=== PATIENT | male | born 1950 | race Caucasian/White ===

== ENCOUNTER 2016-12-12 10:04 | Day surgery (SDC) | payer OTHER ==
[2016-12-10 15:13] VITALS: BMI 34.7
--- NOTE | 2016-12-12 15:14 | OP ---
Operative Note - Note: Operative Date: 12/12/16 Pre-Operative Diagnosis: cephalic migration of stent Operation: r ureteroscopy and stent removal left and due to periureteral swelling placed another new l jj stent insertion and l retrograde Post-Operative Diagnosis: Same as Pre-op Surgeon: Hussein Garcia Anesthesia: General Specimens Removed: jj stent Estimated Blood Loss (mls): 0 Drains & Tubes with Location: jj stent 24 cm l ureteral Operative Report Dictated: Yes
[2016-12-12] MEDS ORDERED: HYDROmorphone HCL CARPU-JECT 2 MG/1 ML DISP.SYRIN IM ONE (15:26)
--- NOTE | 2016-12-12 15:32 | PN ---
Progress Note (short form) - Note Progress Note: stable post op had cephalic migration of stent vss afebrile abdomen soft nt pt may be d/c when alert continue antibiotics and pain management pt to f/u in office on thursday at 3 pm
[2016-12-12] MEDS ORDERED: MIDAZOLAM HCL 2 MG/2 ML SINGLE DOSE VIAL ONE ×2 (16:45→17:19)
[2016-12-12] MEDS ORDERED: GENTAMICIN SO4 80 MG/2 ML VIAL ONE (17:02)
[2016-12-12] MEDS ORDERED: GENTAMICIN SO4 80 MG/2 ML VIAL IVPB ONE (17:03)
[2016-12-12] MEDS ORDERED: ceFAZolin SODIUM 1 GM VIAL IVPB ONE (17:06)
--- NOTE | 2016-12-12 17:31 | HP ---
DATE OF ADMISSION: DICTATION DATE: 12/12/2016 HISTORY OF PRESENT ILLNESS: Patient is a 66-year-old male with a history of benign prostatic hypertrophy, urinary retention and bilateral hydroureteronephrosis. Patient has bilateral Double J stents placed in October 27, 2016, was diagnosed with neurogenic bladder and is now on permanent Griffith drainage. He has got history of high blood pressure, diabetes, hyperlipidemia, and coronary artery disease. He has undergone a right BKA, right inguinal hernia repair, and cholecystectomy. He underwent cystoscopy and stent removal in the office. The left stent was removed without difficulty. The right one had cephalically migrated to the lower ureter. Ultrasound revealed a right hydronephrosis with the stent in the lower portion of the lower third of the ureter. The patient's BUN and creatinine are 15 over 1.04. PHYSICAL EXAMINATION: Presently his abdomen is soft. There is some right CVA tenderness. Genitalia are atraumatic. His prostate is 2+ and firm. Phallus is circumcised, meatus is adequate. He is status post a right BKA. There is no clubbing or edema in the left lower extremity. IMPRESSION: Migrated right ureteral stent. PLAN: Cystourethroscopy, right retrograde pyelogram, right ureteroscopic retrieval of stent, and possible insertion of a 2nd stent for 48 hours to prevent ureteral edema. Heide [id number]
[2016-12-12] MEDS ORDERED: PROMETHAZINE HCL 25 MG/1 ML VIAL IVPUSH PRN (17:55)
[2016-12-12] MEDS ORDERED: ONDANSETRON 4 MG/2 ML VIAL IVPUSH PRN (17:55)
[2016-12-12] MEDS ORDERED: oxyCODONE HCL 5 MG TABLET PO PRN (17:55)
[2016-12-12] MEDS ORDERED: PATIENT'S OWN MEDICATION (NON-FORMULARY) (Ferrous Sulfate [Ferrous Sulfate] 325 MG) PO SCH (22:00)
[2016-12-12] MEDS ORDERED: INSULIN DETEMIR 100 UNITS/ML MDV SQ SCH (22:00)
[2016-12-12] MEDS ORDERED: PATIENT'S OWN MEDICATION (NON-FORMULARY) (Insulin Nph Hum/Reg Insulin Hm [Humulin 70-30 Vi SQ SCH (22:00)
[2016-12-12] MEDS ORDERED: PATIENT'S OWN MEDICATION (NON-FORMULARY) (Insulin Glargine,Hum.Rec.Anlog 70 UNITS) SQ SCH (22:00)
[2016-12-12] MEDS ORDERED: MELATONIN 50 MG PO SCH (22:00)
[2016-12-12] MEDS: FERROUS SO4 325 MG TABLET (FP) PO SCH (22:31)
[2016-12-12] MEDS: METOPROLOL SUCCINATE 25 MG TAB.SR.24H (FP) PO SCH (22:31)
[2016-12-13 06:50] VITALS: BP 130/76; PULSE 88; TEMP 97.5
[2016-12-13] MEDS ORDERED: INSULIN (NOVOLOG MIX 70/30) 100 UNITS/ML MDV SQ SCH (07:00)
[2016-12-13] MEDS ORDERED: sitaGLIPtin PHOSPHATE 100 MG TABLET (FP) PO SCH (07:00)
[2016-12-13] MEDS ORDERED: glipiZIDE 5 MG TABLET (FP) PO SCH (07:00)
[2016-12-13] MEDS: METOPROLOL SUCCINATE 25 MG TAB.SR.24H (FP) PO SCH (09:07)
[2016-12-13] MEDS: FERROUS SO4 325 MG TABLET (FP) PO SCH (09:07)
[2016-12-13] MEDS ORDERED: FERROUS SO4 325 MG TABLET (FP) PO SCH (10:00)
[2016-12-13] MEDS ORDERED: LEVOFLOXACIN 500 MG TABLET (FP) PO SCH (10:00)
[2016-12-13] MEDS ORDERED: TAMSULOSIN HCL 0.4 MG CAP.ER.24H (FP) PO SCH (10:00)
[2016-12-13] MEDS ORDERED: FENOFIBRIC ACID 135 MG CAP PO SCH (10:00)
[2016-12-13] MEDS ORDERED: EZETIMIBE 10 MG TABLET (FP) PO SCH (10:00)
[2016-12-13] MEDS ORDERED: LISINOPRIL 20 MG TABLET (FP) PO SCH (10:00)
[2016-12-13] MEDS ORDERED: PATIENT'S OWN MEDICATION (NON-FORMULARY) (Fenofibrate [Lofibra] 160 MG) PO SCH (10:00)
[2016-12-13] MEDS ORDERED: PATIENT'S OWN MEDICATION (NON-FORMULARY) (Linagliptin [Tradjenta] 5 MG) PO SCH (10:00)
[2016-12-13] MEDS ORDERED: ASPIRIN COATED 81 MG TABLET.EC PO SCH (10:00)
[2016-12-13] MEDS ORDERED: amLODIPine BESYLATE 10 MG TABLET (FP) PO SCH (10:00)
== END 2016-12-13 09:45 | disposition home or self-care (01) ==
LOC: JASUSAT 10:04 → JASU-SURG 10:04 → J5S 19:31 → JASUSAT 12-13 09:45
PROVIDERS: ATTEND Urology
PROC: 0TP98DZ Removal of Intraluminal Device from Ureter, Via Natural or Artificial Opening Endoscopic (ICD-10-PCS; principal; 2016-12-12 12:00)
PROC: BT1FZZZ Fluoroscopy of Left Kidney, Ureter and Bladder (ICD-10-PCS; 2016-12-12 12:00)
DX: T83.89XA Other specified complication of genitourinary prosthetic devices, implants and grafts, initial encounter (principal); N36.8 Other specified disorders of urethra
CPT/HCPCS: 76000-TC; 94010; 94760

== ENCOUNTER 2017-01-20 11:38 | Inpatient (IN) | payer OTHER ==
[2017-01-20] MEDS ORDERED: SODIUM CHLORIDE 1,000 ML IV STA ×2 (12:11→18:21)
[2017-01-20 13:33] LABS: URINE APPEARANCE SLCLOUDY; URINE BILIRUBIN NEGATIVE (NEGATIVE); URINE COLOR YELLOW; URINE GLUCOSE (UA) 1+ (NEGATIVE); URINE KETONE NEGATIVE (NEGATIVE); URINE NITRITE NEGATIVE (NEGATIVE); URINE UROBILINOGEN NEGATIVE E.U./dl (0.2-1.0)
[2017-01-20 13:50] LABS: URINE BLOOD 3+ (NEGATIVE); URINE LEUK ESTERASE 2+ (NEGATIVE); URINE PROTEIN 3+ (NEGATIVE)
[2017-01-20 13:51] LABS: URINE MUCUS RARE; URINE RBC 436 /hpf (0-3); URINE WBC 163 /hpf (3-5)
[2017-01-20 14:03] LABS: BASOPHIL 0.2 % (0-2.0); MCH 28.4 pg (25.7-33.7); MEAN CELL VOLUME 83.6 fl (80-96); MEAN PLT VOLUME 7.8 fl (7.5-11.1); NEUTROPHILS 76.8 % (42.8-82.8); PLATELET COUNT 206 K/MM3 (134-434); RDW 15.8 % (11.9-15.9); WHITE BLOOD COUNT 7.3 K/mm3 (4.0-10.0)
--- NOTE | 2017-01-20 14:12 | PDOC ---
History of Present Illness - General Stated Complaint: Catheter Problem Time Seen by Provider: 01/20/17 11:50 History Source: Patient Exam Limitations: No Limitations - History of Present Illness Travel History: No Initial Comments: 01/20/17 14:08 66-year-old male presents to the ED for replacement of his Stoll catheter tube. Patient states has a Stoll catheter in secondary to urinary retention and enlarged prostate but yesterday had somewhat sugar. Pressure with minimal drainage into the Stoll catheter bag that he took it upon himself to pull the catheter out without deflating the balloon completely and now is only dribbling into the diaper. It is followed by Dr. Hussein Garcia who sees him for the above and has done stents 2 along with a suprapubic tube that patient states fell out. Patient currently has no discomfort at the urethral opening and suprapubic area. Timing/Duration: reports: resolved prior to arrival Quality: reports: mild, fullness Abdominal Pain Onset Location: reports: suprapubic Pain Radiation: reports: no radiation Aggravating Factors: improves with: None Alleviating Factors: improves with: None Past History - Travel Traveled outside of the country in the last 30 days: No Close contact w/someone who was outside of country & ill: No - Past Medical History Allergies/Adverse Reactions: Allergies Allergy/AdvReac Type Severity Reaction Status Date / Time No Known Drug Allergies Allergy Verified 01/20/17 12:17 Home Medications: Ambulatory Orders Lisinopril [Prinivil] 40 mg PO DAILY 04/09/15 Aspirin [Ecotrin] 81 mg PO DAILY 05/11/15 Insulin Glargine,Hum.rec.anlog [Lantus Solostar PEN -] 70 units SQ DAILY Insulin NPH Hum/Reg Insulin Hm [Humulin 70-30 Vial] 15 unit SQ BID 07/22/16 Amlodipine Besylate 10 mg PO DAILY 12/10/16 Ezetimibe [Zetia] 10 mg PO DAILY 12/10/16 Fenofibrate [Lofibra] 160 mg PO DAILY 12/10/16 Glipizide [Glucotrol] 5 mg PO DAILY 12/10/16 Linagliptin [Tradjenta] 5 mg PO DAILY 12/10/16 Tamsulosin HCl 0.8 mg PO DAILY 12/10/16 Metoprolol Tartrate [Lopressor -] 25 mg PO BID 01/20/17 Anemia: No Asthma: No Cancer: No Cardiac Disorders: No CVA: No COPD: No CHF: No Dementia: No Diabetes: Yes GI Disorders: Yes (INCONTINENCE, ENLARGED PROSTATE? INDWELLING CATHETER) Disorders: No HTN: Yes Hypercholesterolemia: Yes Liver Disease: No Seizures: No Thyroid Disease: No Other medical history: indwelling stoll cath for chronic urinary retention - Surgical History Abdominal Surgery: Yes (HERNIA) Appendectomy: No Cardiac Surgery: No Cholecystectomy: Yes Lung Surgery: No Neurologic Surgery: No Orthopedic Surgery: No - Psycho/Social/Smoking Cessation Hx Suicidal Ideation: No Smoking History: Current every day smoker Have you smoked in the past 12 months: No Number of Cigarettes Smoked Daily: 20 Cigars Per Day: 0 Information on smoking cessation initiated: No 'Breaking Loose' booklet given: 10/10/16 Hx Alcohol Use: No Drug/Substance Use Hx: No Substance Use Type: None Hx Substance Use Treatment: No Patient Lives Alone: Yes Lives with/in: lives alone Review of Systems - Review of Systems Able to Perform ROS?: Yes Constitutional: No: Symptoms Reported HEENTM: No: Symptoms Reported Respiratory: No: Symptoms reported Cardiac (ROS): No: Symptoms Reported ABD/GI: Yes: Abdominal cramping : Yes: Other Musculoskeletal: No: Symptoms Reported Integumentary: No: Symptoms Reported Neurological: No: Symptoms reported Endocrine: No: Symptoms Reported Hematologic/Lymphatic: No: Symptoms Reported *Physical Exam - Vital Signs Last Vital Signs Temp Pulse Resp BP Pulse Ox 99.4 F 114 H 18 124/70 94 L 01/20/17 11:45 01/20/17 11:45 01/20/17 11:45 01/20/17 11:45 01/20/17 11:45 - Physical Exam General Appearance: Yes: Nourished, Appropriately Dressed. No: Apparent Distress HEENT: positive: EOMI, KAYE. negative: Pale Conjunctivae Neck: positive: Supple Respiratory/Chest: positive: Lungs Clear, Normal Breath Sounds. negative: Respiratory Distress, Accessory Muscle Use Cardiovascular: positive: Regular Rhythm, Tachycardia. negative: Murmur Gastrointestinal/Abdominal: positive: Soft. negative: Tenderness Male Genitalia: positive: normal genitalia (noted urethral opening with healed erosion likelt due to nonsecured stoll catheter) Extremity: positive: Normal Capillary Refill. negative: Pedal Edema Integumentary: positive: Normal Color, Warm, Moist Neurologic: positive: Motor Strength 5/5 Heart Score/ECG Review - ECG Impressions Tachycardia: Sinus (rate 114. First-degree AV block.) ED Treatment Course - LABORATORY CBC & Chemistry Diagram: 01/20/17 13:30 01/20/17 13:30 - ADDITIONAL ORDERS Additional order review: Laboratory Results 01/20/17 13:10 Urine Color Yellow Urine Appearance Slcloudy Urine pH 7.0 Urine Protein 3+ H Urine Glucose (UA) 1+ H Urine Ketones Negative Urine Blood 3+ H Urine Nitrite Negative Urine Bilirubin Negative Urine Urobilinogen Negative Ur Leukocyte Esterase 2+ H Urine RBC 436 Urine WBC 163 Urine Mucus Rare - RADIOLOGY Radiology Studies Ordered: Category Date Time Status CHEST X-RAY PORTABLE* [RAD] Stat Radiology 01/20/17 12:11 Completed - Medications Given in the ED: ED Medications Discontinued Medications Generic Name Dose Route Start Last Admin Trade Name Freq PRN Reason Stop Dose Admin Sodium Chloride 1,000 mls @ 1,000 mls/hr 01/20/17 12:11 01/20/17 14:05 Normal Saline - IV 01/20/17 13:10 1,000 mls/hr ASDIR STA Administration Medical Decision Making - Medical Decision Making 01/20/17 14:19 Patient here with request to replace Stoll catheter tube since he had pulled that out yesterday after feeling suprapubic pressure with minimal urine output. Patient is followed by Dr. Hussein Garcia who did not contacted decided come to the ER here. Patient denies bleeding at the urethral opening, suprapubic pressure presently and is making urine into his diaper but minimally. Patient on exam had no suprapubic tenderness, signs of urethral trauma, but was found to be tachycardic and states he felt chills 2 days ago. Patient ordered for septic workup. Stoll catheter #20 replaced with noted chary urine without sedimentation. 01/20/17 16:49 Laboratory Tests 01/20/17 01/20/17 01/20/17 13:10 13:30 13:30 WBC 7.3 D Hgb 12.0 D Hct 35.3 L D Plt Count 206 D Neutrophils % 76.8 Monocytes % 14.6 H INR 1.18 H PTT (Actin FS) 33.7 VBG pH POC VBG pCO2 POC VBG pO2 Mixed VBG HCO3 Sodium Potassium Chloride Carbon Dioxide Anion Gap BUN Creatinine Creat Clearance w eGFR Random Glucose Lactic Acid AST ALT Alkaline Phosphatase Creatine Kinase Creatine Kinase Index Troponin I Urine Protein 3+ H Urine Glucose (UA) 1+ H Urine Ketones Negative Urine Blood 3+ H Urine Urobilinogen Negative Ur Leukocyte Esterase 2+ H Urine RBC 436 Urine WBC 163 01/20/17 01/20/17 01/20/17 13:30 13:30 15:03 WBC Hgb Hct Plt Count Neutrophils % Monocytes % INR PTT (Actin FS) VBG pH 7.38 POC VBG pCO2 41.1 POC VBG pO2 59.1 H D Mixed VBG HCO3 23.9 Sodium 138 Potassium 3.7 Chloride 101 Carbon Dioxide 23 Anion Gap 14 BUN 24 H D Creatinine 1.4 H D Creat Clearance w eGFR 50.40 Random Glucose 225 H D Lactic Acid 0.949 AST 27 D ALT 25 D Alkaline Phosphatase 61 Creatine Kinase 389 H D Creatine Kinase Index 0.3 Troponin I 0.06 H D Urine Protein Urine Glucose (UA) Urine Ketones Urine Blood Urine Urobilinogen Ur Leukocyte Esterase Urine RBC Urine WBC Patient draining clear chary colored urine in the bag. Case discussed the patient's PCP Dr. Garcia and states if second troponin and EKG are negative patient may follow-up in the office tomorrow at 12 noon. 01/20/17 18:23 Patient's heart rate slightly elevated at 112 a monitor. Patient will be asked if he took his Lopressor along with given a fluid bolus. 01/20/17 18:41 Patient was reattempted and was noted to have a 102.0 fever. Patient based on exam and urinary complaints including urinalysis patient will be given Levaquin IV since patient has no previous Microsensitivity on file. Kenisha placed again to Dr. Garcia. cardiac profile pending *DC/Admit/Observation/Transfer Diagnosis at time of Disposition: Sepsis secondary to UTI Sepsis Qualifiers: Sepsis type: sepsis due to unspecified organism Qualified Code(s): A41.9 - Sepsis, unspecified organism - Discharge Dispostion Admit: Yes
[2017-01-20 14:27] LABS: INR 1.18 (0.82-1.09)
[2017-01-20 14:29] LABS: ACTIVATED PTT 33.7 SECONDS (26.9-34.4); ALBUMIN 3.4 g/dl (3.4-5.0); BILIRUBIN,TOTAL 0.9 mg/dL (0.2-1.0); CALCIUM 8.6 mg/dL (8.5-10.1); COCKROFT - GAULT 91.69; CREATININE 1.4 mg/dL (0.7-1.3)
[2017-01-20 14:32] LABS: TOT PROT 6.9 g/dl (6.4-8.2); TROPONIN I 0.06 ng/ml (0.00-0.05)
[2017-01-20 15:13] LABS: VENOUS BLOOD GAS HCO3 23.9 meq/L (19-25); VENOUS PH 7.38 (7.32-7.42)
--- NOTE | 2017-01-20 17:03 | EKG ---
Test Reason : Blood Pressure : / mmHG Vent. Rate : 114 BPM Atrial Rate : 114 BPM P-R Int : 000 ms QRS Dur : 090 ms QT Int : 332 ms P-R-T Axes : 055 028 060 degrees QTc Int : 457 ms SINUS TACHYCARDIA WITH 1ST DEGREE A-V BLOCK WITH PREMATURE SUPRAVENTRICULAR COMPLEXES NONSPECIFIC T WAVE ABNORMALITY ABNORMAL ECG WHEN COMPARED WITH ECG OF 15-AUG-2016 09:01, PREMATURE SUPRAVENTRICULAR COMPLEXES ARE NOW PRESENT VENT. RATE HAS INCREASED Confirmed by KATE SALGADO MD ([id number]) on 01/20/2017 5:03:06 PM Referred By: Confirmed By:KATE SALGADO MD
[2017-01-20 18:21] LABS: TROPONIN I 0.04 ng/ml (0.00-0.05)
[2017-01-20] MEDS ORDERED: ACETAMINOPHEN 500 MG TABLET (FP) PO ONE (18:24)
[2017-01-20] MEDS ORDERED: ACETAMINOPHEN 325 MG TABLET (FP) ONE (18:25)
[2017-01-20] MEDS ORDERED: LEVOFLOXACIN 500 MG IVPB 100 ML IVPB ONE (19:34)
[2017-01-20] MEDS ORDERED: ACETAMINOPHEN 325 MG TABLET (FP) PO PRN (21:06)
[2017-01-20] MEDS: SODIUM CHLORIDE 1,000 ML IV SCH (21:12)
[2017-01-20] MEDS: METOPROLOL TARTRATE 25 MG TABLET (FP) PO SCH (22:19)
[2017-01-20] MEDS ORDERED: METOPROLOL TARTRATE 25 MG TABLET (FP) ONE (22:31)
[2017-01-21] MEDS: INSULIN (NOVOLOG MIX 70/30) 100 UNITS/ML MDV SQ SCH (06:20)
[2017-01-21] MEDS ORDERED: glyBURIDE 5 MG TABLET (UD) PO SCH (07:00)
[2017-01-21 07:15] LABS: BASOPHIL 0.3 % (0-2.0); EOSINOPHIL 0.3 % (0-4.5); MCH 28.2 pg (25.7-33.7); MCHC 33.9 g/dl (32.0-35.9); MEAN CELL VOLUME 83.2 fl (80-96); MEAN PLT VOLUME 7.7 fl (7.5-11.1); NEUTROPHILS 68.7 % (42.8-82.8); PLATELET COUNT 172 K/MM3 (134-434); RDW 15.6 % (11.9-15.9); WHITE BLOOD COUNT 5.7 K/mm3 (4.0-10.0)
[2017-01-21 07:42] LABS: ALBUMIN 3.1 g/dl (3.4-5.0); ANION GAP 11 (8-16); CALCIUM 8.2 mg/dL (8.5-10.1); CO2 23 mmol/L (21-32); GLUCOSE,RANDOM 183 mg/dL (74-106)
[2017-01-21 07:46] LABS: ALK PHOS 54 U/L (45-117); BILIRUBIN,TOTAL 0.5 mg/dL (0.2-1.0); COCKROFT - GAULT 128.36; SGOT/AST 27 U/L (15-37); SGPT/ALT 23 U/L (12-78); TOT PROT 6.4 g/dl (6.4-8.2)
[2017-01-21] MEDS ORDERED: POTASSIUM CHLORIDE TABS 20 MEQ TABLET.ER (FP) PO ONE (08:14)
--- NOTE | 2017-01-21 11:48 | EKG ---
Test Reason : Blood Pressure : / mmHG Vent. Rate : 120 BPM Atrial Rate : 120 BPM P-R Int : 196 ms QRS Dur : 096 ms QT Int : 352 ms P-R-T Axes : 003 036 021 degrees QTc Int : 497 ms SINUS TACHYCARDIA WITH PREMATURE ATRIAL COMPLEXES OTHERWISE NORMAL ECG WHEN COMPARED WITH ECG OF 20-JAN-2017 13:32, OR INTERVAL HAS INCREASED Confirmed by VINCENZO COLINDRES MD ([id number]) on 01/21/2017 11:48:39 AM Referred By: Confirmed By:VINCENZO COLINDRES MD
[2017-01-21] MEDS: METOPROLOL TARTRATE 25 MG TABLET (FP) PO SCH ×2 (13:13→21:52)
[2017-01-21] MEDS: ASPIRIN COATED 81 MG TABLET.EC PO SCH (13:13)
[2017-01-21] MEDS: TAMSULOSIN HCL 0.4 MG CAP.ER.24H (FP) PO SCH (13:13)
[2017-01-21] MEDS: LISINOPRIL 10 MG TABLET (FP) PO SCH (13:14)
[2017-01-21] MEDS: amLODIPine BESYLATE 10 MG TABLET (FP) PO SCH (13:14)
[2017-01-21 16:23] VITALS: BMI 33.5
[2017-01-21] MEDS ORDERED: PT OWN MED DRAWER 7, Y5N ONE (17:50)
[2017-01-21] MEDS: SODIUM CHLORIDE 1,000 ML IV SCH ×2 (18:01→21:49)
[2017-01-21] MEDS: glyBURIDE 5 MG TABLET (UD) PO SCH (18:02)
--- NOTE | 2017-01-21 20:32 | CONS ---
DATE OF CONSULTATION: DATE OF DICTATION: 01/21/2017 HISTORY OF PRESENT ILLNESS: The patient is a 66-year-old male admitted via the emergency room where the gross hematuria and urinary retention. Patient has had a Griffith catheter in place after undergoing a cystoscopy and ureteroscopy with stent placement last week. Patient pulled Griffith catheter out intentionally due to bladder spasm. The balloon was still inflated and the reason for the gross hematuria is secondary to traumatic urethral trauma. The patient has a long history of recurrent urinary tract infections, several episodes of sepsis, also had a severe balanitis. Has undergone a circumcision. Patient has chronic kidney disease, COPD, type 2 diabetes, neurogenic bladder, peripheral artery disease, and BPH. He denies any allergies. He is on multiple medications including Norvasc, Diabeta, Ecotrin, Tylenol, insulin, Prinivil, Lopressor, and Flomax. Also takes Glucotrol, , and Tradjenta. In the emergency room, the patient had the Griffith catheter in place without any difficulty. The urine appears to be clear. His abdomen is soft. Testes are normal. No hernias or hydroceles were elicited. His prostate is 3+, smooth, benign, and nontender. Extremities reveal bilateral BKA. IMPRESSION: At present, patient is status post renal pelvic procedure, most likely laser lithotripsy. He does have a ureteral stent in place, intentional removal of an inflated Griffith catheter, and recurrent retention. Will recommend continuing the Griffith catheter, elevation of scrotum. Will also recommend a renal and pelvic ultrasound. Will follow with you. Heide [id number]
[2017-01-22] MEDS ORDERED: PT OWN MED DRAWER 7, Y5N ONE ×7 (05:08→18:24)
[2017-01-22] MEDS: glyBURIDE 5 MG TABLET (UD) PO SCH ×2 (06:42→18:08)
[2017-01-22 08:47] LABS: MCH 27.9 pg (25.7-33.7); MCHC 33.6 g/dl (32.0-35.9); MEAN CELL VOLUME 83.1 fl (80-96); MEAN PLT VOLUME 8.4 fl (7.5-11.1); PLATELET COUNT 194 K/MM3 (134-434); RDW 15.4 % (11.9-15.9); WHITE BLOOD COUNT 4.9 K/mm3 (4.0-10.0)
[2017-01-22 09:05] LABS: CALCIUM 8.3 mg/dL (8.5-10.1); COCKROFT - GAULT 160.45; CREATININE 0.8 mg/dL (0.7-1.3)
[2017-01-22] MEDS: ASPIRIN COATED 81 MG TABLET.EC PO SCH (10:25)
[2017-01-22] MEDS: TAMSULOSIN HCL 0.4 MG CAP.ER.24H (FP) PO SCH (10:25)
[2017-01-22] MEDS: METOPROLOL TARTRATE 25 MG TABLET (FP) PO SCH ×2 (10:25→21:37)
[2017-01-22] MEDS: amLODIPine BESYLATE 10 MG TABLET (FP) PO SCH (10:25)
[2017-01-22] MEDS: LISINOPRIL 10 MG TABLET (FP) PO SCH (10:26)
--- NOTE | 2017-01-22 10:33 | HP ---
Admitting History and Physical - Admission Chief Complaint: now c/o diarrea 3 days. pulled stoll out. states did not funtion despite drinking h2o. no other complaints History of Present Illness: pt needs perm suprapubic cath for neurogenic bladder refractory to all meds ? dm related History Source: Patient Limitations to Obtaining History: No Limitations (lt foot wd care in past) - Past Medical History Pulmonary: Yes: COPD Gastrointestinal: Yes: Other (fatty liver) Renal/: Yes: Neurogenic Bladder, Other (balinitis hydro neurogenic bladder) Infectious Disease: Yes: Other (balinitis) Musculoskeletal: Yes: Other (rt bka lt food wd healed) Endocrine: Yes: Diabetes Mellitus - Past Surgical History Past Surgical History: Yes: Amputation - Smoking History Smoking history: Current every day smoker Have you smoked in the past 12 months: Yes Aproximately how many cigarettes per day: 20 - Alcohol/Substance Use Hx Alcohol Use: No History of Substance Use: reports: None - Social History Usual Living Arrangement: Yes: Other (home atteding services) ADL: Independent History of Recent Travel: No Home Medications - Allergies Allergies/Adverse Reactions: Allergies Allergy/AdvReac Type Severity Reaction Status Date / Time No Known Drug Allergies Allergy Verified 01/20/17 12:17 - Home Medications Home Medications: Ambulatory Orders Lisinopril [Prinivil] 40 mg PO DAILY 04/09/15 Aspirin [Ecotrin] 81 mg PO DAILY 05/11/15 Insulin Glargine,Hum.rec.anlog [Lantus Solostar PEN -] 70 units SQ DAILY Insulin NPH Hum/Reg Insulin Hm [Humulin 70-30 Vial] 15 unit SQ BID 07/22/16 Amlodipine Besylate 10 mg PO DAILY 12/10/16 Ezetimibe [Zetia] 10 mg PO DAILY 12/10/16 Fenofibrate [Lofibra] 160 mg PO DAILY 12/10/16 Glipizide [Glucotrol] 5 mg PO DAILY 12/10/16 Linagliptin [Tradjenta] 5 mg PO DAILY 12/10/16 Tamsulosin HCl 0.8 mg PO DAILY 12/10/16 Metoprolol Tartrate [Lopressor -] 25 mg PO BID 01/20/17 Family Disease History - Family Disease History Family History: Unremarkable Review of Systems - Review of Systems Constitutional: reports: Other (diarrea 3 days) Eyes: reports: No Symptoms HENT: reports: No Symptoms Neck: reports: No Symptoms Cardiovascular: reports: No Symptoms Respiratory: reports: No Symptoms Gastrointestinal: reports: Diarrhea Genitourinary: reports: Other (leg bag intact) Musculoskeletal: reports: No Symptoms Integumentary: reports: No Symptoms Neurological: reports: No Symptoms Endocrine: reports: No Symptoms Hematology/Lymphatic: reports: No Symptoms Psychiatric: reports: No Symptoms Physical Examination Vital Signs: Vital Signs Temperature 99.4 F 01/22/17 06:00 Pulse Rate 80 01/22/17 06:00 Respiratory Rate 20 01/22/17 06:00 Blood Pressure 146/70 01/22/17 06:00 O2 Sat by Pulse Oximetry (%) 97 01/21/17 21:00 Constitutional: Yes: Well Nourished Eyes: Yes: WNL HENT: Yes: WNL Neck: Yes: WNL Cardiovascular: Yes: WNL Respiratory: Yes: WNL Gastrointestinal: Yes: WNL ...Rectal Exam: Yes: Deferred Renal/: Yes: Other (leg bag itact) Breast(s): Yes: WNL Musculoskeletal: Yes: WNL Extremities: Yes: WNL Integumentary: Yes: WNL Neurological: Yes: WNL ...Motor Strength: WNL Psychiatric: Yes: WNL Labs: CBC, BMP 01/22/17 06:30 01/22/17 06:30 Problem List - Problems (1) Acute diarrhea Code(s): R19.7 - DIARRHEA, UNSPECIFIED Assessment/Plan w/u stool gu for permenent suprapubic cath /flagl iv cont tx as is jamal iv
--- NOTE | 2017-01-22 11:00 | PN ---
Progress Note (short form) - Note Progress Note: ID Admitted with diarrhea urinary retension fever chills after pulling out his chronic stoll. Extensive urologic history with stents and recent antibiotics Microbiology 08/15/16 22:00 Urine - Urine Stoll Urine Culture - Final NO GROWTH OBTAINED 08/14/16 21:07 Blood - Peripheral Venous Blood Culture - Final NO GROWTH AFTER 5 DAYS INCUBATION 08/14/16 21:07 Blood - Peripheral Venous Blood Culture - Final NO GROWTH AFTER 5 DAYS INCUBATION 01/20/17 13:20 Blood - Peripheral Venous Blood Culture - Preliminary NO GROWTH OBTAINED AFTER 24 HOURS, INCUBATION TO CONTINUE FOR 4 DAYS. 01/20/17 12:11 Blood - Peripheral Venous Blood Culture - Preliminary NO GROWTH OBTAINED AFTER 24 HOURS, INCUBATION TO CONTINUE FOR 4 DAYS. Selected Entries 01/22/17 06:00 Temperature 99.4 F Pulse Rate 80 Respiratory 20 Rate Blood Pressure 146/70 Laboratory Tests 01/20/17 01/22/17 01/22/17 13:10 06:30 06:30 WBC 4.9 Hgb 10.9 L Hct 32.5 L Plt Count 194 BUN 10 D Creatinine 0.8 Ur Leukocyte Esterase 2+ H Urine RBC 436 Urine WBC 163 Assessment Fever secondary to UIT Morganella Diarrhea since prior to admission ? C diff related Urinary retension Plan Ceftazidime 1 gr q 8h Metronidazole orally C diff toxin Tito CAMPOS Problem List - Problems (1) Sepsis secondary to UTI Code(s): A41.9 - SEPSIS, UNSPECIFIED ORGANISM N39.0 - URINARY TRACT INFECTION, SITE NOT SPECIFIED (2) Diarrhea Code(s): R19.7 - DIARRHEA, UNSPECIFIED
[2017-01-22] MEDS: INSULIN (NOVOLOG MIX 70/30) 100 UNITS/ML MDV SQ SCH ×2 (11:56→18:07)
[2017-01-22] MEDS ORDERED: POTASSIUM CHLORIDE TABS 20 MEQ TABLET.ER (FP) PO ONE (12:30)
[2017-01-22] MEDS: metroNIDAZOLE 250 MG TABLET PO SCH ×2 (13:07→21:37)
[2017-01-22] MEDS: CEFTAZIDIME PENTAHYDRATE 1 GM in DEXTROSE 5%-WATER - 50 ML IVPB SCH ×2 (14:03→18:08)
[2017-01-22] MEDS: SODIUM CHLORIDE 1,000 ML IV SCH ×2 (14:04→21:37)
--- NOTE | 2017-01-22 14:41 | CONS ---
DATE OF CONSULTATION: DATE OF DICTATION: 01/22/2017 HISTORY OF PRESENT ILLNESS: This is a 66-year-old diabetic male with peripheral vascular disease admitted to replace a chronic Griffith catheter for urinary retention that he apparently pulled out. He has an enlarged prostate and has a chronic Griffith catheter with a history of extensive urological procedures in the past, including placement of ureteral stents. After the catheter was removed, he noted some hematuria. He also was experiencing fevers with chills and his temperature was noted to be 102 when he arrived. He also admits to diarrhea and notes that he has had a prior suprapubic catheter in the past as well as history of antibiotic treatments, including recently. A prior urine culture in the computer had Morganella. Currently, he is afebrile. Blood cultures have been obtained and these are no growth. A urine culture currently has Morganella. PAST MEDICAL HISTORY: Includes hypertension, diabetes mellitus, neurogenic bladder with chronic indwelling Griffith, hyperlipidemia, placement of ureteral stents, hernia surgery, cholecystectomy. MEDICATIONS: Lisinopril, aspirin, insulin, amlodipine, Zetia, fenofibrate, Glucotrol, Tradjenta, tamsulosin, metoprolol. ALLERGIES: None known. SOCIAL HISTORY: A heavy smoker for many years. Formerly drank heavily but now only on occasion. No history of substance abuse, recent travel. He lives with 2 other roommates. FAMILY HISTORY: Reviewed and noncontributory. REVIEW OF SYSTEMS:Respiratory: No cough, shortness of breath, hemoptysis. Cardiac: No chest pain, palpitation, syncope. Gastrointestinal: Positive diarrhea, nonbloody, noted prior to admission with frequent diarrheal episodes since admission. Genitourinary: Indwelling Griffith catheter placed upon admission. PHYSICAL EXAMINATION:General: He was an alert male in no acute distress. Vital Signs: The temperature was 99.4, pulse 80, blood pressure 146/70. Neck: Supple. No adenopathy. Lungs: Clear to percussion and auscultation. Heart: S1, S2. Regular rhythm without audible murmur. Abdomen: Soft, nontender, without hepatosplenomegaly. Extremities: Reveal an amputation of the right lower extremity with a prosthesis. LABORATORY DATA: White count 4.9, hemoglobin 10.9, platelets of 194. BUN of 10, creatinine 0.8. Urinalysis: 2+ leukocyte esterase, 430 red cells, 160 white cells. Urine culture as previously noted. Renal ultrasound dated January 21 shows normal kidneys and urinary bladder with no hydronephrosis. ASSESSMENT: A 66-year-old diabetic male with history of leg prosthesis and neurogenic bladder, chronic Griffith catheter recently pulled out presents with fever and diarrhea with background history of urological procedures in the past and perhaps recent courses of antibiotics from Urology. He will be treated for the UTI with ceftazidime 1 g IV every 8 hours. Reviewing his chart, I see that he is not currently on any antibiotic. Will add metronidazole empirically for possible C. difficile infection and obtain a stool for Clostridium difficile toxin. The case was discussed at length with Donell Garcia. GRETCHEN IGLESIAS M.D. BLANCHE/[id number]
[2017-01-22 15:25] LABS: PLATELET ESTIMATE ADEQUATE (NORMAL)
[2017-01-23] MEDS: CEFTAZIDIME PENTAHYDRATE 1 GM in DEXTROSE 5%-WATER - 50 ML IVPB SCH ×2 (01:21→09:54)
[2017-01-23] MEDS: SODIUM CHLORIDE 1,000 ML IV SCH ×3 (05:00→22:18)
[2017-01-23] MEDS: metroNIDAZOLE 250 MG TABLET PO SCH ×2 (05:51→13:33)
[2017-01-23] MEDS: glyBURIDE 5 MG TABLET (UD) PO SCH ×2 (06:08→16:46)
[2017-01-23] MEDS: INSULIN (NOVOLOG MIX 70/30) 100 UNITS/ML MDV SQ SCH ×2 (07:05→16:50)
[2017-01-23 07:39] LABS: BASOPHIL 0.6 % (0-2.0); EOSINOPHIL 2.9 % (0-4.5); MCH 28.3 pg (25.7-33.7); MCHC 34.3 g/dl (32.0-35.9); MEAN CELL VOLUME 82.4 fl (80-96); MEAN PLT VOLUME 7.9 fl (7.5-11.1); NEUTROPHILS 54.6 % (42.8-82.8); PLATELET COUNT 205 K/MM3 (134-434); WHITE BLOOD COUNT 5.4 K/mm3 (4.0-10.0)
[2017-01-23 08:01] LABS: CALCIUM 8.2 mg/dL (8.5-10.1)
[2017-01-23 08:03] LABS: COCKROFT - GAULT 183.38; CREATININE 0.7 mg/dL (0.7-1.3)
[2017-01-23] MEDS: TAMSULOSIN HCL 0.4 MG CAP.ER.24H (FP) PO SCH (08:38)
[2017-01-23] MEDS ORDERED: PT OWN MED DRAWER 7, Y5N ONE ×3 (09:51→17:23)
[2017-01-23] MEDS: amLODIPine BESYLATE 10 MG TABLET (FP) PO SCH (09:53)
[2017-01-23] MEDS: METOPROLOL TARTRATE 25 MG TABLET (FP) PO SCH ×2 (09:53→21:25)
[2017-01-23] MEDS: LISINOPRIL 10 MG TABLET (FP) PO SCH (09:53)
[2017-01-23] MEDS: ASPIRIN COATED 81 MG TABLET.EC PO SCH (09:53)
[2017-01-23] MEDS ORDERED: POTASSIUM CHLORIDE TABS 20 MEQ TABLET.ER (FP) PO ONE (11:15)
--- NOTE | 2017-01-23 14:41 | PN ---
Progress Note (short form) - Note Progress Note: no diarrhea no fever Vital Signs Period Temp Pulse Resp BP Sys/Yanez Pulse Ox Last 24 Hr 97.9 F-99 F 70-87 16-22 112-154/63-84 97 cor-rrr lungs clear abd soft,nt +stoll ext no edema CBC, BMP 01/23/17 06:30 01/23/17 06:30 cdiff negative Microbiology 01/20/17 13:20 Blood - Peripheral Venous Blood Culture - Preliminary NO GROWTH OBTAINED AFTER 72 HOURS, INCUBATION TO CONTINUE FOR 2 DAYS. 01/20/17 12:11 Blood - Peripheral Venous Blood Culture - Preliminary NO GROWTH OBTAINED AFTER 72 HOURS, INCUBATION TO CONTINUE FOR 2 DAYS. 01/20/17 13:10 Urine - Urine - Catheterized Urine Culture - Final Morganella Morganii 01/22/17 11:30 Stool Clostridium difficile Antigen (SHABANA) - Final 01/22/17 11:30 Stool Clostridium difficile Toxin Assay - Final Current Medications Acetaminophen (Tylenol -) 650 mg PO Q4H PRN PRN Reason: FEVER OR PAIN Amlodipine Besylate (Norvasc -) 10 mg PO DAILY [facility] Last Admin: 01/23/17 09:53 Dose: 10 mg Aspirin (Ecotrin -) 81 mg PO DAILY [facility] Last Admin: 01/23/17 09:53 Dose: 81 mg Glyburide (Diabeta -) 5 mg PO BID@0700,1630 [facility] Last Admin: 01/23/17 06:08 Dose: 5 mg Ceftazidime 1 gm/ Dextrose 50 mls @ 100 mls/hr IVPB Q8H-IV [facility] PRN Reason: Protocol Last Admin: 01/23/17 09:54 Dose: 100 mls/hr Sodium Chloride (Normal Saline -) 1,000 mls @ 50 mls/hr IV ASDIR [facility] Last Admin: 01/23/17 13:15 Dose: 50 mls/hr Insulin Aspart (Novolog Mix 70/30 Vial) 15 units SQ BIDAC [facility] Stop: 01/25/17 16:31 Last Admin: 01/23/17 07:05 Dose: 15 units Lisinopril (Prinivil) 10 mg PO DAILY [facility] Last Admin: 01/23/17 09:53 Dose: 10 mg Metoprolol Tartrate (Lopressor -) 25 mg PO BID [facility] Last Admin: 01/23/17 09:53 Dose: 25 mg Metronidazole (Flagyl -) 500 mg PO TID [facility] Last Admin: 01/23/17 13:33 Dose: 500 mg Tamsulosin HCl (Flomax -) 0.8 mg PO DAILY@0830 [facility] Last Admin: 01/23/17 08:38 Dose: 0.8 mg a/p morganella uti sensitiv to levaquin, can switch to po levaquin cdiff negative will d/c flagyl start probiotic f/u per urology please call back if needed
--- NOTE | 2017-01-23 16:10 | PN ---
Progress Note, Physician History of Present Illness: pt no diarrea vss lower iv 50 cc hr po levaqiun p/t eval gave kcl chk labs in am - Current Medication List Current Medications: Active Medications Acetaminophen (Tylenol -) 650 mg PO Q4H PRN PRN Reason: FEVER OR PAIN Amlodipine Besylate (Norvasc -) 10 mg PO DAILY [facility] Last Admin: 01/23/17 09:53 Dose: 10 mg Aspirin (Ecotrin -) 81 mg PO DAILY [facility] Last Admin: 01/23/17 09:53 Dose: 81 mg Glyburide (Diabeta -) 5 mg PO BID@0700,1630 [facility] Last Admin: 01/23/17 06:08 Dose: 5 mg Ceftazidime 1 gm/ Dextrose 50 mls @ 100 mls/hr IVPB Q8H-IV MATTHEW PRN Reason: Protocol Last Admin: 01/23/17 09:54 Dose: 100 mls/hr Sodium Chloride (Normal Saline -) 1,000 mls @ 50 mls/hr IV ASDIR [facility] Last Admin: 01/23/17 13:15 Dose: 50 mls/hr Insulin Aspart (Novolog Mix 70/30 Vial) 15 units SQ BIDAC [facility] Stop: 01/25/17 16:31 Last Admin: 01/23/17 07:05 Dose: 15 units Lactobacillus Acidophilus (Bacid -) 1 tab PO BID [facility] Lisinopril (Prinivil) 10 mg PO DAILY [facility] Last Admin: 01/23/17 09:53 Dose: 10 mg Metoprolol Tartrate (Lopressor -) 25 mg PO BID [facility] Last Admin: 01/23/17 09:53 Dose: 25 mg Tamsulosin HCl (Flomax -) 0.8 mg PO DAILY@0830 [facility] Last Admin: 01/23/17 08:38 Dose: 0.8 mg - Objective Vital Signs: Vital Signs Temperature 98.6 F 01/23/17 14:19 Pulse Rate 70 01/23/17 14:19 Respiratory Rate 16 01/23/17 14:19 Blood Pressure 112/84 01/23/17 14:19 O2 Sat by Pulse Oximetry (%) 97 01/22/17 21:00 Labs: CBC, BMP 01/23/17 06:30 01/23/17 06:30 INR, PTT INR 1.18 (0.82-1.09) H 01/20/17 13:30 Problem List - Problems (1) Acute diarrhea Code(s): R19.7 - DIARRHEA, UNSPECIFIED
[2017-01-23] MEDS ORDERED: INSULIN (NOVOLOG MIX 70/30) 100 UNITS/ML MDV SQ ONE (16:53)
[2017-01-23] MEDS: LACTOBACILLUS ACIDOPHILUS 1 EACH TAB (FP) PO SCH (21:25)
[2017-01-24] MEDS: glyBURIDE 5 MG TABLET (UD) PO SCH (06:45)
[2017-01-24] MEDS: INSULIN (NOVOLOG MIX 70/30) 100 UNITS/ML MDV SQ SCH ×2 (06:46→10:14)
[2017-01-24] MEDS ORDERED: LEVOFLOXACIN 750 MG TABLET PO SCH (10:00)
[2017-01-24] MEDS: METOPROLOL TARTRATE 25 MG TABLET (FP) PO SCH (10:13)
[2017-01-24] MEDS: LISINOPRIL 10 MG TABLET (FP) PO SCH (10:13)
[2017-01-24] MEDS: ASPIRIN COATED 81 MG TABLET.EC PO SCH (10:13)
[2017-01-24] MEDS: TAMSULOSIN HCL 0.4 MG CAP.ER.24H (FP) PO SCH (10:13)
[2017-01-24] MEDS: LACTOBACILLUS ACIDOPHILUS 1 EACH TAB (FP) PO SCH (10:13)
[2017-01-24] MEDS: amLODIPine BESYLATE 10 MG TABLET (FP) PO SCH (10:13)
--- NOTE | 2017-01-24 11:11 | PN ---
Progress Note, Physician - Current Medication List Current Medications: Active Medications Acetaminophen (Tylenol -) 650 mg PO Q4H PRN PRN Reason: FEVER OR PAIN Amlodipine Besylate (Norvasc -) 10 mg PO DAILY [facility] Last Admin: 01/24/17 10:13 Dose: 10 mg Aspirin (Ecotrin -) 81 mg PO DAILY [facility] Last Admin: 01/24/17 10:13 Dose: 81 mg Glyburide (Diabeta -) 5 mg PO BID@0700,1630 [facility] Last Admin: 01/24/17 06:45 Dose: 5 mg Insulin Aspart ([facility] 70/30 [facility] Stop: 01/25/17 16:31 Last Admin: 01/24/17 10:14 Dose: Not Given Lactobacillus Acidophilus (Bacid -) 1 tab PO BID [facility] Last Admin: 01/24/17 10:13 Dose: 1 tab Levofloxacin (Levaquin) 500 mg PO DAILY [facility] Stop: 01/26/17 10:01 Lisinopril (Prinivil) 10 mg PO DAILY [facility] Last Admin: 01/24/17 10:13 Dose: 10 mg Metoprolol Tartrate (Lopressor -) 25 mg PO BID [facility] Last Admin: 01/24/17 10:13 Dose: 25 mg Tamsulosin HCl (Flomax -) 0.8 mg PO DAILY@0830 [facility] Last Admin: 01/24/17 10:13 Dose: 0.8 mg - Objective Vital Signs: Vital Signs Temperature 98.9 F 01/24/17 06:00 Pulse Rate 69 01/24/17 06:00 Respiratory Rate 20 01/24/17 06:00 Blood Pressure 137/78 01/24/17 06:00 O2 Sat by Pulse Oximetry (%) 97 01/23/17 21:00 Labs: CBC, BMP 01/23/17 06:30 01/23/17 06:30 INR, PTT INR 1.18 (0.82-1.09) H 01/20/17 13:30 Problem List - Problems (1) Acute diarrhea Code(s): R19.7 - DIARRHEA, UNSPECIFIED Assessment/Plan pt no complaints vss basic pnd d/c home regardless levaqiunpo x 4 days more out pt appt tueday 300 pm in my office cont all meds as is at home
[2017-01-24 11:37] VITALS: BP 150/78; PULSE 73; TEMP 98.2
[2017-01-24 11:38] LABS: CALCIUM 8.8 mg/dL (8.5-10.1); COCKROFT - GAULT 142.63; CREATININE 0.9 mg/dL (0.7-1.3)
== END 2017-01-24 14:52 | disposition home or self-care (01) | DRG 872 ==
LOC: JER 11:38 → JERBED 18:57 → J8W 01-21 15:37
PROVIDERS: ADMIT Family Medicine; ATTEND Family Medicine
DX: A41.9 Sepsis, unspecified organism (principal); N39.0 Urinary tract infection, site not specified; R19.7 Diarrhea, unspecified; F17.210 Nicotine dependence, cigarettes, uncomplicated; I10 Essential (primary) hypertension; E11.9 Type 2 diabetes mellitus without complications; E78.5 Hyperlipidemia, unspecified; R33.9 Retention of urine, unspecified; R31.0 Gross hematuria
CPT/HCPCS: 36415; 71010-TC; 76775-TC; 76856-TC; 80048; 80053; 81003; 81015; 82550; 82553; 82803; 83036; 83605; 84484; 85025; 85610; 85730; 86850; 86900; 86901; 87040; 87086; 87186; 87324; 87449; 93005; 93010; 99285-25

== ENCOUNTER 2017-04-17 09:41 | Day surgery (SDC) | payer OTHER ==
[2017-04-15 14:56] VITALS: BMI 35.5
[2017-04-17] MEDS ORDERED: ASPIRIN COATED 81 MG TABLET.EC PO SCH (10:00)
[2017-04-17] MEDS ORDERED: EZETIMIBE 10 MG TABLET (FP) PO SCH (10:00)
[2017-04-17] MEDS ORDERED: glipiZIDE 5 MG TABLET (FP) PO SCH (10:00)
[2017-04-17] MEDS ORDERED: TAMSULOSIN HCL 0.4 MG CAP.ER.24H (FP) PO SCH (10:00)
[2017-04-17] MEDS ORDERED: PATIENT'S OWN MEDICATION (NON-FORMULARY) (Insulin Glargine,Hum.Rec.Anlog 70 UNITS) SQ SCH (10:00)
[2017-04-17] MEDS ORDERED: amLODIPine BESYLATE 10 MG TABLET (FP) PO SCH (10:00)
[2017-04-17] MEDS ORDERED: METOPROLOL TARTRATE 25 MG TABLET (FP) PO SCH (10:00)
[2017-04-17] MEDS ORDERED: PATIENT'S OWN MEDICATION (NON-FORMULARY) (Apremilast [Otezla] 30 MG) PO SCH (10:00)
[2017-04-17] MEDS ORDERED: LISINOPRIL 10 MG TABLET (FP) PO SCH (10:00)
[2017-04-17] MEDS ORDERED: ACETAMINOPHEN 325 MG TABLET (FP) PO PRN ×2 (10:42→16:05)
[2017-04-17] MEDS ORDERED: oxyCODONE HCL 5 MG TABLET PO PRN (10:42)
[2017-04-17] MEDS ORDERED: FENOFIBRIC ACID 135 MG CAP PO SCH (11:00)
--- NOTE | 2017-04-17 11:48 | OP ---
Operative Note - Note: Operative Date: 04/17/17 Pre-Operative Diagnosis: urininary retention Operation: suprapubic tube insertion, cystotomy Implants: spt Post-Operative Diagnosis: Same as Pre-op Surgeon: Hussein Garcia Anesthesia: General Drains & Tubes with Location: spt Operative Report Dictated: Yes
[2017-04-17] MEDS ORDERED: CEPHALEXIN MONOHYDRATE 500 MG CAPSULE (UD) PO SCH (12:00)
[2017-04-17] MEDS ORDERED: PROPOFOL 20 ML ONE (15:18)
[2017-04-17] MEDS ORDERED: MIDAZOLAM HCL 2 MG/2 ML SINGLE DOSE VIAL ONE (15:19)
[2017-04-17] MEDS ORDERED: ceFAZolin SODIUM 1 GM VIAL ONE (15:35)
[2017-04-17] MEDS ORDERED: ceFAZolin SODIUM 1 GM VIAL IVPB ONE (15:38)
[2017-04-17] MEDS ORDERED: KETOROLAC TROMETHAMINE 30 MG/1 ML VIAL ONE (15:45)
[2017-04-17] MEDS ORDERED: PROMETHAZINE HCL 25 MG/1 ML VIAL IVPUSH PRN (16:05)
[2017-04-17] MEDS ORDERED: LACTATED RINGERS SOLUTION 1,000 ML IV SCH (16:15)
[2017-04-17 17:19] VITALS: TEMP 99.1
[2017-04-17 17:32] VITALS: BP 140/80; PULSE 80
[2017-04-18] MEDS ORDERED: sitaGLIPtin PHOSPHATE 25 MG TABLET (FP) PO SCH (07:00)
[2017-04-18] MEDS ORDERED: INSULIN (NOVOLOG MIX 70/30) 100 UNITS/ML MDV SQ SCH (07:00)
--- NOTE | 2017-04-18 08:59 | HP ---
DATE OF ADMISSION: HISTORY: Patient is a 67-year-old male with a history of neurogenic bladder and recurrent bouts of urinary retention. The patient also has a history of a right kidney stone. He is status post a right laser lithotripsy with insertion of a JJ stent March 20. Griffith catheter was removed, and the patient went into overflow incontinence. He has undergone a cholecystectomy, right inguinal hernia repair, and a right [id number] amputation. MEDICATIONS: He is on metoprolol, Glipizide, aspirin, lisinopril, a statin, Norvasc, and insulin. PHYSICAL EXAMINATION: GENERAL: Reveals a well-developed gentleman in no apparent distress. CHEST: Clear. ABDOMEN: Soft. GENITOURINARY: Atraumatic. A Griffith catheter is present. It is patent. The urine is clear. Patient's prostate is 2+, smooth, nontender. Phallus is circumcised. A postvoid residual revealed 546 mL of urine. Patient's BUN 15, creatinine 1.04. IMPRESSION: At present, a 67-year-old male with neurogenic bladder and recurrent retention. PLAN: We will schedule for suprapubic cystotomy. This was explained in detail to the patient. Heide [id number]
--- NOTE | 2017-04-18 09:04 | OP ---
DATE OF OPERATION: 04/17/2017 PREOPERATIVE DIAGNOSIS: Flaccid neurogenic bladder, recurrent retention. OPERATIVE PROCEDURE: Suprapubic cystotomy. ANESTHESIA: General. DESCRIPTION OF PROCEDURE: Under above stated anesthesia, the patient was prepped in the supine position. A Griffith catheter has been in place. The bladder was filled with 300 mL of normal saline and clamped. A 3-cm suprapubic vertical incision was made. This was carried down through skin and subcutaneous using a Rosita clamp. Blunt dissection was performed, and the dome of the bladder was isolated. The peritoneal reflection was swept cephalically with a wet sponge stick. Allis clamps were used to grasp the dome of the bladder and bring this out into the wound. A stab was made into the dome of the bladder. The urine and fluid in the bladder was suctioned out. No lesions or calculi were seen in the bladder. An 18-Occitan 10-mL Griffith was placed in the dome of the bladder. The bladder was closed with 2 layers of 2-0 and 3-0 Vicryl suture ligatures. The suprapubic Griffith was brought out through the center of the wound. The wound was closed with 2-0 Vicryl suture ligatures. The skin was closed with rona. The urethral Griffith was removed. The suprapubic Griffith was attached to a leg bag. The patient tolerated the procedure well. He returned to the recovery room in good condition. Heide [id number]
== END 2017-04-17 17:25 | disposition home or self-care (01) ==
LOC: JASU-SURG 09:41
PROVIDERS: ATTEND Urology
PROC: 0T9C00Z Drainage of Bladder Neck with Drainage Device, Open Approach (ICD-10-PCS; principal; 2017-04-17 11:30)
DX: N31.2 Flaccid neuropathic bladder, not elsewhere classified (principal); R33.9 Retention of urine, unspecified
CPT/HCPCS: 94760

== ENCOUNTER 2017-04-30 11:31 | Inpatient (IN) | payer OTHER ==
--- NOTE | 2017-04-30 11:47 | PDOC ---
History of Present Illness - General Chief Complaint: Diarrhea Stated Complaint: Vomiting/Diarrhea Time Seen by Provider: 04/30/17 11:44 History Source: Patient Exam Limitations: No Limitations Past History - Past Medical History Allergies/Adverse Reactions: Allergies Allergy/AdvReac Type Severity Reaction Status Date / Time No Known Drug Allergies Allergy Verified 04/30/17 11:36 Home Medications: Ambulatory Orders Lisinopril [Prinivil] 40 mg PO DAILY 04/09/15 Aspirin [Ecotrin] 81 mg PO DAILY 05/11/15 Insulin Glargine,Hum.rec.anlog [Lantus Solostar PEN -] 70 units SQ DAILY Insulin NPH Hum/Reg Insulin Hm [Humulin 70-30 Vial] 15 unit SQ BID 07/22/16 Amlodipine Besylate 10 mg PO DAILY 12/10/16 Ezetimibe [Zetia] 10 mg PO DAILY 12/10/16 Fenofibrate [Lofibra] 160 mg PO DAILY 12/10/16 Glipizide [Glucotrol] 5 mg PO DAILY 12/10/16 Linagliptin [Tradjenta] 5 mg PO DAILY 12/10/16 Tamsulosin HCl 0.8 mg PO DAILY 12/10/16 Metoprolol Tartrate [Lopressor -] 25 mg PO BID 01/20/17 Apremilast [Otezla] 30 mg PO BID 04/15/17 Anemia: No Asthma: No Cancer: No Cardiac Disorders: No CVA: No COPD: No CHF: No Dementia: No Diabetes: Yes GI Disorders: Yes (incontinence) Disorders: Yes HTN: Yes Hypercholesterolemia: Yes Liver Disease: No Seizures: No Thyroid Disease: No - Surgical History Abdominal Surgery: Yes (hernia surgery) Appendectomy: No Cardiac Surgery: No Cholecystectomy: Yes Lung Surgery: No Neurologic Surgery: No Orthopedic Surgery: Yes (Right BKA) - Psycho/Social/Smoking Cessation Hx Anxiety: No Suicidal Ideation: No Smoking History: Current every day smoker Have you smoked in the past 12 months: Yes Number of Cigarettes Smoked Daily: 20 Cigars Per Day: 0 Information on smoking cessation initiated: No 'Breaking Loose' booklet given: 03/20/17 Hx Alcohol Use: No Drug/Substance Use Hx: No Substance Use Type: None Hx Substance Use Treatment: No *Physical Exam - Vital Signs Last Vital Signs Temp Pulse Resp BP Pulse Ox 98 F 89 18 93/53 98 04/30/17 11:34 04/30/17 11:34 04/30/17 11:34 04/30/17 11:34 04/30/17 11:34 Medical Decision Making - Medical Decision Making 04/30/17 11:46 A portion of this note was documented by scribe services under my direction. I have reviewed the details of the note, within reason, and agree with the documentation with the following case summary and management plan written by me. Nursing documentation reviewed and incorporated into medical decision making
--- NOTE | 2017-04-30 12:01 | PDOC ---
Attending Attestation - Resident Resident Name: RuckerEdwardo - ED Attending Attestation I have performed the following: I have examined & evaluated the patient, The case was reviewed & discussed with the resident, I agree w/resident's findings & plan, Exceptions are as noted - HPI HPI: 04/30/17 11:59 This is a 67 yo M presenting to the ER with a complaint of diarrhea and weakness Diarrhea has been present for the past 2 weeks no recent travel, no ill contacts, no raw meat/undercooked food, No fever Pt felt very weak today and came in to the ER Pt noted to be hypotensive Afebrile 04/30/17 14:19 - Physicial Exam PE: 04/30/17 14:20 RRR CTA (limited examination) Abd non tender to palpation Suprapubic cathether in place, surrounding erythema - Medical Decision Making 04/30/17 13:02 ED sepsis order set IV hydration Laboratory Tests 01/23/17 01/24/17 04/30/17 06:30 11:00 12:05 WBC 5.4 30.3 H* D Hgb 10.6 L 11.8 D Hct 30.8 L 35.9 D Plt Count 205 526 H D Sodium 141 Potassium 3.6 Chloride 108 H Carbon Dioxide 27 Anion Gap 6 L BUN 11 Creatinine 0.9 D Creatine Kinase Troponin I 04/30/17 12:05 WBC Hgb Hct Plt Count Sodium 135 L Potassium 2.8 L* D Chloride 102 Carbon Dioxide 23 Anion Gap BUN 51 H D Creatinine 3.9 H D Creatine Kinase 27 L Troponin I < 0.02 D Pt labs demonstrate leukocytosis, renal insufficiency, dehydration, hypokalemia Will start empiric abx Will replete electrolytes C diff ordered Treat UTI broad spectrum abx 05/02/17 20:14 Discharge Disposition - Diagnosis Hypokalemia due to loss of potassium, Viral gastroenteritis, Dehydration - Discharge Dispostion Condition at time of disposition: Fair Last Admission D/C Date: 01/24/17 Admit: Yes - Referrals - Patient Instructions - Post Discharge Activity Heart Score/ECG Review #1 ECG reviewed & interpreted by me at: 12:00 04/30/17 12:00 Twelve-lead EKG was performed and reviewed by me. There is normal sinus rhythm with a normal rate of 89 bpm. The axis is normal. The intervals are abnormal - pr:260ms, QRS:110ms, QTc: 450ms. There are no ST elevations or depressions. T wave flattening v4-v6
[2017-04-30 12:12] LABS: MCHC 32.7 g/dl (32.0-35.9); MEAN CELL VOLUME 82.4 fl (80-96); MEAN PLT VOLUME 7.6 fl (7.5-11.1); PLATELET COUNT 526 K/MM3 (134-434); RDW 15.4 % (11.9-15.9)
[2017-04-30 12:15] LABS: WHITE BLOOD COUNT 30.3 K/mm3 (4.0-10.0)
[2017-04-30 12:41] LABS: ALBUMIN 2.3 g/dl (3.4-5.0); ANION GAP 10 (8-16); BILIRUBIN,TOTAL 0.3 mg/dL (0.2-1.0); CALCIUM 7.8 mg/dL (8.5-10.1); CO2 23 mmol/L (21-32); CREATININE 3.9 mg/dL (0.7-1.3); GLUCOSE,RANDOM 206 mg/dL (74-106); SGOT/AST 8 U/L (15-37); SGPT/ALT 13 U/L (12-78); TOT PROT 5.7 g/dl (6.4-8.2)
[2017-04-30 12:43] LABS: ALK PHOS 74 U/L (45-117); CPK 27 IU/L (39-308); TROPONIN I < 0.02 ng/ml (0.00-0.05)
[2017-04-30 12:46] LABS: PLATELET ESTIMATE INCREASED (NORMAL)
[2017-04-30 12:47] LABS: TOTAL CELLS COUNTED 100
[2017-04-30 12:49] LABS: URINE APPEARANCE TURBID; URINE BILIRUBIN NEGATIVE (NEGATIVE); URINE BLOOD 3+ (NEGATIVE); URINE COLOR YELLOW; URINE GLUCOSE (UA) NEGATIVE (NEGATIVE); URINE KETONE NEGATIVE (NEGATIVE); URINE LEUK ESTERASE 2+ (NEGATIVE); URINE NITRITE NEGATIVE (NEGATIVE); URINE PROTEIN 2+ (NEGATIVE); URINE UROBILINOGEN NEGATIVE mg/dL (0.2-1.0)
[2017-04-30 12:55] LABS: INR 1.28 (0.82-1.09); PROTHROMBIN TIME (PATIENT) 14.2 SEC (9.98-11.88); URINE BACTERIA MODERATE /hpf (NONE SEEN); URINE MUCUS RARE; URINE RBC 884 /hpf (0-3); URINE WBC 1993 /hpf (3-5); YEAST MODERATE
[2017-04-30 12:58] LABS: ACTIVATED PTT 26.6 SECONDS (26.9-34.4)
[2017-04-30] MEDS ORDERED: VANCOMYCIN 1,500 MG in DEXTROSE 5%-WATER - 250 ML IVPB ONE (13:09)
[2017-04-30] MEDS ORDERED: MEROPENEM 1 GM in DEXTROSE 5%-WATER - 100 ML IVPB ONE (13:11)
[2017-04-30] MEDS ORDERED: POTASSIUM CHLORIDE ORAL LIQUID 20 MEQ/15 ML PO ONE (13:12)
[2017-04-30] MEDS ORDERED: POTASSIUM CHLORIDE ORAL LIQUID 20 MEQ/15 ML ONE (13:19)
[2017-04-30 13:22] LABS: VENOUS PH 7.35 (7.32-7.42)
[2017-04-30 13:23] LABS: VENOUS BLOOD GAS HCO3 18.3 meq/L (19-25)
[2017-04-30] MEDS ORDERED: VANCOMYCIN 1,500 MG in DEXTROSE 5%-WATER - 500 ML IVPB ONE (13:26)
--- NOTE | 2017-04-30 13:48 | PDOC ---
History of Present Illness - General Chief Complaint: Diarrhea Stated Complaint: Vomiting/Diarrhea Time Seen by Provider: 04/30/17 11:44 Past History - Past Medical History Allergies/Adverse Reactions: Allergies Allergy/AdvReac Type Severity Reaction Status Date / Time No Known Drug Allergies Allergy Verified 04/30/17 11:36 Home Medications: Ambulatory Orders Lisinopril [Prinivil] 40 mg PO DAILY 04/09/15 Aspirin [Ecotrin] 81 mg PO DAILY 05/11/15 Insulin Glargine,Hum.rec.anlog [Lantus Solostar PEN -] 70 units SQ DAILY Insulin NPH Hum/Reg Insulin Hm [Humulin 70-30 Vial] 15 unit SQ BID 07/22/16 Amlodipine Besylate 10 mg PO DAILY 12/10/16 Ezetimibe [Zetia] 10 mg PO DAILY 12/10/16 Fenofibrate [Lofibra] 160 mg PO DAILY 12/10/16 Glipizide [Glucotrol] 5 mg PO DAILY 12/10/16 Linagliptin [Tradjenta] 5 mg PO DAILY 12/10/16 Tamsulosin HCl 0.8 mg PO DAILY 12/10/16 Metoprolol Tartrate [Lopressor -] 25 mg PO BID 01/20/17 Apremilast [Otezla] 30 mg PO BID 04/15/17 Anemia: No Asthma: No Cancer: No Cardiac Disorders: No CVA: No COPD: No CHF: No Dementia: No Diabetes: Yes GI Disorders: Yes (incontinence) Disorders: Yes HTN: Yes Hypercholesterolemia: Yes Liver Disease: No Seizures: No Thyroid Disease: No - Surgical History Abdominal Surgery: Yes (hernia surgery) Appendectomy: No Cardiac Surgery: No Cholecystectomy: Yes Lung Surgery: No Neurologic Surgery: No Orthopedic Surgery: Yes (Right BKA) - Psycho/Social/Smoking Cessation Hx Anxiety: No Suicidal Ideation: No Smoking History: Current every day smoker Have you smoked in the past 12 months: Yes Number of Cigarettes Smoked Daily: 20 Cigars Per Day: 0 Information on smoking cessation initiated: No 'Breaking Loose' booklet given: 03/20/17 Hx Alcohol Use: No Drug/Substance Use Hx: No Substance Use Type: None Hx Substance Use Treatment: No *Physical Exam - Vital Signs Last Vital Signs Temp Pulse Resp BP Pulse Ox 99.2 F 85 20 84/51 95 04/30/17 11:35 04/30/17 12:30 04/30/17 12:30 04/30/17 12:30 04/30/17 12:30 ED Treatment Course - LABORATORY CBC & Chemistry Diagram: 04/30/17 12:05 04/30/17 12:05 - ADDITIONAL ORDERS Additional order review: Laboratory Results 04/30/17 04/30/17 04/30/17 12:05 12:05 12:05 INR PTT (Actin FS) VBG pH POC VBG pCO2 POC VBG pO2 Mixed VBG HCO3 Sodium 135 L Potassium 2.8 L* D Chloride 102 Carbon Dioxide 23 Anion Gap 10 BUN 51 H D Creatinine 3.9 H D Creat Clearance w eGFR 15.41 POC Glucometer Random Glucose 206 H D Lactic Acid 1.0 Calcium 7.8 L Total Bilirubin 0.3 D AST 8 L D ALT 13 D Alkaline Phosphatase 74 D Creatine Kinase 27 L Troponin I < 0.02 D Total Protein 5.7 L Albumin 2.3 L D Urine Color Urine Appearance Urine pH Urine Protein Urine Glucose (UA) Urine Ketones Urine Blood Urine Nitrite Urine Bilirubin Urine Urobilinogen Ur Leukocyte Esterase Urine RBC Urine WBC Ur Epithelial Cells Urine Bacteria Urine Mucus Urine Yeast Blood Type O POSITIVE Antibody Screen Negative 04/30/17 04/30/17 04/30/17 12:05 12:05 11:55 INR 1.28 H PTT (Actin FS) 26.6 L VBG pH POC VBG pCO2 POC VBG pO2 Mixed VBG HCO3 Sodium Potassium Chloride Carbon Dioxide Anion Gap BUN Creatinine Creat Clearance w eGFR POC Glucometer 134.37294 Random Glucose Lactic Acid Calcium Total Bilirubin AST ALT Alkaline Phosphatase Creatine Kinase Troponin I Total Protein Albumin Urine Color Yellow Urine Appearance Turbid Urine pH 6.0 Urine Protein 2+ H Urine Glucose (UA) Negative Urine Ketones Negative Urine Blood 3+ H Urine Nitrite Negative Urine Bilirubin Negative Urine Urobilinogen Negative Ur Leukocyte Esterase 2+ H Urine RBC 884 Urine WBC 1993 Ur Epithelial Cells Rare Urine Bacteria Moderate Urine Mucus Rare Urine Yeast Moderate Blood Type Antibody Screen 04/30/17 11:53 INR PTT (Actin FS) VBG pH 7.35 POC VBG pCO2 34.1 L POC VBG pO2 45.2 D Mixed VBG HCO3 18.3 L Sodium Potassium Chloride Carbon Dioxide Anion Gap BUN Creatinine Creat Clearance w eGFR POC Glucometer Random Glucose Lactic Acid Calcium Total Bilirubin AST ALT Alkaline Phosphatase Creatine Kinase Troponin I Total Protein Albumin Urine Color Urine Appearance Urine pH Urine Protein Urine Glucose (UA) Urine Ketones Urine Blood Urine Nitrite Urine Bilirubin Urine Urobilinogen Ur Leukocyte Esterase Urine RBC Urine WBC Ur Epithelial Cells Urine Bacteria Urine Mucus Urine Yeast Blood Type Antibody Screen 04/30/17 04/30/17 12:05 11:55 RBC 4.36 MCV 82.4 MCHC 32.7 RDW 15.4 MPV 7.6 Neutrophils % Y Lymphocytes % Y POC Glucometer [id number] - Medications Given in the ED: ED Medications Discontinued Medications Generic Name Dose Route Start Last Admin Trade Name Freq PRN Reason Stop Dose Admin Potassium Chloride 40 meq 04/30/17 13:12 04/30/17 13:16 Potassium Chloride Oral Liquid PO 04/30/17 13:13 40 meq ONCE ONE Administration *DC/Admit/Observation/Transfer Diagnosis at time of Disposition: Hypokalemia due to loss of potassium, Viral gastroenteritis, Dehydration
[2017-04-30] MEDS ORDERED: SODIUM CHLORIDE 1,000 ML IV STA (16:09)
--- NOTE | 2017-04-30 16:17 | EKG ---
Test Reason : Blood Pressure : / mmHG Vent. Rate : 089 BPM Atrial Rate : 089 BPM P-R Int : 260 ms QRS Dur : 110 ms QT Int : 370 ms P-R-T Axes : 064 025 211 degrees QTc Int : 450 ms SINUS RHYTHM WITH 1ST DEGREE A-V BLOCK WITH PREMATURE ATRIAL COMPLEXES CANNOT RULE OUT ANTERIOR INFARCT , AGE UNDETERMINED ABNORMAL ECG WHEN COMPARED WITH ECG OF 20-JAN-2017 17:43, [place] INTERVAL HAS INCREASED MINIMAL CRITERIA FOR ANTERIOR INFARCT ARE NOW PRESENT NONSPECIFIC T WAVE ABNORMALITY, WORSE IN LATERAL LEADS Confirmed by GALDINO LOVETT MD ([id number]) on 04/30/2017 4:16:56 PM Referred By: Confirmed By:GALDINO LOVETT MD
[2017-04-30 17:00] VITALS: BMI 32.0
--- NOTE | 2017-04-30 17:09 | CONSULT ---
Consult Consult Specialty:: infectious diseases Reason for Consultation:: uti,sepsis,dirrhoea,hypotension,leukocytosis - History of Present Illness Chief Complaint: weakness dirrhoea History of Present Illness: 67 yo M admitted with a complaint of diarrhea and weakness Diarrhea has been present for the past 2 weeks no recent travel, no ill contacts, no raw meat/undercooked food, patients history is that he has been having spurious type of diarrhea he mentions that some days he has gone about 16 times and this has been going on for last 2 weeks.He had vomiting once last week patient also mentions that he is having black color stools and that has also being going for 2 weeks he feels very weak when patient came to the hospital he was very weak and found to be hypotensive and was given 2 litres of fluid currently the patient is awake and alert on his work up patient is hypokalemic and also with very high wbc and also with foul smelling urine and urine shows leukoesterase - History Source History Provided By: Patient Limitations to Obtaining History: No Limitations - Past Medical History Pulmonary: Yes: COPD Gastrointestinal: Yes: Other (fatty liver) Renal/: Yes: Neurogenic Bladder, Other (balinitis hydro neurogenic bladder) Infectious Disease: Yes: Other (balinitis) Musculoskeletal: Yes: Other (rt bka lt food wd healed) Endocrine: Yes: Diabetes Mellitus - Past Surgical History Past Surgical History: Yes: Amputation - Alcohol/Substance Use Hx Alcohol Use: No History of Substance Use: reports: None - Smoking History Smoking history: Current every day smoker Have you smoked in the past 12 months: Yes Aproximately how many cigarettes per day: 15 - Social History ADL: Independent History of Recent Travel: No Home Medications - Allergies Allergies/Adverse Reactions: Allergies Allergy/AdvReac Type Severity Reaction Status Date / Time No Known Drug Allergies Allergy Verified 04/30/17 11:36 - Home Medications Home Medications: Ambulatory Orders Lisinopril [Prinivil] 40 mg PO DAILY 04/09/15 Aspirin [Ecotrin] 81 mg PO DAILY 05/11/15 Insulin Glargine,Hum.rec.anlog [Lantus Solostar PEN -] 70 units SQ DAILY Insulin NPH Hum/Reg Insulin Hm [Humulin 70-30 Vial] 15 unit SQ BID 07/22/16 Amlodipine Besylate 10 mg PO DAILY 12/10/16 Ezetimibe [Zetia] 10 mg PO DAILY 12/10/16 Fenofibrate [Lofibra] 160 mg PO DAILY 12/10/16 Glipizide [Glucotrol] 5 mg PO DAILY 12/10/16 Linagliptin [Tradjenta] 5 mg PO DAILY 12/10/16 Tamsulosin HCl 0.8 mg PO DAILY 12/10/16 Metoprolol Tartrate [Lopressor -] 25 mg PO BID 01/20/17 Apremilast [Otezla] 30 mg PO BID 04/15/17 Review of Systems - Review of Systems Constitutional: reports: Loss of Appetite, Weakness Eyes: reports: No Symptoms HENT: reports: No Symptoms Neck: reports: No Symptoms Cardiovascular: reports: No Symptoms Respiratory: reports: No Symptoms Gastrointestinal: reports: Bloating, Diarrhea, Vomiting, Other Genitourinary: reports: No Symptoms Musculoskeletal: reports: No Symptoms Integumentary: reports: No Symptoms Neurological: reports: No Symptoms Endocrine: reports: No Symptoms Hematology/Lymphatic: reports: No Symptoms Psychiatric: reports: No Symptoms Physical Exam Vital Signs: Vital Signs Temperature 97.8 F 04/30/17 16:52 Pulse Rate 82 04/30/17 16:52 Respiratory Rate 18 04/30/17 16:52 Blood Pressure 106/50 04/30/17 16:52 O2 Sat by Pulse Oximetry (%) 98 04/30/17 16:45 Constitutional: Yes: Well Nourished, No Distress, Calm Eyes: Yes: Conjunctiva Clear HENT: Yes: Atraumatic, Normocephalic Neck: Yes: Supple, Trachea Midline Cardiovascular: Yes: Regular Rate and Rhythm Respiratory: Yes: Regular, CTA Bilaterally Gastrointestinal: Yes: Distention, Hypoactive Bowel Sounds, Tenderness (rt lower quadrant) Musculoskeletal: Yes: Other Extremities: Yes: Other (amputation of the rt ext) Neurological: Yes: Alert, Oriented Psychiatric: Yes: Alert, Oriented Imaging - Results Chest X-ray: Report Reviewed, Image Reviewed Assessment/Plan patient after evaluation could be having couple of thing one he might be having slow gi bleed the cause i dont know yet also there is strong possibility of uti uti gi bleed dirrhoea sepsis plan will to do imaging studies of the abdomen will start on abx for uti hydration close watch on bp rest as per the icu team cc time 45 min
[2017-04-30 17:10] LABS: MCH 27.8 pg (25.7-33.7); MCHC 33.8 g/dl (32.0-35.9); MEAN CELL VOLUME 82.3 fl (80-96); MEAN PLT VOLUME 7.9 fl (7.5-11.1); PLATELET COUNT 493 K/MM3 (134-434); RDW 15.1 % (11.9-15.9); WHITE BLOOD COUNT 26.4 K/mm3 (4.0-10.0)
[2017-04-30] MEDS ORDERED: CEFTRIAXONE 1 GM in DEXTROSE 5%-WATER - 50 ML IVPB SCH (17:15)
[2017-04-30] MEDS ORDERED: POTASSIUM CHLORIDE 10 MEQ in SODIUM CHLORIDE 1,000 ML IVPB SCH (17:15)
[2017-04-30] MEDS ORDERED: SODIUM CHLORIDE 1,000 ML IV SCH ×2 (17:15→19:00)
[2017-04-30 17:27] LABS: ANION GAP 12 (8-16); CALCIUM 7.4 mg/dL (8.5-10.1); CO2 20 mmol/L (21-32); CREATININE 3.3 mg/dL (0.7-1.3); GLUCOSE,RANDOM 156 mg/dL (74-106); MAGNESIUM 1.7 mg/dL (1.8-2.4); PHOSPHOROUS 4.7 mg/dL (2.5-4.9)
--- NOTE | 2017-04-30 17:35 | CONSULT ---
Consult Consult Specialty:: ICU Reason for Consultation:: Sepsis, Chronic Diarrhea - History of Present Illness Chief Complaint: Diarrhea x2 weeks History of Present Illness: 67 year old male with a past medical history of hypertension, s/p renal stents 2 weeks ago w/ suprapubic stoll insertion presented to the ED complaining of 2 weeks of non-bloody diarrhea and subjective fevers. Patient states that the diarrhea started almost immediately after the surgery and has been consistent. He states that he has had multiple loose bowel movements a day that are dark brown in color and mixed with mucus. Reports mild, diffuse abdominal pain. Reports fevers of 100-100.5 at home that began right after surgery but improved a few days afterwards. Denies any specific inciting event. Denies chest pain, shortness of breath, nausea, vomiting. - History Source History Provided By: Patient Limitations to Obtaining History: No Limitations - Past Medical History Cardio/Vascular: Yes: HTN Gastrointestinal: Yes: Other (fatty liver) Renal/: Yes: Neurogenic Bladder, Other (balinitis hydro neurogenic bladder) Infectious Disease: Yes: Other (balinitis) Musculoskeletal: Yes: Other (rt bka lt food wd healed) Endocrine: Yes: Diabetes Mellitus - Past Surgical History Past Surgical History: Yes: Amputation - Alcohol/Substance Use Hx Alcohol Use: No History of Substance Use: reports: None - Smoking History Smoking history: Current every day smoker Have you smoked in the past 12 months: Yes Aproximately how many cigarettes per day: 15 - Social History ADL: Independent History of Recent Travel: No Home Medications - Allergies Allergies/Adverse Reactions: Allergies Allergy/AdvReac Type Severity Reaction Status Date / Time No Known Drug Allergies Allergy Verified 04/30/17 11:36 - Home Medications Home Medications: Ambulatory Orders Lisinopril [Prinivil] 40 mg PO DAILY 04/09/15 Aspirin [Ecotrin] 81 mg PO DAILY 05/11/15 Insulin Glargine,Hum.rec.anlog [Lantus Solostar PEN -] 70 units SQ DAILY Insulin NPH Hum/Reg Insulin Hm [Humulin 70-30 Vial] 15 unit SQ BID 07/22/16 Amlodipine Besylate 10 mg PO DAILY 12/10/16 Ezetimibe [Zetia] 10 mg PO DAILY 12/10/16 Fenofibrate [Lofibra] 160 mg PO DAILY 12/10/16 Glipizide [Glucotrol] 5 mg PO DAILY 12/10/16 Linagliptin [Tradjenta] 5 mg PO DAILY 12/10/16 Tamsulosin HCl 0.8 mg PO DAILY 12/10/16 Metoprolol Tartrate [Lopressor -] 25 mg PO BID 01/20/17 Apremilast [Otezla] 30 mg PO BID 04/15/17 Review of Systems - Review of Systems Constitutional: reports: Fever, Lethargy, Weakness Eyes: reports: No Symptoms HENT: reports: No Symptoms Neck: reports: No Symptoms Cardiovascular: reports: No Symptoms. denies: Chest Pain, Edema, Shortness of Breath Respiratory: reports: No Symptoms. denies: Cough, Hemoptysis, SOB, Wheezing Gastrointestinal: reports: Abdominal Pain (mild diffuse abdominal pain), Bloating, Diarrhea Genitourinary: reports: Other (S/p renal stents, suprapubic catheter in place) Breasts: reports: No Symptoms Reported Musculoskeletal: reports: Other (R leg amputation) Integumentary: reports: Pallor Neurological: reports: No Symptoms Endocrine: reports: No Symptoms Hematology/Lymphatic: reports: No Symptoms Psychiatric: reports: No Symptoms Pain Intensity: 3 Physical Exam Vital Signs: Vital Signs Temperature 97.8 F 04/30/17 16:52 Pulse Rate 82 04/30/17 16:52 Respiratory Rate 18 04/30/17 16:52 Blood Pressure 106/50 04/30/17 16:52 O2 Sat by Pulse Oximetry (%) 98 04/30/17 16:45 Constitutional: Yes: No Distress, Calm, Obese, Pallor Eyes: Yes: WNL, Conjunctiva Clear, EOM Intact HENT: Yes: WNL, Atraumatic, Normocephalic Neck: Yes: WNL, Supple, Trachea Midline Cardiovascular: Yes: WNL, Regular Rate and Rhythm. No: Bruit, Murmur, Rub Respiratory: Yes: WNL, Regular, CTA Bilaterally. No: Rhonchi, SOB, Stridor, Tachypnea, Wheezes Gastrointestinal: Yes: Abdomen, Obese, Distention, Hypoactive Bowel Sounds, Tenderness (mildly diffuse tenderness) ...Rectal Exam: Yes: Guaiac Negative Renal/: Yes: Stoll Present (suprapubic tenderness) Musculoskeletal: Yes: Other (R leg amputation) Extremities: Yes: Amputation Edema: No Peripheral Pulses WNL: Yes Integumentary: Yes: WNL Neurological: Yes: WNL, Alert, Oriented ...Motor Strength: WNL Psychiatric: Yes: WNL Labs: CBC, BMP 04/30/17 16:15 Imaging - Results Chest X-ray: Report Reviewed, Image Reviewed X-ray: Pending Ultrasound: Pending EKG: Image Reviewed Problem List - Problems (1) Hypokalemia due to loss of potassium Code(s): E87.6 - HYPOKALEMIA (2) Infectious diarrhea Code(s): A09 - INFECTIOUS GASTROENTERITIS AND COLITIS, UNSPECIFIED (3) Diabetes 1.5, managed as type 2 Code(s): E13.9 - OTHER SPECIFIED DIABETES MELLITUS WITHOUT COMPLICATIONS (4) Sepsis secondary to UTI Code(s): A41.9 - SEPSIS, UNSPECIFIED ORGANISM N39.0 - URINARY TRACT INFECTION, SITE NOT SPECIFIED (5) Urinary (tract) obstruction Code(s): N13.9 - OBSTRUCTIVE AND REFLUX UROPATHY, UNSPECIFIED Assessment/Plan 67 year old male with past medical history of htn, DM, BILL, R leg amputation, s/ p renal stents + suprapubic catheter being monitored in the ICU for chronic diarrhea likely 2/2 cdiff and sepsis likely 2/2 UTI Neuro: no acute issues noted Cardiovascular: patient has a hx of htn, currently hypotensive at 96/54 likely due to chronic diarrhea, not tachycardic -give IV fluids (NS @ 175cc/hr) -CXR ordered -hold BP meds -monitor BP Pulmonary: no acute issues noted -pt has O2 sat of 94% Gastrointestinal: chronic diarrhea likely 2/2 C. difficile infection that arose after his renal stenting procedure 2 weeks ago -start oral vancomycin -start flagyl IV -US abdomen -KUB -stool ova and parasites -c. diff toxin ordered -unlikely chronic mesenteric ischemia w/ lactic acid normal -GI following -ID following Genitourinary: suprapubic stoll in place draining cloudy urine with sediment likely 2/2 UTI and likely source of sepsis -continue above antibiotics -monitor urine output -adjust IV fluids as necessary FEN: patient is hypokalemic at 3.0, patient is hypomagnesemic (1.7) -NS @ 175cc/hr -replete potassium with 2x 20mEq oral KCl -replete magnesium with 2g mag -keep NPO overnight Proph: -DVT prophylaxis with heparin subq BID 5000U Dispo: -continue to monitor in the ICU
[2017-04-30] MEDS ORDERED: MAGNESIUM SULF 50% (8.12 MEQ/2 ML-1 GM VIAL) IVPB ONE (17:42)
[2017-04-30] MEDS ORDERED: PIPERACILLIN/TAZOB 3.375 GM 50 ML IVPB SCH (18:00)
--- NOTE | 2017-04-30 18:44 | CON.GI ---
Consult Consult Specialty:: GI Referred by:: Dr Donell Garcia - History of Present Illness History of Present Illness: 67 y/o M was doing well untile 2 weeks ago when he developed persistent, progressive, non bloody diarrhea, 10-16 times aday associated with nausea, vomiting and diffuse abdominal pain. This started afetr undergoing procedure where in he received antibiotic post procedure. He has no travel history. On admissio he had a WBC of 30,000. - Past Medical History Pulmonary: Yes: COPD Gastrointestinal: Yes: Other (fatty liver) Renal/: Yes: Neurogenic Bladder, Other (balinitis hydro neurogenic bladder) Infectious Disease: Yes: Other (balinitis) Musculoskeletal: Yes: Other (rt bka lt food wd healed) Endocrine: Yes: Diabetes Mellitus - Past Surgical History Past Surgical History: Yes: Amputation - Alcohol/Substance Use Hx Alcohol Use: No History of Substance Use: reports: None - Smoking History Smoking history: Current every day smoker Have you smoked in the past 12 months: Yes Aproximately how many cigarettes per day: 15 - Social History ADL: Independent History of Recent Travel: No Home Medications - Allergies Allergies/Adverse Reactions: Allergies Allergy/AdvReac Type Severity Reaction Status Date / Time No Known Drug Allergies Allergy Verified 04/30/17 11:36 - Home Medications Home Medications: Ambulatory Orders Lisinopril [Prinivil] 40 mg PO DAILY 04/09/15 Aspirin [Ecotrin] 81 mg PO DAILY 05/11/15 Insulin Glargine,Hum.rec.anlog [Lantus Solostar PEN -] 70 units SQ DAILY Insulin NPH Hum/Reg Insulin Hm [Humulin 70-30 Vial] 15 unit SQ BID 07/22/16 Amlodipine Besylate 10 mg PO DAILY 12/10/16 Ezetimibe [Zetia] 10 mg PO DAILY 12/10/16 Fenofibrate [Lofibra] 160 mg PO DAILY 12/10/16 Glipizide [Glucotrol] 5 mg PO DAILY 12/10/16 Linagliptin [Tradjenta] 5 mg PO DAILY 12/10/16 Tamsulosin HCl 0.8 mg PO DAILY 12/10/16 Metoprolol Tartrate [Lopressor -] 25 mg PO BID 01/20/17 Apremilast [Otezla] 30 mg PO BID 04/15/17 Family Disease History - Family Disease History Family History: Denies Family Disease History: CA: Grandparent, Father, Mother, Brother, Sister, Son, Daughter Review of Systems - Review of Systems Constitutional: denies: Fever Eyes: denies: Blind Spots HENT: denies: Difficult Swallowing Neck: denies: Decreased ROM Cardiovascular: denies: Chest Pain Respiratory: denies: Cough Gastrointestinal: reports: Abdominal Pain, Diarrhea, Nausea, Vomiting. denies: Constipation Physical Exam-GI Vital Signs: Vital Signs Temperature 97.8 F 04/30/17 16:52 Pulse Rate 94 H 04/30/17 17:26 Respiratory Rate 18 04/30/17 17:26 Blood Pressure 127/62 04/30/17 17:26 O2 Sat by Pulse Oximetry (%) 98 04/30/17 16:45 Constitutional: Yes: Obese Eyes: Yes: Conjunctiva Clear HENT: Yes: Atraumatic Neck: Yes: Supple, Tenderness Respiratory: Yes: CTA Bilaterally ...Palpate: Yes: Soft. No: Firm/Rigid, Guarding, Hepatomegaly, Mass, Pulsatile Mass, Splenomegaly, Tenderness Labs: CBC, BMP 04/30/17 16:15 04/30/17 16:15 INR, PTT INR 1.28 (0.82-1.09) H 04/30/17 12:05 Hepatic Panel Total Bilirubin 0.3 mg/dL (0.2-1.0) D 04/30/17 12:05 AST 8 U/L (15-37) L D 04/30/17 12:05 ALT 13 U/L (12-78) D 04/30/17 12:05 Alkaline Phosphatase 74 U/L (45-117) D 04/30/17 12:05 Albumin 2.3 g/dl (3.4-5.0) L D 04/30/17 12:05 Assessment/Plan Infectious diarrhea most likely C. diff, decrease in hemoglocin most likely secondary to IV hydration, doubt gi bleeding R> discontinue Zosyn because of severe infection will need IV Flagyl and Vancomycin po discussed with Dr Donell Gracia Acute Renal Failure R> continue IV hydration
[2017-04-30] MEDS: METRONIDAZOLE 500 MG PREMIXED 100 ML IVPB SCH (19:20)
[2017-04-30] MEDS ORDERED: POTASSIUM CHLORIDE TABS 20 MEQ TABLET.ER (FP) PO ONE (20:20)
[2017-04-30] MEDS: CHLORHEXIDINE GLUCONATE 4% CLEANSER FOR DECOLONIZATION TP SCH (21:32)
[2017-04-30] MEDS: METOPROLOL TARTRATE 25 MG TABLET (FP) PO SCH (21:32)
[2017-04-30] MEDS: MUPIROCIN 2% TOPICAL OINTMENT FOR DECOLONIZATION NS SCH (21:32)
[2017-04-30] MEDS: HEPARIN NA (PORCINE) 5,000 UNITS/ML 1ML VIAL SQ SCH (21:32)
--- NOTE | 2017-04-30 22:54 | CONSULT ---
Consult Consult Specialty:: Pulm/CCM Reason for Consultation:: Sepsis 2/2 UTI, Colitis - History of Present Illness Chief Complaint: Hypotension, fever and suprapubic pain History of Present Illness: 67yom with PMHx of DMII, COPD, neurogenic bladder, urinary tract obstruction(BPH , balinitis) s/p recent suprapubic cath placement who presents with c/o diarrhea(10-16x/d), weakness and fever for ~2 weeks, initially also with N/V. In ED T98F, SBP 80's-90's, HR 96,temp 37.6with labs notable for WBC 30.3 wth 3% bands BUN/Creat 49/3.3, lact 1.0. Suprpubic site erythematus and macerated with purulent malodorous drainage urine with large amt sediment with Urine [id number] 3 + leuk est. Suprabupic cath was changed. 2L fluid given with SBP to 100's. He was started on zosyn for UTI, flagyl IV and vanco po for c/f C-diff. He was transferred to ICU for management. In ICU VSS HR 90's, SBP 110's. A+O x3. Continued to have loose yellowish secretions. Contiued antibiotics and IVF. - History Source History Provided By: Patient, Medical Record - Past Medical History Cardio/Vascular: Yes: HTN Pulmonary: Yes: COPD Gastrointestinal: Yes: Other (fatty liver) Renal/: Yes: Neurogenic Bladder, Other (balinitis hydro neurogenic bladder) Infectious Disease: Yes: Other (balinitis) Musculoskeletal: Yes: Other (rt bka lt food wd healed) Endocrine: Yes: Diabetes Mellitus - Past Surgical History Past Surgical History: Yes: Amputation - Alcohol/Substance Use Hx Alcohol Use: No History of Substance Use: reports: None - Smoking History Smoking history: Current every day smoker Have you smoked in the past 12 months: Yes Aproximately how many cigarettes per day: 15 - Social History ADL: Independent History of Recent Travel: No Home Medications - Allergies Allergies/Adverse Reactions: Allergies Allergy/AdvReac Type Severity Reaction Status Date / Time No Known Drug Allergies Allergy Verified 04/30/17 11:36 - Home Medications Home Medications: Ambulatory Orders Lisinopril [Prinivil] 40 mg PO DAILY 04/09/15 Aspirin [Ecotrin] 81 mg PO DAILY 05/11/15 Insulin Glargine,Hum.rec.anlog [Lantus Solostar PEN -] 70 units SQ DAILY Insulin NPH Hum/Reg Insulin Hm [Humulin 70-30 Vial] 15 unit SQ BID 07/22/16 Amlodipine Besylate 10 mg PO DAILY 12/10/16 Ezetimibe [Zetia] 10 mg PO DAILY 12/10/16 Fenofibrate [Lofibra] 160 mg PO DAILY 12/10/16 Glipizide [Glucotrol] 5 mg PO DAILY 12/10/16 Linagliptin [Tradjenta] 5 mg PO DAILY 12/10/16 Tamsulosin HCl 0.8 mg PO DAILY 12/10/16 Metoprolol Tartrate [Lopressor -] 25 mg PO BID 01/20/17 Apremilast [Otezla] 30 mg PO BID 04/15/17 Family Disease History - Family Disease History Family History: Unremarkable Family Disease History: CA: Grandparent, Father, Mother, Brother, Sister, Son, Daughter Review of Systems - Review of Systems Constitutional: reports: Chills, Fever, Weakness Eyes: reports: No Symptoms HENT: reports: No Symptoms Neck: reports: No Symptoms Cardiovascular: reports: No Symptoms Respiratory: reports: No Symptoms Gastrointestinal: reports: Bloating, Diarrhea, Nausea, Vomiting Genitourinary: reports: Other (Suprapubic pain and irritation) Neurological: reports: No Symptoms Endocrine: reports: Increased Thirst Hematology/Lymphatic: reports: No Symptoms Psychiatric: reports: No Symptoms Physical Exam Vital Signs: Vital Signs Temperature 97.8 F 04/30/17 16:52 Pulse Rate 82 04/30/17 19:00 Respiratory Rate 18 04/30/17 20:06 Blood Pressure 111/77 04/30/17 19:00 O2 Sat by Pulse Oximetry (%) 98 04/30/17 20:06 Constitutional: Yes: Obese HENT: Yes: Atraumatic, Normocephalic Neck: Yes: WNL Cardiovascular: Yes: Regular Rate and Rhythm, Tachycardia Respiratory: Yes: Regular, CTA Bilaterally Gastrointestinal: Yes: Soft, Abdomen, Obese (non-tender) ...Rectal Exam: Yes: Deferred Renal/: Yes: Other (suprapubic site reddened and irritated) Extremities: Yes: Amputation (Rt BKA) Edema: Yes (LLE) Edema: LLE: 1+ Peripheral Pulses WNL: Yes Neurological: Yes: Alert, Oriented ...Motor Strength: WNL, LLE Psychiatric: Yes: Alert, Oriented Labs: CBC, BMP 04/30/17 16:15 04/30/17 16:15 CBC,CMP WBC 26.4 K/mm3 (4.0-10.0) H 04/30/17 16:15 RBC 3.87 M/mm3 (4.00-5.60) L 04/30/17 16:15 Hgb 10.8 GM/dL (11.7-16.9) L 04/30/17 16:15 Hct 31.9 % (35.4-49) L 04/30/17 16:15 MCV 82.3 fl (80-96) 04/30/17 16:15 MCH 27.8 pg (25.7-33.7) 04/30/17 16:15 MCHC 33.8 g/dl (32.0-35.9) 04/30/17 16:15 RDW 15.1 % (11.9-15.9) 04/30/17 16:15 Plt Count 493 K/MM3 (134-434) H 04/30/17 16:15 MPV 7.9 fl (7.5-11.1) 04/30/17 16:15 Total Counted 100 04/30/17 12:05 Neutrophils % Y 04/30/17 16:15 Neutrophils % (Manual) 78 % (42.8-82.8) 04/30/17 12:05 Band Neuts % (Manual) 3 % (0-10) 04/30/17 12:05 Lymphocytes % Y 04/30/17 16:15 Lymphocytes % (Manual) 7 % (8-40) L 04/30/17 12:05 Monocytes % (Manual) 12 % (3.8-10.2) H 04/30/17 12:05 Platelet Estimate Increased (NORMAL) 04/30/17 12:05 Platelet Comment No clumping noted 04/30/17 12:05 Sodium 137 mmol/L (136-145) 04/30/17 16:15 Potassium 3.0 mmol/L (3.5-5.1) L 04/30/17 16:15 Chloride 105 mmol/L (98-107) 04/30/17 16:15 Carbon Dioxide 20 mmol/L (21-32) L 04/30/17 16:15 Anion Gap 12 (8-16) 04/30/17 16:15 BUN 49 mg/dL (7-18) H 04/30/17 16:15 Creatinine 3.3 mg/dL (0.7-1.3) H 04/30/17 16:15 Creat Clearance w eGFR 15.41 (>60) 04/30/17 12:05 POC Glucometer 134.07856 UNITS (()) 04/30/17 11:55 Random Glucose 156 mg/dL (74-106) H D 04/30/17 16:15 Lactic Acid 1.0 mmol/L (0.4-2.0) 04/30/17 12:05 Calcium 7.4 mg/dL (8.5-10.1) L 04/30/17 16:15 Phosphorus 4.7 mg/dL (2.5-4.9) 04/30/17 16:15 Magnesium 1.7 mg/dL (1.8-2.4) L 04/30/17 16:15 Total Bilirubin 0.3 mg/dL (0.2-1.0) D 04/30/17 12:05 AST 8 U/L (15-37) L D 04/30/17 12:05 ALT 13 U/L (12-78) D 04/30/17 12:05 Alkaline Phosphatase 74 U/L (45-117) D 04/30/17 12:05 Creatine Kinase 27 IU/L (39-308) L 04/30/17 12:05 Troponin I < 0.02 ng/ml (0.00-0.05) D 04/30/17 12:05 Total Protein 5.7 g/dl (6.4-8.2) L 04/30/17 12:05 Albumin 2.3 g/dl (3.4-5.0) L D 04/30/17 12:05 Lipase 66 U/L (73-393) L 04/30/17 16:15 Current Medications Generic Name Dose Route Start Last Admin Trade Name Freq PRN Reason Stop Dose Admin Amlodipine Besylate 10 mg 05/01/17 10:00 Norvasc - PO DAILY MATTHEW Aspirin 81 mg 08/25/17 10:00 Ecotrin - PO DAILY [facility] Chlorhexidine Gluconate 1 applic 04/30/17 22:00 04/30/17 21:32 Hibiclens For Decolonization - TP 1 applic HS MATTHEW Administration Fenofibric Acid 135 mg 05/01/17 10:00 Trilipix - PO DAILY AMTTHEW Glipizide 5 mg 05/01/17 07:00 Glucotrol - PO DAILY@0700 [facility] Heparin Sodium (Porcine) 5,000 unit 04/30/17 22:00 04/30/17 21:32 Heparin - SQ 5,000 unit BID MATTHEW Administration Metronidazole 100 mls @ 100 mls/hr 04/30/17 18:00 04/30/17 19:20 Flagyl 500mg Premixed Ivpb - IVPB 100 mls/hr Q8H-IV MATTHEW Administration Sodium Chloride 1,000 mls @ 175 mls/hr 04/30/17 19:00 04/30/17 20:00 Normal Saline - IV 05/03/17 00:43 175 mls/hr ASDIR [facility] Administration Lisinopril 40 mg 05/01/17 10:00 Prinivil PO DAILY [facility] Metoprolol Tartrate 25 mg 04/30/17 22:00 04/30/17 21:32 Lopressor - PO 25 mg BID MATTHEW Administration Mupirocin 1 applic 04/30/17 22:00 04/30/17 21:32 Bactroban Ointment (For Decolonization) - NS 05/05/17 21:59 1 applic BID MATTHEW Administration Tamsulosin HCl 0.4 mg 05/01/17 08:30 Flomax - PO DAILY@0830 [facility] Vancomycin HCl 250 mg 05/01/17 00:00 04/30/17 23:21 Vancomycin Oral Solution PO 250 mg Q6HPO MATTHEW Administration Intake & Output 04/27/17 04/28/17 04/29/17 04/30/17 23:59 23:59 23:59 23:59 Intake Total 2100 Output Total 400 Balance 1700 Weight 125.758 kg Problem List - Problems (1) Dehydration Code(s): E86.0 - DEHYDRATION (2) Hypokalemia due to loss of potassium Code(s): E87.6 - HYPOKALEMIA (3) Infectious diarrhea Code(s): A09 - INFECTIOUS GASTROENTERITIS AND COLITIS, UNSPECIFIED (4) Acute diarrhea Code(s): R19.7 - DIARRHEA, UNSPECIFIED (5) Balanitis Code(s): N48.1 - BALANITIS (6) CKD (chronic kidney disease) Code(s): N18.9 - CHRONIC KIDNEY DISEASE, UNSPECIFIED (7) UTI (urinary tract infection) Code(s): N39.0 - URINARY TRACT INFECTION, SITE NOT SPECIFIED Assessment/Plan 67yom with PMHx of DMII, COPD, neurogenic bladder, urinary tract obstruction( balinitis) s/p recent suprapubic cath placement who presents with c/o diarrhea( 10-16x/d), weakness and fever for ~2 weeks. Admitted to ICU with sepsis in setting of possible C-diff colitis, UTI, suprapubic site infection. Plan: CV/GI: Hypotension 2/2 m/l sepsis +/- volume depletion -Fluid bolus for MAP>60 -trend lactate -Hold antiHTN meds -f/u ferrara culture -ID consult -Continue Zosyn, flagyl and vanco po -Tailor to cxl results -NPO for now -Isolation precautions until stool cxl results Renal: Acute on chronic RF -Monitor UOP and BMP -Suprapubic site care-bacitracin oint -LR IVF -Replete electrolytes Proph Heparin SQ
[2017-04-30] MEDS: VANCOMYCIN 250 MG/5 ML ORAL SOLUTION PO SCH (23:21)
[2017-05-01] MEDS ORDERED: VANCOMYCIN 250 MG/5 ML ORAL SOLUTION PO SCH
[2017-05-01 00:10] LABS: CALCIUM 7.5 mg/dL (8.5-10.1); CO2 18 mmol/L (21-32); CREATININE 2.6 mg/dL (0.7-1.3); GLUCOSE,RANDOM 103 mg/dL (74-106)
[2017-05-01 00:54] LABS: ANION GAP 16 (8-16)
[2017-05-01] MEDS: METRONIDAZOLE 500 MG PREMIXED 100 ML IVPB SCH ×3 (01:52→17:07)
[2017-05-01] MEDS: KCL 10 MEQ IVPB 100 ML IVPB SCH ×5 (02:50→10:15)
[2017-05-01 06:14] LABS: BASOPHIL 0.1 % (0-2.0); EOSINOPHIL 0.8 % (0-4.5); MCH 27.6 pg (25.7-33.7); MCHC 33.7 g/dl (32.0-35.9); MEAN PLT VOLUME 8.1 fl (7.5-11.1); NEUTROPHILS 84.7 % (42.8-82.8); PLATELET COUNT 481 K/MM3 (134-434); RDW 15.3 % (11.9-15.9); WHITE BLOOD COUNT 21.2 K/mm3 (4.0-10.0)
[2017-05-01] MEDS ORDERED: PT OWN MED DRAWER 7, Y5N ONE ×3 (06:46→15:58)
[2017-05-01 06:49] LABS: ALBUMIN 1.9 g/dl (3.4-5.0); ANION GAP 10 (8-16); CALCIUM 7.5 mg/dL (8.5-10.1); CO2 20 mmol/L (21-32); CREATININE 2.1 mg/dL (0.7-1.3); GLUCOSE,RANDOM 107 mg/dL (74-106); PHOSPHOROUS 4.1 mg/dL (2.5-4.9); SGOT/AST 10 U/L (15-37); SGPT/ALT 12 U/L (12-78)
[2017-05-01] MEDS: VANCOMYCIN 250 MG/5 ML ORAL SOLUTION PO SCH ×3 (06:49→17:09)
[2017-05-01 06:50] LABS: ALK PHOS 62 U/L (45-117); BILIRUBIN,TOTAL 0.3 mg/dL (0.2-1.0); TOT PROT 4.8 g/dl (6.4-8.2)
--- NOTE | 2017-05-01 09:03 | HP ---
Admitting History and Physical - Admission Chief Complaint: diarrea 1 wk never picked up flagyl when he came to History of Present Illness: h/o diarrea in past viral History Source: Patient Limitations to Obtaining History: No Limitations - Past Medical History Cardiovascular: Yes: HTN Pulmonary: Yes: COPD Gastrointestinal: Yes: Other (fatty liver) Renal/: Yes: Neurogenic Bladder, Other (balinitis hydro neurogenic bladder) Infectious Disease: Yes: Other (balinitis) Musculoskeletal: Yes: Other (rt bka lt food wd healed) Endocrine: Yes: Diabetes Mellitus - Past Surgical History Past Surgical History: Yes: Amputation - Smoking History Smoking history: Current every day smoker Have you smoked in the past 12 months: Yes Aproximately how many cigarettes per day: 15 - Alcohol/Substance Use Hx Alcohol Use: No History of Substance Use: reports: None - Social History Usual Living Arrangement: Yes: Other (friend) ADL: Independent History of Recent Travel: No Home Medications - Allergies Allergies/Adverse Reactions: Allergies Allergy/AdvReac Type Severity Reaction Status Date / Time No Known Drug Allergies Allergy Verified 04/30/17 11:36 - Home Medications Home Medications: Ambulatory Orders Lisinopril [Prinivil] 40 mg PO DAILY 04/09/15 Aspirin [Ecotrin] 81 mg PO DAILY 05/11/15 Insulin Glargine,Hum.rec.anlog [Lantus Solostar PEN -] 70 units SQ DAILY Insulin NPH Hum/Reg Insulin Hm [Humulin 70-30 Vial] 15 unit SQ BID 07/22/16 Amlodipine Besylate 10 mg PO DAILY 12/10/16 Ezetimibe [Zetia] 10 mg PO DAILY 12/10/16 Fenofibrate [Lofibra] 160 mg PO DAILY 12/10/16 Glipizide [Glucotrol] 5 mg PO DAILY 12/10/16 Linagliptin [Tradjenta] 5 mg PO DAILY 12/10/16 Tamsulosin HCl 0.8 mg PO DAILY 12/10/16 Metoprolol Tartrate [Lopressor -] 25 mg PO BID 01/20/17 Apremilast [Otezla] 30 mg PO BID 04/15/17 Family Disease History - Family Disease History Family History: Unremarkable Family Disease History: CA: Grandparent, Father, Mother, Brother, Sister, Son, Daughter Physical Examination Vital Signs: Vital Signs Temperature 98.2 F 05/01/17 08:00 Pulse Rate 88 05/01/17 08:00 Respiratory Rate 20 05/01/17 08:00 Blood Pressure 102/57 05/01/17 08:00 O2 Sat by Pulse Oximetry (%) 98 04/30/17 20:06 Labs: CBC, BMP 05/01/17 05:20 05/01/17 05:20 Assessment/Plan cont atx as is watch sugars replace k pubic tube hygeine
[2017-05-01] MEDS: amLODIPine BESYLATE 10 MG TABLET (FP) PO SCH (09:23)
[2017-05-01] MEDS: TAMSULOSIN HCL 0.4 MG CAP.ER.24H (FP) PO SCH (09:23)
[2017-05-01] MEDS: LISINOPRIL 20 MG TABLET (FP) PO SCH (09:24)
[2017-05-01] MEDS: METOPROLOL TARTRATE 25 MG TABLET (FP) PO SCH ×2 (09:24→21:14)
[2017-05-01] MEDS: glipiZIDE 5 MG TABLET (FP) PO SCH (09:24)
[2017-05-01] MEDS: FENOFIBRIC ACID 135 MG CAP PO SCH (09:24)
[2017-05-01] MEDS: HEPARIN NA (PORCINE) 5,000 UNITS/ML 1ML VIAL SQ SCH (09:25)
[2017-05-01] MEDS: MUPIROCIN 2% TOPICAL OINTMENT FOR DECOLONIZATION NS SCH ×2 (09:55→21:13)
[2017-05-01] MEDS ORDERED: ASPIRIN 81 MG CHEWABLE TABLETS PO SCH (10:00)
[2017-05-01] MEDS ORDERED: ASPIRIN COATED 81 MG TABLET.EC PO SCH (10:00)
[2017-05-01] MEDS ORDERED: ALTEPLASE 50 MG VIAL IVPB ONE (11:30)
[2017-05-01] MEDS: BACITRACIN/POLYMYXIN B SULFATE 15 GM TUBE TP SCH ×2 (11:37→21:14)
--- NOTE | 2017-05-01 11:41 | PDOC ---
tPA Exclusion Checklist 0-3hr - Time Elapsed Date last known well: 05/01/17 Time last known well: 10:00 Elaspsed time: Day(s) and 1 Hour(s) and 41 Minutes - Thrombolytic Therapy Candidate Is the patient eligible for Thrombolytic Therapy?: Yes - Exclusion Criteria 0-3hr SBP greater than 185 or DBP greater than 110mmHg despite tx: No Recent IC/spinal surgery,head trauma or stroke w/in last 3mo: No Hx of previous IC hemorrhage, IC neoplasm, AVM or aneurysm: No Active internal bleeding: No Blding diathesis(low plt ct, inc PTT,INR>1.7 or use of NOAC): No Symptoms suggest subarachnoid hemorrhage: No CT demonstrates multilobar infarct(>1/3 cerebral hemiphere): No Arterial puncture at noncompressible site in previous 7 days: No Blood glucose concentration less than 50mg/dL (2.7mmol/L): No - Relative Exclusion Criteria 0-3h Life expectancy <1yr/severe co-morbid illness/NEUROSURGICAL PHYSICIAN ASSISTANT on admit: No : No Patient/family refused: No Rapid improvement: No Stroke severity too mild: No Recent acute TX (w/in previous 3 months): No Seizure at onset with postictal residual neuro impairments: No Major surgery or serious trauma w/in previous 14 days: No Recent GI or hemorrhage (w/in previous 21 days): No
--- NOTE | 2017-05-01 11:55 | PN ---
Teaching Attending Note Name of Resident: Sandro Salas ATTENDING PHYSICIAN STATEMENT I saw and evaluated the patient. I reviewed the resident's note and discussed the case with the resident. I agree with the resident's findings and plan as documented. SUBJECTIVE: Pt seen and examined in the ICU. Examined during rounds this AM, pt noted to be altered with right facial droop and flaccid right arm and leg. NIHSS 16 but pt unable to participate in full exam. Stat CT head without acute findings, discussed with neurologist, started on tPA. OBJECTIVE: Last Vital Signs Temp Pulse Resp BP Pulse Ox 98.0 F 90 22 100/61 96 05/01/17 10:00 05/01/17 10:27 05/01/17 10:00 05/01/17 10:00 05/01/17 10:27 Intake & Output 04/28/17 04/29/17 04/30/17 05/01/17 23:59 23:59 23:59 23:59 Intake Total 2100 2350 Output Total 400 1700 Balance 1700 650 Weight 277 lb 4 oz Gen: lethargic, altered Heart: RRR Lung: decreased breath sounds at the bases Abd: soft, nontender Ext: R BKA CBC, BMP 05/01/17 05:20 05/01/17 05:20 Active Medications Amlodipine Besylate (Norvasc -) 10 mg PO DAILY [facility] Last Admin: 05/01/17 09:23 Dose: 10 mg Bacitracin/Polymyxin B Sulfate (Polysporin Ointment -) 1 applic TP BID [facility] Last Admin: 05/01/17 11:37 Dose: 1 applic Chlorhexidine Gluconate (Hibiclens For Decolonization -) 1 applic TP HS [facility] Last Admin: 04/30/17 21:32 Dose: 1 applic Fenofibric Acid (Trilipix -) 135 mg PO DAILY [facility] Last Admin: 05/01/17 09:24 Dose: 135 mg Glipizide (Glucotrol -) 5 mg PO DAILY@0700 [facility] Last Admin: 05/01/17 09:24 Dose: 5 mg Metronidazole (Flagyl 500mg Premixed Ivpb -) 100 mls @ 100 mls/hr IVPB Q8H-IV [facility] Last Admin: 05/01/17 09:23 Dose: 100 mls/hr Sodium Chloride (Normal Saline -) 1,000 mls @ 175 mls/hr IV ASDIR [facility] Stop: 05/03/17 00:43 Last Admin: 04/30/17 20:00 Dose: 175 mls/hr Lisinopril (Prinivil) 40 mg PO DAILY [facility] Last Admin: 05/01/17 09:24 Dose: 40 mg Metoprolol Tartrate (Lopressor -) 25 mg PO BID [facility] Last Admin: 05/01/17 09:24 Dose: 25 mg Mupirocin (Bactroban Ointment (For Decolonization) -) 1 applic NS BID [facility] Stop: 05/05/17 21:59 Last Admin: 05/01/17 09:55 Dose: 1 applic Tamsulosin HCl (Flomax -) 0.4 mg PO DAILY@0830 [facility] Last Admin: 05/01/17 09:23 Dose: 0.4 mg Vancomycin HCl (Vancomycin Oral Solution) 250 mg PO Q6HPO [facility] Last Admin: 05/01/17 06:49 Dose: 250 mg ASSESSMENT AND PLAN: Acute CVA r/o C Diff Colitis UTI Sepsis Suprapubic Catheter COPD DM - tPA being given - neuro checks - neuro evaluation - echocardiogram - carotid dopplers - telemetry monitoring - continue antibiotics - f/u cultures - aspiration precautions - IVF - ICU monitoring critical care time spent in reviewing chart, evaluating patient and formulating plan 45 min
--- NOTE | 2017-05-01 12:29 | EKG ---
Test Reason : Blood Pressure : / mmHG Vent. Rate : 082 BPM Atrial Rate : 082 BPM P-R Int : 262 ms QRS Dur : 112 ms QT Int : 400 ms P-R-T Axes : 078 021 014 degrees QTc Int : 467 ms SINUS RHYTHM WITH 1ST DEGREE A-V BLOCK INCOMPLETE LEFT BUNDLE BRANCH BLOCK POOR R WAVE PROGRESSION NONSPECIFIC T WAVE ABNORMALITY PROLONGED QT ABNORMAL ECG Confirmed by MD DELMY, MACK ([id number]) on 05/01/2017 12:29:14 PM Referred By: Confirmed By:MACK BROCK MD
--- NOTE | 2017-05-01 12:42 | PN ---
Physical Exam: SUBJECTIVE: Patient seen and examined Pt seen and examined in the ICU. During pre round around 9:00am farideh was alert and moving his limbs than around 10:45 am during morning rounds pt noted to be altered with right facial droop and flaccid right arm and leg.. Stat CT head without acute findings, discussed with neurologist, Krzysztof informed and agreed for tpa. Patient started on tpa. OBJECTIVE: Vital Signs Period Temp Pulse Resp BP Sys/Yanez Pulse Ox Last 24 Hr 97.8 F-98.7 F 82-97 14-22 98-129/49-77 96-98 GENERAL: altered sensorium., not answering, HEAD: Normal with no signs of trauma. EYES: pupils equal reacting, deviated towards left. LUNGS: Breath sounds equal, clear to auscultation bilaterally, no wheezes, no crackles, no accessory muscle use. HEART: s1s2 regular ABDOMEN: Soft, nontender, nondistended, normoactive bowel sounds, no guarding, no rebound, suprapubic cath in situ, mild erythema around it. EXTREMITIES: right lower limb amputation. unable to move right upper limb and not moving right lower amputated stump, flaccid NEUROLOGICAL: right facial droop. Laboratory Results - last 24 hr 04/30/17 04/30/17 04/30/17 16:15 16:15 18:00 WBC 26.4 H RBC 3.87 L Hgb 10.8 L Hct 31.9 L MCV 82.3 MCH 27.8 MCHC 33.8 RDW 15.1 Plt Count 493 H MPV 7.9 Neutrophils % Y Lymphocytes % Y Monocytes % Eosinophils % Basophils % Sodium 137 Potassium 3.0 L Chloride 105 Carbon Dioxide 20 L Anion Gap 12 BUN 49 H Creatinine 3.3 H Creat Clearance w eGFR POC Glucometer Random Glucose 156 H D Calcium 7.4 L Phosphorus 4.7 Magnesium 1.7 L Total Bilirubin AST ALT Alkaline Phosphatase Total Protein Albumin Lipase 66 L Stool Occult Blood Negative 04/30/17 04/30/17 05/01/17 21:39 23:25 05:20 WBC 21.2 H RBC 3.99 L Hgb 11.0 L Hct 32.7 L MCV 82.0 MCH 27.6 MCHC 33.7 RDW 15.3 Plt Count 481 H MPV 8.1 Neutrophils % 84.7 H D Lymphocytes % 6.0 L D Monocytes % 8.4 Eosinophils % 0.8 Basophils % 0.1 Sodium 140 Potassium 2.8 L* Chloride 106 Carbon Dioxide 18 L Anion Gap 16 BUN 45 H Creatinine 2.6 H D Creat Clearance w eGFR POC Glucometer 125.90165 Random Glucose 103 D Calcium 7.5 L Phosphorus Magnesium Total Bilirubin AST ALT Alkaline Phosphatase Total Protein Albumin Lipase Stool Occult Blood 05/01/17 05/01/17 05/01/17 05:20 06:18 09:23 WBC RBC Hgb Hct MCV MCH MCHC RDW Plt Count MPV Neutrophils % Lymphocytes % Monocytes % Eosinophils % Basophils % Sodium 141 Potassium 3.3 L Chloride 111 H Carbon Dioxide 20 L Anion Gap 10 BUN 40 H Creatinine 2.1 H Creat Clearance w eGFR 31.47 POC Glucometer 143.46604 169.60341 Random Glucose 107 H Calcium 7.5 L Phosphorus 4.1 Magnesium 2.0 Total Bilirubin 0.3 AST 10 L D ALT 12 Alkaline Phosphatase 62 Total Protein 4.8 L Albumin 1.9 L Lipase Stool Occult Blood Active Medications Generic Name Dose Route Start Last Admin Trade Name Freq PRN Reason Stop Dose Admin Amlodipine Besylate 10 mg 05/01/17 10:00 05/01/17 09:23 Norvasc - PO 10 mg DAILY [facility] Administration Bacitracin/Polymyxin B Sulfate 1 applic 05/01/17 10:00 05/01/17 11:37 Polysporin Ointment - TP 1 applic BID [facility] Administration Chlorhexidine Gluconate 1 applic 04/30/17 22:00 04/30/17 21:32 Hibiclens For Decolonization - TP 1 applic HS [facility] Administration Fenofibric Acid 135 mg 05/01/17 10:00 05/01/17 09:24 Trilipix - PO 135 mg DAILY [facility] Administration Glipizide 5 mg 05/01/17 07:00 05/01/17 09:24 Glucotrol - PO 5 mg DAILY@0700 [facility] Administration Metronidazole 100 mls @ 100 mls/hr 04/30/17 18:00 05/01/17 09:23 Flagyl 500mg Premixed Ivpb - IVPB 100 mls/hr Q8H-IV [facility] Administration Sodium Chloride 1,000 mls @ 175 mls/hr 04/30/17 19:00 04/30/17 20:00 Normal Saline - IV 05/03/17 00:43 175 mls/hr ASDIR [facility] Administration Lisinopril 40 mg 05/01/17 10:00 05/01/17 09:24 Prinivil PO 40 mg DAILY [facility] Administration Metoprolol Tartrate 25 mg 04/30/17 22:00 05/01/17 09:24 Lopressor - PO 25 mg BID [facility] Administration Mupirocin 1 applic 04/30/17 22:00 05/01/17 09:55 Bactroban Ointment (For Decolonization) - NS 05/05/17 21:59 1 applic BID [facility] Administration Tamsulosin HCl 0.4 mg 05/01/17 08:30 05/01/17 09:23 Flomax - PO 0.4 mg DAILY@0830 [facility] Administration Vancomycin HCl 250 mg 05/01/17 00:00 05/01/17 12:24 Vancomycin Oral Solution PO Not Given Q6HPO [facility] ASSESSMENT/PLAN: Acute CVA Neurology on case right side hemiplegia started on tpa avoid Iv draw for 24 hour s/c heparin and aspirin stopped. r/o C Diff Colitis BL goal [address] in 6 hours around 6:00pm speech and swallow evaluation. Will start him on agranox tomorrow morning monitor for bleed. aspiration precaution and fall risk precautions get echo, carotid doppler, lipid profile, HbA1c HTN keep BP below 140 UTI follow urine culture. Antibiotics according to ID Suprapubicat was inserted 2 week ago. Diarrhoea C diff antigen positive. patient on IV flagyl and vanco NPO due to stroke. Follow stool culture, wbc, ova and parasite Continue IV fluid. Sepsis could be due to UTI and c diff infection. Continue IV fluid. Monitor vitals Monitor intake and output. wbc decreased from 30 to 21 Follow cultures. Hypokalemia Got kotassium repeat labs tomorrow. DM Monitor blood sugar monitoring Fluid : IV fluid NS Electrolyte: hypokalemia. Nutrition: NPO for now, speech and swallow evaluation. DVT pro: got tpa GI pro: protonix Dispo: in icu Visit type - Emergency Visit Emergency Visit: Yes ED Registration Date: 04/30/17 Care time: The patient presented to the Emergency Department on the above date and was hospitalized for further evaluation of their emergent condition. - New Patient This patient is new to me today: Yes Date on this admission: 05/01/17 - Critical Care Critical Care patient: Yes Total Critical Care Time (in minutes): 60 Critical Care Statement: The care of this patient involved high complexity decision making to prevent further life threatening deterioration of the patient 's condition and/or to evaluate & treat vital organ system(s) failure or risk of failure.
[2017-05-01 12:59] LABS: CHOLESTEROL 96 mg/dL (50-200)
[2017-05-01] MEDS: SODIUM CHLORIDE 1,000 ML IV SCH (13:15)
--- NOTE | 2017-05-01 13:22 | PN ---
Progress Note, Physician - Current Medication List Current Medications: Active Medications Amlodipine Besylate (Norvasc -) 10 mg PO DAILY [facility] Last Admin: 05/01/17 09:23 Dose: 10 mg Bacitracin/Polymyxin B Sulfate (Polysporin Ointment -) 1 applic TP BID [facility] Last Admin: 05/01/17 11:37 Dose: 1 applic Chlorhexidine Gluconate (Hibiclens For Decolonization -) 1 applic TP HS [facility] Last Admin: 04/30/17 21:32 Dose: 1 applic Fenofibric Acid (Trilipix -) 135 mg PO DAILY [facility] Last Admin: 05/01/17 09:24 Dose: 135 mg Glipizide (Glucotrol -) 5 mg PO DAILY@0700 [facility] Last Admin: 05/01/17 09:24 Dose: 5 mg Metronidazole (Flagyl 500mg Premixed Ivpb -) 100 mls @ 100 mls/hr IVPB Q8H-IV [facility] Last Admin: 05/01/17 09:23 Dose: 100 mls/hr Sodium Chloride (Normal Saline -) 1,000 mls @ 100 mls/hr IV ASDIR [facility] Stop: 05/03/17 04:59 Lisinopril (Prinivil) 40 mg PO DAILY [facility] Last Admin: 05/01/17 09:24 Dose: 40 mg Metoprolol Tartrate (Lopressor -) 25 mg PO BID [facility] Last Admin: 05/01/17 09:24 Dose: 25 mg Mupirocin (Bactroban Ointment (For Decolonization) -) 1 applic NS BID [facility] Stop: 05/05/17 21:59 Last Admin: 05/01/17 09:55 Dose: 1 applic Tamsulosin HCl (Flomax -) 0.4 mg PO DAILY@0830 [facility] Last Admin: 05/01/17 09:23 Dose: 0.4 mg Vancomycin HCl (Vancomycin Oral Solution) 250 mg PO Q6HPO [facility] Last Admin: 05/01/17 12:24 Dose: Not Given - Objective Vital Signs: Vital Signs Temperature 98.7 F 05/01/17 11:45 Pulse Rate 95 H 05/01/17 13:00 Respiratory Rate 22 05/01/17 13:00 Blood Pressure 120/68 05/01/17 13:00 O2 Sat by Pulse Oximetry (%) 96 05/01/17 10:27 Labs: CBC, BMP 05/01/17 05:20 05/01/17 05:20 INR, PTT INR 1.28 (0.82-1.09) H 04/30/17 12:05
--- NOTE | 2017-05-01 13:30 | PN ---
Progress Note, Physician Chief Complaint: called pt had cva? embolic ct neg neuro seen pt hay ateplase startedsasp pt becoming combative during echo - Current Medication List Current Medications: Active Medications Amlodipine Besylate (Norvasc -) 10 mg PO DAILY [facility] Last Admin: 05/01/17 09:23 Dose: 10 mg Bacitracin/Polymyxin B Sulfate (Polysporin Ointment -) 1 applic TP BID [facility] Last Admin: 05/01/17 11:37 Dose: 1 applic Chlorhexidine Gluconate (Hibiclens For Decolonization -) 1 applic TP HS [facility] Last Admin: 04/30/17 21:32 Dose: 1 applic Fenofibric Acid (Trilipix -) 135 mg PO DAILY [facility] Last Admin: 05/01/17 09:24 Dose: 135 mg Glipizide (Glucotrol -) 5 mg PO DAILY@0700 [facility] Last Admin: 05/01/17 09:24 Dose: 5 mg Metronidazole (Flagyl 500mg Premixed Ivpb -) 100 mls @ 100 mls/hr IVPB Q8H-IV [facility] Last Admin: 05/01/17 09:23 Dose: 100 mls/hr Sodium Chloride (Normal Saline -) 1,000 mls @ 100 mls/hr IV ASDIR [facility] Stop: 05/03/17 04:59 Lisinopril (Prinivil) 40 mg PO DAILY [facility] Last Admin: 05/01/17 09:24 Dose: 40 mg Metoprolol Tartrate (Lopressor -) 25 mg PO BID [facility] Last Admin: 05/01/17 09:24 Dose: 25 mg Mupirocin (Bactroban Ointment (For Decolonization) -) 1 applic NS BID [facility] Stop: 05/05/17 21:59 Last Admin: 05/01/17 09:55 Dose: 1 applic Tamsulosin HCl (Flomax -) 0.4 mg PO DAILY@0830 [facility] Last Admin: 05/01/17 09:23 Dose: 0.4 mg Vancomycin HCl (Vancomycin Oral Solution) 250 mg PO Q6HPO [facility] Last Admin: 05/01/17 12:24 Dose: Not Given - Objective Vital Signs: Vital Signs Temperature 98.7 F 05/01/17 11:45 Pulse Rate 95 H 05/01/17 13:00 Respiratory Rate 22 05/01/17 13:00 Blood Pressure 120/68 08/25/17 13:00 O2 Sat by Pulse Oximetry (%) 96 05/01/17 10:27 Constitutional: Yes: Calm, Other (exspressive aphasia?) Eyes: Yes: Other (contrlateral gaze) HENT: Yes: WNL Neck: Yes: WNL Cardiovascular: Yes: WNL Respiratory: Yes: WNL, Other (watch for loretta stoking) Gastrointestinal: Yes: Soft ...Rectal Exam: Yes: Deferred Genitourinary: Yes: Other (suprapubic tube intact) Breast(s): Yes: WNL Musculoskeletal: Yes: WNL, Other (unable to move rue) Extremities: Yes: Amputation Edema: No Peripheral Pulses WNL: Yes Integumentary: Yes: Erythema (gluteal area) Neurological: Yes: Aphasia, Other (lt babiski) Labs: CBC, BMP 05/01/17 05:20 05/01/17 05:20 INR, PTT INR 1.28 (0.82-1.09) H 04/30/17 12:05 Assessment/Plan echo compleating caratd sono ? mra angio to find clott if large vess dz may need transfer cont tx as is
--- NOTE | 2017-05-01 13:43 | CONSULT ---
Consult - text type - Consultation Consultation Note: Neurology History of Present Illness 67 yo M presented to the ER with a complaint of diarrhea and weakness for the past 2 weeks. Was found to be positive for C Diff and admitted. Was in ICU and this AM rudolph rayo called and I went to ICU. Initially, patient believed to be under care of another neurologist and ICU team plan was to contact them. Thereafter, when I was in the office, I was contacted for consultation for acute R sided weakness, aphasia, and confusion. Patient last known well this morning at 9:20 as witnessed by nurse. Unclear when symptoms exactly presented but patient underwent CT and did not have acute blood. ICU staff re-evaluated patient and exam had not changed. I spoke with ICU attending and decision to give TPA was agreed upon approximately at 11:20 AM as patient was in TPA window. We discussed contraindications which were none. I saw patient at bedside after TPA administered and patient with improving RLE strength, now 5-/ 5. Patient also moving RUE but not following commands fully yet. Considered further endovascular management but patient with clinical improvement and decision made for patient to remain in ICU and continued close monitoring. Past History - Past Medical History Allergies/Adverse Reactions: Allergies Allergy/AdvReac Type Severity Reaction Status Date / Time No Known Drug Allergies Allergy Verified 04/30/17 11:36 Current Medications Amlodipine Besylate (Norvasc -) 10 mg PO DAILY [facility] Last Admin: 05/01/17 09:23 Dose: 10 mg Bacitracin/Polymyxin B Sulfate (Polysporin Ointment -) 1 applic TP BID [facility] Last Admin: 05/01/17 11:37 Dose: 1 applic Chlorhexidine Gluconate (Hibiclens For Decolonization -) 1 applic TP HS [facility] Last Admin: 04/30/17 21:32 Dose: 1 applic Fenofibric Acid (Trilipix -) 135 mg PO DAILY [facility] Last Admin: 05/01/17 09:24 Dose: 135 mg Glipizide (Glucotrol -) 5 mg PO DAILY@0700 [facility] Last Admin: 05/01/17 09:24 Dose: 5 mg Metronidazole (Flagyl 500mg Premixed Ivpb -) 100 mls @ 100 mls/hr IVPB Q8H-IV [facility] Last Admin: 05/01/17 09:23 Dose: 100 mls/hr Sodium Chloride (Normal Saline -) 1,000 mls @ 100 mls/hr IV ASDIR [facility] Stop: 05/03/17 04:59 Last Admin: 05/01/17 13:15 Dose: 100 mls/hr Lisinopril (Prinivil) 40 mg PO DAILY [facility] Last Admin: 05/01/17 09:24 Dose: 40 mg Metoprolol Tartrate (Lopressor -) 25 mg PO BID [facility] Last Admin: 05/01/17 09:24 Dose: 25 mg Mupirocin (Bactroban Ointment (For Decolonization) -) 1 applic NS BID [facility] Stop: 05/05/17 21:59 Last Admin: 05/01/17 09:55 Dose: 1 applic Tamsulosin HCl (Flomax -) 0.4 mg PO DAILY@0830 [facility] Last Admin: 05/01/17 09:23 Dose: 0.4 mg Vancomycin HCl (Vancomycin Oral Solution) 250 mg PO Q6HPO [facility] Last Admin: 05/01/17 12:24 Dose: Not Given Anemia: No Asthma: No Cancer: No Cardiac Disorders: No CVA: No COPD: No CHF: No Dementia: No Diabetes: Yes GI Disorders: Yes (incontinence) Disorders: Yes HTN: Yes Hypercholesterolemia: Yes Liver Disease: No Seizures: No Thyroid Disease: No - Surgical History Abdominal Surgery: Yes (hernia surgery) Appendectomy: No Cardiac Surgery: No Cholecystectomy: Yes Lung Surgery: No Neurologic Surgery: No Orthopedic Surgery: Yes (Right BKA) - Psycho/Social/Smoking Cessation Hx Anxiety: No Suicidal Ideation: No Smoking History: Current every day smoker Have you smoked in the past 12 months: Yes Number of Cigarettes Smoked Daily: 20 Cigars Per Day: 0 Information on smoking cessation initiated: No 'Breaking Loose' booklet given: 03/20/17 Hx Alcohol Use: No Drug/Substance Use Hx: No Substance Use Type: None Hx Substance Use Treatment: No *Physical Exam - Vital Signs Last Vital Signs Temp Pulse Resp BP Pulse Ox 99.2 F 85 20 84/51 95 04/30/17 11:35 04/30/17 12:30 04/30/17 12:30 04/30/17 12:30 04/30/17 12:30 Awake, alert, not following commands fully RRR, no murmur Lungs clear Abdomen soft, NT R facial droop noted Moving RUE and LUE grossly, not participating in confrontation testing LLE and RLE equal, approximately 5-/5 Sensory intact to pain R BKA noted Gait deferred CBCD WBC 21.2 K/mm3 (4.0-10.0) H 05/01/17 05:20 RBC 3.99 M/mm3 (4.00-5.60) L 05/01/17 05:20 Hgb 11.0 GM/dL (11.7-16.9) L 05/01/17 05:20 Hct 32.7 % (35.4-49) L 05/01/17 05:20 MCV 82.0 fl (80-96) 05/01/17 05:20 MCHC 33.7 g/dl (32.0-35.9) 05/01/17 05:20 RDW 15.3 % (11.9-15.9) 05/01/17 05:20 Plt Count 481 K/MM3 (134-434) H 05/01/17 05:20 MPV 8.1 fl (7.5-11.1) 05/01/17 05:20 CMP Sodium 141 mmol/L (136-145) 05/01/17 05:20 Potassium 3.3 mmol/L (3.5-5.1) L 05/01/17 05:20 Chloride 111 mmol/L (98-107) H 05/01/17 05:20 Carbon Dioxide 20 mmol/L (21-32) L 05/01/17 05:20 Anion Gap 10 (8-16) 05/01/17 05:20 BUN 40 mg/dL (7-18) H 05/01/17 05:20 Creatinine 2.1 mg/dL (0.7-1.3) H 05/01/17 05:20 Creat Clearance w eGFR 31.47 (>60) 05/01/17 05:20 Calcium 7.5 mg/dL (8.5-10.1) L 05/01/17 05:20 Total Bilirubin 0.3 mg/dL (0.2-1.0) 05/01/17 05:20 AST 10 U/L (15-37) L D 05/01/17 05:20 ALT 12 U/L (12-78) 05/01/17 05:20 Alkaline Phosphatase 62 U/L (45-117) 05/01/17 05:20 Total Protein 4.8 g/dl (6.4-8.2) L 05/01/17 05:20 Albumin 1.9 g/dl (3.4-5.0) L 05/01/17 05:20 Ct head reviewed Plan: 67 yo M presented to the ER with a complaint of diarrhea and weakness for the past 2 weeks. Was found to be positive for C Diff and admitted. Was in ICU and this AM rudolph rayo called and I went to ICU. Initially, patient believed to be under care of another neurologist and ICU team plan was to contact them. Thereafter, when I was in the office, I was contacted for consultation for acute R sided weakness, aphasia, and confusion. Patient last known well this morning at 9:20 as witnessed by nurse. Unclear when symptoms exactly presented but patient underwent CT and did not have acute blood. ICU staff re-evaluated patient and exam had not changed. I spoke with ICU attending and decision to give TPA was agreed upon approximately at 11:20 AM as patient was in TPA window. We discussed contraindications which were none. I saw patient at bedside after TPA administered and patient with improving RLE strength, now 5-/ 5. Patient also moving RUE but not following commands fully yet. Considered further endovascular management but patient with clinical improvement and decision made for patient to remain in ICU and continued close monitoring. MRI brain, will check MRA as well CD Echo On ASA, hold for 24hrs s/p TPA Check CT head in 6 hrs Lipid check HgA1C Speech/Swallow Eval PT when able, hold for 24 hrs BP goal 120-140 systolic for now tight glycemic control, continue Continue ICU care, neuro checks Q1hr Critical care time 80 mins total.
--- NOTE | 2017-05-01 14:03 | PDOC ---
NIH Stroke Scale - Last Known Well Date/Time & Onset Date Last Known Well: 05/01/17 Time Last Known Well: 09:20 - Initial Evaluation Level of consciousness: Alert Ask patient the month and their age: Answers one correctly Ask patient to open & close eyes; make fist and let go: Obeys both correctly Best gaze (horizontal eye movement): Partial gaze palsy Visual field testing: No visual field loss Facial paresis (Show teeth/raise eyebrows/close eyes tight): Partial paralysis ( total or near paralysis of lower face) Motor Function: Left Arm: Normal Motor Function: Right Arm: Some effort against gravity Motor Function: Left Leg: Some effort against gravity Motor Function: Right Leg: Untestable )Joint fused orlimb amputated), explain: Limb Ataxia: Untestable (Joint fused or limb amputated), explain: Sensory(Use pinprick test arms,legs,trunk,face/side to side): Mild to moderate decrease in sensation Best language (Describe picture, name items, read sentences): Mild to moderate aphasia Dysarthria (read several words): Mild to moderate slurring of words Extinction and Inattention: No abnormality - Total Score NIH Stroke Scale Score: 11
--- NOTE | 2017-05-01 14:30 | CONSULT ---
Admitting History and Physical - Primary Care Physician PCP: Donell Garcia - Admission History of Present Illness: 67yom with PMHx of DMII, COPD, neurogenic bladder, urinary tract obstruction(BPH , balinitis) s/p recent suprapubic cath placement who presents with c/o diarrhea(10-16x/d), weakness and fever for ~2 weeks. This morning with sudden onset acute R sided weakness, aphasia, and confusion. TPA given. History Source: Medical Record Limitations to Obtaining History: Clinical Condition - Past Medical History Cardiovascular: Yes: HTN Pulmonary: Yes: COPD Gastrointestinal: Yes: Other (fatty liver) Renal/: Yes: Neurogenic Bladder, Other (balinitis hydro neurogenic bladder) Infectious Disease: Yes: Other (balinitis) Musculoskeletal: Yes: Other (rt bka lt food wd healed) Endocrine: Yes: Diabetes Mellitus - Past Surgical History Past Surgical History: Yes: Amputation - Smoking History Smoking history: Current every day smoker Have you smoked in the past 12 months: Yes Aproximately how many cigarettes per day: 15 - Alcohol/Substance Use Hx Alcohol Use: No History of Substance Use: reports: None - Social History ADL: Independent History of Recent Travel: No History - Admission Reason For Visit: SEPSIS - Diagnostics CT Scan: Report Reviewed - General Mental Status: Confused, Flat Affect Attention: Distractible, Moderate Impairment Ability to Follow Directions: Poor Head/Neck Control: Needs Assist - Hearing Hearing: Normal Speech Evaluation - Communication Primary Language: JAPANESE Communication: Yes: Dysarthria, Aphasia (Global Aphasia) Oral Expression Ability: Yes: Moderate Impairment - Speech Production Apraxia: Yes Able to Make Needs Known: Yes: Severely Impaired Intelligibility: Yes: Severely Impaired - Speech Characteristics Voice Loudness: Mildly Soft/Quiet Voice Pitch: Yes: Normal Voice Phonatory-based Quality: Yes: Vocal Wetness Speech Pattern: Impaired Speech Clarity: < 25% Nasal Resonance: Hypernasal Articulation: Yes: Imprecise - Language/Auditory Comprehension Observation: Able to respond to yes/no queries: No, Comprehends Conversational Speech: No - Language/Verbal Expression Able to Respond to Simple Queries: Yes: Severely Impaired Able to Communicate Wants and Needs: Yes: Severely Impaired Functional Communication Status: Yes: Severely Impaired - Swallow Evaluation/Bedside Assessment Current Nutritional Intake: NPO Facial Symmetry at Rest: Facial Droop Right Recommendations - Speech Evaluation, Impression/Plan Impression: Global Aphasia with R UE flaccid. Pt not following any commands or responding with yes/no headshake. Unintelligible, perseverative speech output. Poor functional communication. Moderate Dysarthria. Apraxia. Not sufficiently stable for PO trial. - Dysphagia Impressions/Plan Swallowing Skills: Impaired Dysphagia Impressions: Severe Impairment, Risk of Aspiration, Ongoing Evaluation *Silent aspiration: cannot be R/O at bedside Dysphagia Treatment Plan: Other (Maintain HOB elevated, suction PRN, Mouth care. ) Recommendations: Modified Barium Swallow (Once medically stable- 05/04?) - Recommendations Diet Consistency: NPO Liquids: NPO
--- NOTE | 2017-05-01 16:10 | PN ---
GI Progress Note Subjective: Patient with CVA this am. Currently having echo done Diarrhea decreased - Objective Vital Signs: Vital Signs Temperature 98.0 F 05/01/17 14:15 Pulse Rate 92 H 05/01/17 15:45 Respiratory Rate 22 05/01/17 15:45 Blood Pressure 118/73 05/01/17 15:45 O2 Sat by Pulse Oximetry (%) 96 05/01/17 10:27 Constitutional: Obese HENT: Yes: Normocephalic Neck: Yes: Supple Cardiovascular: Yes: Regular Rate and Rhythm Respiratory: Yes: CTA Bilaterally Gastrointestinal Inspection: Yes: WNL ...Auscultate: Yes: Normoactive Bowel Sounds ...Palpate: Yes: Soft, Tenderness (general mild, diffuse) Labs: CBC, BMP 05/01/17 05:20 05/01/17 05:20 INR, PTT INR 1.28 (0.82-1.09) H 04/30/17 12:05 Assessment/Plan S/P CVA W/U in progress Diarrhea resolving WBC down C diff Ag (+) Continue amara and gamaliel
--- NOTE | 2017-05-01 16:10 | PN ---
Progress Note, Physician History of Present Illness: events from overnight noted patient suffered a stroke currently patient has all stroke symptoms maintaining vital all cx reports noted patient got tpa - Current Medication List Current Medications: Active Medications Amlodipine Besylate (Norvasc -) 10 mg PO DAILY [facility] Last Admin: 05/01/17 09:23 Dose: 10 mg Bacitracin/Polymyxin B Sulfate (Polysporin Ointment -) 1 applic TP BID [facility] Last Admin: 05/01/17 11:37 Dose: 1 applic Chlorhexidine Gluconate (Hibiclens For Decolonization -) 1 applic TP HS [facility] Last Admin: 04/30/17 21:32 Dose: 1 applic Fenofibric Acid (Trilipix -) 135 mg PO DAILY [facility] Last Admin: 05/01/17 09:24 Dose: 135 mg Glipizide (Glucotrol -) 5 mg PO DAILY@0700 [facility] Last Admin: 05/01/17 09:24 Dose: 5 mg Metronidazole (Flagyl 500mg Premixed Ivpb -) 100 mls @ 100 mls/hr IVPB Q8H-IV [facility] Last Admin: 05/01/17 09:23 Dose: 100 mls/hr Sodium Chloride (Normal Saline -) 1,000 mls @ 100 mls/hr IV ASDIR [facility] Stop: 05/03/17 04:59 Last Admin: 05/01/17 13:15 Dose: 100 mls/hr Lisinopril (Prinivil) 40 mg PO DAILY [facility] Last Admin: 05/01/17 09:24 Dose: 40 mg Metoprolol Tartrate (Lopressor -) 25 mg PO BID [facility] Last Admin: 05/01/17 09:24 Dose: 25 mg Mupirocin (Bactroban Ointment (For Decolonization) -) 1 applic NS BID [facility] Stop: 05/05/17 21:59 Last Admin: 05/01/17 09:55 Dose: 1 applic Tamsulosin HCl (Flomax -) 0.4 mg PO DAILY@0830 [facility] Last Admin: 05/01/17 09:23 Dose: 0.4 mg Vancomycin HCl (Vancomycin Oral Solution) 250 mg PO Q6HPO [facility] Last Admin: 05/01/17 12:24 Dose: Not Given - Objective Vital Signs: Vital Signs Temperature 98.0 F 05/01/17 14:15 Pulse Rate 92 H 05/01/17 15:45 Respiratory Rate 22 05/01/17 15:45 Blood Pressure 118/73 05/01/17 15:45 O2 Sat by Pulse Oximetry (%) 96 05/01/17 10:27 Constitutional: Yes: Other Cardiovascular: Yes: Regular Rate and Rhythm Respiratory: Yes: Regular Gastrointestinal: Yes: Normal Bowel Sounds, Soft Musculoskeletal: Yes: Other Extremities: Yes: Other Neurological: Yes: Confusion, Other (c) Psychiatric: Yes: Other Labs: CBC, BMP 05/01/17 05:20 05/01/17 05:20 INR, PTT INR 1.28 (0.82-1.09) H 04/30/17 12:05 Assessment/Plan uti gi bleed dirrhoea sepsis wound infection plan cx report noted started patient on abx neurology on case close monitoring await for identification of all bacteria cc time 40 min
--- NOTE | 2017-05-01 16:37 | CONS ---
DATE OF CONSULTATION: DATE OF DICTATION: 05/01/2017 REQUESTING PHYSICIAN: Donell Garcia M.D. CARDIOLOGY CONSULTATION LOCATION: CCU. Patient is noncommunicative due to an acute cerebrovascular accident. History was obtained from his nephew and from the resident. He is a 67-year-old gentleman with history of hypertension, diabetes mellitus, chronic obstructive pulmonary disease, status post right , was admitted with history of recurring bloody diarrhea which occurred after he had been given some preoperative antibiotics for a urological procedure. On admission, he was found to be hypotensive, and was admitted to the CCU for observation, and placed on isolation to exclude the possibility of C. difficile. This morning patient suddenly became unresponsive and was noted to have a right hemiplegia and was treated with TPA. There is no known history of coronary artery disease, angina pectoris, previous TIA or CVA. There is history of dyslipidemia. No known history of palpitations or arrhythmias. History of psoriasis. PAST HISTORY: As mentioned in the history of present illness. SURGICAL HISTORY: Status post right below-knee amputation. No other surgical history is available. SOCIAL HISTORY: According to his nephew, he lives alone. History of smoking approximately 15 cigarettes per day as noted in the chart. No history of excessive alcohol use. No known drug use. FAMILY HISTORY: Not available. ALLERGIES: None documented. CURRENT MEDICATIONS: 1. Flagyl 500 mg IV q.8 h. 2. Vancomycin 250 mg p.o. q.6 h. 3. Flomax 0.4 mg p.o. daily. 4. Lisinopril 40 mg p.o. daily. 5. Metoprolol tartrate 25 mg p.o. b.i.d. 6. Amlodipine 10 mg p.o. daily. 7. Fenofibric acid 135 mg p.o. daily. Reviewing the records, back to December 10, 2016, he had been also on: 1. Tradjenta 5 mg p.o. daily. 2. 30 mg p.o. b.i.d. dated April 15, 2017. 3. Zetia 10 mg p.o. daily. REVIEW OF SYSTEMS: Constitutional: No history of chills, fever, or night sweats documented. No history of unintentional weight loss reported. HEENT: Not available. Cardiovascular: No history of chest pain or discomfort reported. Respiratory: No known history of cough, expectoration or hemoptysis. Gastrointestinal: See history of present illness. Central Nervous System: Acute mental status alteration and right hemiplegia. Genitourinary: See history of present illness and recent urological procedure. Musculoskeletal: No history of myalgias or arthralgias have been noted. Hematological: History of anemia, ecchymosis. History of bloody diarrhea. PHYSICAL EXAMINATION: General: A 67-year-old obese male, poorly responsive. No pallor, cyanosis, clubbing, or jaundice noted. Vital signs: Weight is not available. Blood pressure 116/55 mmHg, pulse 92 beats per minute and regular, afebrile at 98.0 degrees Fahrenheit, respirations 20 per minute. Neck: Supple. No jugulovenous distention. Carotids equal and upstrokes were normal, no bruits were heard, and no thyromegaly was appreciated. Heart: PMI was not localized. No heaves or thrills. Heart sounds were distant. No murmurs or gallops were appreciated. Lungs: Decreased breath sounds at both bases. But clear. Abdomen: Obese, nontender, no hepatosplenomegaly or palpable masses were felt. Bowel sounds were distant, no bruits were appreciated. Extremities: Right below-knee amputation. Left, no edema or calf tenderness. Dorsalis pedis pulses were 2+. Posterior tibial pulses were 1+. LABORATORY DATA: On May 01, 2017, WBC 21,000 on admission, WBC count was 30,300. Hemoglobin on May 01, 2017, 11.0 g/dL. Platelet count on admission was 526,000 and currently 481,000. Patient has left shift on differential. Chemistry: On April 30, 2017, sodium 140, potassium 2.8, chloride 106, CO2 of 18 mmol/L, BUN 45, creatinine 2.6 mg/dL. Random glucose was 103 and 107, respectively. Calcium was 7.5. Troponins were not done. Total cholesterol was 96, triglyceride 174, LDL cholesterol 59, HDL cholesterol 13. ECG dated April 30, 2017, sinus rhythm with 1st-degree AV block, and occasional supraventricular premature beats. Poor R wave progression V1 to V3, nonspecific ST and T wave abnormalities. X-ray chest April 30, 2017, impression: Limited examination, as described above. No acute lung diseases present. Renal ultrasound, impression: Right kidney larger than left without evidence of hydronephrosis or stone bilaterally. Small amount of free fluid ascites in the right and to lesser extent left upper abdomen. Also mentioned in the report was fatty infiltration versus hepatocellular disease. IMPRESSION: 1. Acute cerebrovascular accident with right hemiplegia and altered mental status. 2. Status post tissue plasminogen activator. 3. History of bloody diarrhea, possibly related to Clostridium difficile. 4. Probable sepsis. 5. History of non-insulin dependent diabetes mellitus. 6. History of dyslipidemia. 7. Hypokalemia. 8. Hypertension, hypertensive cardiovascular disease. 9. Supraventricular beats. 10. Status post right below-knee amputation. 11. History of fatty liver disease. 12. Tobacco abuse. RECOMMENDATION: 1. Echocardiogram report is pending. 2. Serum magnesium level. 3. Correction of serum potassium. 4. Carotid ultrasound is pending. 5. Free T4, TSH. Prognosis critical. Thank you for your referral. PARKER LIMON M.D. [id number]
[2017-05-01] MEDS: PIPERACILLIN/TAZOB 2.25 GM 50 ML IVPB SCH (17:09)
[2017-05-01 18:15] LABS: URINE APPEARANCE CLOUDY; URINE BILIRUBIN NEGATIVE (NEGATIVE); URINE BLOOD 3+ (NEGATIVE); URINE COLOR YELLOW; URINE GLUCOSE (UA) NEGATIVE (NEGATIVE); URINE KETONE NEGATIVE (NEGATIVE); URINE LEUK ESTERASE 3+ (NEGATIVE); URINE NITRITE NEGATIVE (NEGATIVE); URINE PROTEIN 1+ (NEGATIVE); URINE UROBILINOGEN NEGATIVE mg/dL (0.2-1.0)
[2017-05-01 18:32] LABS: URINE RBC 704 /hpf (0-3); URINE WBC 223 /hpf (3-5)
[2017-05-01] MEDS: CHLORHEXIDINE GLUCONATE 4% CLEANSER FOR DECOLONIZATION TP SCH (21:14)
[2017-05-02] MEDS: METRONIDAZOLE 500 MG PREMIXED 100 ML IVPB SCH ×3 (02:00→17:02)
[2017-05-02] MEDS: PIPERACILLIN/TAZOB 2.25 GM 50 ML IVPB SCH ×3 (03:00→17:02)
[2017-05-02] MEDS: VANCOMYCIN 250 MG/5 ML ORAL SOLUTION PO SCH (06:22)
[2017-05-02] MEDS: glipiZIDE 5 MG TABLET (FP) PO SCH (06:23)
--- NOTE | 2017-05-02 07:52 | PN ---
Progress Note (short form) - Note Progress Note: SUBJECTIVE: Pt seen and examined in the ICU. 24hr: -acute L MCA CVA on CT and MRI -received tPA, minimal improvement in neuro exam -VSS, no evidence of bleeding - OBJECTIVE: Vital Signs Temp 98.5 F 05/02/17 04:00 Pulse 88 05/02/17 06:00 Resp 22 05/02/17 06:00 BP 126/68 05/02/17 06:00 Pulse Ox 98 05/01/17 20:36 Intake & Output 05/01/17 05/01/17 05/02/17 11:59 23:59 11:59 Intake Total 2350 1900 1450 Output Total 1700 1350 800 Balance 650 550 650 Weight 126.2 kg Intake: IV 2100 1650 1250 Normal Saline - 1,000 ml 2100 1050 @ 175 mls/hr IV ASDIR [facility] Rx#:[id number] Normal Saline - 1,000 ml 600 1250 @ 100 mls/hr IV ASDIR [facility] Rx#:[id number] IVPB 250 250 200 Oral 0 Output: Urine 1700 1350 800 Supra Pubic Tube 1700 1350 800 Other: Voiding Method Indwelling Catheter Indwelling Catheter Bowel Movement Yes: yellow jelly like consistency Yes: loose # Bowel Movements 1 Weight Measurement Method Built in [facility] Gen: lethargic, altered, dysarthric, intermittently following commands HEENT: PERRL, EOMI Heart: RRR Lung: decreased breath sounds at the bases bilaterally Abd: soft, nontender Ext: R BKA Neuro: +facial droop, 1/5 RUE, 4/5LUE, CBC, BMP 05/01/17 05:20 05/01/17 05:20 -repeat labs this afternoon, no needle sticks for 24hr after tPA Active Medications Amlodipine Besylate (Norvasc -) 10 mg PO DAILY [facility] Last Admin: 05/01/17 09:23 Dose: 10 mg Bacitracin/Polymyxin B Sulfate (Polysporin Ointment -) 1 applic TP BID [facility] Last Admin: 05/01/17 21:14 Dose: 1 applic Chlorhexidine Gluconate (Hibiclens For Decolonization -) 1 applic TP HS [facility] Last Admin: 05/01/17 21:14 Dose: 1 applic Fenofibric Acid (Trilipix -) 135 mg PO DAILY [facility] Last Admin: 05/01/17 09:24 Dose: 135 mg Glipizide (Glucotrol -) 5 mg PO DAILY@0700 [facility] Last Admin: 05/02/17 06:23 Dose: Not Given Metronidazole (Flagyl 500mg Premixed Ivpb -) 100 mls @ 100 mls/hr IVPB Q8H-IV [facility] Last Admin: 05/02/17 02:00 Dose: 100 mls/hr Sodium Chloride (Normal Saline -) 1,000 mls @ 100 mls/hr IV ASDIR [facility] Stop: 05/03/17 04:59 Last Admin: 05/01/17 13:15 Dose: 100 mls/hr Piperacillin Sod/Tazobactam Sod (Zosyn 2.25gm Ivpb (Pre-Docked)) 50 mls @ 100 mls/hr IVPB Q8H-IV [facility] PRN Reason: Protocol Last Admin: 05/02/17 03:00 Dose: 100 mls/hr Lisinopril (Prinivil) 40 mg PO DAILY [facility] Last Admin: 05/01/17 09:24 Dose: 40 mg Metoprolol Tartrate (Lopressor -) 25 mg PO BID [facility] Last Admin: 05/01/17 21:14 Dose: Not Given Mupirocin (Bactroban Ointment (For Decolonization) -) 1 applic NS BID [facility] Stop: 05/05/17 21:59 Last Admin: 05/01/17 21:13 Dose: 1 applic Tamsulosin HCl (Flomax -) 0.4 mg PO DAILY@0830 [facility] Last Admin: 05/01/17 09:23 Dose: 0.4 mg Vancomycin HCl (Vancomycin Oral Solution) 250 mg PO Q6HPO [facility] Last Admin: 05/02/17 06:22 Dose: Not Given ASSESSMENT AND PLAN: Acute L MCA CVA r/o C Diff Colitis UTI Sepsis Suprapubic Catheter COPD DM - S/p tPA, repeat labs at 1pm this afternoon - neuro following, appreciate recs - echocardiogram to R/o R> L Shunt - carotid dopplers done with minimal plaque - restart asa 24hr post, ? full ac with hep gtt - statin - telemetry monitoring - continue antibiotics as per ID - f/u cultures - aspiration precautions, speech and swallow eval, npo for now - IVF - ICU monitoring Albert Whitney ACNP [id number] 35min CCT
[2017-05-02] MEDS: TAMSULOSIN HCL 0.4 MG CAP.ER.24H (FP) PO SCH (08:35)
[2017-05-02] MEDS: SODIUM CHLORIDE 1,000 ML IV SCH ×2 (09:00→13:12)
[2017-05-02] MEDS: MUPIROCIN 2% TOPICAL OINTMENT FOR DECOLONIZATION NS SCH ×2 (09:03→21:41)
--- NOTE | 2017-05-02 09:03 | CONSULT ---
Consult - text type - Consultation Consultation Note: CC neurogenic bladder s/p suprapubic tube with uti s/p possible CVA hpi: Patient is s/p a suprapubic tube placement 3 weeks ago. SPT is functioning well. Patient is on zosyn for a uti and is on flagyl for C Difficile. Patient is comfortable. No discomfort related to the SPT. Patient with renal insufficiency. Renal sonogram shows no evidence of hydronephrosis or obstructive uropathy. PE afeb no CVAT bilaterally no palpable bladder SPT draining well without hematuria; mild erythema at wound site labs reviewed U/S (renal) reviewed imp uti neurogenic bladder s/p SPT possible CVA plan continue antibiotics for uti no evidence of infection at SPT site discussed x 15 minutes
[2017-05-02] MEDS: METOPROLOL TARTRATE 25 MG TABLET (FP) PO SCH ×2 (09:04→21:42)
[2017-05-02] MEDS: amLODIPine BESYLATE 10 MG TABLET (FP) PO SCH (09:04)
[2017-05-02] MEDS: LISINOPRIL 20 MG TABLET (FP) PO SCH (09:05)
[2017-05-02] MEDS: FENOFIBRIC ACID 135 MG CAP PO SCH (09:05)
[2017-05-02] MEDS: BACITRACIN/POLYMYXIN B SULFATE 15 GM TUBE TP SCH ×2 (09:06→21:43)
--- NOTE | 2017-05-02 12:52 | PN ---
Progress Note, Physician History of Present Illness: pt less droop respone better to verbal rt upper ext n/o rll better movment not verbal yet? - Current Medication List Current Medications: Active Medications Amlodipine Besylate (Norvasc -) 10 mg PO DAILY [facility] Last Admin: 05/02/17 09:04 Dose: Not Given Bacitracin/Polymyxin B Sulfate (Polysporin Ointment -) 1 applic TP BID [facility] Last Admin: 05/02/17 09:06 Dose: 1 applic Chlorhexidine Gluconate (Hibiclens For Decolonization -) 1 applic TP HS [facility] Last Admin: 05/01/17 21:14 Dose: 1 applic Fenofibric Acid (Trilipix -) 135 mg PO DAILY [facility] Last Admin: 05/02/17 09:05 Dose: Not Given Glipizide (Glucotrol -) 5 mg PO DAILY@0700 [facility] Last Admin: 05/02/17 06:23 Dose: Not Given Metronidazole (Flagyl 500mg Premixed Ivpb -) 100 mls @ 100 mls/hr IVPB Q8H-IV [facility] Last Admin: 05/02/17 09:04 Dose: 100 mls/hr Sodium Chloride (Normal Saline -) 1,000 mls @ 100 mls/hr IV ASDIR [facility] Stop: 05/03/17 04:59 Last Admin: 05/02/17 09:00 Dose: 100 mls/hr Piperacillin Sod/Tazobactam Sod (Zosyn 2.25gm Ivpb (Pre-Docked)) 50 mls @ 100 mls/hr IVPB Q8H-IV [facility] PRN Reason: Protocol Last Admin: 05/02/17 10:53 Dose: 100 mls/hr Lisinopril (Prinivil) 40 mg PO DAILY [facility] Last Admin: 05/02/17 09:05 Dose: Not Given Metoprolol Tartrate (Lopressor -) 25 mg PO BID [facility] Last Admin: 05/02/17 09:04 Dose: Not Given Mupirocin (Bactroban Ointment (For Decolonization) -) 1 applic NS BID [facility] Stop: 05/05/17 21:59 Last Admin: 05/02/17 09:03 Dose: 1 applic Tamsulosin HCl (Flomax -) 0.4 mg PO DAILY@0830 [facility] Last Admin: 05/02/17 08:35 Dose: Not Given - Objective Vital Signs: Vital Signs Temperature 97.7 F 05/02/17 12:00 Pulse Rate 97 H 05/02/17 12:00 Respiratory Rate 17 05/02/17 12:00 Blood Pressure 137/69 05/02/17 12:00 O2 Sat by Pulse Oximetry (%) 97 05/02/17 10:25 Constitutional: Yes: Calm Eyes: Yes: Other (contrlateral dev better) HENT: Yes: WNL Neck: Yes: WNL Cardiovascular: Yes: WNL Respiratory: Yes: WNL Gastrointestinal: Yes: WNL ...Rectal Exam: Yes: Deferred Genitourinary: Yes: Other (pubic tube intact) Breast(s): Yes: WNL Musculoskeletal: Yes: WNL Extremities: Yes: Amputation Edema: No Peripheral Pulses WNL: Yes Integumentary: Yes: WNL Wound/Incision: Yes: Unapproximated Neurological: Yes: Aphasia, Other (rue no movments) ...Motor Strength: RUE Psychiatric: Yes: WNL Labs: CBC, BMP 05/01/17 05:20 05/01/17 05:20 INR, PTT INR 1.28 (0.82-1.09) H 04/30/17 12:05 Assessment/Plan pt may need antithrombin or anti factor 10 meds or coumadin neuro f/chk labs today
[2017-05-02 13:01] LABS: BASOPHIL 0.2 % (0-2.0); EOSINOPHIL 0.1 % (0-4.5); MCH 26.9 pg (25.7-33.7); MCHC 32.6 g/dl (32.0-35.9); MEAN CELL VOLUME 82.7 fl (80-96); MEAN PLT VOLUME 7.3 fl (7.5-11.1); NEUTROPHILS 84.4 % (42.8-82.8); PLATELET COUNT 494 K/MM3 (134-434); RDW 15.3 % (11.9-15.9); WHITE BLOOD COUNT 15.3 K/mm3 (4.0-10.0)
--- NOTE | 2017-05-02 13:03 | PN ---
Progress Note (short form) - Note Progress Note: Neurology History of Present Illness 67 yo M presented to the ER with a complaint of diarrhea and weakness for the past 2 weeks. Was found to be positive for C Diff and admitted. Was in ICU and Thursday AM rudolph rayo called and I went to ICU. Initially, patient believed to be under care of another neurologist and ICU team plan was to contact them. Thereafter, when I was in the office, I was contacted for consultation for acute R sided weakness, aphasia, and confusion. Patient was given TPA, remains in ICU and continued close monitoring. This AM continued improvement, mental status is now much more awake, alert, and responsive to enviornment. He is following some commands but was demonstrating right sided neglect. Is moving RLE more so now and nurse visualized increase use of R shoulder, not moving R arm or hand much. MRI brain reviewed and showed L MCA infarct. 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 CT head compelted and did not show blood s/p TPA. CD reviewed and did not show HD significant stenosis. On Holter monitoring for arrythmia. Active Medications Amlodipine Besylate (Norvasc -) 10 mg PO DAILY [facility] Last Admin: 05/02/17 09:04 Dose: Not Given Bacitracin/Polymyxin B Sulfate (Polysporin Ointment -) 1 applic TP BID [facility] Last Admin: 05/02/17 09:06 Dose: 1 applic Chlorhexidine Gluconate (Hibiclens For Decolonization -) 1 applic TP HS [facility] Last Admin: 05/01/17 21:14 Dose: 1 applic Fenofibric Acid (Trilipix -) 135 mg PO DAILY [facility] Last Admin: 05/02/17 09:05 Dose: Not Given Glipizide (Glucotrol -) 5 mg PO DAILY@0700 [facility] Last Admin: 05/02/17 06:23 Dose: Not Given Metronidazole (Flagyl 500mg Premixed Ivpb -) 100 mls @ 100 mls/hr IVPB Q8H-IV [facility] Last Admin: 05/02/17 09:04 Dose: 100 mls/hr Sodium Chloride (Normal Saline -) 1,000 mls @ 100 mls/hr IV ASDIR [facility] Stop: 05/03/17 04:59 Last Admin: 05/02/17 09:00 Dose: 100 mls/hr Piperacillin Sod/Tazobactam Sod (Zosyn 2.25gm Ivpb (Pre-Docked)) 50 mls @ 100 mls/hr IVPB Q8H-IV [facility] PRN Reason: Protocol Last Admin: 05/02/17 10:53 Dose: 100 mls/hr Lisinopril (Prinivil) 40 mg PO DAILY [facility] Last Admin: 05/02/17 09:05 Dose: Not Given Metoprolol Tartrate (Lopressor -) 25 mg PO BID [facility] Last Admin: 05/02/17 09:04 Dose: Not Given Mupirocin (Bactroban Ointment (For Decolonization) -) 1 applic NS BID [facility] Stop: 05/05/17 21:59 Last Admin: 05/02/17 09:03 Dose: 1 applic Tamsulosin HCl (Flomax -) 0.4 mg PO DAILY@0830 [facility] Last Admin: 05/02/17 08:35 Dose: Not Given *Physical Exam Last Vital Signs Temp Pulse Resp BP Pulse Ox 97.7 F 95 H 19 127/71 97 05/02/17 13:00 05/02/17 13:00 05/02/17 13:00 05/02/17 13:00 05/02/17 10:25 Awake, alert, responsive to examiner, R hemineglect noted RRR, no murmur Lungs clear Abdomen soft, NT R facial droop improving Moving RUE and LUE grossly, not participating in confrontation testing Is moving R leg stump LLE and RLE equal, approximately 5-/5 Sensory intact to pain Gait deferred CBCD WBC 21.2 K/mm3 (4.0-10.0) H 05/01/17 05:20 RBC 3.99 M/mm3 (4.00-5.60) L 05/01/17 05:20 Hgb 11.0 GM/dL (11.7-16.9) L 05/01/17 05:20 Hct 32.7 % (35.4-49) L 05/01/17 05:20 MCV 82.0 fl (80-96) 05/01/17 05:20 MCHC 33.7 g/dl (32.0-35.9) 05/01/17 05:20 RDW 15.3 % (11.9-15.9) 05/01/17 05:20 Plt Count 481 K/MM3 (134-434) H 05/01/17 05:20 MPV 8.1 fl (7.5-11.1) 05/01/17 05:20 CMP Sodium 141 mmol/L (136-145) 05/01/17 05:20 Potassium 3.3 mmol/L (3.5-5.1) L 05/01/17 05:20 Chloride 111 mmol/L (98-107) H 05/01/17 05:20 Carbon Dioxide 20 mmol/L (21-32) L 05/01/17 05:20 Anion Gap 10 (8-16) 05/01/17 05:20 BUN 40 mg/dL (7-18) H 05/01/17 05:20 Creatinine 2.1 mg/dL (0.7-1.3) H 05/01/17 05:20 Creat Clearance w eGFR 31.47 (>60) 05/01/17 05:20 Calcium 7.5 mg/dL (8.5-10.1) L 05/01/17 05:20 Total Bilirubin 0.3 mg/dL (0.2-1.0) 05/01/17 05:20 AST 10 U/L (15-37) L D 05/01/17 05:20 ALT 12 U/L (12-78) 05/01/17 05:20 Alkaline Phosphatase 62 U/L (45-117) 05/01/17 05:20 Total Protein 4.8 g/dl (6.4-8.2) L 05/01/17 05:20 Albumin 1.9 g/dl (3.4-5.0) L 05/01/17 05:20 Ct head reviewed CD reviewed MRI brain reviewed MRA brain reviewed Plan: 67 yo M presented to the ER with a complaint of diarrhea and weakness for the past 2 weeks. Was found to be positive for C Diff and admitted. Was in ICU and this AM code perri called and I went to ICU. Initially, patient believed to be under care of another neurologist and ICU team plan was to contact them. Thereafter, when I was in the office, I was contacted for consultation for acute R sided weakness, aphasia, and confusion. Patient last known well this morning at 9:20 as witnessed by nurse. Unclear when symptoms exactly presented but patient underwent CT and did not have acute blood. ICU staff re-evaluated patient and exam had not changed. I spoke with ICU attending and decision to give TPA was agreed upon approximately at 11:20 AM as patient was in TPA window. We discussed contraindications which were none. I saw patient at bedside after TPA administered and patient with improving RLE strength, now 5-/ 5. Patient also moving RUE but not following commands fully yet. Considered further endovascular management but patient with clinical improvement and decision made for patient to remain in ICU and continued close monitoring. Reviewed imaging studies in detail On ASA, hold for 24hrs s/p TPA, can restart today Start Statin (on FenoFibric acid) Speech/Swallow monitoring, seen by Christine Alfredo, may only be able to tolerate Puree /honey thick when improved Physical therapy can be started BP range 140-160 systolic tight glycemic control, continue Glipizide Continue ICU care, neuro checks Q3hr Critical care time 80 mins total.
--- NOTE | 2017-05-02 13:21 | PN ---
Progress Note (short form) - Note Progress Note: 67 year old male admitted with bloody diarrhea,H/O DM,Hypertenion,dyslipidemia , suffered an acute CVA with right hemiplegia,aphasia and workup disclosed acute right middle cerebral artery occlusion. Patient is awake but remains aphasic and unable to move the right upper extremity.In sinus rhythm with first degree AV block and rare APCs. Active Medications Amlodipine Besylate (Norvasc -) 10 mg PO DAILY [facility] Last Admin: 05/02/17 09:04 Dose: Not Given Atorvastatin Calcium (Lipitor -) 40 mg PO [facility] Bacitracin/Polymyxin B Sulfate (Polysporin Ointment -) 1 applic TP BID [facility] Last Admin: 05/02/17 09:06 Dose: 1 applic Chlorhexidine Gluconate (Hibiclens For Decolonization -) 1 applic TP [facility] Last Admin: 05/01/17 21:14 Dose: 1 applic Dipyridamole/Aspirin (Aggrenox -) 1 combo PO BID [facility] Fenofibric Acid (Trilipix -) 135 mg PO DAILY [facility] Last Admin: 05/02/17 09:05 Dose: Not Given Glipizide (Glucotrol -) 5 mg PO DAILY@0700 [facility] Last Admin: 05/02/17 06:23 Dose: Not Given Metronidazole (Flagyl 500mg Premixed Ivpb -) 100 mls @ 100 mls/hr IVPB Q8H-IV [facility] Last Admin: 05/02/17 09:04 Dose: 100 mls/hr Sodium Chloride (Normal Saline -) 1,000 mls @ 100 mls/hr IV ASDIR [facility] Stop: 05/03/17 04:59 Last Admin: 05/02/17 13:12 Dose: Not Given Piperacillin Sod/Tazobactam Sod (Zosyn 2.25gm Ivpb (Pre-Docked)) 50 mls @ 100 mls/hr IVPB Q8H-IV [facility] PRN Reason: Protocol Last Admin: 05/02/17 10:53 Dose: 100 mls/hr Lisinopril (Prinivil) 40 mg PO DAILY [facility] Last Admin: 05/02/17 09:05 Dose: Not Given Metoprolol Tartrate (Lopressor -) 25 mg PO BID [facility] Last Admin: 05/02/17 09:04 Dose: Not Given Mupirocin (Bactroban Ointment (For Decolonization) -) 1 applic NS BID [facility] Stop: 05/05/17 21:59 Last Admin: 05/02/17 09:03 Dose: 1 applic Tamsulosin HCl (Flomax -) 0.4 mg PO DAILY@0830 [facility] Last Admin: 05/02/17 08:35 Dose: Not Given O: 67 year pld obese male appears in no acute distress. Vital Signs - 8 hr 05/02/17 05/02/17 05/02/17 06:00 07:00 08:00 Temperature 97.9 F Pulse Rate 88 91 H 91 H Respiratory 22 22 17 Rate Blood Pressure 126/68 128/68 145/71 O2 Sat by Pulse 94 L Oximetry (%) 05/02/17 05/02/17 05/02/17 09:00 10:00 10:25 Temperature 97.6 F Pulse Rate 89 89 84 Respiratory 17 19 Rate Blood Pressure 134/63 131/65 O2 Sat by Pulse 97 Oximetry (%) 05/02/17 05/02/17 05/02/17 11:00 12:00 13:00 Temperature 97.7 F 97.7 F Pulse Rate 97 H 97 H 95 H Respiratory 20 17 19 Rate Blood Pressure 139/69 137/69 127/71 O2 Sat by Pulse Oximetry (%) NECK: Supple,no JVD,carotids are equal, no bruits appreciated. HEART: Distant heart sounds, no murmur or gallops heard. LUNGS: Clear on auscultation. Abdomen: Soft, nontender,no organomegaly. Extremities: Right BKA,NO LLE edema. CBC, BMP 05/02/17 12:55 05/02/17 12:55 A: 1. Acute CVA with Rt.hemiplegia and aphasia. 2. NIDDM. 3. H/O hypertension. 4. H/O of recent bloody diarrhea. 5. Rare atrial premature beats. P: 1. Close F/u of K+ levels. 2. Neurological input regarding level of BP and if necessary dose of antihypertensive therapy could be lowered. 3. Bedside PT when neurologically stable. 4. Holter monitor to exclude artial fib. 5. Dyslipidemia.
[2017-05-02 13:26] LABS: ALK PHOS 62 U/L (45-117); ANION GAP 8 (8-16); BILIRUBIN,TOTAL 0.2 mg/dL (0.2-1.0); CALCIUM 8.1 mg/dL (8.5-10.1); CO2 22 mmol/L (21-32); CREATININE 1.1 mg/dL (0.7-1.3); GLUCOSE,RANDOM 182 mg/dL (74-106); SGOT/AST 6 U/L (15-37); SGPT/ALT 12 U/L (12-78); TOT PROT 5.2 g/dl (6.4-8.2)
[2017-05-02] MEDS: ASPIRIN/DIPYRIDAMOLE 25 MG/200 MG CAPSULE (FP) PO SCH ×2 (14:00→21:41)
--- NOTE | 2017-05-02 14:05 | PN ---
Progress Note, Physician History of Present Illness: events noted patient slightly better - Current Medication List Current Medications: Active Medications Amlodipine Besylate (Norvasc -) 10 mg PO DAILY [facility] Last Admin: 05/02/17 09:04 Dose: Not Given Atorvastatin Calcium (Lipitor -) 40 mg PO [facility] Bacitracin/Polymyxin B Sulfate (Polysporin Ointment -) 1 applic TP BID [facility] Last Admin: 05/02/17 09:06 Dose: 1 applic Chlorhexidine Gluconate (Hibiclens For Decolonization -) 1 applic TP HS [facility] Last Admin: 05/01/17 21:14 Dose: 1 applic Dipyridamole/Aspirin (Aggrenox -) 1 combo PO BID [facility] Fenofibric Acid (Trilipix -) 135 mg PO DAILY [facility] Last Admin: 05/02/17 09:05 Dose: Not Given Glipizide (Glucotrol -) 5 mg PO DAILY@0700 [facility] Last Admin: 05/02/17 06:23 Dose: Not Given Metronidazole (Flagyl 500mg Premixed Ivpb -) 100 mls @ 100 mls/hr IVPB Q8H-IV [facility] Last Admin: 05/02/17 09:04 Dose: 100 mls/hr Sodium Chloride (Normal Saline -) 1,000 mls @ 100 mls/hr IV ASDIR [facility] Stop: 05/03/17 04:59 Last Admin: 05/02/17 13:12 Dose: Not Given Piperacillin Sod/Tazobactam Sod (Zosyn 2.25gm Ivpb (Pre-Docked)) 50 mls @ 100 mls/hr IVPB Q8H-IV [facility] PRN Reason: Protocol Last Admin: 05/02/17 10:53 Dose: 100 mls/hr Lisinopril (Prinivil) 40 mg PO DAILY [facility] Last Admin: 05/02/17 09:05 Dose: Not Given Metoprolol Tartrate (Lopressor -) 25 mg PO BID [facility] Last Admin: 05/02/17 09:04 Dose: Not Given Mupirocin (Bactroban Ointment (For Decolonization) -) 1 applic NS BID [facility] Stop: 05/05/17 21:59 Last Admin: 05/02/17 09:03 Dose: 1 applic Tamsulosin HCl (Flomax -) 0.4 mg PO DAILY@0830 [facility] Last Admin: 05/02/17 08:35 Dose: Not Given - Objective Vital Signs: Vital Signs Temperature 97.7 F 05/02/17 13:00 Pulse Rate 95 H 05/02/17 13:00 Respiratory Rate 19 05/02/17 13:00 Blood Pressure 127/71 05/02/17 13:00 O2 Sat by Pulse Oximetry (%) 97 05/02/17 10:25 Constitutional: Yes: No Distress, Calm Cardiovascular: Yes: Regular Rate and Rhythm Respiratory: Yes: Regular, CTA Bilaterally Gastrointestinal: Yes: Normal Bowel Sounds, Soft Genitourinary: Yes: Griffith Present (suprapubic present) Musculoskeletal: Yes: WNL Extremities: Yes: Other (patient has amputation) Neurological: Yes: Facial Droop (getting better), Other Labs: CBC, BMP 05/02/17 12:55 05/02/17 12:55 INR, PTT INR 1.28 (0.82-1.09) H 04/30/17 12:05 - ....Imaging Cat Scan: Report Reviewed, Image Reviewed Assessment/Plan uti gi bleed dirrhoea sepsis wound infection repeat urine showing leukoesterase will send urine cx and sensitivity plan cx report noted started patient on abx neurology on case close monitoring bacteria noted sensitivity noted cc time 40 min
[2017-05-02] MEDS: CHLORHEXIDINE GLUCONATE 4% CLEANSER FOR DECOLONIZATION TP SCH (21:42)
[2017-05-02] MEDS: ATORVASTATIN CA 40 MG TABLET (FP) PO SCH (21:42)
[2017-05-02] MEDS: METOPROLOL TARTRATE 5 MG/5 ML VIAL IVPUSH PRN (23:10)
[2017-05-03] MEDS: METRONIDAZOLE 500 MG PREMIXED 100 ML IVPB SCH ×3 (01:20→17:05)
[2017-05-03] MEDS: PIPERACILLIN/TAZOB 2.25 GM 50 ML IVPB SCH ×3 (01:21→17:05)
[2017-05-03 06:06] LABS: BASOPHIL 0.4 % (0-2.0); MCH 27.8 pg (25.7-33.7); MCHC 33.9 g/dl (32.0-35.9); MEAN PLT VOLUME 7.6 fl (7.5-11.1); NEUTROPHILS 83.6 % (42.8-82.8); PLATELET COUNT 536 K/MM3 (134-434); RDW 15.4 % (11.9-15.9); WHITE BLOOD COUNT 17.6 K/mm3 (4.0-10.0)
[2017-05-03] MEDS: glipiZIDE 5 MG TABLET (FP) PO SCH (06:28)
[2017-05-03 06:29] LABS: ANION GAP 10 (8-16); CALCIUM 8.4 mg/dL (8.5-10.1); CO2 21 mmol/L (21-32); GLUCOSE,RANDOM 192 mg/dL (74-106)
--- NOTE | 2017-05-03 09:21 | PN ---
Progress Note (short form) - Note Progress Note: Seen and examined in ICU Patient remains altered, non verbal following some commands w/ left side cont to have right hemiplegia and aphasia started on ABX for wound infection Current Medications Amlodipine Besylate (Norvasc -) 10 mg PO DAILY [facility] Last Admin: 05/02/17 09:04 Dose: Not Given Atorvastatin Calcium (Lipitor -) 40 mg PO [facility] Last Admin: 05/02/17 21:42 Dose: Not Given Bacitracin/Polymyxin B Sulfate (Polysporin Ointment -) 1 applic TP BID [facility] Last Admin: 05/02/17 21:43 Dose: 1 applic Chlorhexidine Gluconate (Hibiclens For Decolonization -) 1 applic TP HS [facility] Last Admin: 05/02/17 21:42 Dose: 1 applic Dipyridamole/Aspirin (Aggrenox -) 1 combo PO BID [facility] Last Admin: 05/02/17 21:41 Dose: Not Given Fenofibric Acid (Trilipix -) 135 mg PO DAILY [facility] Last Admin: 05/02/17 09:05 Dose: Not Given Glipizide (Glucotrol -) 5 mg PO DAILY@0700 [facility] Last Admin: 05/03/17 06:28 Dose: Not Given Metronidazole (Flagyl 500mg Premixed Ivpb -) 100 mls @ 100 mls/hr IVPB Q8H-IV [facility] Last Admin: 05/03/17 01:20 Dose: 100 mls/hr Piperacillin Sod/Tazobactam Sod (Zosyn 2.25gm Ivpb (Pre-Docked)) 50 mls @ 100 mls/hr IVPB Q8H-IV [facility] PRN Reason: Protocol Last Admin: 05/03/17 01:21 Dose: 100 mls/hr Lisinopril (Prinivil) 40 mg PO DAILY [facility] Last Admin: 05/02/17 09:05 Dose: Not Given Metoprolol Tartrate (Lopressor -) 25 mg PO BID [facility] Last Admin: 05/02/17 21:42 Dose: Not Given Metoprolol Tartrate (Lopressor Injection -) 5 mg IVPUSH Q4H PRN PRN Reason: HR >100 Last Admin: 05/02/17 23:10 Dose: 5 mg Mupirocin (Bactroban Ointment (For Decolonization) -) 1 applic NS BID [facility] Stop: 05/05/17 21:59 Last Admin: 05/02/17 21:41 Dose: 1 applic Tamsulosin HCl (Flomax -) 0.4 mg PO DAILY@0830 [facility] Last Admin: 05/02/17 08:35 Dose: Not Given Vital Signs Period Temp Pulse Resp BP Sys/Yanez Pulse Ox Last 24 Hr 97.5 F-99.6 F 84-120 12-23 127-161/56-84 97-98 Intake & Output 04/30/17 05/01/17 05/02/17 05/03/17 23:59 23:59 23:59 23:59 Intake Total 2100 4250 2950 1400 Output Total 400 3050 1900 1200 Balance 1700 1200 1050 200 Weight 125.758 kg 126.2 kg 122.606 kg exam: Neuro: awake in bed, right sided neglect, not moving right side to noxious stimulation, able to follow some commands w/ left, aphasic HEENT: right facial droop Pulm: CTA Abd: SNTND Ext: warm, wound wrapped CBCD WBC 17.6 K/mm3 (4.0-10.0) H 05/03/17 05:15 RBC 4.52 M/mm3 (4.00-5.60) 05/03/17 05:15 Hgb 12.5 GM/dL (11.7-16.9) 05/03/17 05:15 Hct 37.0 % (35.4-49) 05/03/17 05:15 MCV 82.0 fl (80-96) 05/03/17 05:15 MCHC 33.9 g/dl (32.0-35.9) 05/03/17 05:15 RDW 15.4 % (11.9-15.9) 05/03/17 05:15 Plt Count 536 K/MM3 (134-434) H 05/03/17 05:15 MPV 7.6 fl (7.5-11.1) 05/03/17 05:15 CMP Sodium 150 mmol/L (136-145) H 05/03/17 05:15 Potassium 3.9 mmol/L (3.5-5.1) 05/03/17 05:15 Chloride 119 mmol/L (98-107) H 05/03/17 05:15 Carbon Dioxide 21 mmol/L (21-32) 05/03/17 05:15 Anion Gap 10 (8-16) 05/03/17 05:15 BUN 27 mg/dL (7-18) H 05/03/17 05:15 Creatinine 1.0 mg/dL (0.7-1.3) 05/03/17 05:15 Creat Clearance w eGFR > 60 (>60) 05/02/17 12:55 Random Glucose 192 mg/dL (74-106) H 05/03/17 05:15 Calcium 8.4 mg/dL (8.5-10.1) L 05/03/17 05:15 Total Bilirubin 0.2 mg/dL (0.2-1.0) D 05/02/17 12:55 AST 6 U/L (15-37) L D 05/02/17 12:55 ALT 12 U/L (12-78) 05/02/17 12:55 Alkaline Phosphatase 62 U/L (45-117) 05/02/17 12:55 Total Protein 5.2 g/dl (6.4-8.2) L 05/02/17 12:55 Albumin 2.0 g/dl (3.4-5.0) L 05/02/17 12:55 CARDIAC ENZYMES Creatine Kinase 27 IU/L (39-308) L 04/30/17 12:05 Troponin I < 0.02 ng/ml (0.00-0.05) D 04/30/17 12:05 Microbiology 04/30/17 13:50 Catheter Site Gram Stain - Final 04/30/17 13:50 Catheter Site Wound Culture - Preliminary Pseudomonas Aeruginosa Morganella Morganii Escherichia Coli Strep Agalactiae Group B Enterococcus Faecalis Diphtheroid/Corynebacterium 04/30/17 18:00 Stool Gram Stain - Final 04/30/17 12:05 Blood - Peripheral Venous Blood Culture - Preliminary NO GROWTH OBTAINED AFTER 48 HOURS, INCUBATION TO CONTINUE FOR 3 DAYS. 04/30/17 12:05 Blood - Peripheral Venous Blood Culture - Preliminary NO GROWTH OBTAINED AFTER 48 HOURS, INCUBATION TO CONTINUE FOR 3 DAYS. 04/30/17 13:52 Urine - Urine Suprapubic Urine Culture - Final Contaminated: Please Repeat 04/30/17 16:31 Stool Clostridium difficile Antigen (SHABANA) - Final 04/30/17 16:31 Stool Clostridium difficile Toxin Assay - Final ASSESSMENT AND PLAN: Acute L MCA CVA r/o C Diff Colitis UTI Sepsis Suprapubic Catheter COPD DM - S/p tPA, repeat labs at 1pm this afternoon - neuro following, appreciate recs - echocardiogram to R/o R> L Shunt - carotid dopplers done with minimal plaque - restart asa 24hr post, ? full ac with hep gtt - statin - telemetry monitoring - continue antibiotics as per ID - f/u cultures - aspiration precautions, speech and swallow eval, npo for now - IVF w/ /2 NS given hyperNa - ICU monitoring Boerem ACNP Pulm/CCM CCT: 35m
[2017-05-03] MEDS: ASPIRIN/DIPYRIDAMOLE 25 MG/200 MG CAPSULE (FP) PO SCH ×2 (09:38→22:40)
[2017-05-03] MEDS: TAMSULOSIN HCL 0.4 MG CAP.ER.24H (FP) PO SCH (09:38)
[2017-05-03] MEDS: amLODIPine BESYLATE 10 MG TABLET (FP) PO SCH (09:39)
[2017-05-03] MEDS: FENOFIBRIC ACID 135 MG CAP PO SCH (09:39)
[2017-05-03] MEDS: LISINOPRIL 20 MG TABLET (FP) PO SCH (09:39)
[2017-05-03] MEDS: METOPROLOL TARTRATE 25 MG TABLET (FP) PO SCH ×2 (09:39→22:41)
[2017-05-03] MEDS: DEXTROSE 5%-0.45% SALINE 1,000 ML IV SCH (09:48)
[2017-05-03] MEDS: MUPIROCIN 2% TOPICAL OINTMENT FOR DECOLONIZATION NS SCH ×2 (09:49→22:41)
[2017-05-03] MEDS: BACITRACIN/POLYMYXIN B SULFATE 15 GM TUBE TP SCH ×2 (09:53→22:42)
--- NOTE | 2017-05-03 11:13 | PN ---
Progress Note, Physician Chief Complaint: statis vss statis shannan neuro as is unable to verbalize - Current Medication List Current Medications: Active Medications Amlodipine Besylate (Norvasc -) 10 mg PO DAILY [facility] Last Admin: 05/03/17 09:39 Dose: Not Given Atorvastatin Calcium (Lipitor -) 40 mg PO HS [facility] Last Admin: 05/02/17 21:42 Dose: Not Given Bacitracin/Polymyxin B Sulfate (Polysporin Ointment -) 1 applic TP BID [facility] Last Admin: 05/03/17 09:53 Dose: 1 applic Chlorhexidine Gluconate (Hibiclens For Decolonization -) 1 applic TP HS [facility] Last Admin: 05/02/17 21:42 Dose: 1 applic Dipyridamole/Aspirin (Aggrenox -) 1 combo PO BID [facility] Last Admin: 05/03/17 09:38 Dose: Not Given Fenofibric Acid (Trilipix -) 135 mg PO DAILY [facility] Last Admin: 05/03/17 09:39 Dose: Not Given Glipizide (Glucotrol -) 5 mg PO DAILY@0700 [facility] Last Admin: 05/03/17 06:28 Dose: Not Given Metronidazole (Flagyl 500mg Premixed Ivpb -) 100 mls @ 100 mls/hr IVPB Q8H-IV [facility] Last Admin: 05/03/17 09:53 Dose: 100 mls/hr Piperacillin Sod/Tazobactam Sod (Zosyn 2.25gm Ivpb (Pre-Docked)) 50 mls @ 100 mls/hr IVPB Q8H-IV [facility] PRN Reason: Protocol Last Admin: 05/03/17 09:49 Dose: 100 mls/hr Dextrose/Sodium Chloride (D5-1/2ns -) 1,000 mls @ 75 mls/hr IV ASDIR [facility] Last Admin: 05/03/17 09:48 Dose: 75 mls/hr Lisinopril (Prinivil) 40 mg PO DAILY [facility] Last Admin: 05/03/17 09:39 Dose: Not Given Metoprolol Tartrate (Lopressor -) 25 mg PO BID [facility] Last Admin: 05/03/17 09:39 Dose: Not Given Metoprolol Tartrate (Lopressor Injection -) 5 mg IVPUSH Q4H PRN PRN Reason: HR >100 Last Admin: 05/02/17 23:10 Dose: 5 mg Mupirocin (Bactroban Ointment (For Decolonization) -) 1 applic NS BID [facility] Stop: 05/05/17 21:59 Last Admin: 05/03/17 09:49 Dose: 1 applic Tamsulosin HCl (Flomax -) 0.4 mg PO DAILY@0830 [facility] Last Admin: 05/03/17 09:38 Dose: Not Given - Objective Vital Signs: Vital Signs Temperature 100 F H 05/03/17 09:59 Pulse Rate 136 H 05/03/17 10:59 Respiratory Rate 20 05/03/17 09:59 Blood Pressure 172/76 05/03/17 09:59 O2 Sat by Pulse Oximetry (%) 96 05/03/17 10:59 Constitutional: Yes: No Distress Eyes: Yes: WNL HENT: Yes: WNL Neck: Yes: WNL Cardiovascular: Yes: Pulse Irregular Respiratory: Yes: WNL Gastrointestinal: Yes: WNL ...Rectal Exam: Yes: Deferred Genitourinary: Yes: WNL, Other (pubic tbe intact) Breast(s): Yes: WNL Musculoskeletal: Yes: WNL Extremities: Yes: Amputation Edema: No Peripheral Pulses WNL: Yes Integumentary: Yes: Other (healed rt hip) Neurological: Yes: Aphasia ...Motor Strength: RUE (no movement) Labs: CBC, BMP 05/03/17 05:15 05/03/17 05:15 INR, PTT INR 1.28 (0.82-1.09) H 04/30/17 12:05 Assessment/Plan barium swallow watch temp ? may reculter ngt ? for feeding neueo f/u
[2017-05-03] MEDS: METOPROLOL TARTRATE 5 MG/5 ML VIAL IVPUSH PRN ×3 (11:45→22:51)
--- NOTE | 2017-05-03 13:18 | PN ---
Progress Note (short form) - Note Progress Note: Neurology History of Present Illness 67 yo M presented to the ER with a complaint of diarrhea and weakness for the past 2 weeks. Was found to be positive for C Diff and admitted. Was in ICU and Thursday AM rudolph rayo called and I went to ICU. Initially, patient believed to be under care of another neurologist and ICU team plan was to contact them. Thereafter, when I was in the office, I was contacted for consultation for acute R sided weakness, aphasia, and confusion. Patient was given TPA, remains in ICU and continued close monitoring. Over weekend more awake, alert, and responsive to enviornment. He is following some commands but is demonstrating right sided neglect. MRI brain reviewed and showed L MCA infarct. 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 CT head compelted and did not show blood s/p TPA. CD reviewed and did not show HD significant stenosis. On Holter monitoring for arrythmia. Remains aphasic, blood pressure in 130-150 systolic range. Started patient on Aggrenox and Statin. Remains in ICU under close monitoring. No seizures or new neurologic events. Active Medications Acetaminophen (Ofirmev Injection -) 1,000 mg IVPB Q6H PRN PRN Reason: FEVER OR PAIN Stop: 05/04/17 06:54 Amlodipine Besylate (Norvasc -) 10 mg PO DAILY [facility] Last Admin: 05/03/17 09:39 Dose: Not Given Atorvastatin Calcium (Lipitor -) 40 mg PO [facility] Last Admin: 05/02/17 21:42 Dose: Not Given Bacitracin/Polymyxin B Sulfate (Polysporin Ointment -) 1 applic TP BID [facility] Last Admin: 05/03/17 09:53 Dose: 1 applic Chlorhexidine Gluconate (Hibiclens For Decolonization -) 1 applic TP HS [facility] Last Admin: 05/02/17 21:42 Dose: 1 applic Dipyridamole/Aspirin (Aggrenox -) 1 combo PO BID [facility] Last Admin: 05/03/17 09:38 Dose: Not Given Fenofibric Acid (Trilipix -) 135 mg PO DAILY [facility] Last Admin: 05/03/17 09:39 Dose: Not Given Glipizide (Glucotrol -) 5 mg PO DAILY@0700 [facility] Last Admin: 05/03/17 06:28 Dose: Not Given Metronidazole (Flagyl 500mg Premixed Ivpb -) 100 mls @ 100 mls/hr IVPB Q8H-IV [facility] Last Admin: 05/03/17 09:53 Dose: 100 mls/hr Piperacillin Sod/Tazobactam Sod (Zosyn 2.25gm Ivpb (Pre-Docked)) 50 mls @ 100 mls/hr IVPB Q8H-IV [facility] PRN Reason: Protocol Last Admin: 05/03/17 09:49 Dose: 100 mls/hr Dextrose/Sodium Chloride (D5-1/2ns -) 1,000 mls @ 75 mls/hr IV ASDIR [facility] Last Admin: 05/03/17 09:48 Dose: 75 mls/hr Lisinopril (Prinivil) 40 mg PO DAILY [facility] Last Admin: 05/03/17 09:39 Dose: Not Given Metoprolol Tartrate (Lopressor -) 25 mg PO BID [facility] Last Admin: 05/03/17 09:39 Dose: Not Given Metoprolol Tartrate (Lopressor Injection -) 5 mg IVPUSH Q4H PRN PRN Reason: HR >100 Last Admin: 05/03/17 11:45 Dose: 5 mg Mupirocin (Bactroban Ointment (For Decolonization) -) 1 applic NS BID [facility] Stop: 05/05/17 21:59 Last Admin: 05/03/17 09:49 Dose: 1 applic Tamsulosin HCl (Flomax -) 0.4 mg PO DAILY@0830 [facility] Last Admin: 05/03/17 09:38 Dose: Not Given *Physical Exam Last Vital Signs Temp Pulse Resp BP Pulse Ox 100.8 F H 110 H 24 170/90 96 05/03/17 12:00 05/03/17 12:00 05/03/17 12:00 05/03/17 12:00 05/03/17 10:59 Awake, alert, responsive to examiner, R hemineglect noted RRR, no murmur Lungs clear Abdomen soft, NT Aphasic R facial droop improving Moving RUE and LUE grossly, not participating in confrontation testing Is moving R leg stump LLE and RLE equal, approximately 5-/5 Sensory intact to pain Gait deferred CBCD WBC 17.6 K/mm3 (4.0-10.0) H 05/03/17 05:15 RBC 4.52 M/mm3 (4.00-5.60) 05/03/17 05:15 Hgb 12.5 GM/dL (11.7-16.9) 05/03/17 05:15 Hct 37.0 % (35.4-49) 05/03/17 05:15 MCV 82.0 fl (80-96) 05/03/17 05:15 MCHC 33.9 g/dl (32.0-35.9) 05/03/17 05:15 RDW 15.4 % (11.9-15.9) 05/03/17 05:15 Plt Count 536 K/MM3 (134-434) H 05/03/17 05:15 MPV 7.6 fl (7.5-11.1) 05/03/17 05:15 CMP Sodium 150 mmol/L (136-145) H 05/03/17 05:15 Potassium 3.9 mmol/L (3.5-5.1) 05/03/17 05:15 Chloride 119 mmol/L (98-107) H 05/03/17 05:15 Carbon Dioxide 21 mmol/L (21-32) 05/03/17 05:15 Anion Gap 10 (8-16) 05/03/17 05:15 BUN 27 mg/dL (7-18) H 05/03/17 05:15 Creatinine 1.0 mg/dL (0.7-1.3) 05/03/17 05:15 Creat Clearance w eGFR > 60 (>60) 05/02/17 12:55 Calcium 8.4 mg/dL (8.5-10.1) L 05/03/17 05:15 Total Bilirubin 0.2 mg/dL (0.2-1.0) D 05/02/17 12:55 AST 6 U/L (15-37) L D 05/02/17 12:55 ALT 12 U/L (12-78) 05/02/17 12:55 Alkaline Phosphatase 62 U/L (45-117) 05/02/17 12:55 Total Protein 5.2 g/dl (6.4-8.2) L 05/02/17 12:55 Albumin 2.0 g/dl (3.4-5.0) L 05/02/17 12:55 Ct head reviewed CD reviewed MRI brain reviewed MRA brain reviewed Plan: 67 yo M presented to the ER with a complaint of diarrhea and weakness for the past 2 weeks. Was found to be positive for C Diff and admitted. Was in ICU and rudolph rayo called and patient given TPA. Subsequent with improving RLE strength, now 5-/5. Patient also moving RUE but not following commands fully yet. MRI, MRA , CD, reviewed imaging studies in detail. Started patient on aggrenox and statin If Afib noted, then would switch aggrenox to AC Speech/Swallow monitoring, seen by Christine Alfredo, may only be able to tolerate Puree /honey thick when improved but monitor for aspiration Physical therapy can be started now BP range 140-160 systolic tight glycemic control, continue Glipizide Continue ICU care, neuro checks Q6hr Critical care time 40 mins total.
--- NOTE | 2017-05-03 13:32 | PN ---
Progress Note, Physician History of Present Illness: patient continues to improve from stroke [point of view speech better clinically stable - Current Medication List Current Medications: Active Medications Acetaminophen (Ofirmev Injection -) 1,000 mg IVPB Q6H PRN PRN Reason: FEVER OR PAIN Stop: 05/04/17 06:54 Amlodipine Besylate (Norvasc -) 10 mg PO DAILY [facility] Last Admin: 05/03/17 09:39 Dose: Not Given Atorvastatin Calcium (Lipitor -) 40 mg PO HS [facility] Last Admin: 05/02/17 21:42 Dose: Not Given Bacitracin/Polymyxin B Sulfate (Polysporin Ointment -) 1 applic TP BID [facility] Last Admin: 05/03/17 09:53 Dose: 1 applic Chlorhexidine Gluconate (Hibiclens For Decolonization -) 1 applic TP HS [facility] Last Admin: 05/02/17 21:42 Dose: 1 applic Dipyridamole/Aspirin (Aggrenox -) 1 combo PO BID [facility] Last Admin: 05/03/17 09:38 Dose: Not Given Fenofibric Acid (Trilipix -) 135 mg PO DAILY [facility] Last Admin: 05/03/17 09:39 Dose: Not Given Glipizide (Glucotrol -) 5 mg PO DAILY@0700 [facility] Last Admin: 05/03/17 06:28 Dose: Not Given Metronidazole (Flagyl 500mg Premixed Ivpb -) 100 mls @ 100 mls/hr IVPB Q8H-IV [facility] Last Admin: 05/03/17 09:53 Dose: 100 mls/hr Piperacillin Sod/Tazobactam Sod (Zosyn 2.25gm Ivpb (Pre-Docked)) 50 mls @ 100 mls/hr IVPB Q8H-IV [facility] PRN Reason: Protocol Last Admin: 05/03/17 09:49 Dose: 100 mls/hr Dextrose/Sodium Chloride (D5-1/2ns -) 1,000 mls @ 75 mls/hr IV ASDIR [facility] Last Admin: 05/03/17 09:48 Dose: 75 mls/hr Lisinopril (Prinivil) 40 mg PO DAILY [facility] Last Admin: 05/03/17 09:39 Dose: Not Given Metoprolol Tartrate (Lopressor -) 25 mg PO BID [facility] Last Admin: 05/03/17 09:39 Dose: Not Given Metoprolol Tartrate (Lopressor Injection -) 5 mg IVPUSH Q4H PRN PRN Reason: HR >100 Last Admin: 05/03/17 11:45 Dose: 5 mg Mupirocin (Bactroban Ointment (For Decolonization) -) 1 applic NS BID [facility] Stop: 05/05/17 21:59 Last Admin: 05/03/17 09:49 Dose: 1 applic Tamsulosin HCl (Flomax -) 0.4 mg PO DAILY@0830 [facility] Last Admin: 05/03/17 09:38 Dose: Not Given - Objective Vital Signs: Vital Signs Temperature 100.8 F H 05/03/17 12:00 Pulse Rate 108 H 05/03/17 13:28 Respiratory Rate 22 05/03/17 13:28 Blood Pressure 156/76 05/03/17 13:28 O2 Sat by Pulse Oximetry (%) 96 05/03/17 10:59 Constitutional: Yes: Calm, Other Cardiovascular: Yes: Regular Rate and Rhythm Respiratory: Yes: Regular, CTA Bilaterally Gastrointestinal: Yes: Normal Bowel Sounds, Soft Musculoskeletal: Yes: Other Extremities: Yes: Other (amputation) Neurological: Yes: Alert, Other Psychiatric: Yes: Alert Labs: CBC, BMP 05/03/17 05:15 05/03/17 05:15 INR, PTT INR 1.28 (0.82-1.09) H 04/30/17 12:05 Assessment/Plan uti gi bleed dirrhoea sepsis wound infection patient with rt side neglect plan cx report noted started patient on abx neurology on case close monitoring await repeat cx will monitor sodium if sodium keeps on increasing will change abx cc time 40 min
[2017-05-03] MEDS: ACETAMINOPHEN 1000 MG/100 ML VIAL (NON FORMULARY) IVPB PRN (19:30)
[2017-05-03] MEDS ORDERED: HEPARIN NA (PORCINE) 5,000 UNITS/ML 1ML VIAL IVPUSH PRN ×2 (20:45)
[2017-05-03] MEDS ORDERED: HEPARIN - 25,000 UNIT in SODIUM CHLORIDE 495 ML IV SCH (20:45)
--- NOTE | 2017-05-03 21:27 | EKG ---
Test Reason : Blood Pressure : / mmHG Vent. Rate : 081 BPM Atrial Rate : 081 BPM P-R Int : 256 ms QRS Dur : 106 ms QT Int : 386 ms P-R-T Axes : 055 025 -39 degrees QTc Int : 448 ms SINUS RHYTHM WITH SINUS ARRHYTHMIA WITH 1ST DEGREE A-V BLOCK NONSPECIFIC T WAVE ABNORMALITY ABNORMAL ECG WHEN COMPARED WITH ECG OF 30-APR-2017 17:49, NO SIGNIFICANT CHANGE WAS FOUND Confirmed by RHONDA CAMPOS, SELWYN ([id number]) on 05/03/2017 9:27:23 PM Referred By: Confirmed By:SELWYN ELLIS MD
[2017-05-03] MEDS: HEPARIN NA (PORCINE) 5,000 UNITS/ML 1ML VIAL SQ SCH (22:41)
[2017-05-03] MEDS: ATORVASTATIN CA 40 MG TABLET (FP) PO SCH (22:41)
[2017-05-03] MEDS: CHLORHEXIDINE GLUCONATE 4% CLEANSER FOR DECOLONIZATION TP SCH (22:41)
[2017-05-04] MEDS: METRONIDAZOLE 500 MG PREMIXED 100 ML IVPB SCH ×3 (01:37→18:40)
[2017-05-04] MEDS: PIPERACILLIN/TAZOB 2.25 GM 50 ML IVPB SCH ×2 (01:38→09:30)
[2017-05-04] MEDS: ACETAMINOPHEN 1000 MG/100 ML VIAL (NON FORMULARY) IVPB PRN ×3 (02:42→15:00)
[2017-05-04] MEDS: DEXTROSE 5%-0.45% SALINE 1,000 ML IV SCH (03:05)
[2017-05-04] MEDS: METOPROLOL TARTRATE 5 MG/5 ML VIAL IVPUSH PRN ×2 (03:08→09:30)
[2017-05-04 05:51] LABS: BASOPHIL 0.3 % (0-2.0); MCH 27.4 pg (25.7-33.7); MCHC 32.8 g/dl (32.0-35.9); MEAN CELL VOLUME 83.6 fl (80-96); MEAN PLT VOLUME 7.4 fl (7.5-11.1); NEUTROPHILS 77.1 % (42.8-82.8); PLATELET COUNT 497 K/MM3 (134-434); RDW 15.5 % (11.9-15.9); WHITE BLOOD COUNT 15.9 K/mm3 (4.0-10.0)
[2017-05-04] MEDS: glipiZIDE 5 MG TABLET (FP) PO SCH (06:03)
[2017-05-04] MEDS: HEPARIN NA (PORCINE) 5,000 UNITS/ML 1ML VIAL SQ SCH ×3 (06:05→21:14)
[2017-05-04 06:22] LABS: CO2 24 mmol/L (21-32); CREATININE 1.2 mg/dL (0.7-1.3); GLUCOSE,RANDOM 233 mg/dL (74-106)
[2017-05-04 06:23] LABS: ANION GAP 7 (8-16); CALCIUM 8.9 mg/dL (8.5-10.1)
--- NOTE | 2017-05-04 08:44 | PN ---
Progress Note, Physician - Current Medication List Current Medications: Active Medications Amlodipine Besylate (Norvasc -) 10 mg PO DAILY [facility] Last Admin: 05/03/17 09:39 Dose: Not Given Aspirin (Asa -) 300 mg [place] DAILY [facility] Atorvastatin Calcium (Lipitor -) 40 mg PO HS [facility] Last Admin: 05/03/17 22:41 Dose: Not Given Bacitracin/Polymyxin B Sulfate (Polysporin Ointment -) 1 applic TP BID [facility] Last Admin: 05/03/17 22:42 Dose: 1 applic Chlorhexidine Gluconate (Hibiclens For Decolonization -) 1 applic TP HS [facility] Last Admin: 05/03/17 22:41 Dose: 1 applic Dipyridamole/Aspirin (Aggrenox -) 1 combo PO BID [facility] Last Admin: 05/03/17 22:40 Dose: Not Given Fenofibric Acid (Trilipix -) 135 mg PO DAILY [facility] Last Admin: 05/03/17 09:39 Dose: Not Given Glipizide (Glucotrol -) 5 mg PO DAILY@0700 [facility] Last Admin: 05/04/17 06:03 Dose: Not Given Heparin Sodium (Porcine) (Heparin -) 5,000 unit SQ TID [facility] Last Admin: 05/04/17 06:05 Dose: 5,000 unit Metronidazole (Flagyl 500mg Premixed Ivpb -) 100 mls @ 100 mls/hr IVPB Q8H-IV [facility] Last Admin: 05/04/17 01:37 Dose: 100 mls/hr Piperacillin Sod/Tazobactam Sod (Zosyn 2.25gm Ivpb (Pre-Docked)) 50 mls @ 100 mls/hr IVPB Q8H-IV [facility] PRN Reason: Protocol Last Admin: 05/04/17 01:38 Dose: 100 mls/hr Lisinopril (Prinivil) 40 mg PO DAILY [facility] Last Admin: 05/03/17 09:39 Dose: Not Given Metoprolol Tartrate (Lopressor -) 25 mg PO BID [facility] Last Admin: 05/03/17 22:41 Dose: Not Given Metoprolol Tartrate (Lopressor Injection -) 5 mg IVPUSH Q4H PRN PRN Reason: HR >100 Last Admin: 05/04/17 03:08 Dose: 5 mg Mupirocin (Bactroban Ointment (For Decolonization) -) 1 applic NS BID [facility] Stop: 05/05/17 21:59 Last Admin: 05/03/17 22:41 Dose: 1 applic Tamsulosin HCl (Flomax -) 0.4 mg PO DAILY@0830 [facility] Last Admin: 05/03/17 09:38 Dose: Not Given - Objective Vital Signs: Vital Signs Temperature 101.2 F H 05/04/17 07:30 Pulse Rate 114 H 05/04/17 07:30 Respiratory Rate 24 05/04/17 07:30 Blood Pressure 173/83 05/04/17 07:30 O2 Sat by Pulse Oximetry (%) 96 05/03/17 20:40 Labs: CBC, BMP 05/04/17 05:00 05/04/17 05:00 INR, PTT INR 1.28 (0.82-1.09) H 04/30/17 12:05 Assessment/Plan pt glucose elevated na leval high temp rising plan d/c iv d5 na? why on d5 ordered that will lower na and glucose blood cult ordered chk labs in am tylenol for temps
[2017-05-04] MEDS ORDERED: ACETAMINOPHEN 1000 MG/100 ML VIAL (NON FORMULARY) IVPB PRN (08:45)
[2017-05-04] MEDS: TAMSULOSIN HCL 0.4 MG CAP.ER.24H (FP) PO SCH (08:57)
--- NOTE | 2017-05-04 08:57 | PN ---
Progress Note, Physician - Current Medication List Current Medications: Active Medications Acetaminophen (Ofirmev Injection -) 650 mg IVPB Q6H [facility] Amlodipine Besylate (Norvasc -) 10 mg PO DAILY [facility] Last Admin: 05/03/17 09:39 Dose: Not Given Aspirin (Asa -) 300 mg [place] DAILY [facility] Atorvastatin Calcium (Lipitor -) 40 mg PO HS [facility] Last Admin: 05/03/17 22:41 Dose: Not Given Bacitracin/Polymyxin B Sulfate (Polysporin Ointment -) 1 applic TP BID [facility] Last Admin: 05/03/17 22:42 Dose: 1 applic Chlorhexidine Gluconate (Hibiclens For Decolonization -) 1 applic TP HS [facility] Last Admin: 05/03/17 22:41 Dose: 1 applic Dipyridamole/Aspirin (Aggrenox -) 1 combo PO BID [facility] Last Admin: 05/03/17 22:40 Dose: Not Given Fenofibric Acid (Trilipix -) 135 mg PO DAILY [facility] Last Admin: 05/03/17 09:39 Dose: Not Given Glipizide (Glucotrol -) 5 mg PO DAILY@0700 [facility] Last Admin: 05/04/17 06:03 Dose: Not Given Heparin Sodium (Porcine) (Heparin -) 5,000 unit SQ TID [facility] Last Admin: 05/04/17 06:05 Dose: 5,000 unit Metronidazole (Flagyl 500mg Premixed Ivpb -) 100 mls @ 100 mls/hr IVPB Q8H-IV [facility] Last Admin: 05/04/17 01:37 Dose: 100 mls/hr Piperacillin Sod/Tazobactam Sod (Zosyn 2.25gm Ivpb (Pre-Docked)) 50 mls @ 100 mls/hr IVPB Q8H-IV [facility] PRN Reason: Protocol Last Admin: 05/04/17 01:38 Dose: 100 mls/hr Lisinopril (Prinivil) 40 mg PO DAILY [facility] Last Admin: 05/03/17 09:39 Dose: Not Given Metoprolol Tartrate (Lopressor -) 25 mg PO BID [facility] Last Admin: 05/03/17 22:41 Dose: Not Given Metoprolol Tartrate (Lopressor Injection -) 5 mg IVPUSH Q4H PRN PRN Reason: HR >100 Last Admin: 05/04/17 03:08 Dose: 5 mg Mupirocin (Bactroban Ointment (For Decolonization) -) 1 applic NS BID [facility] Stop: 05/05/17 21:59 Last Admin: 05/03/17 22:41 Dose: 1 applic Tamsulosin HCl (Flomax -) 0.4 mg PO DAILY@0830 [facility] Last Admin: 05/03/17 09:38 Dose: Not Given - Objective Vital Signs: Vital Signs Temperature 101.2 F H 05/04/17 07:30 Pulse Rate 114 H 05/04/17 07:30 Respiratory Rate 24 05/04/17 07:30 Blood Pressure 173/83 05/04/17 07:30 O2 Sat by Pulse Oximetry (%) 96 05/03/17 20:40 Labs: CBC, BMP 05/04/17 05:00 05/04/17 05:00 INR, PTT INR 1.28 (0.82-1.09) H 04/30/17 12:05 Assessment/Plan pt w high gluc and na high? temp high plan change iv 1/2 ns stop d5w will correct na and glucose blood cult x2 id f/u tlylenol iv prn gentamycin x 1 chk labs in am
[2017-05-04] MEDS ORDERED: SODIUM CHLORIDE 1,000 ML IV SCH (09:00)
[2017-05-04] MEDS ORDERED: SODIUM CHLORIDE 0.45% 1,000 ML IV SCH ×2 (09:15→19:39)
[2017-05-04] MEDS: ASPIRIN 300 MG SUPP.RECT PR SCH (09:32)
[2017-05-04] MEDS: MUPIROCIN 2% TOPICAL OINTMENT FOR DECOLONIZATION NS SCH ×2 (09:38→21:10)
--- NOTE | 2017-05-04 10:16 | PN ---
Progress Note (short form) - Note Progress Note: Neurology History of Present Illness 67 yo M presented to the ER with a complaint of diarrhea and weakness for the past 2 weeks. Was found to be positive for C Diff and admitted. Was in ICU and Thursday AM rudolph rayo called and I went to ICU. Initially, patient believed to be under care of another neurologist and ICU team plan was to contact them. Thereafter, when I was in the office, I was contacted for consultation for acute R sided weakness, aphasia, and confusion. Patient was given TPA, remains in ICU and continued close monitoring. Over weekend more awake, alert, and responsive to enviornment. He is following some commands but is demonstrating right sided neglect. Will track me to the right side during conversation but does not sustain it. MRI brain reviewed and showed L MCA infarct. 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 CD reviewed and did not show HD significant stenosis. On Holter monitoring for arrythmia. Remains aphasic, patient on Aggrenox and Statin. No seizures or new neurologic events. Active Medications Acetaminophen (Ofirmev Injection -) 1,000 mg IVPB Q6H PRN PRN Reason: FEVER OR PAIN Stop: 05/05/17 03:36 Amlodipine Besylate (Norvasc -) 10 mg PO DAILY [facility] Last Admin: 05/03/17 09:39 Dose: Not Given Aspirin (Asa -) 300 mg [place] DAILY [facility] Last Admin: 05/04/17 09:32 Dose: 300 mg Atorvastatin Calcium (Lipitor -) 40 mg PO HS [facility] Last Admin: 05/03/17 22:41 Dose: Not Given Bacitracin/Polymyxin B Sulfate (Polysporin Ointment -) 1 applic TP BID [facility] Last Admin: 05/03/17 22:42 Dose: 1 applic Chlorhexidine Gluconate (Hibiclens For Decolonization -) 1 applic TP HS [facility] Last Admin: 05/03/17 22:41 Dose: 1 applic Dipyridamole/Aspirin (Aggrenox -) 1 combo PO BID [facility] Last Admin: 05/03/17 22:40 Dose: Not Given Fenofibric Acid (Trilipix -) 135 mg PO DAILY [facility] Last Admin: 05/03/17 09:39 Dose: Not Given Glipizide (Glucotrol -) 5 mg PO DAILY@0700 [facility] Last Admin: 05/04/17 06:03 Dose: Not Given Heparin Sodium (Porcine) (Heparin -) 5,000 unit SQ TID [facility] Last Admin: 05/04/17 06:05 Dose: 5,000 unit Metronidazole (Flagyl 500mg Premixed Ivpb -) 100 mls @ 100 mls/hr IVPB Q8H-IV [facility] Last Admin: 05/04/17 09:32 Dose: 100 mls/hr Piperacillin Sod/Tazobactam Sod (Zosyn 2.25gm Ivpb (Pre-Docked)) 50 mls @ 100 mls/hr IVPB Q8H-IV [facility] PRN Reason: Protocol Last Admin: 05/04/17 09:30 Dose: 100 mls/hr Sodium Chloride (1/2 Normal Saline) 1,000 mls @ 83 mls/hr IV ASDIR [facility] Stop: 05/04/17 21:18 Last Admin: 05/04/17 09:38 Dose: 83 mls/hr Lisinopril (Prinivil) 40 mg PO DAILY [facility] Last Admin: 05/03/17 09:39 Dose: Not Given Metoprolol Tartrate (Lopressor -) 25 mg PO BID [facility] Last Admin: 05/03/17 22:41 Dose: Not Given Metoprolol Tartrate (Lopressor Injection -) 5 mg IVPUSH Q4H PRN PRN Reason: HR >100 Last Admin: 05/04/17 09:30 Dose: 5 mg Mupirocin (Bactroban Ointment (For Decolonization) -) 1 applic NS BID [facility] Stop: 05/05/17 21:59 Last Admin: 05/04/17 09:38 Dose: 1 applic Tamsulosin HCl (Flomax -) 0.4 mg PO DAILY@0830 [facility] Last Admin: 05/04/17 08:57 Dose: Not Given *Physical Exam Vital Signs Temperature 101.2 F H 05/04/17 07:30 Pulse Rate 112 H 05/04/17 09:38 Respiratory Rate 24 05/04/17 09:00 Blood Pressure 163/92 05/04/17 09:30 O2 Sat by Pulse Oximetry (%) 97 05/04/17 09:38 Awake, alert, responsive to examiner, R hemineglect continued, more responsive and tracking but not sustained RRR, no murmur Lungs clear Abdomen soft, NT Aphasic R facial droop improving Moves RUE and LUE grossly, not participating in confrontation testing Is moving R leg stump LLE and RLE equal, approximately 5-/5 Sensory intact to pain Gait deferred CBCD WBC 15.9 K/mm3 (4.0-10.0) H 05/04/17 05:00 RBC 4.81 M/mm3 (4.00-5.60) 05/04/17 05:00 Hgb 13.2 GM/dL (11.7-16.9) 05/04/17 05:00 Hct 40.2 % (35.4-49) 05/04/17 05:00 MCV 83.6 fl (80-96) 05/04/17 05:00 MCHC 32.8 g/dl (32.0-35.9) 05/04/17 05:00 RDW 15.5 % (11.9-15.9) 05/04/17 05:00 Plt Count 497 K/MM3 (134-434) H 05/04/17 05:00 MPV 7.4 fl (7.5-11.1) L 05/04/17 05:00 CMP Sodium 153 mmol/L (136-145) H 05/04/17 05:00 Potassium 4.0 mmol/L (3.5-5.1) 05/04/17 05:00 Chloride 122 mmol/L (98-107) H 05/04/17 05:00 Carbon Dioxide 24 mmol/L (21-32) 05/04/17 05:00 Anion Gap 7 (8-16) L 05/04/17 05:00 BUN 24 mg/dL (7-18) H 05/04/17 05:00 Creatinine 1.2 mg/dL (0.7-1.3) 05/04/17 05:00 Creat Clearance w eGFR > 60 (>60) 05/02/17 12:55 Calcium 8.9 mg/dL (8.5-10.1) 05/04/17 05:00 Total Bilirubin 0.2 mg/dL (0.2-1.0) D 05/02/17 12:55 AST 6 U/L (15-37) L D 05/02/17 12:55 ALT 12 U/L (12-78) 08/26/17 12:55 Alkaline Phosphatase 62 U/L (45-117) 05/02/17 12:55 Total Protein 5.2 g/dl (6.4-8.2) L 05/02/17 12:55 Albumin 2.0 g/dl (3.4-5.0) L 05/02/17 12:55 Ct head reviewed CD reviewed MRI brain reviewed MRA brain reviewed Plan: 67 yo M presented to the ER with a complaint of diarrhea and weakness for the past 2 weeks. Was found to be positive for C Diff and admitted. Was in ICU and code rayo called and patient given TPA. Subsequent with improving RLE strength, now 5-/5. Patient also moving RUE but not following commands fully yet. MRI, MRA , CD, reviewed imaging studies in detail. Started patient on aggrenox and statin If Afib noted, then would switch aggrenox to AC Speech/Swallow monitoring, seen by Christine Alfredo, may only be able to tolerate Puree /honey thick when improved but monitor for aspiration Physical therapy can be started now BP range 140-160 systolic tight glycemic control, continue Glipizide Continue ICU care, neuro checks Q6hr C. Diff treatment on going Contact precautions DVT PPX, on SCD boots Critical care time 40 mins total.
[2017-05-04] MEDS: BACITRACIN/POLYMYXIN B SULFATE 15 GM TUBE TP SCH ×2 (11:00→21:16)
--- NOTE | 2017-05-04 11:31 | PN ---
Progress Note, [facility] - Note Progress Note: Pt continues to be quite aphasic, not following commands or responding to yes/ no questions. Rare nod, inconsistent and unreliable. oral dryness with mouth breathing. po2 saturation 96, RR 26. Weak, rare swallow with overt aspiration on po trial of 1/2 tsp applesauce and drop of water. Poor gag response. Selected Entries 05/02/17 05/02/17 05/02/17 01:00 04:00 08:00 Temperature 98.2 F 98.5 F 97.9 F 05/02/17 05/02/17 05/02/17 10:00 12:00 13:00 Temperature 97.6 F 97.7 F 97.7 F 05/02/17 05/02/17 05/02/17 14:00 16:00 18:00 Temperature 97.8 F 97.5 F L 97.6 F 05/02/17 05/02/17 05/03/17 18:56 20:00 02:00 Temperature 98.7 F 98.9 F 99.5 F 05/03/17 05/03/17 05/03/17 06:00 09:59 12:00 Temperature 99.6 F 100 F H 100.8 F H 05/03/17 05/03/17 05/03/17 16:00 18:00 19:00 Temperature 99.9 F H 99.6 F 101.9 F H 05/03/17 05/04/17 05/04/17 22:00 02:00 04:00 Temperature 101.5 F H 100.5 F H 101.3 F H 05/04/17 05/04/17 06:00 07:30 Temperature 101.2 F H 101.2 F H Laboratory Tests 05/02/17 05/04/17 12:55 05:00 WBC 15.3 H 15.9 H What are pt's end of life wishes? MBS ordered. I would defer at this times due to high risk of aspiration.Swallowing may improve in time to tolerating a modified diet. He will likely not be able to swallow safely in the short term. Poor sensation/gag. Consider PEG insertion. Consider Palliative care consult. I suspect poor prognosis for recovery of functional communication.
[2017-05-04 12:15] LABS: PHOSPHOROUS 1.9 mg/dL (2.5-4.9)
--- NOTE | 2017-05-04 13:39 | PN ---
Teaching Attending Note Name of Resident: Edwardo Rucker ATTENDING PHYSICIAN STATEMENT I saw and evaluated the patient. I reviewed the resident's note and discussed the case with the resident. I agree with the resident's findings and plan as documented. SUBJECTIVE: Pt seen and examined in the ICU. Remains aphasic with right sided weakness. Febrile. OBJECTIVE: Last Vital Signs Temp Pulse Resp BP Pulse Ox 101.2 F H 112 H 24 163/92 97 05/04/17 07:30 05/04/17 09:38 05/04/17 09:00 05/04/17 09:30 05/04/17 09:38 Intake & Output 05/01/17 05/02/17 05/03/17 05/04/17 23:59 23:59 23:59 23:59 Intake Total 4250 2950 2450 900 Output Total 3050 1900 2800 1300 Balance 1200 1050 -350 -400 Weight 278 lb 3.574 oz 270 lb 4.8 oz 266 lb 8 oz Gen: diaphoretic Heart: tachycardic, regular Lung: decreased breath sounds at the bases Abd: soft, nontender Ext: no edema CBC, BMP 05/04/17 05:00 05/04/17 05:00 Active Medications Acetaminophen (Ofirmev Injection -) 1,000 mg IVPB Q6H PRN PRN Reason: FEVER OR PAIN Stop: 05/05/17 03:36 Amlodipine Besylate (Norvasc -) 10 mg PO DAILY [facility] Last Admin: 05/03/17 09:39 Dose: Not Given Aspirin (Asa -) 300 mg [place] DAILY [facility] Last Admin: 05/04/17 09:32 Dose: 300 mg Atorvastatin Calcium (Lipitor -) 40 mg PO [facility] Last Admin: 05/03/17 22:41 Dose: Not Given Bacitracin/Polymyxin B Sulfate (Polysporin Ointment -) 1 applic TP BID [facility] Last Admin: 05/03/17 22:42 Dose: 1 applic Chlorhexidine Gluconate (Hibiclens For Decolonization -) 1 applic TP [facility] Last Admin: 05/03/17 22:41 Dose: 1 applic Dipyridamole/Aspirin (Aggrenox -) 1 combo PO BID [facility] Last Admin: 05/03/17 22:40 Dose: Not Given Fenofibric Acid (Trilipix -) 135 mg PO DAILY [facility] Last Admin: 05/03/17 09:39 Dose: Not Given Glipizide (Glucotrol -) 5 mg PO DAILY@0700 [facility] Last Admin: 05/04/17 06:03 Dose: Not Given Heparin Sodium (Porcine) (Heparin -) 5,000 unit SQ TID [facility] Last Admin: 05/04/17 06:05 Dose: 5,000 unit Metronidazole (Flagyl 500mg Premixed Ivpb -) 100 mls @ 100 mls/hr IVPB Q8H-IV [facility] Last Admin: 05/04/17 09:32 Dose: 100 mls/hr Piperacillin Sod/Tazobactam Sod (Zosyn 2.25gm Ivpb (Pre-Docked)) 50 mls @ 100 mls/hr IVPB Q8H-IV [facility] PRN Reason: Protocol Last Admin: 05/04/17 09:30 Dose: 100 mls/hr Sodium Chloride (1/2 Normal Saline) 1,000 mls @ 83 mls/hr IV ASDIR [facility] Stop: 05/04/17 21:18 Last Admin: 05/04/17 09:38 Dose: 83 mls/hr Lisinopril (Prinivil) 40 mg PO DAILY [facility] Last Admin: 05/03/17 09:39 Dose: Not Given Metoprolol Tartrate (Lopressor -) 25 mg PO BID [facility] Last Admin: 05/03/17 22:41 Dose: Not Given Metoprolol Tartrate (Lopressor Injection -) 5 mg IVPUSH Q4H PRN PRN Reason: HR >100 Last Admin: 05/04/17 09:30 Dose: 5 mg Mupirocin (Bactroban Ointment (For Decolonization) -) 1 applic NS BID [facility] Stop: 05/05/17 21:59 Last Admin: 05/04/17 09:38 Dose: 1 applic Tamsulosin HCl (Flomax -) 0.4 mg PO DAILY@0830 [facility] Last Admin: 05/04/17 08:57 Dose: Not Given ASSESSMENT AND PLAN: Acute CVA r/o C Diff Colitis UTI Sepsis Suprapubic Catheter COPD DM Fevers - continue antibiotics - f/u repeat cultures - CXR - neuro checks - echocardiogram - telemetry monitoring - aspiration precautions - change IVF to D5 1/2NS - continue ICU monitoring critical care time spent in reviewing chart, evaluating patient and formulating plan 35 min
--- NOTE | 2017-05-04 14:20 | PN ---
Progress Note, Physician History of Present Illness: patient continues to be calm still with rt side neglect - Current Medication List Current Medications: Active Medications Acetaminophen (Ofirmev Injection -) 1,000 mg IVPB Q6H PRN PRN Reason: FEVER OR PAIN Stop: 05/05/17 03:36 Amlodipine Besylate (Norvasc -) 10 mg PO DAILY [facility] Last Admin: 05/03/17 09:39 Dose: Not Given Aspirin (Asa -) 300 mg [place] DAILY [facility] Last Admin: 05/04/17 09:32 Dose: 300 mg Atorvastatin Calcium (Lipitor -) 40 mg PO HS [facility] Last Admin: 05/03/17 22:41 Dose: Not Given Bacitracin/Polymyxin B Sulfate (Polysporin Ointment -) 1 applic TP BID [facility] Last Admin: 05/03/17 22:42 Dose: 1 applic Chlorhexidine Gluconate (Hibiclens For Decolonization -) 1 applic TP HS [facility] Last Admin: 05/03/17 22:41 Dose: 1 applic Dipyridamole/Aspirin (Aggrenox -) 1 combo PO BID [facility] Last Admin: 05/03/17 22:40 Dose: Not Given Fenofibric Acid (Trilipix -) 135 mg PO DAILY [facility] Last Admin: 05/03/17 09:39 Dose: Not Given Glipizide (Glucotrol -) 5 mg PO DAILY@0700 [facility] Last Admin: 05/04/17 06:03 Dose: Not Given Heparin Sodium (Porcine) (Heparin -) 5,000 unit SQ TID [facility] Last Admin: 05/04/17 06:05 Dose: 5,000 unit Metronidazole (Flagyl 500mg Premixed Ivpb -) 100 mls @ 100 mls/hr IVPB Q8H-IV [facility] Last Admin: 05/04/17 09:32 Dose: 100 mls/hr Sodium Chloride (1/2 Normal Saline) 1,000 mls @ 83 mls/hr IV ASDIR [facility] Stop: 05/04/17 21:18 Last Admin: 05/04/17 09:38 Dose: 83 mls/hr Ampicillin Sodium 1 gm/ Sodium (Chloride) 100 mls @ 200 mls/hr IVPB Q8H-IV [facility] Ceftazidime 1 gm/ Dextrose 100 mls @ 200 mls/hr IVPB Q8H-IV [facility] PRN Reason: Protocol Lisinopril (Prinivil) 40 mg PO DAILY [facility] Last Admin: 05/03/17 09:39 Dose: Not Given Metoprolol Tartrate (Lopressor -) 25 mg PO BID [facility] Last Admin: 05/03/17 22:41 Dose: Not Given Metoprolol Tartrate (Lopressor Injection -) 5 mg IVPUSH Q4H PRN PRN Reason: HR >100 Last Admin: 05/04/17 09:30 Dose: 5 mg Mupirocin (Bactroban Ointment (For Decolonization) -) 1 applic NS BID [facility] Stop: 05/05/17 21:59 Last Admin: 05/04/17 09:38 Dose: 1 applic Tamsulosin HCl (Flomax -) 0.4 mg PO DAILY@829 [facility] Last Admin: 05/04/17 08:57 Dose: Not Given - Objective Vital Signs: Vital Signs Temperature 101.2 F H 05/04/17 07:30 Pulse Rate 112 H 05/04/17 09:38 Respiratory Rate 24 05/04/17 09:00 Blood Pressure 163/92 05/04/17 09:30 O2 Sat by Pulse Oximetry (%) 97 05/04/17 09:38 Constitutional: Yes: No Distress, Calm Cardiovascular: Yes: Regular Rate and Rhythm Respiratory: Yes: Regular, CTA Bilaterally, On Nasal O2 Gastrointestinal: Yes: Normal Bowel Sounds, Soft Musculoskeletal: Yes: Other Extremities: Yes: Other Neurological: Yes: Alert, Other ( Is moving R leg stump LLE and RLE equal, approximately 5-/5) Psychiatric: Yes: Alert, Other Labs: CBC, BMP 05/04/17 05:00 05/04/17 05:00 INR, PTT INR 1.28 (0.82-1.09) H 04/30/17 12:05 Assessment/Plan uti gi bleed dirrhoea sepsis wound infection patient with rt side neglect patient sodium is going up in view of his sodium going up and spiking fever i am going to change abx also the fevers are probably coming from brain plan cx report noted changed abx to ceftazidime and also added ampicillin monitor for fevers no bowel movements repeat cx to follow rest as per primary team and neurology cc time 40 min
[2017-05-04] MEDS ORDERED: PT OWN MED DRAWER 7, Y5N ONE ×2 (15:48→17:10)
[2017-05-04] MEDS: amLODIPine BESYLATE 10 MG TABLET (FP) PO SCH (16:00)
[2017-05-04] MEDS: LISINOPRIL 20 MG TABLET (FP) PO SCH (16:00)
[2017-05-04] MEDS: METOPROLOL TARTRATE 25 MG TABLET (FP) PO SCH ×2 (16:39→21:13)
[2017-05-04] MEDS: ASPIRIN/DIPYRIDAMOLE 25 MG/200 MG CAPSULE (FP) PO SCH ×2 (16:39→21:09)
[2017-05-04] MEDS: FENOFIBRIC ACID 135 MG CAP PO SCH (16:40)
[2017-05-04] MEDS: CEFTAZIDIME PENTAHYDRATE 1 GM in DEXTROSE 5%-WATER - 50 ML IVPB SCH ×2 (16:45→19:29)
[2017-05-04] MEDS: AMPICILLIN - 1 GM in SODIUM CHLORIDE 100 ML IVPB SCH ×2 (16:45→19:32)
--- NOTE | 2017-05-04 16:50 | HP ---
CHIEF COMPLAINT: PCP: HISTORY OF PRESENT ILLNESS: ER course was notable for: (1) (2) (3) Recent Travel: PAST MEDICAL HISTORY: PAST SURGICAL HISTORY: Social History: Smoking: Alcohol: Drugs: Family History: Allergies No Known Drug Allergies Allergy (Verified 04/30/17 11:36) HOME MEDICATIONS: Home Medications Medication Instructions Recorded Lisinopril [Prinivil] 40 mg PO DAILY 04/09/15 Aspirin [Ecotrin] 81 mg PO DAILY 05/11/15 Insulin Glargine,Hum.rec.anlog 70 units SQ DAILY 07/22/16 [Lantus Solostar PEN -] Insulin NPH Hum/Reg Insulin Hm 15 unit SQ BID 07/22/16 [Humulin 70-30 Vial] Amlodipine Besylate 10 mg PO DAILY 12/10/16 Ezetimibe [Zetia] 10 mg PO DAILY 12/10/16 Fenofibrate [Lofibra] 160 mg PO DAILY 12/10/16 Glipizide [Glucotrol] 5 mg PO DAILY 12/10/16 Linagliptin [Tradjenta] 5 mg PO DAILY 12/10/16 Tamsulosin HCl 0.8 mg PO DAILY 12/10/16 Metoprolol Tartrate [Lopressor -] 25 mg PO BID 01/20/17 Apremilast [Otezla] 30 mg PO BID 04/15/17 REVIEW OF SYSTEMS CONSTITUTIONAL: Absent: fever, chills, diaphoresis, generalized weakness, malaise, loss of appetite, weight change HEENT: Absent: rhinorrhea, nasal congestion, throat pain, throat swelling, difficulty swallowing, mouth swelling, ear pain, eye pain, visual changes CARDIOVASCULAR: Absent: chest pain, syncope, palpitations, irregular heart rate, lightheadedness , peripheral edema RESPIRATORY: Absent: cough, shortness of breath, dyspnea with exertion, orthopnea, wheezing, stridor, hemoptysis GASTROINTESTINAL: Absent: abdominal pain, abdominal distension, nausea, vomiting, diarrhea, constipation, melena, hematochezia GENITOURINARY: Absent: dysuria, frequency, urgency, hesitancy, hematuria, flank pain, genital pain MUSCULOSKELETAL: Absent: myalgia, arthralgia, joint swelling, back pain, neck pain SKIN: Absent: rash, itching, pallor HEMATOLOGIC/IMMUNOLOGIC: Absent: easy bleeding, easy bruising, lymphadenopathy, frequent infections ENDOCRINE: Absent: unexplained weight gain, unexplained weight loss, heat intolerance, cold intolerance NEUROLOGIC: Absent: headache, focal weakness or paresthesias, dizziness, unsteady gait, seizure, mental status changes, bladder or bowel incontinence PSYCHIATRIC: Absent: anxiety, depression, suicidal or homicidal ideation, hallucinations. PHYSICAL EXAMINATION Vital Signs - 24 hr 05/03/17 05/03/17 05/03/17 18:00 19:00 20:40 Temperature 99.6 F 101.9 F H Pulse Rate 117 H 136 H Respiratory 28 H 28 H Rate Blood Pressure 153/82 165/70 O2 Sat by Pulse 96 Oximetry (%) 05/03/17 05/03/17 05/04/17 22:00 22:51 00:00 Temperature 101.5 F H Pulse Rate 102 H 120 H 110 H Respiratory 23 23 Rate Blood Pressure 156/85 148/88 163/86 O2 Sat by Pulse Oximetry (%) 05/04/17 05/04/17 05/04/17 02:00 03:08 04:00 Temperature 100.5 F H 101.3 F H Pulse Rate 110 H 122 H 105 H Respiratory 26 H 25 H Rate Blood Pressure 156/85 159/83 166/85 O2 Sat by Pulse Oximetry (%) 05/04/17 05/04/17 05/04/17 06:00 07:30 09:00 Temperature 101.2 F H 101.2 F H Pulse Rate 111 H 114 H Respiratory 28 H 24 24 Rate Blood Pressure 174/86 173/83 O2 Sat by Pulse 98 Oximetry (%) 05/04/17 05/04/17 05/04/17 09:30 09:38 10:00 Temperature Pulse Rate 123 H 112 H Respiratory Rate Blood Pressure 163/92 O2 Sat by Pulse 97 97 Oximetry (%) Laboratory Results - last 24 hr 05/03/17 05/03/17 05/04/17 16:47 23:32 05:00 WBC 15.9 H RBC 4.81 Hgb 13.2 Hct 40.2 MCV 83.6 MCH 27.4 MCHC 32.8 RDW 15.5 Plt Count 497 H MPV 7.4 L Neutrophils % 77.1 Lymphocytes % 11.3 D Monocytes % 11.3 H Eosinophils % 0.0 Basophils % 0.3 Sodium Potassium Chloride Carbon Dioxide Anion Gap BUN Creatinine POC Glucometer [id number] Random Glucose Calcium Phosphorus Magnesium 05/04/17 05/04/17 05:00 05:38 WBC RBC Hgb Hct MCV MCH MCHC RDW Plt Count MPV Neutrophils % Lymphocytes % Monocytes % Eosinophils % Basophils % Sodium 153 H Potassium 4.0 Chloride 122 H Carbon Dioxide 24 Anion Gap 7 L BUN 24 H Creatinine 1.2 POC Glucometer [phone] Random Glucose 233 H D Calcium 8.9 Phosphorus 1.9 L D Magnesium 2.0 ASSESSMENT/PLAN: Acute CVA r/o C Diff Colitis UTI Sepsis Suprapubic Catheter COPD DM Fevers GI - continue antibiotics - f/u repeat cultures Respiratory - f/u CXR Neuro: acute CVA - neuro checks - aspiration precautions: place NG tube Cardiovascular - telemetry monitoring - continue ICU monitoring - echocardiogram : continue suprapubic catheter Metabolic - change IVF to D5 1/2NS Visit type - Emergency Visit Emergency Visit: No - New Patient This patient is new to me today: Yes Date on this admission: 05/04/17 - Critical Care Critical Care patient: Yes Total Critical Care Time (in minutes): 60 Critical Care Statement: The care of this patient involved high complexity decision making to prevent further life threatening deterioration of the patient 's condition and/or to evaluate & treat vital organ system(s) failure or risk of failure.
[2017-05-04] MEDS ORDERED: HEMOQUE TEST 1 EACH EACH ONE ×2 (17:33→21:36)
[2017-05-04] MEDS: INSULIN SLIDING SCALE (NOVOLOG) 1 VIAL SQ SCH ×2 (18:30→21:55)
[2017-05-04] MEDS ORDERED: IBUPROFEN 800 MG/8 ML IJ IVPB ONE (18:32)
[2017-05-04 18:46] LABS: URINE APPEARANCE CLOUDY; URINE BILIRUBIN NEGATIVE (NEGATIVE); URINE BLOOD 3+ (NEGATIVE); URINE COLOR DKYELLOW; URINE GLUCOSE (UA) 1+ (NEGATIVE); URINE KETONE NEGATIVE (NEGATIVE); URINE NITRITE NEGATIVE (NEGATIVE); URINE UROBILINOGEN NEGATIVE mg/dL (0.2-1.0)
--- NOTE | 2017-05-04 18:51 | EKG ---
Test Reason : Blood Pressure : / mmHG Vent. Rate : 119 BPM Atrial Rate : 119 BPM P-R Int : 196 ms QRS Dur : 090 ms QT Int : 300 ms P-R-T Axes : 047 017 077 degrees QTc Int : 422 ms SINUS TACHYCARDIA PREMATURE ATRIAL COMPLEXES NONSPECIFIC T WAVE ABNORMALITY ABNORMAL ECG WHEN COMPARED WITH ECG OF 03-MAY-2017 20:51, NO SIGNIFICANT CHANGE WAS FOUND Confirmed by KATE SALGADO MD ([id number]) on 05/04/2017 6:51:03 PM Referred By: GUERA SANTA Confirmed By:KATE SALGADO MD
[2017-05-04 18:54] LABS: URINE LEUK ESTERASE 3+ (NEGATIVE); URINE PROTEIN 2+ (NEGATIVE)
[2017-05-04 19:13] LABS: CALCIUM OXALATE CRYSTALS MANY /hpf (NONE SEEN); URINE MUCUS RARE; URINE RBC 1211 /hpf (0-3); URINE WBC 343 /hpf (3-5)
[2017-05-04] MEDS: ATORVASTATIN CA 40 MG TABLET (FP) PO SCH (21:13)
[2017-05-04] MEDS: CHLORHEXIDINE GLUCONATE 4% CLEANSER FOR DECOLONIZATION TP SCH (21:14)
[2017-05-04] MEDS ORDERED: INSULIN SLIDING SCALE (NOVOLOG) 1 VIAL SQ SCH (22:00)
[2017-05-05] MEDS: CEFTAZIDIME PENTAHYDRATE 1 GM in DEXTROSE 5%-WATER - 50 ML IVPB SCH ×3 (02:25→17:29)
[2017-05-05] MEDS: AMPICILLIN - 1 GM in SODIUM CHLORIDE 100 ML IVPB SCH ×3 (02:30→17:21)
[2017-05-05] MEDS: METRONIDAZOLE 500 MG PREMIXED 100 ML IVPB SCH ×3 (03:19→17:21)
[2017-05-05] MEDS: HEPARIN NA (PORCINE) 5,000 UNITS/ML 1ML VIAL SQ SCH ×3 (06:18→21:21)
[2017-05-05] MEDS: glipiZIDE 5 MG TABLET (FP) PO SCH (06:18)
[2017-05-05] MEDS: INSULIN SLIDING SCALE (NOVOLOG) 1 VIAL SQ SCH ×4 (06:40→21:35)
[2017-05-05 06:50] LABS: BASOPHIL 0.4 % (0-2.0); MCH 26.9 pg (25.7-33.7); MEAN CELL VOLUME 84.2 fl (80-96); MEAN PLT VOLUME 7.4 fl (7.5-11.1); NEUTROPHILS 75.4 % (42.8-82.8); PLATELET COUNT 411 K/MM3 (134-434); RDW 15.8 % (11.9-15.9); WHITE BLOOD COUNT 16.9 K/mm3 (4.0-10.0)
[2017-05-05 07:10] LABS: ANION GAP 5 (8-16); CALCIUM 9.1 mg/dL (8.5-10.1); CO2 26 mmol/L (21-32); CREATININE 1.1 mg/dL (0.7-1.3); GLUCOSE,RANDOM 253 mg/dL (74-106)
[2017-05-05] MEDS ORDERED: PT OWN MED DRAWER 7, Y5N ONE ×4 (10:17→17:27)
[2017-05-05] MEDS: SODIUM CHLORIDE 0.45% 1,000 ML IV SCH (10:20)
[2017-05-05] MEDS: MUPIROCIN 2% TOPICAL OINTMENT FOR DECOLONIZATION NS SCH (10:22)
[2017-05-05] MEDS: BACITRACIN/POLYMYXIN B SULFATE 15 GM TUBE TP SCH ×2 (10:24→21:14)
--- NOTE | 2017-05-05 10:40 | PN ---
Progress Note (short form) - Note Progress Note: Neurology History of Present Illness 67 yo M presented to the ER with a complaint of diarrhea and weakness for the past 2 weeks. Was found to be positive for C Diff and admitted. Was in ICU and Thursday AM rudolph rayo called and I went to ICU. Initially, patient believed to be under care of another neurologist and ICU team plan was to contact them. Thereafter, when I was in the office, I was contacted for consultation for acute R sided weakness, aphasia, and confusion. Patient was given TPA, remains in ICU and continued close monitoring. Over weekend more awake, alert, and responsive to environment. He is following some commands but is demonstrating right sided neglect. Will track me to the right side during conversation but does not sustain it. Continued encouragement to use right side as much as able. MRI brain showed L MCA infarct. 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 CD reviewed and did not show HD significant stenosis. On Holter monitoring for arrythmia monitoring. Cardiology following. Remains aphasic, patient on Aggrenox and Statin. Active Medications Amlodipine Besylate (Norvasc -) 10 mg PO DAILY [facility] Last Admin: 05/04/17 16:00 Dose: 10 mg Aspirin (Asa -) 300 mg [place] DAILY [facility] Last Admin: 05/04/17 09:32 Dose: 300 mg Atorvastatin Calcium (Lipitor -) 40 mg PO HS [facility] Last Admin: 05/04/17 21:13 Dose: 40 mg Bacitracin/Polymyxin B Sulfate (Polysporin Ointment -) 1 applic TP BID [facility] Last Admin: 05/05/17 10:24 Dose: 1 applic Chlorhexidine Gluconate (Hibiclens For Decolonization -) 1 applic TP HS [facility] Last Admin: 05/04/17 21:14 Dose: 1 applic Dipyridamole/Aspirin (Aggrenox -) 1 combo PO BID [facility] Last Admin: 05/04/17 21:09 Dose: Not Given Fenofibric Acid (Trilipix -) 135 mg PO DAILY [facility] Last Admin: 05/04/17 16:40 Dose: Not Given Glipizide (Glucotrol -) 5 mg PO DAILY@0700 [facility] Last Admin: 05/05/17 06:18 Dose: Not Given Heparin Sodium (Porcine) (Heparin -) 5,000 unit SQ TID [facility] Last Admin: 05/05/17 06:18 Dose: Not Given Metronidazole (Flagyl 500mg Premixed Ivpb -) 100 mls @ 100 mls/hr IVPB Q8H-IV [facility] Last Admin: 05/05/17 10:20 Dose: 100 mls/hr Ampicillin Sodium 1 gm/ Sodium (Chloride) 100 mls @ 200 mls/hr IVPB Q8H-IV [facility] Last Admin: 05/05/17 10:20 Dose: 200 mls/hr Ceftazidime 1 gm/ Dextrose 50 mls @ 100 mls/hr IVPB Q8H-IV [facility] PRN Reason: Protocol Last Admin: 05/05/17 10:19 Dose: 100 mls/hr Sodium Chloride (1/2 Normal Saline) 1,000 mls @ 83 mls/hr IV ASDIR [facility] Last Admin: 05/05/17 10:20 Dose: 83 mls/hr Insulin Aspart (Novolog Vial Sliding Scale -) 1 vial SQ ACHS [facility] PRN Reason: Protocol Last Admin: 05/05/17 06:40 Dose: 6 units Lisinopril (Prinivil) 40 mg PO DAILY [facility] Last Admin: 05/04/17 16:00 Dose: 40 mg Metoprolol Tartrate (Lopressor -) 25 mg PO BID [facility] Last Admin: 05/04/17 21:13 Dose: 25 mg Metoprolol Tartrate (Lopressor Injection -) 5 mg IVPUSH Q4H PRN PRN Reason: HR >100 Last Admin: 05/04/17 09:30 Dose: 5 mg Mupirocin (Bactroban Ointment (For Decolonization) -) 1 applic NS BID [facility] Stop: 05/05/17 21:59 Last Admin: 05/05/17 10:22 Dose: 1 applic Tamsulosin HCl (Flomax -) 0.4 mg PO DAILY@0830 [facility] Last Admin: 05/04/17 08:57 Dose: Not Given *Physical Exam Last Vital Signs Temp Pulse Resp BP Pulse Ox 99 F 107 H 22 154/69 93 L 05/05/17 10:00 05/05/17 10:00 05/05/17 10:00 05/05/17 10:00 05/05/17 08:00 Awake, alert, responsive to examiner, R hemineglect continued, more responsive and tracking but not sustained RRR, no murmur Lungs clear Abdomen soft, NT Aphasic R facial droop improving Moves RUE and LUE grossly, not participating in confrontation testing Is moving R leg stump LLE and RLE equal, approximately 5-/5 Sensory intact to pain Gait deferred CBCD WBC 16.9 K/mm3 (4.0-10.0) H 05/05/17 05:30 RBC 5.16 M/mm3 (4.00-5.60) 05/05/17 05:30 Hgb 13.9 GM/dL (11.7-16.9) 05/05/17 05:30 Hct 43.5 % (35.4-49) 05/05/17 05:30 MCV 84.2 fl (80-96) 05/05/17 05:30 MCHC 32.0 g/dl (32.0-35.9) 05/05/17 05:30 RDW 15.8 % (11.9-15.9) 05/05/17 05:30 Plt Count 411 K/MM3 (134-434) 05/05/17 05:30 MPV 7.4 fl (7.5-11.1) L 05/05/17 05:30 CMP Sodium 156 mmol/L (136-145) H 05/05/17 05:30 Potassium 4.1 mmol/L (3.5-5.1) 05/05/17 05:30 Chloride 125 mmol/L (98-107) H 05/05/17 05:30 Carbon Dioxide 26 mmol/L (21-32) 05/05/17 05:30 Anion Gap 5 (8-16) L 05/05/17 05:30 BUN 27 mg/dL (7-18) H 05/05/17 05:30 Creatinine 1.1 mg/dL (0.7-1.3) 05/05/17 05:30 Creat Clearance w eGFR > 60 (>60) 05/02/17 12:55 Calcium 9.1 mg/dL (8.5-10.1) 05/05/17 05:30 Total Bilirubin 0.2 mg/dL (0.2-1.0) D 05/02/17 12:55 AST 6 U/L (15-37) L D 05/02/17 12:55 ALT 12 U/L (12-78) 05/02/17 12:55 Alkaline Phosphatase 62 U/L (45-117) 05/02/17 12:55 Total Protein 5.2 g/dl (6.4-8.2) L 05/02/17 12:55 Albumin 2.0 g/dl (3.4-5.0) L 05/02/17 12:55 Ct head reviewed CD reviewed MRI brain reviewed MRA brain reviewed Plan: 67 yo M presented to the ER with a complaint of diarrhea and weakness for the past 2 weeks. Was found to be positive for C Diff and admitted. Was in ICU and rudolph rayo called and patient given TPA. Subsequent with improving RLE strength, now 5-/5. Patient also moving RUE but not following commands fully yet. MRI, MRA , CD, reviewed imaging studies in detail. Patient on aggrenox and statin If Afib noted, then would switch aggrenox to AC Speech/Swallow monitoring Physical therapy can be started now BP range 140-160 systolic acceptable for now, goal is < 140 as outpatient tight glycemic control, continue Glipizide Continue ICU monitoring C. Diff treatment on going Contact precautions DVT PPX, on SCD boots Critical care time 35 mins total.
--- NOTE | 2017-05-05 10:53 | PN ---
Progress Note, Physician Chief Complaint: pt aler confused vss reg rythym unable to swallow - Current Medication List Current Medications: Active Medications Amlodipine Besylate (Norvasc -) 10 mg PO DAILY [facility] Last Admin: 05/04/17 16:00 Dose: 10 mg Aspirin (Asa -) 300 mg [place] DAILY [facility] Last Admin: 05/04/17 09:32 Dose: 300 mg Atorvastatin Calcium (Lipitor -) 40 mg PO HS [facility] Last Admin: 05/04/17 21:13 Dose: 40 mg Bacitracin/Polymyxin B Sulfate (Polysporin Ointment -) 1 applic TP BID [facility] Last Admin: 05/05/17 10:24 Dose: 1 applic Chlorhexidine Gluconate (Hibiclens For Decolonization -) 1 applic TP HS [facility] Last Admin: 05/04/17 21:14 Dose: 1 applic Dipyridamole/Aspirin (Aggrenox -) 1 combo PO BID [facility] Last Admin: 05/04/17 21:09 Dose: Not Given Fenofibric Acid (Trilipix -) 135 mg PO DAILY [facility] Last Admin: 05/04/17 16:40 Dose: Not Given Glipizide (Glucotrol -) 5 mg PO DAILY@0700 [facility] Last Admin: 05/05/17 06:18 Dose: Not Given Heparin Sodium (Porcine) (Heparin -) 5,000 unit SQ TID [facility] Last Admin: 05/05/17 06:18 Dose: Not Given Metronidazole (Flagyl 500mg Premixed Ivpb -) 100 mls @ 100 mls/hr IVPB Q8H-IV [facility] Last Admin: 05/05/17 10:20 Dose: 100 mls/hr Ampicillin Sodium 1 gm/ Sodium (Chloride) 100 mls @ 200 mls/hr IVPB Q8H-IV [facility] Last Admin: 05/05/17 10:20 Dose: 200 mls/hr Ceftazidime 1 gm/ Dextrose 50 mls @ 100 mls/hr IVPB Q8H-IV [facility] PRN Reason: Protocol Last Admin: 05/05/17 10:19 Dose: 100 mls/hr Sodium Chloride (1/2 Normal Saline) 1,000 mls @ 83 mls/hr IV ASDIR [facility] Last Admin: 05/05/17 10:20 Dose: 83 mls/hr Insulin Aspart (Novolog Vial Sliding Scale -) 1 vial SQ ACHS [facility] PRN Reason: Protocol Last Admin: 05/05/17 06:40 Dose: 6 units Lisinopril (Prinivil) 40 mg PO DAILY [facility] Last Admin: 05/04/17 16:00 Dose: 40 mg Metoprolol Tartrate (Lopressor -) 25 mg PO BID [facility] Last Admin: 05/04/17 21:13 Dose: 25 mg Metoprolol Tartrate (Lopressor Injection -) 5 mg IVPUSH Q4H PRN PRN Reason: HR >100 Last Admin: 05/04/17 09:30 Dose: 5 mg Mupirocin (Bactroban Ointment (For Decolonization) -) 1 applic NS BID [facility] Stop: 05/05/17 21:59 Last Admin: 05/05/17 10:22 Dose: 1 applic Tamsulosin HCl (Flomax -) 0.4 mg PO DAILY@0830 [facility] Last Admin: 05/04/17 08:57 Dose: Not Given - Objective Vital Signs: Vital Signs Temperature 99 F 05/05/17 10:00 Pulse Rate 107 H 05/05/17 10:00 Respiratory Rate 22 05/05/17 10:00 Blood Pressure 154/69 05/05/17 10:00 O2 Sat by Pulse Oximetry (%) 93 L 05/05/17 08:00 Labs: CBC, BMP 05/05/17 05:30 05/05/17 05:30 INR, PTT INR 1.28 (0.82-1.09) H 04/30/17 12:05 Assessment/Plan no need for barium swallow faid bedside feeding cont 045 ns iv for dehydration insulin coverage
[2017-05-05] MEDS: LISINOPRIL 20 MG TABLET (FP) PO SCH (11:27)
[2017-05-05] MEDS: METOPROLOL TARTRATE 25 MG TABLET (FP) PO SCH ×2 (11:28→21:21)
[2017-05-05] MEDS: TAMSULOSIN HCL 0.4 MG CAP.ER.24H (FP) PO SCH (11:28)
[2017-05-05] MEDS: amLODIPine BESYLATE 10 MG TABLET (FP) PO SCH (11:28)
[2017-05-05] MEDS: ASPIRIN/DIPYRIDAMOLE 25 MG/200 MG CAPSULE (FP) PO SCH (11:37)
[2017-05-05] MEDS ORDERED: INSULIN (NOVOLOG) ASPART 100 UNITS/ML 10ML VIAL ONE ×2 (12:09→21:34)
[2017-05-05] MEDS: FENOFIBRIC ACID 135 MG CAP PO SCH (12:14)
--- NOTE | 2017-05-05 12:31 | PN ---
Progress Note, [facility] - Note Progress Note: Selected Entries 05/03/17 05/03/17 05/03/17 02:00 06:00 09:59 Supper Temperature 99.5 F 99.6 F 100 F H 05/03/17 05/03/17 05/03/17 12:00 16:00 18:00 Supper Temperature 100.8 F H 99.9 F H 99.6 F 05/03/17 05/03/17 05/04/17 19:00 22:00 02:00 Supper Temperature 101.9 F H 101.5 F H 100.5 F H 05/04/17 05/04/17 05/04/17 04:00 06:00 07:30 Supper Temperature 101.3 F H 101.2 F H 101.2 F H 05/04/17 05/04/17 05/04/17 09:00 10:00 11:00 Supper Temperature 101.3 F H 101.6 F H 102.1 F H 05/04/17 05/04/17 05/04/17 12:00 13:00 14:00 Supper Temperature 102.3 F H 102.4 F H 102.4 F H 05/04/17 05/04/17 05/04/17 15:00 16:00 17:00 Supper Temperature 102.4 F H 102.6 F H 102.9 F H 05/04/17 05/04/17 05/05/17 19:00 21:00 01:00 Supper Temperature 102.9 F H 102.6 F H 102.6 F H 05/05/17 05/05/17 05/05/17 03:00 05:00 06:30 Supper Temperature 99.7 F H 98.7 F 98.5 F 05/05/17 05/05/17 08:00 10:00 Supper NPO Temperature 98.8 F 99 F Laboratory Tests 05/03/17 05/04/17 05/05/17 05:15 05:00 05:30 WBC 17.6 H 15.9 H 16.9 H CXR (-). Audible upper airway secretions with wet, gurgly vocal quality c/w aspiration on secretions. Inteermittent cough. Suctioned PRN by nursing. Still not following directions. Nods yes, for most questions. Seems inconsistent and unreliable. Beginning to speak, although not functional, perseverating on "people." Speech production more precise. Unable to repeat, counr in unison, sing, complete assoc pairs. Limited awareness/frustration at this time. IMP: Severe Aphasia/Apraxia with poor functional communication. Prognosis for functional gains in communication is guarded. Severe Dysphagia. Consider: pt's wishes regarding PEG. PEG/Rehab vs comfort care? Doubt improvement of swallowing function in next few days. Hopefully with time?
[2017-05-05] MEDS: ASPIRIN 300 MG SUPP.RECT PR SCH (12:40)
--- NOTE | 2017-05-05 12:49 | PN ---
Teaching Attending Note Name of Resident: Edwardo Rucker ATTENDING PHYSICIAN STATEMENT I saw and evaluated the patient. I reviewed the resident's note and discussed the case with the resident. I agree with the resident's findings and plan as documented. SUBJECTIVE: Pt seen and examined in the ICU. More alert, awake today but remains aphasic and hemiplegic. Intermittently following commands. OBJECTIVE: Last Vital Signs Temp Pulse Resp BP Pulse Ox 99 F 99 H 22 143/82 96 05/05/17 10:00 05/05/17 12:00 05/05/17 12:00 05/05/17 12:00 05/05/17 10:00 Intake & Output 05/02/17 05/03/17 05/04/17 05/05/17 23:59 23:59 23:59 23:59 Intake Total 2950 2450 2424 1296 Output Total 1900 2800 2300 2050 Balance 1050 -350 124 -754 Weight 278 lb 3.574 oz 270 lb 4.8 oz 266 lb 8 oz 266 lb 12.8 oz Gen: more awake, alert Heart: RRR Lung: scattered bilateral rhonchi Abd: soft, nontender Ext: R BKA, no edema CBC, BMP 05/05/17 05:30 05/05/17 05:30 Active Medications Amlodipine Besylate (Norvasc -) 10 mg PO DAILY [facility] Last Admin: 05/05/17 11:28 Dose: 10 mg Aspirin (Asa -) 325 mg NGT DAILY [facility] Atorvastatin Calcium (Lipitor -) 40 mg PO HS [facility] Last Admin: 05/04/17 21:13 Dose: 40 mg Bacitracin/Polymyxin B Sulfate (Polysporin Ointment -) 1 applic TP BID [facility] Last Admin: 05/05/17 10:24 Dose: 1 applic Chlorhexidine Gluconate (Hibiclens For Decolonization -) 1 applic TP HS [facility] Last Admin: 05/04/17 21:14 Dose: 1 applic Fenofibric Acid (Trilipix -) 135 mg PO DAILY [facility] Last Admin: 05/05/17 12:14 Dose: 135 mg Glipizide (Glucotrol -) 5 mg PO DAILY@0700 [facility] Last Admin: 05/05/17 06:18 Dose: Not Given Heparin Sodium (Porcine) (Heparin -) 5,000 unit SQ TID [facility] Last Admin: 05/05/17 06:18 Dose: Not Given Metronidazole (Flagyl 500mg Premixed Ivpb -) 100 mls @ 100 mls/hr IVPB Q8H-IV [facility] Last Admin: 05/05/17 10:20 Dose: 100 mls/hr Ampicillin Sodium 1 gm/ Sodium (Chloride) 100 mls @ 200 mls/hr IVPB Q8H-IV [facility] Last Admin: 05/05/17 10:20 Dose: 200 mls/hr Ceftazidime 1 gm/ Dextrose 50 mls @ 100 mls/hr IVPB Q8H-IV [facility] PRN Reason: Protocol Last Admin: 05/05/17 10:19 Dose: 100 mls/hr Sodium Chloride (1/2 Normal Saline) 1,000 mls @ 83 mls/hr IV ASDIR [facility] Last Admin: 05/05/17 10:20 Dose: 83 mls/hr Pantoprazole Sodium (Protonix 40mg Ivpb (Pre-Docked)) 100 mls @ 200 mls/hr IVPB DAILY [facility] Insulin Aspart (Novolog Vial Sliding Scale -) 1 vial SQ ACHS [facility] PRN Reason: Protocol Last Admin: 05/05/17 12:00 Dose: 6 units Lisinopril (Prinivil) 40 mg PO DAILY [facility] Last Admin: 05/05/17 11:27 Dose: 40 mg Metoprolol Tartrate (Lopressor -) 25 mg PO BID [facility] Last Admin: 05/05/17 11:28 Dose: 25 mg Metoprolol Tartrate (Lopressor Injection -) 5 mg IVPUSH Q4H PRN PRN Reason: HR >100 Last Admin: 05/04/17 09:30 Dose: 5 mg Mupirocin (Bactroban Ointment (For Decolonization) -) 1 applic NS BID [facility] Stop: 05/05/17 21:59 Last Admin: 05/05/17 10:22 Dose: 1 applic Tamsulosin HCl (Flomax -) 0.4 mg PO DAILY@0830 [facility] Last Admin: 05/05/17 11:28 Dose: 0.4 mg ASSESSMENT AND PLAN: Acute CVA r/o C Diff Colitis UTI Sepsis Suprapubic Catheter COPD DM - continue antibiotics - neuro checks - echocardiogram - telemetry monitoring - aspiration precautions - enteral feeds - continue IVF, free water - continue ICU monitoring critical care time spent in reviewing chart, evaluating patient and formulating plan 35 min
--- NOTE | 2017-05-05 13:10 | PN ---
Physical Exam: SUBJECTIVE: Patient seen and examined. Fever resolved overnight. Patient still confused, doesn't seem to understand spoken commands. Tries to remove ng tube unless restrained. OBJECTIVE: Vital Signs Period Temp Pulse Resp BP Sys/Yanez Pulse Ox Last 24 Hr 98.5 F-102.9 F 89-126 15-33 130-161/69-96 93-98 CONSTITUTIONAL: diaphoresis CARDIOVASCULAR: Tachycardia RESPIRATORY: Absent: cough, shortness of breath, dyspnea with exertion, orthopnea, wheezing, stridor, hemoptysis GASTROINTESTINAL: Absent: abdominal pain, abdominal distension, nausea, vomiting, diarrhea, constipation, melena, hematochezia GENITOURINARY: Absent: dysuria, frequency, urgency, hesitancy, hematuria, flank pain, genital pain MUSCULOSKELETAL: Absent: myalgia, arthralgia, joint swelling, back pain, neck pain SKIN: Absent: rash, itching, pallor HEMATOLOGIC/IMMUNOLOGIC: Absent: easy bleeding, easy bruising, lymphadenopathy, frequent infections ENDOCRINE: Absent: unexplained weight gain, unexplained weight loss, heat intolerance, cold intolerance NEUROLOGIC: Absent: headache, focal weakness or paresthesias, dizziness, unsteady gait, seizure, mental status changes, bladder or bowel incontinence PSYCHIATRIC: Absent: anxiety, depression, suicidal or homicidal ideation, hallucinations. Laboratory Results - last 24 hr 05/04/17 05/04/17 05/04/17 05:38 12:14 17:37 WBC RBC Hgb Hct MCV MCH MCHC RDW Plt Count MPV Neutrophils % Lymphocytes % Monocytes % Eosinophils % Basophils % PTT (Actin FS) Sodium Potassium Chloride Carbon Dioxide Anion Gap BUN Creatinine POC Glucometer [phone] Random Glucose Calcium Phosphorus Magnesium Urine Color Urine Appearance Urine pH Ur Specific [place] Urine Protein Urine Glucose (UA) Urine Ketones Urine Blood Urine Nitrite Urine Bilirubin Urine Urobilinogen Ur Leukocyte Esterase Urine RBC Urine WBC Ur Epithelial Cells Calcium Oxalate Crystal Urine Mucus 05/04/17 05/04/17 05/05/17 18:15 21:51 05:30 WBC RBC Hgb Hct MCV MCH MCHC RDW Plt Count MPV Neutrophils % Lymphocytes % Monocytes % Eosinophils % Basophils % PTT (Actin FS) 31.2 Sodium Potassium Chloride Carbon Dioxide Anion Gap BUN Creatinine POC Glucometer [phone] Random Glucose Calcium Phosphorus Magnesium Urine Color Dkyellow Urine Appearance Cloudy Urine pH 6.0 Ur Specific [place] 1.015 Urine Protein 2+ H Urine Glucose (UA) 1+ H Urine Ketones Negative Urine Blood 3+ H Urine Nitrite Negative Urine Bilirubin Negative Urine Urobilinogen Negative Ur Leukocyte Esterase 3+ H Urine RBC 1211 Urine WBC 343 Ur Epithelial Cells Rare Calcium Oxalate Crystal Many Urine Mucus Rare 05/05/17 05/05/17 05/05/17 05:30 05:30 05:30 WBC 16.9 H RBC 5.16 Hgb 13.9 Hct 43.5 MCV 84.2 MCH 26.9 MCHC 32.0 RDW 15.8 Plt Count 411 MPV 7.4 L Neutrophils % 75.4 Lymphocytes % 13.0 Monocytes % 11.2 H Eosinophils % 0.0 Basophils % 0.4 PTT (Actin FS) Sodium 156 H Potassium 4.1 Chloride 125 H Carbon Dioxide 26 Anion Gap 5 L BUN 27 H Creatinine 1.1 POC Glucometer Random Glucose 253 H Calcium 9.1 Phosphorus Cancelled Magnesium Cancelled Urine Color Urine Appearance Urine pH Ur Specific [place] Urine Protein Urine Glucose (UA) Urine Ketones Urine Blood Urine Nitrite Urine Bilirubin Urine Urobilinogen Ur Leukocyte Esterase Urine RBC Urine WBC Ur Epithelial Cells Calcium Oxalate Crystal Urine Mucus 05/05/17 05/05/17 06:38 11:40 WBC RBC Hgb Hct MCV MCH MCHC RDW Plt Count MPV Neutrophils % Lymphocytes % Monocytes % Eosinophils % Basophils % PTT (Actin FS) Sodium Potassium Chloride Carbon Dioxide Anion Gap BUN Creatinine POC Glucometer [phone] Random Glucose Calcium Phosphorus Magnesium Urine Color Urine Appearance Urine pH Ur Specific [place] Urine Protein Urine Glucose (UA) Urine Ketones Urine Blood Urine Nitrite Urine Bilirubin Urine Urobilinogen Ur Leukocyte Esterase Urine RBC Urine WBC Ur Epithelial Cells Calcium Oxalate Crystal Urine Mucus Active Medications Generic Name Dose Route Start Last Admin Trade Name Freq PRN Reason Stop Dose Admin Amlodipine Besylate 10 mg 05/01/17 10:00 05/05/17 11:28 Norvasc - PO 10 mg DAILY [facility] Administration Aspirin 325 mg 05/05/17 12:15 Asa - NGT DAILY [facility] Atorvastatin Calcium 40 mg 05/02/17 22:00 05/04/17 21:13 Lipitor - PO 40 mg HS [facility] Administration Bacitracin/Polymyxin B Sulfate 1 applic 05/01/17 10:00 05/05/17 10:24 Polysporin Ointment - TP 1 applic BID [facility] Administration Chlorhexidine Gluconate 1 applic 04/30/17 22:00 05/04/17 21:14 Hibiclens For Decolonization - TP 1 applic HS [facility] Administration Fenofibric Acid 135 mg 05/01/17 10:00 05/05/17 12:14 Trilipix - PO 135 mg DAILY [facility] Administration Glipizide 5 mg 05/01/17 07:00 05/05/17 06:18 Glucotrol - PO Not Given DAILY@0700 [facility] Heparin Sodium (Porcine) 5,000 unit 05/03/17 22:00 05/05/17 06:18 Heparin - SQ Not Given TID [facility] Metronidazole 100 mls @ 100 mls/hr 04/30/17 18:00 05/05/17 10:20 Flagyl 500mg Premixed Ivpb - IVPB 100 mls/hr Q8H-IV [facility] Administration Ampicillin Sodium 1 gm/ Sodium 100 mls @ 200 mls/hr 05/04/17 14:15 05/05/17 10: 20 Chloride IVPB 200 mls/hr Q8H-IV [facility] Administration Ceftazidime 1 gm/ Dextrose 50 mls @ 100 mls/hr 05/04/17 14:15 05/05/17 10:19 IVPB 100 mls/hr Q8H-IV [facility] Administration Protocol Sodium Chloride 1,000 mls @ 83 mls/hr 05/05/17 09:30 05/05/17 10:20 1/2 Normal Saline IV 83 mls/hr ASDIR [facility] Administration Pantoprazole Sodium 100 mls @ 200 mls/hr 05/06/17 10:00 Protonix 40mg Ivpb (Pre-Docked) IVPB DAILY [facility] Insulin Aspart 1 vial 05/04/17 17:15 05/05/17 12:00 Novolog Vial Sliding Scale - SQ 6 units ACHS [facility] Administration Protocol Lisinopril 40 mg 05/01/17 10:00 05/05/17 11:27 Prinivil PO 40 mg DAILY [facility] Administration Metoprolol Tartrate 25 mg 04/30/17 22:00 05/05/17 11:28 Lopressor - PO 25 mg BID [facility] Administration Metoprolol Tartrate 5 mg 05/02/17 22:14 05/04/17 09:30 Lopressor Injection - IVPUSH 5 mg Q4H PRN Administration HR >100 Mupirocin 1 applic 04/30/17 22:00 05/05/17 10:22 Bactroban Ointment (For Decolonization) - NS 05/05/17 21:59 1 applic BID [facility] Administration Tamsulosin HCl 0.4 mg 05/01/17 08:30 05/05/17 11:28 Flomax - PO 0.4 mg DAILY@0830 [facility] Administration Microbiology 04/30/17 12:05 Blood - Peripheral Venous Blood Culture - Final NO GROWTH AFTER 5 DAYS INCUBATION 04/30/17 12:05 Blood - Peripheral Venous Blood Culture - Final NO GROWTH AFTER 5 DAYS INCUBATION 05/04/17 09:40 Blood - Peripheral Venous Blood Culture - Preliminary NO GROWTH OBTAINED AFTER 24 HOURS, INCUBATION TO CONTINUE FOR 4 DAYS. 05/04/17 09:50 Blood - Peripheral Venous Blood Culture - Preliminary NO GROWTH OBTAINED AFTER 24 HOURS, INCUBATION TO CONTINUE FOR 4 DAYS. 04/30/17 13:50 Catheter Site Gram Stain - Final 04/30/17 13:50 Catheter Site Wound Culture - Final Pseudomonas Aeruginosa Morganella Morganii Escherichia Coli Strep Agalactiae Group B Enterococcus Faecalis Diphtheroid/Corynebacterium 05/02/17 14:15 Urine - Urine - Catheterized Urine Culture - Final NO GROWTH OBTAINED 04/30/17 18:00 Stool Gram Stain - Final 04/30/17 13:52 Urine - Urine Suprapubic Urine Culture - Final Contaminated: Please Repeat 04/30/17 16:31 Stool Clostridium difficile Antigen (SHABANA) - Final 04/30/17 16:31 Stool Clostridium difficile Toxin Assay - Final ASSESSMENT/PLAN: 67 yo M presented to the ER with a complaint of diarrhea and weakness for the past 2 weeks, observed to the ICU following L MCA infarct. Active Medications GI - continue antibiotics - Aspiration precautions - Enteral feeds started Respiratory - f/u CXR Neuro: acute CVA - neuro checks Cardiovascular - Echocardiogram - telemetry monitoring - echocardiogram : continue suprapubic catheter Metabolic: Hypernatremia - Continue D5 1/2NS and free water Visit type - Emergency Visit Emergency Visit: No - New Patient This patient is new to me today: No - Critical Care Critical Care patient: No Total Critical Care Time (in minutes): 35 Critical Care Statement: The care of this patient involved high complexity decision making to prevent further life threatening deterioration of the patient 's condition and/or to evaluate & treat vital organ system(s) failure or risk of failure.
[2017-05-05] MEDS: ASPIRIN 325 MG TABLET NGT SCH (14:00)
--- NOTE | 2017-05-05 15:32 | PN ---
Progress Note, Physician History of Present Illness: patient continues to be calm still with rt side neglect no gross changes - Current Medication List Current Medications: Active Medications Amlodipine Besylate (Norvasc -) 10 mg PO DAILY [facility] Last Admin: 05/05/17 11:28 Dose: 10 mg Aspirin (Asa -) 325 mg NGT DAILY [facility] Last Admin: 05/05/17 14:00 Dose: 325 mg Atorvastatin Calcium (Lipitor -) 40 mg PO HS [facility] Last Admin: 05/04/17 21:13 Dose: 40 mg Bacitracin/Polymyxin B Sulfate (Polysporin Ointment -) 1 applic TP BID [facility] Last Admin: 05/05/17 10:24 Dose: 1 applic Chlorhexidine Gluconate (Hibiclens For Decolonization -) 1 applic TP HS [facility] Last Admin: 05/04/17 21:14 Dose: 1 applic Fenofibric Acid (Trilipix -) 135 mg PO DAILY [facility] Last Admin: 05/05/17 12:14 Dose: 135 mg Glipizide (Glucotrol -) 5 mg PO DAILY@0700 [facility] Last Admin: 05/05/17 06:18 Dose: Not Given Heparin Sodium (Porcine) (Heparin -) 5,000 unit SQ TID [facility] Last Admin: 05/05/17 06:18 Dose: Not Given Metronidazole (Flagyl 500mg Premixed Ivpb -) 100 mls @ 100 mls/hr IVPB Q8H-IV [facility] Last Admin: 05/05/17 10:20 Dose: 100 mls/hr Ampicillin Sodium 1 gm/ Sodium (Chloride) 100 mls @ 200 mls/hr IVPB Q8H-IV [facility] Last Admin: 05/05/17 10:20 Dose: 200 mls/hr Ceftazidime 1 gm/ Dextrose 50 mls @ 100 mls/hr IVPB Q8H-IV [facility] PRN Reason: Protocol Last Admin: 05/05/17 10:19 Dose: 100 mls/hr Sodium Chloride (1/2 Normal Saline) 1,000 mls @ 83 mls/hr IV ASDIR [facility] Last Admin: 05/05/17 10:20 Dose: 83 mls/hr Pantoprazole Sodium (Protonix 40mg Ivpb (Pre-Docked)) 100 mls @ 200 mls/hr IVPB DAILY [facility] Insulin Aspart (Novolog Vial Sliding Scale -) 1 vial SQ ACHS [facility] PRN Reason: Protocol Last Admin: 05/05/17 12:00 Dose: 6 units Lisinopril (Prinivil) 40 mg PO DAILY [facility] Last Admin: 05/05/17 11:27 Dose: 40 mg Metoprolol Tartrate (Lopressor -) 25 mg PO BID [facility] Last Admin: 05/05/17 11:28 Dose: 25 mg Metoprolol Tartrate (Lopressor Injection -) 5 mg IVPUSH Q4H PRN PRN Reason: HR >100 Last Admin: 05/04/17 09:30 Dose: 5 mg Mupirocin (Bactroban Ointment (For Decolonization) -) 1 applic NS BID [facility] Stop: 05/05/17 21:59 Last Admin: 05/05/17 10:22 Dose: 1 applic Tamsulosin HCl (Flomax -) 0.4 mg PO DAILY@0830 [facility] Last Admin: 05/05/17 11:28 Dose: 0.4 mg - Objective Vital Signs: Vital Signs Temperature 99.2 F 05/05/17 14:00 Pulse Rate 96 H 05/05/17 14:00 Respiratory Rate 22 05/05/17 14:00 Blood Pressure 147/85 05/05/17 14:00 O2 Sat by Pulse Oximetry (%) 96 05/05/17 10:00 Constitutional: Yes: No Distress, Calm Cardiovascular: Yes: Regular Rate and Rhythm Respiratory: Yes: Regular, CTA Bilaterally Gastrointestinal: Yes: Normal Bowel Sounds, Soft Musculoskeletal: Yes: Other Extremities: Yes: Other (amputation) Neurological: Yes: Other Psychiatric: Yes: Other Labs: CBC, BMP 05/05/17 05:30 05/05/17 05:30 INR, PTT INR 1.28 (0.82-1.09) H 04/30/17 12:05 Assessment/Plan uti gi bleed dirrhoea sepsis wound infection patient with rt side neglect patient sodium is going up in view of his sodium going up and spiking fever i am going to change abx also the fevers are probably coming from brain plan continue current abx monitor for fevers no bowel movements repeat cx no growth rest as per primary team and neurology/icu cc time 40 min
[2017-05-05 15:57] LABS: MAGNESIUM 2.1 mg/dL (1.8-2.4); PHOSPHOROUS 2.5 mg/dL (2.5-4.9)
--- NOTE | 2017-05-05 16:20 | CONSULT ---
Consult Consult Specialty:: Nephrology Reason for Consultation:: BILL and hypernatremia - History of Present Illness Chief Complaint: diarrhea and fevers History of Present Illness: Pt is a 67 year old gentleman who initially presented to the hospital on with diarrhea and fevers. He has had a complicated hospital stay thus far. He has history of HTN and bilateral uretral stents (unclear if he still has them ). He is unable to give history. The chart and notes were reviewed. The diarrhea started after his surgery. He had said that there is mucus in the stool. He was in acute renal failure failure on presentation that improved. He later developed hypernatremia and I was called to evaluate him. He had a CVA during his stay and is unable to eat. An NG tube was placed last night. He is awake but is aphasic. - History Source History Provided By: Medical Record Limitations to Obtaining History: Clinical Condition - Past Medical History Cardio/Vascular: Yes: HTN Pulmonary: Yes: COPD Gastrointestinal: Yes: Other (fatty liver) Renal/: Yes: Neurogenic Bladder, Other (bilateral stents) Infectious Disease: Yes: Other (balinitis) Musculoskeletal: Yes: Other (rt bka lt food wd healed) Endocrine: Yes: Diabetes Mellitus - Past Surgical History Past Surgical History: Yes: Amputation Additional Surgical History: right bka - Alcohol/Substance Use Hx Alcohol Use: No History of Substance Use: reports: None - Smoking History Smoking history: Current every day smoker Have you smoked in the past 12 months: Yes Aproximately how many cigarettes per day: 15 - Social History ADL: Independent History of Recent Travel: No Home Medications - Allergies Allergies/Adverse Reactions: Allergies Allergy/AdvReac Type Severity Reaction Status Date / Time No Known Drug Allergies Allergy Verified 04/30/17 11:36 - Home Medications Home Medications: Ambulatory Orders Lisinopril [Prinivil] 40 mg PO DAILY 04/09/15 Aspirin [Ecotrin] 81 mg PO DAILY 05/11/15 Insulin Glargine,Hum.rec.anlog [Lantus Solostar PEN -] 70 units SQ DAILY Insulin NPH Hum/Reg Insulin Hm [Humulin 70-30 Vial] 15 unit SQ BID 07/22/16 Amlodipine Besylate 10 mg PO DAILY 12/10/16 Ezetimibe [Zetia] 10 mg PO DAILY 12/10/16 Fenofibrate [Lofibra] 160 mg PO DAILY 12/10/16 Glipizide [Glucotrol] 5 mg PO DAILY 12/10/16 Linagliptin [Tradjenta] 5 mg PO DAILY 12/10/16 Tamsulosin HCl 0.8 mg PO DAILY 12/10/16 Metoprolol Tartrate [Lopressor -] 25 mg PO BID 01/20/17 Apremilast [Otezla] 30 mg PO BID 04/15/17 Family Disease History - Family Disease History Family History: Unable to Obtain Review of Systems Unable to obtain ROS, reason: aphasia Physical Exam Vital Signs: Vital Signs Temperature 99.2 F 05/05/17 14:00 Pulse Rate 96 H 05/05/17 14:00 Respiratory Rate 22 05/05/17 14:00 Blood Pressure 147/85 05/05/17 14:00 O2 Sat by Pulse Oximetry (%) 96 05/05/17 10:00 Constitutional: Yes: Calm Eyes: Yes: Conjunctiva Clear HENT: Yes: Atraumatic Neck: Yes: Supple Cardiovascular: Yes: S1, S2 Respiratory: Yes: On Nasal O2 Gastrointestinal: Yes: Soft, Abdomen, Obese, Other (NGT) Renal/: Yes: Other (suprapubic cath) Musculoskeletal: Yes: Muscle Weakness, Other (amputation) Extremities: Yes: Amputation Edema: No Integumentary: No: Rash Neurological: Yes: Aphasia Labs: CBC, BMP 05/05/17 05:30 05/05/17 05:30 Laboratory Tests 01/21/17 01/23/17 01/24/17 06:38 06:30 11:00 WBC Hgb Plt Count VBG pH POC VBG pCO2 POC VBG pO2 Mixed VBG HCO3 Sodium Potassium Chloride Carbon Dioxide Anion Gap BUN Creatinine 1.0 D 0.7 0.9 D Urine Protein Urine Blood Stool Occult Blood O & P Permanent Slide 04/30/17 04/30/17 04/30/17 11:53 12:05 12:05 WBC 30.3 H* D Hgb Plt Count VBG pH 7.35 POC VBG pCO2 34.1 L POC VBG pO2 45.2 D Mixed VBG HCO3 18.3 L Sodium 135 L Potassium Chloride Carbon Dioxide Anion Gap BUN Creatinine 3.9 H D Urine Protein Urine Blood Stool Occult Blood O & P Permanent Slide 0804/30/17 04/30/17 16:15 18:00 18:00 WBC Hgb Plt Count VBG pH POC VBG pCO2 POC VBG pO2 Mixed VBG HCO3 Sodium 137 Potassium Chloride Carbon Dioxide Anion Gap BUN Creatinine 3.3 H Urine Protein Urine Blood Stool Occult Blood Negative O & P Permanent Slide Pending 04/30/17 05/01/17 05/02/17 23:25 05:20 12:55 WBC Hgb Plt Count VBG pH POC VBG pCO2 POC VBG pO2 Mixed VBG HCO3 Sodium 140 141 146 H Potassium Chloride Carbon Dioxide Anion Gap BUN Creatinine 2.6 H D 2.1 H 1.1 D Urine Protein Urine Blood Stool Occult Blood O & P Permanent Slide 05/03/17 05/03/17 05/04/17 05:15 05:15 05:00 WBC 15.9 H Hgb 12.5 Plt Count VBG pH POC VBG pCO2 POC VBG pO2 Mixed VBG HCO3 Sodium 150 H Potassium Chloride Carbon Dioxide Anion Gap BUN Creatinine 1.0 Urine Protein Urine Blood Stool Occult Blood O & P Permanent Slide 05/04/17 05/04/17 05/05/17 05:00 18:15 05:30 WBC 16.9 H Hgb 13.9 Plt Count 411 VBG pH POC VBG pCO2 POC VBG pO2 Mixed VBG HCO3 Sodium 153 H Potassium Chloride Carbon Dioxide Anion Gap BUN 24 H Creatinine 1.2 Urine Protein 2+ H Urine Blood 3+ H Stool Occult Blood O & P Permanent Slide 05/05/17 05:30 WBC Hgb Plt Count VBG pH POC VBG pCO2 POC VBG pO2 Mixed VBG HCO3 Sodium 156 H Potassium 4.1 Chloride 125 H Carbon Dioxide 26 Anion Gap 5 L BUN 27 H Creatinine 1.1 Urine Protein Urine Blood Stool Occult Blood O & P Permanent Slide Imaging - Results Chest X-ray: Report Reviewed Ultrasound: Report Reviewed (negative hydro) Problem List - Problems (1) Dehydration Code(s): E86.0 - DEHYDRATION (2) Acute diarrhea Code(s): R19.7 - DIARRHEA, UNSPECIFIED (3) Hypernatremia Code(s): E87.0 - HYPEROSMOLALITY AND HYPERNATREMIA (4) BILL (acute kidney injury) Code(s): N17.9 - ACUTE KIDNEY FAILURE, UNSPECIFIED (5) CVA (cerebral vascular accident) Code(s): I63.9 - CEREBRAL INFARCTION, UNSPECIFIED Assessment/Plan Current Medications Generic Name Dose Route Start Last Admin Trade Name La PRN Reason Stop Dose Admin Amlodipine Besylate 10 mg 05/01/17 10:00 05/05/17 11:28 Norvasc - PO 10 mg DAILY MATTHEW Administration Aspirin 325 mg 05/05/17 12:15 05/05/17 14:00 Asa - NGT 325 mg DAILY MATTHEW Administration Atorvastatin Calcium 40 mg 05/02/17 22:00 05/04/17 21:13 Lipitor - PO 40 mg HS MATTHEW Administration Bacitracin/Polymyxin B Sulfate 1 applic 05/01/17 10:00 05/05/17 10:24 Polysporin Ointment - TP 1 applic BID MATTHEW Administration Chlorhexidine Gluconate 1 applic 04/30/17 22:00 05/04/17 21:14 Hibiclens For Decolonization - TP 1 applic HS MATTHEW Administration Fenofibric Acid 135 mg 05/01/17 10:00 05/05/17 12:14 Trilipix - PO 135 mg DAILY MATTHEW Administration Glipizide 5 mg 05/01/17 07:00 05/05/17 06:18 Glucotrol - PO Not Given DAILY@0700 MATTHEW Heparin Sodium (Porcine) 5,000 unit 05/03/17 22:00 05/05/17 15:00 Heparin - SQ 5,000 unit TID MATTHEW Administration Metronidazole 100 mls @ 100 mls/hr 04/30/17 18:00 05/05/17 10:20 Flagyl 500mg Premixed Ivpb - IVPB 100 mls/hr Q8H-IV MATTHEW Administration Ampicillin Sodium 1 gm/ Sodium 100 mls @ 200 mls/hr 05/04/17 14:15 05/05/17 10: 20 Chloride IVPB 200 mls/hr Q8H-IV MATTHEW Administration Ceftazidime 1 gm/ Dextrose 50 mls @ 100 mls/hr 05/04/17 14:15 05/05/17 10:19 IVPB 100 mls/hr Q8H-IV MATTHEW Administration Protocol Sodium Chloride 1,000 mls @ 83 mls/hr 05/05/17 09:30 05/05/17 10:20 1/2 Normal Saline IV 83 mls/hr ASDIR MATTHEW Administration Pantoprazole Sodium 100 mls @ 200 mls/hr 05/06/17 10:00 Protonix 40mg Ivpb (Pre-Docked) IVPB DAILY [facility] Insulin Aspart 1 vial 05/04/17 17:15 05/05/17 12:00 Novolog Vial Sliding Scale - SQ 6 units ACHS MATTHEW Administration Protocol Lisinopril 40 mg 05/01/17 10:00 05/05/17 11:27 Prinivil PO 40 mg DAILY MATTHEW Administration Metoprolol Tartrate 25 mg 04/30/17 22:00 05/05/17 11:28 Lopressor - PO 25 mg BID MATTHEW Administration Metoprolol Tartrate 5 mg 05/02/17 22:14 05/04/17 09:30 Lopressor Injection - IVPUSH 5 mg Q4H PRN Administration HR >100 Mupirocin 1 applic 04/30/17 22:00 05/05/17 10:22 Bactroban Ointment (For Decolonization) - NS 05/05/17 21:59 1 applic BID MATTHEW Administration Tamsulosin HCl 0.4 mg 05/01/17 08:30 05/05/17 11:28 Flomax - PO 0.4 mg DAILY@0830 MATTHEW Administration - chart reviewed - labs reviewed - meds reviewed Impression 1. BILL resolvinig 2. hypernatremia 3. sepsis 4. CVA acute 5. HTN 6. DM 7. copd 8. obstructive uropathy with suprapubic cath 9. UTI 10. diarrhea Plan - renal function is improving - stents not visualized on renal ultrasound, will discussed with urology - pt has a free water deficit of about 6.9 liters based on the weight of 266 pounds - we will need about 4 liters of free water to get his sodium down to 146 over the course of 24 hours - will start free water via peg tube - will change fluids to hypotonic solution - monitor blood sugar, values have been elevated, will need tighter control - pt will start feeds today as well - discussed case with medical attending - discussed with ICU team - will follow pt
[2017-05-05] MEDS: CHLORHEXIDINE GLUCONATE 4% CLEANSER FOR DECOLONIZATION TP SCH (21:14)
[2017-05-05] MEDS: ATORVASTATIN CA 40 MG TABLET (FP) PO SCH (21:21)
[2017-05-06] MEDS: METRONIDAZOLE 500 MG PREMIXED 100 ML IVPB SCH ×3 (02:14→19:41)
[2017-05-06] MEDS: CEFTAZIDIME PENTAHYDRATE 1 GM in DEXTROSE 5%-WATER - 50 ML IVPB SCH ×3 (02:14→19:40)
[2017-05-06] MEDS: AMPICILLIN - 1 GM in SODIUM CHLORIDE 100 ML IVPB SCH ×3 (02:14→19:39)
[2017-05-06] MEDS ORDERED: FUROSEMIDE 40 MG/4 ML INJECTABLE VIAL IVPB ONE (04:30)
[2017-05-06] MEDS ORDERED: morphine CARPU-JECT 2 MG/1 ML DISP.SYRIN IVPUSH ONE (04:55)
[2017-05-06] MEDS ORDERED: morphine CARPU-JECT 2 MG/1 ML DISP.SYRIN ONE (04:58)
[2017-05-06] MEDS ORDERED: PROPOFOL 100 ML ONE (05:28)
[2017-05-06] MEDS ORDERED: PHENYLEPHRINE HCL 10 MG/1 ML SINGLE DOSE VIAL ONE ×2 (05:41→20:15)
[2017-05-06] MEDS ORDERED: MIDAZOLAM HCL 2 MG/2 ML SINGLE DOSE VIAL IVPUSH ONE (06:07)
--- NOTE | 2017-05-06 06:20 | PN ---
Progress Note (short form) - Note Progress Note: Pt is a 67 yo male who was initially admitted with C.Diff course futher c/b L MCA infarct c/b aphasia and AMS. This morning patient noted to be in respiratory distress with SpO2 in 60s. On exam absent breath sounds on the left , ?crackles on the right. Placed on BiPAP, CXR and given a dose of lasix while waiting for CXR. CXR with complete left lung opacification c/f mucous plug. Attempted agressive chest PT and suctioning without significant improvement. Given dire situation and need for intubation I called pt's nephew to discuss goals of care. As per nephew patient has a sister who is his next of kin and would be the one to make medical decision for the patient. Unfortunately we do not have a number for the sister and patient's nephew, Narayan Barker, does not have that phone number either. Narayan also notified me that patient would not want to be placed on a ventilator however acknowledged that he does not make medical decisions. Given the fact that next of kin can't be reached at this point and tenuous condition of the patient, decision was made to intubate him. Nephew was notified of that and we came to a decision that if within the next couple of days patient does not improve we can have a family discussion about palliatively extubating him (we will need to locate patient's sister first). I also obtained patient's brother in law phone number, Dakotah, and placed it in the chart. Once all of the above discussed anesthesia paged and patient is now intubated. Post extubation patient hypotensive likely in the setting of sedation , peripheral phenylephrine started. Post intubation remained hypoxemic, PEEP increased. Awaiting chest xray. Pt's primary physician aware. Dr. Clinton to be notified shortly.
[2017-05-06 06:41] LABS: BASOPHIL 0.4 % (0-2.0); MCH 27.2 pg (25.7-33.7); MCHC 32.2 g/dl (32.0-35.9); MEAN CELL VOLUME 84.4 fl (80-96); MEAN PLT VOLUME 8.1 fl (7.5-11.1); NEUTROPHILS 76.4 % (42.8-82.8); PLATELET COUNT 467 K/MM3 (134-434); RDW 15.6 % (11.9-15.9); WHITE BLOOD COUNT 20.8 K/mm3 (4.0-10.0)
[2017-05-06] MEDS: INSULIN SLIDING SCALE (NOVOLOG) 1 VIAL SQ SCH ×4 (06:44→21:01)
[2017-05-06] MEDS ORDERED: INSULIN (NOVOLOG) ASPART 100 UNITS/ML 10ML VIAL ONE (06:46)
[2017-05-06] MEDS ORDERED: PT OWN MED DRAWER 7, Y5N ONE ×3 (06:46→19:42)
[2017-05-06] MEDS: HEPARIN NA (PORCINE) 5,000 UNITS/ML 1ML VIAL SQ SCH ×3 (06:47→21:00)
[2017-05-06] MEDS: glipiZIDE 5 MG TABLET (FP) PO SCH (06:47)
[2017-05-06 06:55] LABS: ANION GAP 9 (8-16); CALCIUM 9.2 mg/dL (8.5-10.1); CO2 25 mmol/L (21-32); GLUCOSE,RANDOM 236 mg/dL (74-106)
[2017-05-06 06:58] LABS: CREATININE 1.1 mg/dL (0.7-1.3)
--- NOTE | 2017-05-06 07:21 | PN ---
Progress Note (short form) - Note Progress Note: Was called earlier to intubate this 67 y/o male in respiratory distress s/p CVA. Upon arrival, pt. was on Bipap with 02 saturations in the mid 80's. 02 saturation didn't improve with mask ventilation. Pt. was given a total of 150mg of propofol in divided doses prior to intubation. Pt. was intubated under direct laryngoscopy using #7.5 endotracheal tube. + end-tidal CO2 noted. Breath sounds were present on the right but not on left. Pt. remained hypoxic. Pt. was hypotensive secondary to sedation. Phenylephrine was given in boluses and then started as a drip with improvement of blood pressure and some improvement in O2 saturation. Pt. was placed on the ventilator with PEEP of 10. 02 saturation continued to improve slowly. CXR was taken. Dr. Clinton to be notified for further management.
[2017-05-06] MEDS: PROPOFOL 100 ML IVPB SCH (08:36)
[2017-05-06] MEDS: SODIUM CHLORIDE 0.45% 1,000 ML IV SCH (08:38)
[2017-05-06] MEDS: TAMSULOSIN HCL 0.4 MG CAP.ER.24H (FP) PO SCH (08:38)
[2017-05-06] MEDS ORDERED: WATER IVPB SCH (08:45)
[2017-05-06] MEDS ORDERED: PHENYLEPHRINE HCL IVPB SCH (08:45)
[2017-05-06] MEDS ORDERED: DEXTROSE 5% IVPB SCH (08:45)
[2017-05-06] MEDS: PANTOPRAZOLE SODIUM 100 ML IVPB SCH (09:28)
[2017-05-06] MEDS: BACITRACIN/POLYMYXIN B SULFATE 15 GM TUBE TP SCH ×2 (09:28→21:01)
[2017-05-06] MEDS: ASPIRIN 325 MG TABLET NGT SCH (09:54)
[2017-05-06] MEDS: METOPROLOL TARTRATE 25 MG TABLET (FP) PO SCH ×2 (09:54→21:01)
[2017-05-06] MEDS: FENOFIBRIC ACID 135 MG CAP PO SCH (09:54)
[2017-05-06] MEDS: LISINOPRIL 20 MG TABLET (FP) PO SCH (09:54)
[2017-05-06] MEDS: amLODIPine BESYLATE 10 MG TABLET (FP) PO SCH (09:54)
--- NOTE | 2017-05-06 10:37 | PN ---
Progress Note (short form) - Note Progress Note: Neurology History of Present Illness 67 yo M presented to the ER with a complaint of diarrhea and weakness for the past 2 weeks. Was found to be positive for C Diff and admitted. Was in ICU and Thursday AM rudolph rayo called and I went to ICU. Initially, patient believed to be under care of another neurologist and ICU team plan was to contact them. Thereafter, when I was in the office, I was contacted for consultation for acute R sided weakness, aphasia, and confusion. Patient was given TPA, remains in ICU and continued close monitoring. Over weekend more awake, alert, and responsive to environment. He is following some commands but is demonstrating right sided neglect. Will track me to the right side during conversation but does not sustain it. Continued encouragement to use right side as much as able. MRI brain showed L MCA infarct. 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 CD reviewed and did not show HD significant stenosis. On Holter monitoring for arrythmia monitoring. Cardiology following. Remains aphasic, patient on Aggrenox and Statin. Morning of 05/06 had respiratory distress and failure, required intubation, sedation, on mechanical ventilation. Spoke to nephew at bedside in detail regarding case. Active Medications Amlodipine Besylate (Norvasc -) 10 mg PO DAILY [facility] Last Admin: 05/06/17 09:54 Dose: Not Given Aspirin (Asa -) 325 mg NGT DAILY [facility] Last Admin: 05/06/17 09:54 Dose: Not Given Atorvastatin Calcium (Lipitor -) 40 mg PO HS [facility] Last Admin: 05/05/17 21:21 Dose: 40 mg Bacitracin/Polymyxin B Sulfate (Polysporin Ointment -) 1 applic TP BID MATTHEW Last Admin: 05/06/17 09:28 Dose: 1 applic Chlorhexidine Gluconate (Hibiclens For Decolonization -) 1 applic TP HS [facility] Last Admin: 05/05/17 21:14 Dose: 1 applic Fenofibric Acid (Trilipix -) 135 mg PO DAILY [facility] Last Admin: 05/06/17 09:54 Dose: Not Given Glipizide (Glucotrol -) 5 mg PO DAILY@0700 [facility] Last Admin: 05/06/17 06:47 Dose: 5 mg Heparin Sodium (Porcine) (Heparin -) 5,000 unit SQ TID MATTHEW Last Admin: 05/06/17 06:47 Dose: 5,000 unit Metronidazole (Flagyl 500mg Premixed Ivpb -) 100 mls @ 100 mls/hr IVPB Q8H-IV MATTHEW Last Admin: 05/06/17 09:27 Dose: 100 mls/hr Ampicillin Sodium 1 gm/ Sodium (Chloride) 100 mls @ 200 mls/hr IVPB Q8H-IV MATTHEW Last Admin: 05/06/17 09:27 Dose: 200 mls/hr Ceftazidime 1 gm/ Dextrose 50 mls @ 100 mls/hr IVPB Q8H-IV MATTHEW PRN Reason: Protocol Last Admin: 05/06/17 09:28 Dose: 100 mls/hr Sodium Chloride (1/2 Normal Saline) 1,000 mls @ 83 mls/hr IV ASDIR MATTHEW Last Admin: 05/06/17 08:38 Dose: Not Given Pantoprazole Sodium (Protonix 40mg Ivpb (Pre-Docked)) 100 mls @ 200 mls/hr IVPB DAILY [facility] Last Admin: 05/06/17 09:28 Dose: 200 mls/hr Propofol (Diprivan -) 100 mls @ 3.599 mls/hr IVPB TITR MATTHEW; 5 MCG/KG/MIN PRN Reason: Protocol Last Admin: 05/06/17 08:36 Dose: 3.599 mls/hr Phenylephrine HCl 20,000 mcg/ (Dextrose) 250 mls @ 18.75 mls/hr IVPB ASDIR MATTHEW ; 25 MCG/MIN PRN Reason: Protocol Last Admin: 05/06/17 08:37 Dose: 45 mls/hr Insulin Aspart (Novolog Vial Sliding Scale -) 1 vial SQ ACHS MATTHEW PRN Reason: Protocol Last Admin: 05/06/17 06:44 Dose: 6 units Lisinopril (Prinivil) 40 mg PO DAILY [facility] Last Admin: 05/06/17 09:54 Dose: Not Given Metoprolol Tartrate (Lopressor -) 25 mg PO BID [facility] Last Admin: 05/06/17 09:54 Dose: Not Given Metoprolol Tartrate (Lopressor Injection -) 5 mg IVPUSH Q4H PRN PRN Reason: HR >100 Last Admin: 05/04/17 09:30 Dose: 5 mg Tamsulosin HCl (Flomax -) 0.4 mg PO DAILY@829 [facility] Last Admin: 05/06/17 08:38 Dose: Not Given *Physical Exam Vital Signs Period Temp Pulse Resp BP Sys/Yanez Pulse Ox Last 24 Hr 99.2 F-99.8 F 88-110 21-31 100-154/5-91 92-100 Sedated, not following commands Unable to evaluate R hemineglect RRR, no murmur Lungs clear Abdomen soft, NT Aphasic previously, unclear 2/2 sedation at this time R facial droop mild at this point Was moving RUE and LUE grossly previously, not participating in confrontation testing Was moving R leg stump Sensory not able to assess Gait deferred CBCD WBC 20.8 K/mm3 (4.0-10.0) H 05/06/17 05:20 RBC 5.09 M/mm3 (4.00-5.60) 05/06/17 05:20 Hgb 13.8 GM/dL (11.7-16.9) 05/06/17 05:20 Hct 43.0 % (35.4-49) 05/06/17 05:20 MCV 84.4 fl (80-96) 05/06/17 05:20 MCHC 32.2 g/dl (32.0-35.9) 05/06/17 05:20 RDW 15.6 % (11.9-15.9) 05/06/17 05:20 Plt Count 467 K/MM3 (134-434) H 05/06/17 05:20 MPV 8.1 fl (7.5-11.1) 05/06/17 05:20 CMP Sodium 156 mmol/L (136-145) H 05/06/17 05:20 Potassium 4.5 mmol/L (3.5-5.1) 05/06/17 05:20 Chloride 122 mmol/L (98-107) H 05/06/17 05:20 Carbon Dioxide 25 mmol/L (21-32) 05/06/17 05:20 Anion Gap 9 (8-16) 05/06/17 05:20 BUN 29 mg/dL (7-18) H 05/06/17 05:20 Creatinine 1.1 mg/dL (0.7-1.3) 05/06/17 05:20 Creat Clearance w eGFR > 60 (>60) 05/02/17 12:55 Random Glucose 236 mg/dL (74-106) H 05/06/17 05:20 Calcium 9.2 mg/dL (8.5-10.1) 05/06/17 05:20 Total Bilirubin 0.2 mg/dL (0.2-1.0) D 05/02/17 12:55 AST 6 U/L (15-37) L D 05/02/17 12:55 ALT 12 U/L (12-78) 05/02/17 12:55 Alkaline Phosphatase 62 U/L (45-117) 05/02/17 12:55 Total Protein 5.2 g/dl (6.4-8.2) L 05/02/17 12:55 Albumin 2.0 g/dl (3.4-5.0) L 05/02/17 12:55 CARDIAC ENZYMES Creatine Kinase 27 IU/L (39-308) L 04/30/17 12:05 Troponin I < 0.02 ng/ml (0.00-0.05) D 04/30/17 12:05 Ct head reviewed CD reviewed MRI brain reviewed MRA brain reviewed Plan: 67 yo M presented to the ER with a complaint of diarrhea and weakness for the past 2 weeks. Was found to be positive for C Diff and admitted. Was in ICU and code rayo called and patient given TPA. Subsequent with improving RLE strength, now 5-/5. Patient also moving RUE but not following commands fully yet. MRI, MRA , CD, reviewed imaging studies in detail. Patient on aggrenox and statin If Afib noted, then would switch aggrenox to AC Now intubated and mechically ventilated Physical therapy on hold BP range, goal is < 140 as outpatient tight glycemic control, continue Glipizide Continue ICU monitoring C. Diff treatment on going Contact precautions DVT PPX, on SCD boots Critical care time 45 mins total.
[2017-05-06] MEDS ORDERED: SODIUM CHLORIDE 0.9% 1000 ML INFUS.BAG IV ONE (10:42)
--- NOTE | 2017-05-06 10:59 | PN ---
Progress Note (short form) - Note Progress Note: chart reviwed events noted pt s/p sp cystotomy d/c on abx on 04/17/17 seen in office was afebrile felt well and had no diarrea wound was clean and dry intact at that time pt now with cva, sepsis, and colitis no urologiic intervention at this time treatment as per id and pmd will follow
--- NOTE | 2017-05-06 11:45 | PN ---
Physical Exam: SUBJECTIVE: Patient seen and examined. He was intubated today in AM. OBJECTIVE: Vital Signs Period Temp Pulse Resp BP Sys/Yanez Pulse Ox Last 24 Hr 99.2 F-100.3 F 88-110 21-31 100-154/56-91 92-100 GENERAL: The patient is intubated, on mechanical ventilation. HEAD: Normal with no signs of trauma. EYES: PERRL, sclera anicteric, conjunctiva clear. ENT: oropharynx clear without exudates, moist mucous membranes, on vent. NECK: Trachea midline, full range of motion, supple. LUNGS: Breath sounds not present on left side, rhinchi on right side, no wheezes , no crackles, no accessory muscle use. HEART: Regular rate and rhythm, S1, S2 without murmur, rub or gallop. ABDOMEN: Soft, nontender, nondistended, normoactive bowel sounds, no guarding, no rebound, suprapubic cath draining dark brown fluid. EXTREMITIES: 2+ pulses, warm,right LE amputated below the knee. NEUROLOGICAL: The pt is intubated, not following commands. SKIN: Warm, dry, normal turgor, no rashes. Laboratory Results - last 24 hr 04/30/17 05/05/17 05/05/17 18:00 05:30 05:30 WBC RBC Hgb Hct MCV MCH MCHC RDW Plt Count MPV Neutrophils % Lymphocytes % Monocytes % Eosinophils % Basophils % PTT (Actin FS) Sodium 156 H Potassium 4.1 Chloride 125 H Carbon Dioxide 26 Anion Gap 5 L BUN 27 H Creatinine 1.1 POC Glucometer Random Glucose 253 H Serum Osmolality 335 H Calcium 9.1 Phosphorus 2.5 D Magnesium 2.1 Urine Osmolality Cancelled Stool O & P Wet [place] P Permanent Slide Final report 05/05/17 05/05/17 05/05/17 05:30 11:40 17:00 WBC RBC Hgb Hct MCV MCH MCHC RDW Plt Count MPV Neutrophils % Lymphocytes % Monocytes % Eosinophils % Basophils % PTT (Actin FS) Sodium Potassium Chloride Carbon Dioxide Anion Gap BUN Creatinine POC Glucometer [phone] Random Glucose Serum Osmolality Calcium Phosphorus Cancelled Magnesium Cancelled Urine Osmolality Stool O & P Wet [place] P Permanent Slide 05/05/17 05/05/17 05/06/17 18:00 21:10 05:20 WBC RBC Hgb Hct MCV MCH MCHC RDW Plt Count MPV Neutrophils % Lymphocytes % Monocytes % Eosinophils % Basophils % PTT (Actin FS) 29.5 Sodium Potassium Chloride Carbon Dioxide Anion Gap BUN Creatinine POC Glucometer [phone] Random Glucose Serum Osmolality Calcium Phosphorus Magnesium Urine Osmolality 513 Stool O & P Wet [place] Permanent Slide 05/06/17 05/06/17 05/06/17 05:20 05:20 06:42 WBC 20.8 H RBC 5.09 Hgb 13.8 Hct 43.0 MCV 84.4 MCH 27.2 MCHC 32.2 RDW 15.6 Plt Count 467 H MPV 8.1 Neutrophils % 76.4 Lymphocytes % 14.7 Monocytes % 8.5 Eosinophils % 0.0 Basophils % 0.4 PTT (Actin FS) Sodium 156 H Potassium 4.5 Chloride 122 H Carbon Dioxide 25 Anion Gap 9 BUN 29 H Creatinine 1.1 POC Glucometer [phone] Random Glucose 236 H Serum Osmolality Calcium 9.2 Phosphorus Magnesium Urine Osmolality Stool O & P Wet [place] Permanent Slide Active Medications Generic Name Dose Route Start Last Admin Trade Name La PRN Reason Stop Dose Admin Amlodipine Besylate 10 mg 05/01/17 10:00 05/06/17 09:54 Norvasc - PO Not Given DAILY [facility] Aspirin 325 mg 05/05/17 12:15 05/06/17 09:54 Asa - NGT Not Given DAILY [facility] Atorvastatin Calcium 40 mg 05/02/17 22:00 05/05/17 21:21 Lipitor - PO 40 mg HS MATTHEW Administration Bacitracin/Polymyxin B Sulfate 1 applic 05/01/17 10:00 05/06/17 09:28 Polysporin Ointment - TP 1 applic BID MATTHEW Administration Chlorhexidine Gluconate 1 applic 04/30/17 22:00 05/05/17 21:14 Hibiclens For Decolonization - TP 1 applic HS MATTHEW Administration Fenofibric Acid 135 mg 05/01/17 10:00 05/06/17 09:54 Trilipix - PO Not Given DAILY [facility] Glipizide 5 mg 05/01/17 07:00 05/06/17 06:47 Glucotrol - PO 5 mg DAILY@0700 MATTHEW Administration Heparin Sodium (Porcine) 5,000 unit 05/03/17 22:00 05/06/17 06:47 Heparin - SQ 5,000 unit TID MATTHEW Administration Metronidazole 100 mls @ 100 mls/hr 04/30/17 18:00 05/06/17 09:27 Flagyl 500mg Premixed Ivpb - IVPB 100 mls/hr Q8H-IV MATTHEW Administration Ampicillin Sodium 1 gm/ Sodium 100 mls @ 200 mls/hr 05/04/17 14:15 05/06/17 09: 27 Chloride IVPB 200 mls/hr Q8H-IV MATTHEW Administration Ceftazidime 1 gm/ Dextrose 50 mls @ 100 mls/hr 05/04/17 14:15 05/06/17 09:28 IVPB 100 mls/hr Q8H-IV MATTHEW Administration Protocol Sodium Chloride 1,000 mls @ 83 mls/hr 05/05/17 09:30 05/06/17 08:38 1/2 Normal Saline IV Not Given ASDIR MATTHEW Pantoprazole Sodium 100 mls @ 200 mls/hr 05/06/17 10:00 05/06/17 09:28 Protonix 40mg Ivpb (Pre-Docked) IVPB 200 mls/hr DAILY MATTHEW Administration Propofol 100 mls @ 3.599 mls/hr 05/06/17 08:30 05/06/17 08:36 Diprivan - IVPB 3.599 mls/hr TITR MATTHEW Administration Protocol 5 MCG/KG/MIN Phenylephrine HCl 20,000 mcg/ 250 mls @ 18.75 mls/hr 05/06/17 08:45 05/06/17 08 :37 Dextrose IVPB 45 mls/hr ASDIR MATTHEW Administration Protocol 25 MCG/MIN Insulin Aspart 1 vial 05/04/17 17:15 05/06/17 11:34 Novolog Vial Sliding Scale - SQ 6 units ACHS MATTHEW Administration Protocol Lisinopril 40 mg 05/01/17 10:00 05/06/17 09:54 Prinivil PO Not Given DAILY MATTHEW Metoprolol Tartrate 25 mg 04/30/17 22:00 05/06/17 09:54 Lopressor - PO Not Given BID MATTHEW Metoprolol Tartrate 5 mg 05/02/17 22:14 05/04/17 09:30 Lopressor Injection - IVPUSH 5 mg Q4H PRN Administration HR >100 Tamsulosin HCl 0.4 mg 05/01/17 08:30 05/06/17 08:38 Flomax - PO Not Given DAILY@0830 [facility] Microbiology 05/04/17 09:40 Blood - Peripheral Venous Blood Culture - Preliminary NO GROWTH OBTAINED AFTER 72 HOURS, INCUBATION TO CONTINUE FOR 2 DAYS. 05/04/17 09:50 Blood - Peripheral Venous Blood Culture - Preliminary NO GROWTH OBTAINED AFTER 72 HOURS, INCUBATION TO CONTINUE FOR 2 DAYS. 05/04/17 18:15 Urine - Urine Suprapubic Urine Culture - Final NO GROWTH OBTAINED 04/30/17 12:05 Blood - Peripheral Venous Blood Culture - Final NO GROWTH AFTER 5 DAYS INCUBATION 04/30/17 12:05 Blood - Peripheral Venous Blood Culture - Final NO GROWTH AFTER 5 DAYS INCUBATION 04/30/17 13:50 Catheter Site Gram Stain - Final 04/30/17 13:50 Catheter Site Wound Culture - Final Pseudomonas Aeruginosa Morganella Morganii Escherichia Coli Strep Agalactiae Group B Enterococcus Faecalis Diphtheroid/Corynebacterium 05/02/17 14:15 Urine - Urine - Catheterized Urine Culture - Final NO GROWTH OBTAINED 04/30/17 18:00 Stool Gram Stain - Final 04/30/17 13:52 Urine - Urine Suprapubic Urine Culture - Final Contaminated: Please Repeat 04/30/17 16:31 Stool Clostridium difficile Antigen (SHABANA) - Final 04/30/17 16:31 Stool Clostridium difficile Toxin Assay - Final ASSESSMENT/PLAN: 67 year old male admitted for C.Diff, diarrhea. His hospital stay was complicated by CVA with right sided weakness, s/p TPA in ICU, followed by acute respiratory failure and intubation. Neuro: CVA, s/p TPA f/o Neurology consultation neuro checks control BP continue Aspirin ID: Right sided PNA/Sepsis, continue antibiotics: Ceftazidime, Ampicillin. F/u ID recommendations Acute respiratory failure with complete left lung opacification: repositioning his right side down, trying to use resp. catheter. Maneuvers at bedside were not successful so we will perform bronchoscopy tomorrow. Pulm: Acute respiratory failure with left sided opacification, on mechanical ventilation, on Phenylephrine GTT, will taper bronchoscopy scheduled for tomorrow Nephro: BILL: we increase free water to feedings to 75 cc/hr and start D5 at 40 cc/hr. F/U Nephrology recommendations. Hypernatremia: the pt has a free water deficit, we will increase fluids Obstructive uropathy with suprapubic cath, will continue GI: C.Diff diarrhea resolving: continue antibiotics and cont contact precautions continue Protonix 40 mg IV Cardiology: continue cardiac monitoring HTN: continue Amplodypine 10 mg qd and Lopressor 5 mg Q4 PRN, Lisinopril 40 mg qd HDL: continue Atorvastatin 40 mg qd Endo: continue ISS BGMs F/E/N: D5/no/Glucerna GI PPX: Protonix DVT PPX: Heparin 5000 u TID SCD boots Disposition: continue ICU monitoring, discussed with family, nephew Code Status: Full Code Problem List - Problems (1) BILL (acute kidney injury) Code(s): N17.9 - ACUTE KIDNEY FAILURE, UNSPECIFIED (2) CVA (cerebral vascular accident) Code(s): I63.9 - CEREBRAL INFARCTION, UNSPECIFIED (3) Dehydration Code(s): E86.0 - DEHYDRATION (4) Hypernatremia Code(s): E87.0 - HYPEROSMOLALITY AND HYPERNATREMIA (5) Infectious diarrhea Code(s): A09 - INFECTIOUS GASTROENTERITIS AND COLITIS, UNSPECIFIED (6) UTI (urinary tract infection) Code(s): N39.0 - URINARY TRACT INFECTION, SITE NOT SPECIFIED (7) Acute diarrhea Code(s): R19.7 - DIARRHEA, UNSPECIFIED (8) Diabetes 1.5, managed as type 2 Code(s): E13.9 - OTHER SPECIFIED DIABETES MELLITUS WITHOUT COMPLICATIONS (9) Sepsis secondary to UTI Code(s): A41.9 - SEPSIS, UNSPECIFIED ORGANISM N39.0 - URINARY TRACT INFECTION, SITE NOT SPECIFIED (10) Urinary (tract) obstruction Code(s): N13.9 - OBSTRUCTIVE AND REFLUX UROPATHY, UNSPECIFIED Visit type - Emergency Visit Emergency Visit: Yes ED Registration Date: 04/30/17 Care time: The patient presented to the Emergency Department on the above date and was hospitalized for further evaluation of their emergent condition. - New Patient This patient is new to me today: No - Critical Care Critical Care patient: Yes Total Critical Care Time (in minutes): 40 Critical Care Statement: The care of this patient involved high complexity decision making to prevent further life threatening deterioration of the patient 's condition and/or to evaluate & treat vital organ system(s) failure or risk of failure.
--- NOTE | 2017-05-06 12:09 | PN ---
Teaching Attending Note Name of Resident: Gena Berg ATTENDING PHYSICIAN STATEMENT I saw and evaluated the patient. I reviewed the resident's note and discussed the case with the resident. I agree with the resident's findings and plan as documented. SUBJECTIVE: Pt seen and examined in the ICU. Overnight events noted, pt now intubated on phenylephrine gtt. CXR with complete opacification of left hemithorax. OBJECTIVE: Last Vital Signs Temp Pulse Resp BP Pulse Ox 100.3 F H 102 H 21 112/60 100 05/06/17 10:00 05/06/17 11:45 05/06/17 11:45 05/06/17 11:45 05/06/17 09:23 Intake & Output 05/03/17 05/04/17 05/05/17 05/06/17 23:59 23:59 23:59 23:59 Intake Total 2450 2424 3106 1320 Output Total 2800 2300 3550 400 Balance -350 124 -444 920 Weight 270 lb 4.8 oz 266 lb 8 oz 266 lb 12.8 oz 264 lb 8 oz Gen: intubated, sedated Heart: tachycardic, regular Lung: decreased breath sounds on left Abd: soft, nontender Ext: trace edema CBC, BMP 05/06/17 05:20 05/06/17 05:20 Active Medications Amlodipine Besylate (Norvasc -) 10 mg PO DAILY [facility] Last Admin: 05/06/17 09:54 Dose: Not Given Aspirin (Asa -) 325 mg NGT DAILY [facility] Last Admin: 05/06/17 09:54 Dose: Not Given Atorvastatin Calcium (Lipitor -) 40 mg PO HS [facility] Last Admin: 05/05/17 21:21 Dose: 40 mg Bacitracin/Polymyxin B Sulfate (Polysporin Ointment -) 1 applic TP BID [facility] Last Admin: 05/06/17 09:28 Dose: 1 applic Chlorhexidine Gluconate (Hibiclens For Decolonization -) 1 applic TP HS [facility] Last Admin: 05/05/17 21:14 Dose: 1 applic Fenofibric Acid (Trilipix -) 135 mg PO DAILY [facility] Last Admin: 05/06/17 09:54 Dose: Not Given Glipizide (Glucotrol -) 5 mg PO DAILY@0700 [facility] Last Admin: 05/06/17 06:47 Dose: 5 mg Heparin Sodium (Porcine) (Heparin -) 5,000 unit SQ TID [facility]THEW Last Admin: 05/06/17 06:47 Dose: 5,000 unit Metronidazole (Flagyl 500mg Premixed Ivpb -) 100 mls @ 100 mls/hr IVPB Q8H-IV [facility]THEW Last Admin: 05/06/17 09:27 Dose: 100 mls/hr Ampicillin Sodium 1 gm/ Sodium (Chloride) 100 mls @ 200 mls/hr IVPB Q8H-IV [facility] Last Admin: 05/06/17 09:27 Dose: 200 mls/hr Ceftazidime 1 gm/ Dextrose 50 mls @ 100 mls/hr IVPB Q8H-IV MATTHEW PRN Reason: Protocol Last Admin: 05/06/17 09:28 Dose: 100 mls/hr Sodium Chloride (1/2 Normal Saline) 1,000 mls @ 83 mls/hr IV ASDIR MATTHEW Last Admin: 05/06/17 08:38 Dose: Not Given Pantoprazole Sodium (Protonix 40mg Ivpb (Pre-Docked)) 100 mls @ 200 mls/hr IVPB DAILY [facility] Last Admin: 05/06/17 09:28 Dose: 200 mls/hr Propofol (Diprivan -) 100 mls @ 3.599 mls/hr IVPB TITR MATTHEW; 5 MCG/KG/MIN PRN Reason: Protocol Last Admin: 05/06/17 08:36 Dose: 3.599 mls/hr Phenylephrine HCl 20,000 mcg/ (Dextrose) 250 mls @ 18.75 mls/hr IVPB ASDIR MATTHEW ; 25 MCG/MIN PRN Reason: Protocol Last Admin: 05/06/17 08:37 Dose: 45 mls/hr Insulin Aspart (Novolog Vial Sliding Scale -) 1 vial SQ ACHS MATTHEW PRN Reason: Protocol Last Admin: 05/06/17 11:34 Dose: 6 units Lisinopril (Prinivil) 40 mg PO DAILY [facility] Last Admin: 05/06/17 09:54 Dose: Not Given Metoprolol Tartrate (Lopressor -) 25 mg PO BID [facility] Last Admin: 05/06/17 09:54 Dose: Not Given Metoprolol Tartrate (Lopressor Injection -) 5 mg IVPUSH Q4H PRN PRN Reason: HR >100 Last Admin: 05/04/17 09:30 Dose: 5 mg Tamsulosin HCl (Flomax -) 0.4 mg PO DAILY@0830 [facility] Last Admin: 05/06/17 08:38 Dose: Not Given ASSESSMENT AND PLAN: Acute Hypoxic Respiratory Failure Left Atelectasis Acute CVA r/o C Diff Colitis UTI Sepsis Suprapubic Catheter COPD DM - chest PT, start mucomyst - position right side down - bed percussion - performed recruitment maneuvers during rounds - if no improvement by AM, will perform bronchoscopy - continue antibiotics - taper phenylephrine gtt, maintain MAP >65 - neuro checks - enteral feeds - continue IVF, free water - continue ICU monitoring critical care time spent in reviewing chart, evaluating patient and formulating plan 35 min
--- NOTE | 2017-05-06 13:04 | PN ---
Progress Note, Physician Chief Complaint: intubated n/c in statis ngt intact sedated propofol - Current Medication List Current Medications: Active Medications Amlodipine Besylate (Norvasc -) 10 mg PO DAILY [facility] Last Admin: 05/06/17 09:54 Dose: Not Given Aspirin (Asa -) 325 mg NGT DAILY [facility] Last Admin: 05/06/17 09:54 Dose: Not Given Atorvastatin Calcium (Lipitor -) 40 mg PO HS [facility] Last Admin: 05/05/17 21:21 Dose: 40 mg Bacitracin/Polymyxin B Sulfate (Polysporin Ointment -) 1 applic TP BID [facility] Last Admin: 05/06/17 09:28 Dose: 1 applic Chlorhexidine Gluconate (Hibiclens For Decolonization -) 1 applic TP HS [facility] Last Admin: 05/05/17 21:14 Dose: 1 applic Fenofibric Acid (Trilipix -) 135 mg PO DAILY [facility] Last Admin: 05/06/17 09:54 Dose: Not Given Glipizide (Glucotrol -) 5 mg PO DAILY@0700 [facility] Last Admin: 05/06/17 06:47 Dose: 5 mg Heparin Sodium (Porcine) (Heparin -) 5,000 unit SQ TID [facility] Last Admin: 05/06/17 06:47 Dose: 5,000 unit Metronidazole (Flagyl 500mg Premixed Ivpb -) 100 mls @ 100 mls/hr IVPB Q8H-IV [facility] Last Admin: 05/06/17 09:27 Dose: 100 mls/hr Ampicillin Sodium 1 gm/ Sodium (Chloride) 100 mls @ 200 mls/hr IVPB Q8H-IV [facility] Last Admin: 05/06/17 09:27 Dose: 200 mls/hr Ceftazidime 1 gm/ Dextrose 50 mls @ 100 mls/hr IVPB Q8H-IV [facility] PRN Reason: Protocol Last Admin: 05/06/17 09:28 Dose: 100 mls/hr Sodium Chloride (1/2 Normal Saline) 1,000 mls @ 83 mls/hr IV ASDIR [facility] Last Admin: 05/06/17 08:38 Dose: Not Given Pantoprazole Sodium (Protonix 40mg Ivpb (Pre-Docked)) 100 mls @ 200 mls/hr IVPB DAILY [facility] Last Admin: 05/06/17 09:28 Dose: 200 mls/hr Propofol (Diprivan -) 100 mls @ 3.599 mls/hr IVPB TITR MATTHEW; 5 MCG/KG/MIN PRN Reason: Protocol Last Admin: 05/06/17 08:36 Dose: 3.599 mls/hr Phenylephrine HCl 20,000 mcg/ (Dextrose) 250 mls @ 18.75 mls/hr IVPB ASDIR MATTHEW ; 25 MCG/MIN PRN Reason: Protocol Last Admin: 05/06/17 08:37 Dose: 45 mls/hr Insulin Aspart (Novolog Vial Sliding Scale -) 1 vial SQ ACHS MATTHEW PRN Reason: Protocol Last Admin: 05/06/17 11:34 Dose: 6 units Lisinopril (Prinivil) 40 mg PO DAILY [facility] Last Admin: 05/06/17 09:54 Dose: Not Given Metoprolol Tartrate (Lopressor -) 25 mg PO BID [facility] Last Admin: 05/06/17 09:54 Dose: Not Given Metoprolol Tartrate (Lopressor Injection -) 5 mg IVPUSH Q4H PRN PRN Reason: HR >100 Last Admin: 05/04/17 09:30 Dose: 5 mg Tamsulosin HCl (Flomax -) 0.4 mg PO DAILY@0830 [facility] Last Admin: 05/06/17 08:38 Dose: Not Given - Objective Vital Signs: Vital Signs Temperature 100.3 F H 05/06/17 10:00 Pulse Rate 109 H 05/06/17 12:00 Respiratory Rate 22 05/06/17 12:00 Blood Pressure 116/59 05/06/17 12:00 O2 Sat by Pulse Oximetry (%) 100 05/06/17 09:23 Constitutional: Yes: Other (intubated) Eyes: Yes: Other (nonresponsive) Cardiovascular: Yes: Regular Rate and Rhythm Respiratory: Yes: Diminished Gastrointestinal: Yes: WNL ...Rectal Exam: Yes: Deferred Genitourinary: Yes: Other (suprpubic draining) Breast(s): Yes: WNL Musculoskeletal: Yes: WNL Extremities: Yes: Amputation Edema: No Peripheral Pulses WNL: Yes Integumentary: Yes: WNL Neurological: Yes: Lethargy Labs: CBC, BMP 05/06/17 05:20 05/06/17 05:20 INR, PTT INR 1.28 (0.82-1.09) H 04/30/17 12:05 Assessment/Plan give free h2o ngt to correct na bronchoscopy in ? am to mucus suck out to reinflate lung chk labs in am f/u id wbc higher cont all tx as is
--- NOTE | 2017-05-06 14:00 | PN ---
Progress Note, Physician History of Present Illness: Pt seen and examined at bedside. He is now intubated. - Current Medication List Current Medications: Active Medications Amlodipine Besylate (Norvasc -) 10 mg PO DAILY [facility] Last Admin: 05/06/17 09:54 Dose: Not Given Aspirin (Asa -) 325 mg NGT DAILY [facility] Last Admin: 05/06/17 09:54 Dose: Not Given Atorvastatin Calcium (Lipitor -) 40 mg PO HS [facility] Last Admin: 05/05/17 21:21 Dose: 40 mg Bacitracin/Polymyxin B Sulfate (Polysporin Ointment -) 1 applic TP BID [facility] Last Admin: 05/06/17 09:28 Dose: 1 applic Chlorhexidine Gluconate (Hibiclens For Decolonization -) 1 applic TP HS [facility] Last Admin: 05/05/17 21:14 Dose: 1 applic Fenofibric Acid (Trilipix -) 135 mg PO DAILY [facility] Last Admin: 05/06/17 09:54 Dose: Not Given Glipizide (Glucotrol -) 5 mg PO DAILY@0700 [facility] Last Admin: 05/06/17 06:47 Dose: 5 mg Heparin Sodium (Porcine) (Heparin -) 5,000 unit SQ TID [facility] Last Admin: 05/06/17 06:47 Dose: 5,000 unit Metronidazole (Flagyl 500mg Premixed Ivpb -) 100 mls @ 100 mls/hr IVPB Q8H-IV [facility] Last Admin: 05/06/17 09:27 Dose: 100 mls/hr Ampicillin Sodium 1 gm/ Sodium (Chloride) 100 mls @ 200 mls/hr IVPB Q8H-IV [facility] Last Admin: 05/06/17 09:27 Dose: 200 mls/hr Ceftazidime 1 gm/ Dextrose 50 mls @ 100 mls/hr IVPB Q8H-IV [facility] PRN Reason: Protocol Last Admin: 05/06/17 09:28 Dose: 100 mls/hr Sodium Chloride (1/2 Normal Saline) 1,000 mls @ 83 mls/hr IV ASDIR [facility] Last Admin: 05/06/17 08:38 Dose: Not Given Pantoprazole Sodium (Protonix 40mg Ivpb (Pre-Docked)) 100 mls @ 200 mls/hr IVPB DAILY [facility] Last Admin: 05/06/17 09:28 Dose: 200 mls/hr Propofol (Diprivan -) 100 mls @ 3.599 mls/hr IVPB TITR [facility]THEW; 5 MCG/KG/MIN PRN Reason: Protocol Last Admin: 05/06/17 08:36 Dose: 3.599 mls/hr Phenylephrine HCl 20,000 mcg/ (Dextrose) 250 mls @ 18.75 mls/hr IVPB ASDIR MATTHEW ; 25 MCG/MIN PRN Reason: Protocol Last Admin: 05/06/17 08:37 Dose: 45 mls/hr Insulin Aspart (Novolog Vial Sliding Scale -) 1 vial SQ ACHS [facility]W PRN Reason: Protocol Last Admin: 05/06/17 11:34 Dose: 6 units Lisinopril (Prinivil) 40 mg PO DAILY [facility] Last Admin: 05/06/17 09:54 Dose: Not Given Metoprolol Tartrate (Lopressor -) 25 mg PO BID [facility] Last Admin: 05/06/17 09:54 Dose: Not Given Metoprolol Tartrate (Lopressor Injection -) 5 mg IVPUSH Q4H PRN PRN Reason: HR >100 Last Admin: 05/04/17 09:30 Dose: 5 mg Tamsulosin HCl (Flomax -) 0.4 mg PO DAILY@0830 [facility] Last Admin: 05/06/17 08:38 Dose: Not Given - Objective Vital Signs: Vital Signs Temperature 100.3 F H 05/06/17 10:00 Pulse Rate 109 H 05/06/17 12:00 Respiratory Rate 23 05/06/17 13:50 Blood Pressure 116/59 05/06/17 12:00 O2 Sat by Pulse Oximetry (%) 100 05/06/17 09:23 Constitutional: Yes: Calm Eyes: Yes: Conjunctiva Clear HENT: Yes: Atraumatic Cardiovascular: Yes: S1, S2 Respiratory: Yes: Mechanically Ventilated Gastrointestinal: Yes: Soft, Abdomen, Obese Genitourinary: Yes: Griffith Present Extremities: Yes: Amputation Edema: No Neurological: Yes: Lethargy Labs: CBC, BMP 05/06/17 05:20 05/06/17 05:20 INR, PTT INR 1.28 (0.82-1.09) H 04/30/17 12:05 - ....Imaging Chest X-ray: Report Reviewed Problem List - Problems (1) Dehydration Code(s): E86.0 - DEHYDRATION (2) Acute diarrhea Code(s): R19.7 - DIARRHEA, UNSPECIFIED (3) Hypernatremia Code(s): E87.0 - HYPEROSMOLALITY AND HYPERNATREMIA (4) BILL (acute kidney injury) Code(s): N17.9 - ACUTE KIDNEY FAILURE, UNSPECIFIED (5) CVA (cerebral vascular accident) Code(s): I63.9 - CEREBRAL INFARCTION, UNSPECIFIED Assessment/Plan Current Medications Generic Name Dose Route Start Last Admin Trade Name Freq PRN Reason Stop Dose Admin Amlodipine Besylate 10 mg 05/01/17 10:00 05/06/17 09:54 Norvasc - PO Not Given DAILY MATTHEW Aspirin 325 mg 05/05/17 12:15 05/06/17 09:54 Asa - NGT Not Given DAILY MATTHEW Atorvastatin Calcium 40 mg 05/02/17 22:00 05/05/17 21:21 Lipitor - PO 40 mg HS MATTHEW Administration Bacitracin/Polymyxin B Sulfate 1 applic 05/01/17 10:00 05/06/17 09:28 Polysporin Ointment - TP 1 applic BID MAT[facility]W Administration Chlorhexidine Gluconate 1 applic 04/30/17 22:00 05/05/17 21:14 Hibiclens For Decolonization - TP 1 applic HS MATTHEW Administration Fenofibric Acid 135 mg 05/01/17 10:00 05/06/17 09:54 Trilipix - PO Not Given DAILY MAT[facility]W Glipizide 5 mg 05/01/17 07:00 05/06/17 06:47 Glucotrol - PO 5 mg DAILY@0700 [facility]W Administration Heparin Sodium (Porcine) 5,000 unit 05/03/17 22:00 05/06/17 06:47 Heparin - SQ 5,000 unit TID MATTHEW Administration Metronidazole 100 mls @ 100 mls/hr 04/30/17 18:00 05/06/17 09:27 Flagyl 500mg Premixed Ivpb - IVPB 100 mls/hr Q8H-IV [facility]W Administration Ampicillin Sodium 1 gm/ Sodium 100 mls @ 200 mls/hr 05/04/17 14:15 05/06/17 09: 27 Chloride IVPB 200 mls/hr Q8H-IV [facility]W Administration Ceftazidime 1 gm/ Dextrose 50 mls @ 100 mls/hr 05/04/17 14:15 05/06/17 09:28 IVPB 100 mls/hr Q8H-IV [facility]W Administration Protocol Sodium Chloride 1,000 mls @ 83 mls/hr 05/05/17 09:30 05/06/17 08:38 1/2 Normal Saline IV Not Given ASDIR MATTHEW Pantoprazole Sodium 100 mls @ 200 mls/hr 05/06/17 10:00 05/06/17 09:28 Protonix 40mg Ivpb (Pre-Docked) IVPB 200 mls/hr DAILY [facility]W Administration Propofol 100 mls @ 3.599 mls/hr 05/06/17 08:30 05/06/17 08:36 Diprivan - IVPB 3.599 mls/hr TITR MATTHEW Administration Protocol 5 MCG/KG/MIN Phenylephrine HCl 20,000 mcg/ 250 mls @ 18.75 mls/hr 05/06/17 08:45 05/06/17 08 :37 Dextrose IVPB 45 mls/hr ASDIR MATTHEW Administration Protocol 25 MCG/MIN Insulin Aspart 1 vial 05/04/17 17:15 05/06/17 11:34 Novolog Vial Sliding Scale - SQ 6 units ACHS MATTHEW Administration Protocol Lisinopril 40 mg 05/01/17 10:00 05/06/17 09:54 Prinivil PO Not Given DAILY [facility] Metoprolol Tartrate 25 mg 04/30/17 22:00 05/06/17 09:54 Lopressor - PO Not Given BID [facility] Metoprolol Tartrate 5 mg 05/02/17 22:14 05/04/17 09:30 Lopressor Injection - IVPUSH 5 mg Q4H PRN Administration HR >100 Tamsulosin HCl 0.4 mg 05/01/17 08:30 05/06/17 08:38 Flomax - PO Not Given DAILY@0830 [facility] Impression 1. BILL resolvinig 2. hypernatremia 3. sepsis 4. CVA acute 5. HTN 6. DM 7. copd 8. obstructive uropathy with suprapubic cath 9. UTI 10. diarrhea 11. respiratory failure Plan - add flush 75 cc free water per hour to feeds - start d5w at 40 cc - monitor glucose - pulmonary follow up - pt has a free water deficit of about 6.9 liters based on the weight of 266 pounds, as sodium has not changed - we will need about 4 liters of free water to get his sodium down to 146 over the course of 24 hours - discussed with ICU nurse - will follow pt
--- NOTE | 2017-05-06 18:55 | PN ---
Progress Note (short form) - Note Progress Note: Called for possible PEG placement Patient unstable at this time and poor candidate for procedures Once stable, will re-visit.
[2017-05-06] MEDS: CHLORHEXIDINE GLUCONATE 4% CLEANSER FOR DECOLONIZATION TP SCH (21:00)
[2017-05-06] MEDS: ATORVASTATIN CA 40 MG TABLET (FP) PO SCH (21:01)
[2017-05-06] MEDS ORDERED: SODIUM CHLORIDE 1,000 ML IV STA (23:38)
[2017-05-07] MEDS: VASOPRESSIN 50 UNITS in SODIUM CHLORIDE 97.5 ML IVPB SCH (00:35)
[2017-05-07] MEDS ORDERED: PHENYLEPHRINE HCL 10 MG/1 ML SINGLE DOSE VIAL ONE ×4 (00:44→11:55)
[2017-05-07 00:49] LABS: ARTERIAL BLOOD GAS BASE EXCESS -3.8 meq/l (-2-2); ARTERIAL BLOOD GAS HCO3 24.2 meq/L (22-26); ARTERIAL BLOOD GAS PO2 90.9 mmHg (80-100)
[2017-05-07 00:51] LABS: ALLENS TEST POSITIVE; ART PUNCT SITE RIGHT RADIAL; LPM/O2% 100%; MECH. VENT. YES; PT. ON O2? YES; TYPE OF O2 MECH VENT; VENT RATE 16; VT/PRESS 500
[2017-05-07 00:52] LABS: ARTERIAL BLOOD GAS pH 7.23 (7.35-7.45)
[2017-05-07] MEDS: METRONIDAZOLE 500 MG PREMIXED 100 ML IVPB SCH ×3 (01:10→18:51)
[2017-05-07] MEDS: AMPICILLIN - 1 GM in SODIUM CHLORIDE 100 ML IVPB SCH ×3 (01:10→18:51)
[2017-05-07] MEDS: CEFTAZIDIME PENTAHYDRATE 1 GM in DEXTROSE 5%-WATER - 50 ML IVPB SCH ×3 (01:10→18:51)
[2017-05-07] MEDS ORDERED: MIDAZOLAM HCL 2 MG/2 ML SINGLE DOSE VIAL IVPUSH ONE (01:11)
[2017-05-07] MEDS: SODIUM CHLORIDE 0.45% 1,000 ML IV SCH ×2 (01:11→14:00)
[2017-05-07] MEDS ORDERED: MIDAZOLAM HCL 2 MG/2 ML SINGLE DOSE VIAL ONE ×2 (01:20)
[2017-05-07] MEDS ORDERED: SODIUM CHLORIDE 0.45% 1,000 ML IV SCH (01:23)
[2017-05-07] MEDS: INSULIN SLIDING SCALE (NOVOLOG) 1 VIAL SQ SCH ×4 (06:44→23:07)
[2017-05-07] MEDS: glipiZIDE 5 MG TABLET (FP) PO SCH (06:44)
[2017-05-07] MEDS: HEPARIN NA (PORCINE) 5,000 UNITS/ML 1ML VIAL SQ SCH ×3 (06:44→23:07)
[2017-05-07 07:05] LABS: MCH 27.3 pg (25.7-33.7); MCHC 31.2 g/dl (32.0-35.9); MEAN CELL VOLUME 87.5 fl (80-96); MEAN PLT VOLUME 8.3 fl (7.5-11.1); PLATELET COUNT 359 K/MM3 (134-434); RDW 16.6 % (11.9-15.9)
[2017-05-07 07:17] LABS: WHITE BLOOD COUNT 30.6 K/mm3 (4.0-10.0)
[2017-05-07 07:25] LABS: ANION GAP 9 (8-16); CALCIUM 8.3 mg/dL (8.5-10.1); CO2 26 mmol/L (21-32); CREATININE 1.7 mg/dL (0.7-1.3); GLUCOSE,RANDOM 262 mg/dL (74-106)
[2017-05-07] MEDS ORDERED: DEXTROSE 5%-WATER - 1,000 ML IV SCH (08:00)
[2017-05-07 08:31] LABS: MAGNESIUM 2.3 mg/dL (1.8-2.4)
[2017-05-07 08:32] LABS: MYELOCYTE 1 % (0-2); PLATELET ESTIMATE ADEQUATE (NORMAL); TOTAL CELLS COUNTED 100
[2017-05-07] MEDS ORDERED: PT OWN MED DRAWER 7, Y5N ONE ×3 (09:24→18:53)
[2017-05-07] MEDS: TAMSULOSIN HCL 0.4 MG CAP.ER.24H (FP) PO SCH (09:28)
[2017-05-07] MEDS: PANTOPRAZOLE SODIUM 100 ML IVPB SCH (09:30)
[2017-05-07] MEDS: FENOFIBRIC ACID 135 MG CAP PO SCH (09:31)
[2017-05-07] MEDS: ASPIRIN 325 MG TABLET NGT SCH (10:00)
[2017-05-07] MEDS: LISINOPRIL 20 MG TABLET (FP) PO SCH (10:00)
[2017-05-07] MEDS: BACITRACIN/POLYMYXIN B SULFATE 15 GM TUBE TP SCH ×2 (10:00→23:08)
[2017-05-07] MEDS: METOPROLOL TARTRATE 25 MG TABLET (FP) PO SCH (10:00)
[2017-05-07] MEDS: amLODIPine BESYLATE 10 MG TABLET (FP) PO SCH (10:00)
--- NOTE | 2017-05-07 10:32 | PN ---
Progress Note (short form) - Note Progress Note: Neurology History of Present Illness 67 yo M presented to the ER with a complaint of diarrhea and weakness for the past 2 weeks. Was found to be positive for C Diff and admitted. Was in ICU and Thursday AM rudolph rayo called and I went to ICU. Initially, patient believed to be under care of another neurologist and ICU team plan was to contact them. Thereafter, when I was in the office, I was contacted for consultation for acute R sided weakness, aphasia, and confusion. Patient was given TPA, remains in ICU and continued close monitoring. MRI brain showed L MCA infarct. 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 CD reviewed and did not show HD significant stenosis. On Holter monitoring for arrythmia monitoring. Cardiology following. Morning of 05/06 had respiratory distress and failure, required intubation, sedation, on mechanical ventilation. No significant improvements in respiratory status thus far. Getting ongoing case in ICU. Active Medications Amlodipine Besylate (Norvasc -) 10 mg PO DAILY [facility] Last Admin: 05/06/17 09:54 Dose: Not Given Aspirin (Asa -) 325 mg NGT DAILY [facility] Last Admin: 05/06/17 09:54 Dose: Not Given Atorvastatin Calcium (Lipitor -) 40 mg PO HS [facility] Last Admin: 05/06/17 21:01 Dose: 40 mg Bacitracin/Polymyxin B Sulfate (Polysporin Ointment -) 1 applic TP BID [facility] Last Admin: 05/06/17 21:01 Dose: 1 applic Chlorhexidine Gluconate (Hibiclens For Decolonization -) 1 applic TP HS [facility] Last Admin: 05/06/17 21:00 Dose: 1 applic Fenofibric Acid (Trilipix -) 135 mg PO DAILY [facility] Last Admin: 05/07/17 09:31 Dose: Not Given Glipizide (Glucotrol -) 5 mg PO DAILY@0700 [facility] Last Admin: 05/07/17 06:44 Dose: 5 mg Heparin Sodium (Porcine) (Heparin -) 5,000 unit SQ TID [facility] Last Admin: 05/07/17 06:44 Dose: 5,000 unit Metronidazole (Flagyl 500mg Premixed Ivpb -) 100 mls @ 100 mls/hr IVPB Q8H-IV [facility] Last Admin: 05/07/17 09:27 Dose: 100 mls/hr Ampicillin Sodium 1 gm/ Sodium (Chloride) 100 mls @ 200 mls/hr IVPB Q8H-IV [facility] Last Admin: 05/07/17 09:27 Dose: 200 mls/hr Ceftazidime 1 gm/ Dextrose 50 mls @ 100 mls/hr IVPB Q8H-IV [facility] PRN Reason: Protocol Last Admin: 05/07/17 01:10 Dose: 100 mls/hr Pantoprazole Sodium (Protonix 40mg Ivpb (Pre-Docked)) 100 mls @ 200 mls/hr IVPB DAILY [facility] Last Admin: 05/07/17 09:30 Dose: 200 mls/hr Propofol (Diprivan -) 100 mls @ 3.599 mls/hr IVPB TITR MATTHEW; 5 MCG/KG/MIN PRN Reason: Protocol Last Titration: 05/07/17 01:11 Dose: 30 mcg/kg/min Phenylephrine HCl 20,000 mcg/ (Dextrose) 250 mls @ 18.75 mls/hr IVPB ASDIR MATTHEW ; 25 MCG/MIN PRN Reason: Protocol Last Titration: 05/07/17 06:00 Dose: 180 mcg/min Vasopressin 50 units/ Sodium (Chloride) 100 mls @ 4 mls/hr IVPB ASDIR MATTHEW; 2 UNITS/HR PRN Reason: Protocol Last Admin: 05/07/17 00:35 Dose: 4 mls/hr Dextrose (D5w -) 1,000 mls @ 42 mls/hr IV ASDIR [facility]THEW Last Admin: 05/07/17 09:28 Dose: 42 mls/hr Insulin Aspart (Novolog Vial Sliding Scale -) 1 vial SQ ACHS MATTHEW PRN Reason: Protocol Last Admin: 05/07/17 06:44 Dose: 10 units Lisinopril (Prinivil) 40 mg PO DAILY [facility] Last Admin: 05/06/17 09:54 Dose: Not Given Metoprolol Tartrate (Lopressor -) 25 mg PO BID [facility] Last Admin: 05/06/17 21:01 Dose: 25 mg Metoprolol Tartrate (Lopressor Injection -) 5 mg IVPUSH Q4H PRN PRN Reason: HR >100 Last Admin: 05/04/17 09:30 Dose: 5 mg Tamsulosin HCl (Flomax -) 0.4 mg PO DAILY@0830 [facility] Last Admin: 05/07/17 09:28 Dose: Not Given *Physical Exam Last Vital Signs Temp Pulse Resp BP Pulse Ox 98.9 F 124 H 26 H 106/72 95 05/07/17 06:00 05/07/17 06:00 05/07/17 07:38 05/07/17 06:00 05/06/17 19:36 Sedated, not following commands Unable to evaluate R hemineglect RRR, no murmur Lungs clear Abdomen soft, NT Aphasic previously, unclear 2/2 sedation at this time R facial droop mild at this point Was moving RUE and LUE grossly previously, not participating in confrontation testing Was moving R leg stump Sensory not able to assess Gait deferred CBCD WBC 30.6 K/mm3 (4.0-10.0) H* D 05/07/17 05:20 RBC 4.37 M/mm3 (4.00-5.60) 05/07/17 05:20 Hgb 11.9 GM/dL (11.7-16.9) D 05/07/17 05:20 Hct 38.2 % (35.4-49) 05/07/17 05:20 MCV 87.5 fl (80-96) 05/07/17 05:20 MCHC 31.2 g/dl (32.0-35.9) L 05/07/17 05:20 RDW 16.6 % (11.9-15.9) H 05/07/17 05:20 Plt Count 359 K/MM3 (134-434) D 05/07/17 05:20 MPV 8.3 fl (7.5-11.1) 05/07/17 05:20 CMP Sodium 153 mmol/L (136-145) H 05/07/17 05:20 Potassium 4.9 mmol/L (3.5-5.1) 05/07/17 05:20 Chloride 118 mmol/L (98-107) H 05/07/17 05:20 Carbon Dioxide 26 mmol/L (21-32) 05/07/17 05:20 Anion Gap 9 (8-16) 05/07/17 05:20 BUN 40 mg/dL (7-18) H D 05/07/17 05:20 Creatinine 1.7 mg/dL (0.7-1.3) H D 05/07/17 05:20 Creat Clearance w eGFR > 60 (>60) 05/02/17 12:55 Calcium 8.3 mg/dL (8.5-10.1) L 05/07/17 05:20 Total Bilirubin 0.2 mg/dL (0.2-1.0) D 05/02/17 12:55 AST 6 U/L (15-37) L D 05/02/17 12:55 ALT 12 U/L (12-78) 05/02/17 12:55 Alkaline Phosphatase 62 U/L (45-117) 05/02/17 12:55 Total Protein 5.2 g/dl (6.4-8.2) L 05/02/17 12:55 Albumin 2.0 g/dl (3.4-5.0) L 05/02/17 12:55 Ct head reviewed CD reviewed MRI brain reviewed MRA brain reviewed Plan: 67 yo M presented to the ER with a complaint of diarrhea and weakness for the past 2 weeks. Was found to be positive for C Diff and admitted. Was in ICU and code rayo called and patient given TPA. Subsequent with improving RLE strength, now 5-/5. Patient also moving RUE but not following commands fully yet. MRI, MRA , CD, as described above. Patient on aggrenox and statin If Afib noted, then would switch aggrenox to AC Remains intubated and mechically ventilated Physical therapy on hold BP range, goal is < 140 as outpatient tight glycemic control, continue Glipizide Continue ICU monitoring C. Diff treatment on going Contact precautions DVT PPX, on SCD boots No new neurologic event Critical care time 35 mins total.
[2017-05-07] MEDS ORDERED: SODIUM CHLORIDE 0.9% 1000 ML INFUS.BAG IV ONE (12:30)
--- NOTE | 2017-05-07 12:30 | PN ---
Teaching Attending Note Name of Resident: Edwardo Rucker ATTENDING PHYSICIAN STATEMENT I saw and evaluated the patient. I reviewed the resident's note and discussed the case with the resident. I agree with the resident's findings and plan as documented. SUBJECTIVE: Pt seen and examined in the ICU. Remains intubated, sedated. Now on phenylephrine and vasopressin gtts. Low grade fevers overnight, urine output decreasing. CXR this AM showing better aeration of left lung. OBJECTIVE: Last Vital Signs Temp Pulse Resp BP Pulse Ox 99.8 F H 122 H 27 H 103/72 100 05/07/17 10:00 05/07/17 10:45 05/07/17 11:59 05/07/17 10:00 05/07/17 11:05 Intake & Output 05/04/17 05/05/17 05/06/17 05/07/17 23:59 23:59 23:59 23:59 Intake Total 2424 3106 3648 2982 Output Total 2300 3550 1000 800 Balance 124 444 2648 2182 Weight 266 lb 8 oz 266 lb 12.8 oz 264 lb 8 oz 268 lb 3 oz Gen: intubated, sedated Heart: tachycardic, regular Lung: scattered rhonchi Abd: soft, nontender Ext: + edema, right BKA CBC, BMP 05/07/17 05:20 05/07/17 05:20 Active Medications Amlodipine Besylate (Norvasc -) 10 mg PO DAILY [facility] Last Admin: 05/06/17 09:54 Dose: Not Given Aspirin (Asa -) 325 mg NGT DAILY [facility] Last Admin: 05/06/17 09:54 Dose: Not Given Atorvastatin Calcium (Lipitor -) 40 mg PO [facility] Last Admin: 05/06/17 21:01 Dose: 40 mg Bacitracin/Polymyxin B Sulfate (Polysporin Ointment -) 1 applic TP BID [facility] Last Admin: 05/06/17 21:01 Dose: 1 applic Chlorhexidine Gluconate (Hibiclens For Decolonization -) 1 applic TP HS [facility] Last Admin: 05/06/17 21:00 Dose: 1 applic Fenofibric Acid (Trilipix -) 135 mg PO DAILY [facility] Last Admin: 05/07/17 09:31 Dose: Not Given Glipizide (Glucotrol -) 5 mg PO DAILY@0700 [facility] Last Admin: 05/07/17 06:44 Dose: 5 mg Heparin Sodium (Porcine) (Heparin -) 5,000 unit SQ TID [facility] Last Admin: 05/07/17 06:44 Dose: 5,000 unit Metronidazole (Flagyl 500mg Premixed Ivpb -) 100 mls @ 100 mls/hr IVPB Q8H-IV [facility] Last Admin: 05/07/17 09:27 Dose: 100 mls/hr Ampicillin Sodium 1 gm/ Sodium (Chloride) 100 mls @ 200 mls/hr IVPB Q8H-IV [facility] Last Admin: 05/07/17 09:27 Dose: 200 mls/hr Ceftazidime 1 gm/ Dextrose 50 mls @ 100 mls/hr IVPB Q8H-IV [facility] PRN Reason: Protocol Last Admin: 05/07/17 01:10 Dose: 100 mls/hr Pantoprazole Sodium (Protonix 40mg Ivpb (Pre-Docked)) 100 mls @ 200 mls/hr IVPB DAILY [facility] Last Admin: 05/07/17 09:30 Dose: 200 mls/hr Propofol (Diprivan -) 100 mls @ 3.599 mls/hr IVPB TITR MATTHEW; 5 MCG/KG/MIN PRN Reason: Protocol Last Titration: 05/07/17 01:11 Dose: 30 mcg/kg/min Phenylephrine HCl 20,000 mcg/ (Dextrose) 250 mls @ 18.75 mls/hr IVPB ASDIR MATTHEW ; 25 MCG/MIN PRN Reason: Protocol Last Titration: 05/07/17 06:00 Dose: 180 mcg/min Vasopressin 50 units/ Sodium (Chloride) 100 mls @ 4 mls/hr IVPB ASDIR MATTHEW; 2 UNITS/HR PRN Reason: Protocol Last Admin: 05/07/17 00:35 Dose: 4 mls/hr Dextrose (D5w -) 1,000 mls @ 42 mls/hr IV ASDIR [facility]THE[facility] Last Admin: 05/07/17 09:28 Dose: 42 mls/hr Insulin Aspart (Novolog Vial Sliding Scale -) 1 vial SQ ACHS MATTHEW PRN Reason: Protocol Last Admin: 05/07/17 06:44 Dose: 10 units Lisinopril (Prinivil) 40 mg PO DAILY [facility] Last Admin: 05/06/17 09:54 Dose: Not Given Metoprolol Tartrate (Lopressor -) 25 mg PO BID [facility] Last Admin: 05/06/17 21:01 Dose: 25 mg Metoprolol Tartrate (Lopressor Injection -) 5 mg IVPUSH Q4H PRN PRN Reason: HR >100 Last Admin: 05/04/17 09:30 Dose: 5 mg Tamsulosin HCl (Flomax -) 0.4 mg PO DAILY@0830 [facility] Last Admin: 05/07/17 09:28 Dose: Not Given ASSESSMENT AND PLAN: Acute Hypoxic Respiratory Failure Left Atelectasis Acute CVA r/o C Diff Colitis UTI Sepsis Suprapubic Catheter COPD DM - chest PT, mucomyst - position right side down - bed percussion - if atelectasis, will perform bronchoscopy - continue antibiotics per ID - will place central line and start levophed gtt and taper off phenylephrine - titrate pressors to maintain MAP >65 - isotonic IVF to keep CVP 8-12 - enteral feeds - continue IVF, free water - continue ICU monitoring critical care time spent in reviewing chart, evaluating patient and formulating plan 35 min
--- NOTE | 2017-05-07 13:36 | PN ---
Physical Exam: SUBJECTIVE: Pt seen and examined in the ICU. Remains intubated, sedated. Overnight 100.5 fevers and decreased urine output as well as episodes of hypotension. Improved CXR after Now on phenylephrine and vasopressin gtts. Low grade fevers overnight , urine output decreasing. CXR this AM showing better aeration of left lung. 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 Edema: No Peripheral Pulses WNL: Yes Integumentary: Yes: WNL Neurological: sedated Labs: CBC, BMP Laboratory Results - last 24 hr 05/06/17 05/07/17 05/07/17 20:36 00:30 05:20 WBC RBC Hgb Hct MCV MCH MCHC RDW Plt Count MPV Total Counted Neutrophils % Neutrophils % (Manual) Band Neuts % (Manual) Lymphocytes % Lymphocytes % (Manual) Monocytes % (Manual) Myelocytes % (Man) Platelet Estimate PTT (Actin FS) 30.5 Puncture Site Right radial ABG pH 7.23 L* ABG pCO2 at Pt Temp 60.7 H* ABG pO2 at Pt Temp 90.9 ABG HCO3 24.2 ABG O2 Sat (Measured) 95.0 ABG O2 Content 16.1 ABG Base Excess -3.8 L Foster Test Positive O2 Delivery Device Mech vent Oxygen Flow Rate 100% Vent Mode A/c Vent Rate 16 Mechanical Rate Yes PEEP 10.0 Pressure Support Vent 500 Sodium Potassium Chloride Carbon Dioxide Anion Gap BUN Creatinine POC Glucometer [phone] Random Glucose Calcium Phosphorus Magnesium 05/07/17 05/07/17 05/07/17 05:20 05:20 06:36 WBC 30.6 H* D RBC 4.37 Hgb 11.9 D Hct 38.2 MCV 87.5 MCH 27.3 MCHC 31.2 L RDW 16.6 H Plt Count 359 D MPV 8.3 Total Counted 100 Neutrophils % Y Neutrophils % (Manual) 84 H Band Neuts % (Manual) 1 D Lymphocytes % Y Lymphocytes % (Manual) 4 L D Monocytes % (Manual) 10 Myelocytes % (Man) 1 Platelet Estimate Adequate PTT (Actin FS) Puncture Site ABG pH ABG pCO2 at Pt Temp ABG pO2 at Pt Temp ABG HCO3 ABG O2 Sat (Measured) ABG O2 Content ABG Base Excess Foster Test O2 Delivery Device Oxygen Flow Rate Vent Mode Vent Rate Mechanical Rate PEEP Pressure Support Vent Sodium 153 H Potassium 4.9 Chloride 118 H Carbon Dioxide 26 Anion Gap 9 BUN 40 H D Creatinine 1.7 H D POC Glucometer [phone] Random Glucose 262 H Calcium 8.3 L Phosphorus 6.0 H D Magnesium 2.3 Active Medications Generic Name Dose Route Start Last Admin Trade Name Freq PRN Reason Stop Dose Admin Amlodipine Besylate 10 mg 05/01/17 10:00 05/06/17 09:54 Norvasc - PO Not Given DAILY [facility] Aspirin 325 mg 05/05/17 12:15 05/06/17 09:54 Asa - NGT Not Given DAILY [facility] Atorvastatin Calcium 40 mg 05/02/17 22:00 05/06/17 21:01 Lipitor - PO 40 mg HS MATTHEW Administration Bacitracin/Polymyxin B Sulfate 1 applic 05/01/17 10:00 05/06/17 21:01 Polysporin Ointment - TP 1 applic BID MATTHEW Administration Chlorhexidine Gluconate 1 applic 04/30/17 22:00 05/06/17 21:00 Hibiclens For Decolonization - TP 1 applic HS MATTHEW Administration Fenofibric Acid 135 mg 05/01/17 10:00 05/07/17 09:31 Trilipix - PO Not Given DAILY MATTHEW Glipizide 5 mg 05/01/17 07:00 05/07/17 06:44 Glucotrol - PO 5 mg DAILY@0700 MATTHEW Administration Heparin Sodium (Porcine) 5,000 unit 05/03/17 22:00 05/07/17 06:44 Heparin - SQ 5,000 unit TID MATTHEW Administration Metronidazole 100 mls @ 100 mls/hr 04/30/17 18:00 05/07/17 09:27 Flagyl 500mg Premixed Ivpb - IVPB 100 mls/hr Q8H-IV MATTHEW Administration Ampicillin Sodium 1 gm/ Sodium 100 mls @ 200 mls/hr 05/04/17 14:15 05/07/17 09: 27 Chloride IVPB 200 mls/hr Q8H-IV MATTHEW Administration Ceftazidime 1 gm/ Dextrose 50 mls @ 100 mls/hr 05/04/17 14:15 05/07/17 01:10 IVPB 100 mls/hr Q8H-IV MATTHEW Administration Protocol Pantoprazole Sodium 100 mls @ 200 mls/hr 05/06/17 10:00 05/07/17 09:30 Protonix 40mg Ivpb (Pre-Docked) IVPB 200 mls/hr DAILY MATTHEW Administration Propofol 100 mls @ 3.599 mls/hr 05/06/17 08:30 05/07/17 01:11 Diprivan - IVPB 30 mcg/kg/min TITR MATTHEW Titration Protocol 5 MCG/KG/MIN Vasopressin 50 units/ Sodium 100 mls @ 4 mls/hr 05/06/17 23:45 05/07/17 00:35 Chloride IVPB 4 mls/hr ASDIR MATTHEW Administration Protocol 2 UNITS/HR Norepinephrine Bitartrate 8, 1,000 mls @ 37.5 mls/hr 05/07/17 13:30 000 mcg/ Sodium Chloride IV TITR MATTHEW Protocol 5 MCG/MIN Sodium Chloride 1,000 mls @ 75 mls/hr 05/07/17 13:30 1/2 Normal Saline IV ASDIR MATTHEW Insulin Aspart 1 vial 05/04/17 17:15 05/07/17 06:44 Novolog Vial Sliding Scale - SQ 10 units ACHS MATTHEW Administration Protocol Lisinopril 40 mg 05/01/17 10:00 05/06/17 09:54 Prinivil PO Not Given DAILY MATTHEW Metoprolol Tartrate 25 mg 04/30/17 22:00 05/06/17 21:01 Lopressor - PO 25 mg BID MATTHEW Administration Metoprolol Tartrate 5 mg 05/02/17 22:14 05/04/17 09:30 Lopressor Injection - IVPUSH 5 mg Q4H PRN Administration HR >100 Tamsulosin HCl 0.4 mg 05/01/17 08:30 05/07/17 09:28 Flomax - PO Not Given DAILY@0830 [facility] ASSESSMENT/PLAN: 67 yo M presented to the ER with a complaint of diarrhea and weakness for the past 2 weeks, observed to the ICU following L MCA infarct. Cardiovascular - Venous Central Line placed in left IJ to monitor CVP. Start levophed, taper off phenylephrine. - titrate pressors to maintain MAP >65 - 1/2 NS IVF to keep CVP 8-12 - bed percussion Pulmonary - Patient reintubated after radiology found tube was misplaced. - if atelectasis, will perform bronchoscopy - chest PT, mucomyst - position right side down ID - continue antibiotics per ID - Nepro enteral feeds - continue ICU monitoring Visit type - Emergency Visit Emergency Visit: No - New Patient This patient is new to me today: No - Critical Care Critical Care patient: Yes Total Critical Care Time (in minutes): 60 Critical Care Statement: The care of this patient involved high complexity decision making to prevent further life threatening deterioration of the patient 's condition and/or to evaluate & treat vital organ system(s) failure or risk of failure.
--- NOTE | 2017-05-07 13:39 | PROC ---
<Edwardo Rucker - Last Filed: 05/07/17 13:41> Central Line Insertion Indication: CVP Monitoring Risks and Benefits Explained: Yes Consent on Chart: Yes Central Line: Triple Lumen Catheter Anesthesia: 1% Lidocaine Sterile Technique: Yes Ultrasound Guided Assistance: Yes Position: Left Internal Jugular Post Insertion: Yes: Chest X-Ray Ordered Sterile Dressing Applied: Yes <Mikey Clinton MD - Last Filed: 05/07/17 13:46> Procedure Note Procedure: I supervised and was present during the entire procedure. Mikey Clinton MD
[2017-05-07] MEDS: PROPOFOL 100 ML IVPB SCH ×3 (13:45→23:06)
[2017-05-07] MEDS ORDERED: NOREPINEPHRINE BITARTRATE 4 MG/4 ML ML IV ONE (14:12)
--- NOTE | 2017-05-07 14:34 | PN ---
Progress Note, Physician History of Present Illness: events noted patient intubated and sedated blood pressure noted - Current Medication List Current Medications: Active Medications Amlodipine Besylate (Norvasc -) 10 mg PO DAILY [facility] Last Admin: 05/06/17 09:54 Dose: Not Given Aspirin (Asa -) 325 mg NGT DAILY [facility] Last Admin: 05/06/17 09:54 Dose: Not Given Atorvastatin Calcium (Lipitor -) 40 mg PO HS [facility] Last Admin: 05/06/17 21:01 Dose: 40 mg Bacitracin/Polymyxin B Sulfate (Polysporin Ointment -) 1 applic TP BID [facility] Last Admin: 05/06/17 21:01 Dose: 1 applic Chlorhexidine Gluconate (Hibiclens For Decolonization -) 1 applic TP HS [facility] Last Admin: 05/06/17 21:00 Dose: 1 applic Fenofibric Acid (Trilipix -) 135 mg PO DAILY [facility] Last Admin: 05/07/17 09:31 Dose: Not Given Glipizide (Glucotrol -) 5 mg PO DAILY@0700 [facility] Last Admin: 05/07/17 06:44 Dose: 5 mg Heparin Sodium (Porcine) (Heparin -) 5,000 unit SQ TID [facility] Last Admin: 05/07/17 06:44 Dose: 5,000 unit Metronidazole (Flagyl 500mg Premixed Ivpb -) 100 mls @ 100 mls/hr IVPB Q8H-IV [facility] Last Admin: 05/07/17 09:27 Dose: 100 mls/hr Ampicillin Sodium 1 gm/ Sodium (Chloride) 100 mls @ 200 mls/hr IVPB Q8H-IV [facility] Last Admin: 05/07/17 09:27 Dose: 200 mls/hr Ceftazidime 1 gm/ Dextrose 50 mls @ 100 mls/hr IVPB Q8H-IV MATTHEW PRN Reason: Protocol Last Admin: 05/07/17 01:10 Dose: 100 mls/hr Pantoprazole Sodium (Protonix 40mg Ivpb (Pre-Docked)) 100 mls @ 200 mls/hr IVPB DAILY [facility] Last Admin: 05/07/17 09:30 Dose: 200 mls/hr Propofol (Diprivan -) 100 mls @ 3.599 mls/hr IVPB TITR MATTHEW; 5 MCG/KG/MIN PRN Reason: Protocol Last Titration: 05/07/17 01:11 Dose: 30 mcg/kg/min Vasopressin 50 units/ Sodium (Chloride) 100 mls @ 4 mls/hr IVPB ASDIR MATTHEW; 2 UNITS/HR PRN Reason: Protocol Last Admin: 05/07/17 00:35 Dose: 4 mls/hr Norepinephrine Bitartrate 8, (000 mcg/ Sodium Chloride) 1,000 mls @ 37.5 mls/ hr IV TITR MATTHEW; 5 MCG/MIN PRN Reason: Protocol Sodium Chloride (1/2 Normal Saline) 1,000 mls @ 75 mls/hr IV ASDIR MATTHEW Insulin Aspart (Novolog Vial Sliding Scale -) 1 vial SQ ACHS MATTHEW PRN Reason: Protocol Last Admin: 05/07/17 06:44 Dose: 10 units Lisinopril (Prinivil) 40 mg PO DAILY [facility] Last Admin: 05/06/17 09:54 Dose: Not Given Metoprolol Tartrate (Lopressor -) 25 mg PO BID [facility] Last Admin: 05/06/17 21:01 Dose: 25 mg Metoprolol Tartrate (Lopressor Injection -) 5 mg IVPUSH Q4H PRN PRN Reason: HR >100 Last Admin: 05/04/17 09:30 Dose: 5 mg Tamsulosin HCl (Flomax -) 0.4 mg PO DAILY@0830 [facility] Last Admin: 05/07/17 09:28 Dose: Not Given - Objective Vital Signs: Vital Signs Temperature 97.2 F L 05/07/17 14:00 Pulse Rate 100 H 05/07/17 14:00 Respiratory Rate 26 H 05/07/17 14:11 Blood Pressure 134/73 05/07/17 14:00 O2 Sat by Pulse Oximetry (%) 100 05/07/17 11:05 Constitutional: Yes: Other Eyes: Yes: Other Cardiovascular: Yes: Tachycardia, S1, S2 Respiratory: Yes: Intubated, Mechanically Ventilated Gastrointestinal: Yes: Normal Bowel Sounds, Soft Musculoskeletal: Yes: Other Extremities: Yes: Other Neurological: Yes: Other Psychiatric: Yes: Other Labs: CBC, BMP 05/07/17 05:20 05/07/17 05:20 INR, PTT INR 1.28 (0.82-1.09) H 04/30/17 12:05 Assessment/Plan uti gi bleed dirrhoea sepsis wound infection patient now critical now intubated plan continue current abx monitor for fevers no bowel movements repeat cx no growth rest as per primary team and neurology/icu prognosis poor cc time 40 min
[2017-05-07] MEDS: NOREPINEPHRINE BITARTRATE 8,000 MCG in SODIUM CHLORIDE 0.45% 992 ML IV SCH (15:00)
[2017-05-07] MEDS ORDERED: BENZOIN/ALOE VERA/STORAX/TOLU 58 ML BOTTLE ONE (15:04)
--- NOTE | 2017-05-07 15:09 | PROC ---
Intubation - Intubation Reason for Intubation: Respiratory Failure Time of Intubation: 15:00 Intubation Method: orotracheal Blade used: Mac (4) Tube Size (cm): 8.0 Tube position @ lip (cm): 25 Tube position confirmed by: CO2 detector, Chest x-ray, Breath sounds Breath Sounds after Intubation: equal Post Intubation Xray: Yes Remarks: Grade 4 view, deep and anterior
--- NOTE | 2017-05-07 15:46 | EKG ---
Test Reason : Blood Pressure : / mmHG Vent. Rate : 117 BPM Atrial Rate : 117 BPM P-R Int : 206 ms QRS Dur : 098 ms QT Int : 396 ms P-R-T Axes : 048 038 068 degrees QTc Int : 552 ms SINUS TACHYCARDIA WITH PREMATURE ATRIAL COMPLEXES LOW VOLTAGE QRS CANNOT RULE OUT ANTERIOR INFARCT , AGE UNDETERMINED PROLONGED QT ABNORMAL ECG WHEN COMPARED WITH ECG OF 01-MAY-2017 21:03, SIGNIFICANT CHANGES HAVE OCCURRED Confirmed by BONY CAMPOS, GALDINO ([id number]) on 05/07/2017 3:45:57 PM Referred By: Confirmed By:GALDINO LOVETT MD
--- NOTE | 2017-05-07 17:18 | PN ---
Progress Note, Physician History of Present Illness: Pt seen and examined at bedside. He remain intubated. Pt was hypotensive and is now on 2 pressors. - Current Medication List Current Medications: Active Medications Amlodipine Besylate (Norvasc -) 10 mg PO DAILY [facility] Last Admin: 05/07/17 10:00 Dose: Not Given Aspirin (Asa -) 325 mg NGT DAILY [facility] Last Admin: 05/06/17 09:54 Dose: Not Given Atorvastatin Calcium (Lipitor -) 40 mg PO HS [facility] Last Admin: 05/06/17 21:01 Dose: 40 mg Bacitracin/Polymyxin B Sulfate (Polysporin Ointment -) 1 applic TP BID [facility] Last Admin: 05/06/17 21:01 Dose: 1 applic Chlorhexidine Gluconate (Hibiclens For Decolonization -) 1 applic TP HS [facility] Last Admin: 05/06/17 21:00 Dose: 1 applic Fenofibric Acid (Trilipix -) 135 mg PO DAILY [facility] Last Admin: 05/07/17 09:31 Dose: Not Given Glipizide (Glucotrol -) 5 mg PO DAILY@0700 [facility] Last Admin: 05/07/17 06:44 Dose: 5 mg Heparin Sodium (Porcine) (Heparin -) 5,000 unit SQ TID [facility] Last Admin: 05/07/17 06:44 Dose: 5,000 unit Metronidazole (Flagyl 500mg Premixed Ivpb -) 100 mls @ 100 mls/hr IVPB Q8H-IV [facility] Last Admin: 05/07/17 09:27 Dose: 100 mls/hr Ampicillin Sodium 1 gm/ Sodium (Chloride) 100 mls @ 200 mls/hr IVPB Q8H-IV [facility] Last Admin: 05/07/17 09:27 Dose: 200 mls/hr Ceftazidime 1 gm/ Dextrose 50 mls @ 100 mls/hr IVPB Q8H-IV [facility] PRN Reason: Protocol Last Admin: 05/07/17 01:10 Dose: 100 mls/hr Pantoprazole Sodium (Protonix 40mg Ivpb (Pre-Docked)) 100 mls @ 200 mls/hr IVPB DAILY [facility] Last Admin: 05/07/17 09:30 Dose: 200 mls/hr Propofol (Diprivan -) 100 mls @ 3.599 mls/hr IVPB TITR MATTHEW; 5 MCG/KG/MIN PRN Reason: Protocol Last Titration: 05/07/17 01:11 Dose: 30 mcg/kg/min Vasopressin 50 units/ Sodium (Chloride) 100 mls @ 4 mls/hr IVPB ASDIR MATTHEW; 2 UNITS/HR PRN Reason: Protocol Last Admin: 05/07/17 00:35 Dose: 4 mls/hr Norepinephrine Bitartrate 8, (000 mcg/ Sodium Chloride) 1,000 mls @ 37.5 mls/ hr IV TITR MATTHEW; 5 MCG/MIN PRN Reason: Protocol Sodium Chloride (1/2 Normal Saline) 1,000 mls @ 75 mls/hr IV ASDIR MATTHEW Insulin Aspart (Novolog Vial Sliding Scale -) 1 vial SQ ACHS MATTHEW PRN Reason: Protocol Last Admin: 05/07/17 06:44 Dose: 10 units Lisinopril (Prinivil) 40 mg PO DAILY [facility] Last Admin: 05/07/17 10:00 Dose: Not Given Metoprolol Tartrate (Lopressor -) 25 mg PO BID [facility] Last Admin: 05/07/17 10:00 Dose: Not Given Metoprolol Tartrate (Lopressor Injection -) 5 mg IVPUSH Q4H PRN PRN Reason: HR >100 Last Admin: 05/04/17 09:30 Dose: 5 mg Tamsulosin HCl (Flomax -) 0.4 mg PO DAILY@0830 [facility] Last Admin: 05/07/17 09:28 Dose: Not Given - Objective Vital Signs: Vital Signs Temperature 97.2 F L 05/07/17 14:00 Pulse Rate 100 H 05/07/17 14:00 Respiratory Rate 26 H 05/07/17 14:11 Blood Pressure 134/73 05/07/17 14:00 O2 Sat by Pulse Oximetry (%) 100 05/07/17 11:05 Constitutional: Yes: Calm Eyes: Yes: Conjunctiva Clear HENT: Yes: Atraumatic Cardiovascular: Yes: S1, S2 Respiratory: Yes: Mechanically Ventilated Gastrointestinal: Yes: Soft, Abdomen, Obese Genitourinary: Yes: Griffith Present Musculoskeletal: Yes: Muscle Weakness Extremities: Yes: Amputation Edema: No Neurological: Yes: Lethargy Labs: CBC, BMP 05/07/17 05:20 05/07/17 05:20 INR, PTT INR 1.28 (0.82-1.09) H 04/30/17 12:05 Problem List - Problems (1) Dehydration Code(s): E86.0 - DEHYDRATION (2) Acute diarrhea Code(s): R19.7 - DIARRHEA, UNSPECIFIED (3) Hypernatremia Code(s): E87.0 - HYPEROSMOLALITY AND HYPERNATREMIA (4) BILL (acute kidney injury) Code(s): N17.9 - ACUTE KIDNEY FAILURE, UNSPECIFIED (5) CVA (cerebral vascular accident) Code(s): I63.9 - CEREBRAL INFARCTION, UNSPECIFIED Assessment/Plan Current Medications Generic Name Dose Route Start Last Admin Trade Name Freq PRN Reason Stop Dose Admin Amlodipine Besylate 10 mg 05/01/17 10:00 05/07/17 10:00 Norvasc - PO Not Given DAILY [facility] Aspirin 325 mg 05/05/17 12:15 05/06/17 09:54 Asa - NGT Not Given DAILY [facility] Atorvastatin Calcium 40 mg 05/02/17 22:00 05/06/17 21:01 Lipitor - PO 40 mg HS MATTHEW Administration Bacitracin/Polymyxin B Sulfate 1 applic 05/01/17 10:00 05/06/17 21:01 Polysporin Ointment - TP 1 applic BID MATTHEW Administration Chlorhexidine Gluconate 1 applic 04/30/17 22:00 05/06/17 21:00 Hibiclens For Decolonization - TP 1 applic HS MATTHEW Administration Fenofibric Acid 135 mg 05/01/17 10:00 05/07/17 09:31 Trilipix - PO Not Given DAILY MATTHEW Glipizide 5 mg 05/01/17 07:00 05/07/17 06:44 Glucotrol - PO 5 mg DAILY@0700 MATTHEW Administration Heparin Sodium (Porcine) 5,000 unit 05/03/17 22:00 05/07/17 06:44 Heparin - SQ 5,000 unit TID MATTHEW Administration Metronidazole 100 mls @ 100 mls/hr 04/30/17 18:00 05/07/17 09:27 Flagyl 500mg Premixed Ivpb - IVPB 100 mls/hr Q8H-IV MATTHEW Administration Ampicillin Sodium 1 gm/ Sodium 100 mls @ 200 mls/hr 05/04/17 14:15 05/07/17 09: 27 Chloride IVPB 200 mls/hr Q8H-IV MATTHEW Administration Ceftazidime 1 gm/ Dextrose 50 mls @ 100 mls/hr 05/04/17 14:15 05/07/17 01:10 IVPB 100 mls/hr Q8H-IV MATTHEW Administration Protocol Pantoprazole Sodium 100 mls @ 200 mls/hr 05/06/17 10:00 05/07/17 09:30 Protonix 40mg Ivpb (Pre-Docked) IVPB 200 mls/hr DAILY MATTHEW Administration Propofol 100 mls @ 3.599 mls/hr 05/06/17 08:30 05/07/17 01:11 Diprivan - IVPB 30 mcg/kg/min TITR MATTHEW Titration Protocol 5 MCG/KG/MIN Vasopressin 50 units/ Sodium 100 mls @ 4 mls/hr 05/06/17 23:45 05/07/17 00:35 Chloride IVPB 4 mls/hr ASDIR MATTHEW Administration Protocol 2 UNITS/HR Norepinephrine Bitartrate 8, 1,000 mls @ 37.5 mls/hr 05/07/17 14:00 000 mcg/ Sodium Chloride IV TITR MATTHEW Protocol 5 MCG/MIN Sodium Chloride 1,000 mls @ 75 mls/hr 05/07/17 13:30 1/2 Normal Saline IV ASDIR MATTHEW Insulin Aspart 1 vial 05/04/17 17:15 05/07/17 06:44 Novolog Vial Sliding Scale - SQ 10 units ACHS MATTHEW Administration Protocol Lisinopril 40 mg 05/01/17 10:00 05/07/17 10:00 Prinivil PO Not Given DAILY [facility] Metoprolol Tartrate 25 mg 04/30/17 22:00 05/07/17 10:00 Lopressor - PO Not Given BID [facility] Metoprolol Tartrate 5 mg 05/02/17 22:14 05/04/17 09:30 Lopressor Injection - IVPUSH 5 mg Q4H PRN Administration HR >100 Tamsulosin HCl 0.4 mg 05/01/17 08:30 05/07/17 09:28 Flomax - PO Not Given DAILY@0830 [facility] Impression 1. BILL 2. hypernatremia 3. sepsis 4. CVA acute 5. HTN 6. DM 7. copd 8. obstructive uropathy with suprapubic cath 9. UTI 10. diarrhea 11. respiratory failure Plan - cont 1/2 ns - discussed with ICU team - repeat labs in am - maintain map at 65 - monitor glucose - renal function is worse, likely atn from hypotension - check urine lytes - will follow pt
[2017-05-07 19:14] LABS: ALBUMIN 2.1 g/dl (3.4-5.0); ALK PHOS 60 U/L (45-117); ANION GAP 8 (8-16); BILIRUBIN,TOTAL 0.3 mg/dL (0.2-1.0); CALCIUM 8.5 mg/dL (8.5-10.1); CO2 26 mmol/L (21-32); CREATININE 1.3 mg/dL (0.7-1.3); GLUCOSE,RANDOM 236 mg/dL (74-106); SGOT/AST 19 U/L (15-37); SGPT/ALT 14 U/L (12-78); TOT PROT 4.9 g/dl (6.4-8.2)
[2017-05-07] MEDS: ATORVASTATIN CA 40 MG TABLET (FP) PO SCH (23:08)
[2017-05-07] MEDS: CHLORHEXIDINE GLUCONATE 4% CLEANSER FOR DECOLONIZATION TP SCH (23:08)
[2017-05-08] MEDS: AMPICILLIN - 1 GM in SODIUM CHLORIDE 100 ML IVPB SCH ×3 (02:00→17:00)
[2017-05-08] MEDS: METRONIDAZOLE 500 MG PREMIXED 100 ML IVPB SCH ×3 (03:00→17:00)
[2017-05-08] MEDS ORDERED: PT OWN MED DRAWER 7, Y5N ONE ×3 (04:10→16:36)
[2017-05-08] MEDS: CEFTAZIDIME PENTAHYDRATE 1 GM in DEXTROSE 5%-WATER - 50 ML IVPB SCH ×3 (04:13→17:00)
[2017-05-08] MEDS: VASOPRESSIN 50 UNITS in SODIUM CHLORIDE 97.5 ML IVPB SCH (04:24)
[2017-05-08] MEDS: INSULIN SLIDING SCALE (NOVOLOG) 1 VIAL SQ SCH ×5 (04:45→22:16)
[2017-05-08 06:39] LABS: MCH 27.3 pg (25.7-33.7); MEAN CELL VOLUME 85.4 fl (80-96); MEAN PLT VOLUME 9.1 fl (7.5-11.1); PLATELET COUNT 256 K/MM3 (134-434); RDW 16.4 % (11.9-15.9); WHITE BLOOD COUNT 21.7 K/mm3 (4.0-10.0)
[2017-05-08 06:48] LABS: ANION GAP 8 (8-16); CALCIUM 8.5 mg/dL (8.5-10.1); CO2 25 mmol/L (21-32); GLUCOSE,RANDOM 241 mg/dL (74-106)
[2017-05-08 06:49] LABS: CREATININE 1.3 mg/dL (0.7-1.3)
[2017-05-08] MEDS: HEPARIN NA (PORCINE) 5,000 UNITS/ML 1ML VIAL SQ SCH ×3 (07:00→22:16)
[2017-05-08] MEDS ORDERED: ACETYLCYSTEINE 20% 200MG/ML 30 ML VIAL *FOR ORAL / INH USE ONLY NEB ONE ×2 (08:44→10:30)
--- NOTE | 2017-05-08 10:02 | PN ---
Progress Note (short form) - Note Progress Note: Neurology History of Present Illness 67 yo M presented to the ER with a complaint of diarrhea and weakness for the past 2 weeks. Was found to be positive for C Diff and admitted. Was in ICU and Thursday AM rudolph rayo called and I went to ICU. Initially, patient believed to be under care of another neurologist and ICU team plan was to contact them. Thereafter, when I was in the office, I was contacted for consultation for acute R sided weakness, aphasia, and confusion. Patient was given TPA, remains in ICU and continued close monitoring. MRI brain showed L MCA infarct. 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 CD reviewed and did not show HD significant stenosis. Morning of 05/06 had respiratory distress and failure, required intubation, sedation, on mechanical ventilation. No significant improvements in respiratory status thus far. Not over breathing the vent. Remains on sedation. On Holter monitoring for arrythmia monitoring. Echo completed and I reviewed, multiple areas of possible vegetation. May benefit from LIANA and Dr. Payan aware of findings and will be following up. Active Medications Amlodipine Besylate (Norvasc -) 10 mg PO DAILY [facility] Last Admin: 05/07/17 10:00 Dose: Not Given Aspirin (Asa -) 325 mg NGT DAILY [facility] Last Admin: 05/07/17 10:00 Dose: Not Given Atorvastatin Calcium (Lipitor -) 40 mg PO HS [facility] Last Admin: 05/07/17 23:08 Dose: 40 mg Bacitracin/Polymyxin B Sulfate (Polysporin Ointment -) 1 applic TP BID [facility] Last Admin: 05/07/17 23:08 Dose: 1 applic Chlorhexidine Gluconate (Hibiclens For Decolonization -) 1 applic TP HS [facility] Last Admin: 05/07/17 23:08 Dose: 1 applic Fenofibric Acid (Trilipix -) 135 mg PO DAILY [facility] Last Admin: 05/07/17 09:31 Dose: Not Given Glipizide (Glucotrol -) 5 mg PO DAILY@0700 [facility] Last Admin: 05/07/17 06:44 Dose: 5 mg Heparin Sodium (Porcine) (Heparin -) 5,000 unit SQ TID [facility] Last Admin: 05/07/17 23:07 Dose: 5,000 unit Metronidazole (Flagyl 500mg Premixed Ivpb -) 100 mls @ 100 mls/hr IVPB Q8H-IV [facility] Last Admin: 05/08/17 03:00 Dose: 100 mls/hr Ampicillin Sodium 1 gm/ Sodium (Chloride) 100 mls @ 200 mls/hr IVPB Q8H-IV [facility] Last Admin: 05/08/17 02:00 Dose: 200 mls/hr Ceftazidime 1 gm/ Dextrose 50 mls @ 100 mls/hr IVPB Q8H-IV [facility] PRN Reason: Protocol Last Admin: 05/08/17 04:13 Dose: 100 mls/hr Pantoprazole Sodium (Protonix 40mg Ivpb (Pre-Docked)) 100 mls @ 200 mls/hr IVPB DAILY [facility] Last Admin: 05/07/17 09:30 Dose: 200 mls/hr Propofol (Diprivan -) 100 mls @ 3.599 mls/hr IVPB TITR [facility]; 5 MCG/KG/MIN PRN Reason: Protocol Last Admin: 05/07/17 23:06 Dose: Not Given Vasopressin 50 units/ Sodium (Chloride) 100 mls @ 4 mls/hr IVPB ASDIR [facility]THEW; 2 UNITS/HR PRN Reason: Protocol Last Admin: 05/08/17 04:24 Dose: Not Given Norepinephrine Bitartrate 8, (000 mcg/ Sodium Chloride) 1,000 mls @ 37.5 mls/ hr IV TITR [facility]W; 5 MCG/MIN PRN Reason: Protocol Last Titration: 05/08/17 04:25 Dose: 3 mcg/min Sodium Chloride (1/2 Normal Saline) 1,000 mls @ 75 mls/hr IV [facility]IR [facility] Last Admin: 05/07/17 14:00 Dose: 75 mls/hr Insulin Aspart (Novolog Vial Sliding Scale -) 1 vial SQ ACHS [facility] PRN Reason: Protocol Last Admin: 05/08/17 04:45 Dose: 2 units Lisinopril (Prinivil) 40 mg PO DAILY [facility] Last Admin: 05/07/17 10:00 Dose: Not Given Metoprolol Tartrate (Lopressor -) 25 mg PO BID [facility] Last Admin: 05/07/17 10:00 Dose: Not Given Metoprolol Tartrate (Lopressor Injection -) 5 mg IVPUSH Q4H PRN PRN Reason: HR >100 Last Admin: 05/04/17 09:30 Dose: 5 mg Tamsulosin HCl (Flomax -) 0.4 mg PO DAILY@0830 [facility] Last Admin: 05/07/17 09:28 Dose: Not Given *Physical Exam Last Vital Signs Temp Pulse Resp BP Pulse Ox 99.9 F H 110 H 27 H 129/73 98 05/08/17 02:00 05/08/17 06:49 05/08/17 09:36 05/08/17 04:00 05/08/17 06:49 Sedated, not following commands Unable to evaluate R hemineglect RRR, no murmur Lungs clear Abdomen soft, NT Aphasic previously, unclear 2/2 sedation at this time R facial droop mild at this point Was moving RUE and LUE grossly previously, not participating in confrontation testing Was moving R leg stump but remains sedated Sensory not able to assess Gait deferred CBCD WBC 21.7 K/mm3 (4.0-10.0) H 05/08/17 05:20 RBC 4.15 M/mm3 (4.00-5.60) 05/08/17 05:20 Hgb 11.3 GM/dL (11.7-16.9) L 05/08/17 05:20 Hct 35.5 % (35.4-49) 05/08/17 05:20 MCV 85.4 fl (80-96) 05/08/17 05:20 MCHC 32.0 g/dl (32.0-35.9) 05/08/17 05:20 RDW 16.4 % (11.9-15.9) H 05/08/17 05:20 Plt Count 256 K/MM3 (134-434) D 05/08/17 05:20 MPV 9.1 fl (7.5-11.1) 05/08/17 05:20 CMP Sodium 153 mmol/L (136-145) H 05/08/17 05:20 Potassium 3.7 mmol/L (3.5-5.1) 05/08/17 05:20 Chloride 120 mmol/L (98-107) H 05/08/17 05:20 Carbon Dioxide 25 mmol/L (21-32) 05/08/17 05:20 Anion Gap 8 (8-16) 05/08/17 05:20 BUN 34 mg/dL (7-18) H 05/08/17 05:20 Creatinine 1.3 mg/dL (0.7-1.3) 05/08/17 05:20 Creat Clearance w eGFR 54.73 (>60) 05/07/17 18:00 Calcium 8.5 mg/dL (8.5-10.1) 05/08/17 05:20 Total Bilirubin 0.3 mg/dL (0.2-1.0) D 05/07/17 18:00 AST 19 U/L (15-37) D 05/07/17 18:00 ALT 14 U/L (12-78) 05/07/17 18:00 Alkaline Phosphatase 60 U/L (45-117) 05/07/17 18:00 Total Protein 4.9 g/dl (6.4-8.2) L 05/07/17 18:00 Albumin 2.1 g/dl (3.4-5.0) L 05/07/17 18:00 Ct head reviewed CD reviewed MRI brain reviewed MRA brain reviewed Plan: 67 yo M presented to the ER with a complaint of diarrhea and weakness for the past 2 weeks. Was found to be positive for C Diff and admitted. Was in ICU and code rayo called and patient given TPA. Subsequent with improving RLE strength, now 5-/5. Patient also moving RUE but not following commands fully yet. MRI, MRA , CD, as described above. Patient on aggrenox and statin Echo completed and reviewed, cardiology to follow up, may require LIANA for further evaluation of vegetation IF AC is needed, can be started as almost one week since TPA was given Remains intubated and mechically ventilated Physical therapy on hold BP range, goal is < 140 as outpatient tight glycemic control, continue Glipizide Continue ICU monitoring C. Diff treatment on going Contact precautions DVT PPX, on SCD boots No new neurologic event Critical care time 35 mins total.
[2017-05-08 10:25] LABS: URINE APPEARANCE CLEAR; URINE BILIRUBIN NEGATIVE (NEGATIVE); URINE BLOOD 3+ (NEGATIVE); URINE GLUCOSE (UA) NEGATIVE (NEGATIVE); URINE KETONE NEGATIVE (NEGATIVE); URINE NITRITE NEGATIVE (NEGATIVE); URINE UROBILINOGEN 0.2 mg/dL (0.2-1.0)
[2017-05-08] MEDS: PANTOPRAZOLE SODIUM 100 ML IVPB SCH (10:26)
[2017-05-08] MEDS: glipiZIDE 5 MG TABLET (FP) PO SCH (10:27)
[2017-05-08] MEDS: ASPIRIN 325 MG TABLET NGT SCH (10:27)
[2017-05-08] MEDS: TAMSULOSIN HCL 0.4 MG CAP.ER.24H (FP) PO SCH (10:27)
[2017-05-08] MEDS: BACITRACIN/POLYMYXIN B SULFATE 15 GM TUBE TP SCH ×2 (10:28→22:16)
[2017-05-08] MEDS: PROPOFOL 100 ML IVPB SCH (10:28)
[2017-05-08] MEDS: FENOFIBRIC ACID 135 MG CAP PO SCH (10:28)
[2017-05-08] MEDS ORDERED: ACETYLCYSTEINE 20% 200MG/ML 4 ML VIAL *FOR ORAL / INH USE ONLY NEB ONE (10:30)
[2017-05-08] MEDS ORDERED: ALBUTEROL SO4 0.083% IH SOL 2.5 MG/3 ML VIAL.NEB. NEB ONE (10:30)
[2017-05-08 10:32] LABS: URINE COLOR AMBER; URINE LEUK ESTERASE 2+ (NEGATIVE); URINE PROTEIN 2+ (NEGATIVE)
[2017-05-08 10:53] LABS: URINE RBC 1570 /hpf (0-3); URINE WBC 304 /hpf (3-5); YEAST MANY
[2017-05-08 11:06] LABS: ARTERIAL BLD GAS O2 SATURATION 91.3 % (90-98.9); ARTERIAL BLOOD GAS HCO3 22.7 meq/L (22-26)
[2017-05-08 11:07] LABS: ALLENS TEST POSITIVE; ART PUNCT SITE RIGHT RADIAL; LPM/O2% 60; MECH. VENT. YES; PT. ON O2? YES; TYPE OF O2 VENT; VENT RATE 26; VT/PRESS 500
[2017-05-08 11:08] LABS: ARTERIAL BLOOD GAS pH 7.32 (7.35-7.45)
[2017-05-08 11:09] LABS: ARTERIAL BLOOD GAS PO2 72.2 mmHg (80-100)
--- NOTE | 2017-05-08 11:26 | PN ---
Teaching Attending Note Name of Resident: Edwardo Rucker ATTENDING PHYSICIAN STATEMENT I saw and evaluated the patient. I reviewed the resident's note and discussed the case with the resident. I agree with the resident's findings and plan as documented. SUBJECTIVE: Pt seen and examined in the ICU. Remains intubated, sedated on levophed gtt. Vented on volume assist control with 80% FiO2 PEEP 8. OBJECTIVE: Last Vital Signs Temp Pulse Resp BP Pulse Ox 99.9 F H 110 H 27 H 129/73 98 05/08/17 02:00 05/08/17 06:49 05/08/17 09:36 05/08/17 04:00 05/08/17 06:49 Intake & Output 05/05/17 05/06/17 05/07/17 05/08/17 23:59 23:59 23:59 23:59 Intake Total 3106 3648 5973.5 2501 Output Total 3550 1000 2000 900 Balance -444 2648 3973.5 1601 Weight 266 lb 12.8 oz 264 lb 8 oz 268 lb 3 oz 269 lb 2.951 oz Gen: intubated, sedated Heart: tachycardic, regular Lung: scattered rhonchi Abd: soft, nontender Ext: + edema, R BKA CBC, BMP 05/08/17 05:20 05/08/17 05:20 Active Medications Amlodipine Besylate (Norvasc -) 10 mg PO DAILY [facility] Last Admin: 05/07/17 10:00 Dose: Not Given Aspirin (Asa -) 325 mg NGT DAILY [facility] Last Admin: 05/08/17 10:27 Dose: 325 mg Atorvastatin Calcium (Lipitor -) 40 mg PO HS [facility] Last Admin: 05/07/17 23:08 Dose: 40 mg Bacitracin/Polymyxin B Sulfate (Polysporin Ointment -) 1 applic TP BID [facility] Last Admin: 05/08/17 10:28 Dose: 1 applic Chlorhexidine Gluconate (Hibiclens For Decolonization -) 1 applic TP HS [facility] Last Admin: 05/07/17 23:08 Dose: 1 applic Fenofibric Acid (Trilipix -) 135 mg PO DAILY [facility] Last Admin: 05/08/17 10:28 Dose: 135 mg Glipizide (Glucotrol -) 5 mg PO DAILY@0700 [facility] Last Admin: 05/08/17 10:27 Dose: 5 mg Heparin Sodium (Porcine) (Heparin -) 5,000 unit SQ TID [facility] Last Admin: 05/08/17 07:00 Dose: 5,000 unit Metronidazole (Flagyl 500mg Premixed Ivpb -) 100 mls @ 100 mls/hr IVPB Q8H-IV [facility] Last Admin: 05/08/17 10:27 Dose: 100 mls/hr Ampicillin Sodium 1 gm/ Sodium (Chloride) 100 mls @ 200 mls/hr IVPB Q8H-IV [facility] Last Admin: 05/08/17 10:27 Dose: 200 mls/hr Ceftazidime 1 gm/ Dextrose 50 mls @ 100 mls/hr IVPB Q8H-IV [facility] PRN Reason: Protocol Last Admin: 05/08/17 10:27 Dose: 100 mls/hr Pantoprazole Sodium (Protonix 40mg Ivpb (Pre-Docked)) 100 mls @ 200 mls/hr IVPB DAILY [facility] Last Admin: 05/08/17 10:26 Dose: 200 mls/hr Propofol (Diprivan -) 100 mls @ 3.599 mls/hr IVPB TITR [facility]; 5 MCG/KG/MIN PRN Reason: Protocol Last Admin: 05/08/17 10:28 Dose: 14.397 mls/hr Vasopressin 50 units/ Sodium (Chloride) 100 mls @ 4 mls/hr IVPB ASDIR [facility]; 2 UNITS/HR PRN Reason: Protocol Last Admin: 05/08/17 04:24 Dose: Not Given Norepinephrine Bitartrate 8, (000 mcg/ Sodium Chloride) 1,000 mls @ 37.5 mls/ hr IV TITR [facility]; 5 MCG/MIN PRN Reason: Protocol Last Titration: 05/08/17 04:25 Dose: 3 mcg/min Sodium Chloride (1/2 Normal Saline) 1,000 mls @ 75 mls/hr IV ASDIR [facility] Last Admin: 05/07/17 14:00 Dose: 75 mls/hr Insulin Aspart (Novolog Vial Sliding Scale -) 1 vial SQ ACHS [facility] PRN Reason: Protocol Last Admin: 05/08/17 07:00 Dose: Not Given Lisinopril (Prinivil) 40 mg PO DAILY [facility] Last Admin: 05/07/17 10:00 Dose: Not Given Metoprolol Tartrate (Lopressor -) 25 mg PO BID [facility] Last Admin: 05/07/17 10:00 Dose: Not Given Metoprolol Tartrate (Lopressor Injection -) 5 mg IVPUSH Q4H PRN PRN Reason: HR >100 Last Admin: 05/04/17 09:30 Dose: 5 mg Tamsulosin HCl (Flomax -) 0.4 mg PO DAILY@0830 [facility] Last Admin: 05/08/17 10:27 Dose: 0.4 mg ASSESSMENT AND PLAN: Acute Hypoxic Respiratory Failure Left Atelectasis improving Acute CVA r/o C Diff Colitis UTI Septic Shock Acute Kidney Injury Suprapubic Catheter COPD DM - continue antibiotics per ID - chest PT, mucomyst - position right side down - bed percussion - if atelectasis, will perform bronchoscopy - levophed gtt to maintain MAP >65 - IVF to keep CVP 8-12 - taper fiO2, PEEP to keep SpO2 >90% - enteral feeds - continue free water - continue ICU monitoring critical care time spent in reviewing chart, evaluating patient and formulating plan 35 min
--- NOTE | 2017-05-08 12:24 | PN ---
Progress Note (short form) - Note Progress Note: Pt.seen in ccu,67 year old male admitted with bloody diarrhea,H/O Hypertenion, dyslipidemia,DM suffered an acute CVA with right hemiplegia,aphasia and workup disclosed acute right middle cerebral artery occlusion.on 05-06-17,developed aspiration and desaturated and required intubation and suctioning.Post aspiration developed a fever.Patient is sedated,has sinus tachycardia and has a temp. of 101.3. Echo report viewed and study was technically suboptimal and due to poor visualization of the valves endocarditis could not be ruled out.Blood culture were was reported to be negative. A Active Medications Generic Name Dose Route Start Last Admin Trade Name Freq PRN Reason Stop Dose Admin Amlodipine Besylate 10 mg 05/01/17 10:00 05/07/17 10:00 Norvasc - PO Not Given DAILY [facility] Aspirin 325 mg 05/05/17 12:15 05/08/17 10:27 Asa - NGT 325 mg DAILY [facility] Administration Atorvastatin Calcium 40 mg 05/02/17 22:00 05/07/17 23:08 Lipitor - PO 40 mg HS [facility] Administration Bacitracin/Polymyxin B Sulfate 1 applic 05/01/17 10:00 05/08/17 10:28 Polysporin Ointment - TP 1 applic BID [facility] Administration Chlorhexidine Gluconate 1 applic 04/30/17 22:00 05/07/17 23:08 Hibiclens For Decolonization - TP 1 applic HS [facility] Administration Fenofibric Acid 135 mg 05/01/17 10:00 05/08/17 10:28 Trilipix - PO 135 mg DAILY [facility] Administration Glipizide 5 mg 05/01/17 07:00 05/08/17 10:27 Glucotrol - PO 5 mg DAILY@0700 [facility] Administration Heparin Sodium (Porcine) 5,000 unit 05/03/17 22:00 05/08/17 07:00 Heparin - SQ 5,000 unit TID [facility] Administration Metronidazole 100 mls @ 100 mls/hr 04/30/17 18:00 05/08/17 10:27 Flagyl 500mg Premixed Ivpb - IVPB 100 mls/hr Q8H-IV [facility] Administration Ampicillin Sodium 1 gm/ Sodium 100 mls @ 200 mls/hr 05/04/17 14:15 05/08/17 10: 27 Chloride IVPB 200 mls/hr Q8H-IV [facility] Administration Ceftazidime 1 gm/ Dextrose 50 mls @ 100 mls/hr 05/04/17 14:15 05/08/17 10:27 IVPB 100 mls/hr Q8H-IV [facility] Administration Protocol Pantoprazole Sodium 100 mls @ 200 mls/hr 05/06/17 10:00 05/08/17 10:26 Protonix 40mg Ivpb (Pre-Docked) IVPB 200 mls/hr DAILY [facility] Administration Propofol 100 mls @ 3.599 mls/hr 05/06/17 08:30 05/08/17 10:28 Diprivan - IVPB 14.397 mls/hr TITR [facility] Administration Protocol 5 MCG/KG/MIN Vasopressin 50 units/ Sodium 100 mls @ 4 mls/hr 05/06/17 23:45 05/08/17 04:24 Chloride IVPB Not Given ASDIR [facility]W Protocol 2 UNITS/HR Norepinephrine Bitartrate 8, 1,000 mls @ 37.5 mls/hr 05/07/17 14:00 05/08/17 04 :25 000 mcg/ Sodium Chloride IV 3 mcg/min TITR [facility] Titration Protocol 5 MCG/MIN Sodium Chloride 1,000 mls @ 75 mls/hr 05/07/17 13:30 05/07/17 14:00 1/2 Normal Saline IV 75 mls/hr ASDIR [facility] Administration Insulin Aspart 1 vial 05/04/17 17:15 05/08/17 12:04 Novolog Vial Sliding Scale - SQ 8 units ACHS [facility] Administration Protocol Lisinopril 40 mg 05/01/17 10:00 05/07/17 10:00 Prinivil PO Not Given DAILY [facility] Metoprolol Tartrate 25 mg 04/30/17 22:00 05/07/17 10:00 Lopressor - PO Not Given BID [facility] Metoprolol Tartrate 5 mg 05/02/17 22:14 05/04/17 09:30 Lopressor Injection - IVPUSH 5 mg Q4H PRN Administration HR >100 Tamsulosin HCl 0.4 mg 05/01/17 08:30 05/08/17 10:27 Flomax - PO 0.4 mg DAILY@0830 [facility] Administration O: 67 year male,sedated and not responsive. Vital Signs - 8 hr 0905/08/17 05/08/17 06:35 06:49 09:00 Pulse Rate 110 H Respiratory 26 H Rate O2 Sat by Pulse 98 98 Oximetry (%) 05/08/17 05/08/17 09:36 11:53 Pulse Rate Respiratory 27 H 27 H Rate O2 Sat by Pulse Oximetry (%) Intake & Output 05/05/17 05/06/17 05/07/17 05/08/17 23:59 23:59 23:59 23:59 Intake Total 3106 3648 5973.5 2501 Output Total 3550 1000 2000 900 Balance -444 2648 3973.5 1601 Weight 266 lb 12.8 oz 264 lb 8 oz 268 lb 3 oz 269 lb 2.951 oz NECK: Supple,no JVD,carotids are equal, no bruits appreciated. HEART: Distant heart sounds, no murmur or gallops heard. LUNGS: Scattered crepitations at the right mid zone posteriorly. Abdomen: Soft, nontender,no organomegaly. Extremities: Right BKA, edema or the arms and 1+left ankle edema. CBC, BMP CBC, BMP 05/08/17 05:20 05/08/17 05:20 A: 1. S/P CVA with Rt.hemiplegia and aphasia. 2. Aspiration pneumonia. 3. H/O hypertension. 4. H/O of recent bloody diarrhea,possible recent C Diff. 5. NIDDM. 6. Leukocytosis. 7. Hypernatremia. 8. Prerenal azotemia. P: 1. Case discussed wih and to continue current antibiotics. 2. F/U CBC and BMP. 3. Correction of electrolytes in progress.. Prognosis: critical. Time spent 45 minutes.
[2017-05-08] MEDS ORDERED: ACETAMINOPHEN 1000 MG/100 ML VIAL (NON FORMULARY) IVPB ONE (12:25)
--- NOTE | 2017-05-08 13:43 | PN ---
Progress Note (short form) - Note Progress Note: seen at bedside in icu sedated, on vent s/p cva sepsis hypernatremia Prerenal azotemia Active Medications Amlodipine Besylate (Norvasc -) 10 mg PO DAILY [facility] Last Admin: 05/07/17 10:00 Dose: Not Given Aspirin (Asa -) 325 mg NGT DAILY [facility] Last Admin: 05/08/17 10:27 Dose: 325 mg Atorvastatin Calcium (Lipitor -) 40 mg PO HS [facility] Last Admin: 05/07/17 23:08 Dose: 40 mg Bacitracin/Polymyxin B Sulfate (Polysporin Ointment -) 1 applic TP BID [facility] Last Admin: 05/08/17 10:28 Dose: 1 applic Chlorhexidine Gluconate (Hibiclens For Decolonization -) 1 applic TP HS [facility] Last Admin: 05/07/17 23:08 Dose: 1 applic Fenofibric Acid (Trilipix -) 135 mg PO DAILY [facility] Last Admin: 05/08/17 10:28 Dose: 135 mg Glipizide (Glucotrol -) 5 mg PO DAILY@0700 [facility] Last Admin: 05/08/17 10:27 Dose: 5 mg Heparin Sodium (Porcine) (Heparin -) 5,000 unit SQ TID [facility] Last Admin: 05/08/17 07:00 Dose: 5,000 unit Metronidazole (Flagyl 500mg Premixed Ivpb -) 100 mls @ 100 mls/hr IVPB Q8H-IV [facility] Last Admin: 05/08/17 10:27 Dose: 100 mls/hr Ampicillin Sodium 1 gm/ Sodium (Chloride) 100 mls @ 200 mls/hr IVPB Q8H-IV [facility] Last Admin: 05/08/17 10:27 Dose: 200 mls/hr Ceftazidime 1 gm/ Dextrose 50 mls @ 100 mls/hr IVPB Q8H-IV [facility] PRN Reason: Protocol Last Admin: 05/08/17 10:27 Dose: 100 mls/hr Pantoprazole Sodium (Protonix 40mg Ivpb (Pre-Docked)) 100 mls @ 200 mls/hr IVPB DAILY [facility] Last Admin: 05/08/17 10:26 Dose: 200 mls/hr Propofol (Diprivan -) 100 mls @ 3.599 mls/hr IVPB TITR [facility]; 5 MCG/KG/MIN PRN Reason: Protocol Last Admin: 05/08/17 10:28 Dose: 14.397 mls/hr Vasopressin 50 units/ Sodium (Chloride) 100 mls @ 4 mls/hr IVPB ASDIR [facility]THEW; 2 UNITS/HR PRN Reason: Protocol Last Admin: 05/08/17 04:24 Dose: Not Given Norepinephrine Bitartrate 8, (000 mcg/ Sodium Chloride) 1,000 mls @ 37.5 mls/ hr IV TITR [facility]W; 5 MCG/MIN PRN Reason: Protocol Last Titration: 05/08/17 04:25 Dose: 3 mcg/min Sodium Chloride (1/2 Normal Saline) 1,000 mls @ 75 mls/hr IV ASDIR [facility] Last Admin: 05/07/17 14:00 Dose: 75 mls/hr Insulin Aspart (Novolog Vial Sliding Scale -) 1 vial SQ ACHS [facility] PRN Reason: Protocol Last Admin: 05/08/17 12:04 Dose: 8 units Lisinopril (Prinivil) 40 mg PO DAILY [facility] Last Admin: 05/07/17 10:00 Dose: Not Given Metoprolol Tartrate (Lopressor -) 25 mg PO BID [facility] Last Admin: 05/07/17 10:00 Dose: Not Given Metoprolol Tartrate (Lopressor Injection -) 5 mg IVPUSH Q4H PRN PRN Reason: HR >100 Last Admin: 05/04/17 09:30 Dose: 5 mg Tamsulosin HCl (Flomax -) 0.4 mg PO DAILY@0830 [facility] Last Admin: 05/08/17 10:27 Dose: 0.4 mg Last Vital Signs Temp Pulse Resp BP Pulse Ox 99.9 F H 110 H 27 H 129/73 98 05/08/17 02:00 05/08/17 06:49 05/08/17 11:53 05/08/17 04:00 05/08/17 09:00 Intake & Output 05/07/17 05/08/17 05/08/17 23:59 07:59 15:59 Intake Total 2991.5 2501 Output Total 300 900 Balance 2691.5 1601 Weight 269 lb 2.951 oz Lungs clear vented anteriorly heart soft sounds regular on monitor abd soft no guarding ext generalized edema CBC, BMP 05/08/17 05:20 05/08/17 05:20 IMP - Hypernatremia on hypotonic IVF, Sepsis - fever trending down, still tachycardic Prerenal azotemia Urine indices against DI hyperglycemia may have contributed to the hypernatremia Plan continue present IVF cautiously control hyperglycemia
[2017-05-08] MEDS: NOREPINEPHRINE BITARTRATE 8,000 MCG in SODIUM CHLORIDE 0.45% 992 ML IV SCH (14:00)
[2017-05-08] MEDS: SODIUM CHLORIDE 0.45% 1,000 ML IV SCH (14:00)
--- NOTE | 2017-05-08 14:13 | PN ---
Progress Note, Physician Chief Complaint: statis shannan vent support bp ok low side u/a osmol high di r/o dehydration entertained cont iv fl poor risk for peg now cont all tx as is - Current Medication List Current Medications: Active Medications Amlodipine Besylate (Norvasc -) 10 mg PO DAILY [facility] Last Admin: 05/07/17 10:00 Dose: Not Given Aspirin (Asa -) 325 mg NGT DAILY [facility] Last Admin: 05/08/17 10:27 Dose: 325 mg Atorvastatin Calcium (Lipitor -) 40 mg PO HS [facility] Last Admin: 05/07/17 23:08 Dose: 40 mg Bacitracin/Polymyxin B Sulfate (Polysporin Ointment -) 1 applic TP BID [facility] Last Admin: 05/08/17 10:28 Dose: 1 applic Chlorhexidine Gluconate (Hibiclens For Decolonization -) 1 applic TP HS [facility] Last Admin: 05/07/17 23:08 Dose: 1 applic Fenofibric Acid (Trilipix -) 135 mg PO DAILY [facility] Last Admin: 05/08/17 10:28 Dose: 135 mg Glipizide (Glucotrol -) 5 mg PO DAILY@0700 [facility] Last Admin: 05/08/17 10:27 Dose: 5 mg Heparin Sodium (Porcine) (Heparin -) 5,000 unit SQ TID [facility] Last Admin: 05/08/17 07:00 Dose: 5,000 unit Metronidazole (Flagyl 500mg Premixed Ivpb -) 100 mls @ 100 mls/hr IVPB Q8H-IV [facility] Last Admin: 05/08/17 10:27 Dose: 100 mls/hr Ampicillin Sodium 1 gm/ Sodium (Chloride) 100 mls @ 200 mls/hr IVPB Q8H-IV [facility] Last Admin: 05/08/17 10:27 Dose: 200 mls/hr Ceftazidime 1 gm/ Dextrose 50 mls @ 100 mls/hr IVPB Q8H-IV [facility] PRN Reason: Protocol Last Admin: 05/08/17 10:27 Dose: 100 mls/hr Pantoprazole Sodium (Protonix 40mg Ivpb (Pre-Docked)) 100 mls @ 200 mls/hr IVPB DAILY [facility] Last Admin: 05/08/17 10:26 Dose: 200 mls/hr Propofol (Diprivan -) 100 mls @ 3.599 mls/hr IVPB TITR [facility]W; 5 MCG/KG/MIN PRN Reason: Protocol Last Admin: 05/08/17 10:28 Dose: 14.397 mls/hr Vasopressin 50 units/ Sodium (Chloride) 100 mls @ 4 mls/hr IVPB ASDIR MATTHEW; 2 UNITS/HR PRN Reason: Protocol Last Admin: 05/08/17 04:24 Dose: Not Given Norepinephrine Bitartrate 8, (000 mcg/ Sodium Chloride) 1,000 mls @ 37.5 mls/ hr IV TITR MATTHEW; 5 MCG/MIN PRN Reason: Protocol Last Titration: 05/08/17 04:25 Dose: 3 mcg/min Sodium Chloride (1/2 Normal Saline) 1,000 mls @ 75 mls/hr IV ASDIR [facility] Last Admin: 05/07/17 14:00 Dose: 75 mls/hr Insulin Aspart (Novolog Vial Sliding Scale -) 1 vial SQ ACHS [facility] PRN Reason: Protocol Last Admin: 05/08/17 12:04 Dose: 8 units Lisinopril (Prinivil) 40 mg PO DAILY [facility] Last Admin: 05/07/17 10:00 Dose: Not Given Metoprolol Tartrate (Lopressor -) 25 mg PO BID [facility] Last Admin: 05/07/17 10:00 Dose: Not Given Metoprolol Tartrate (Lopressor Injection -) 5 mg IVPUSH Q4H PRN PRN Reason: HR >100 Last Admin: 05/04/17 09:30 Dose: 5 mg Tamsulosin HCl (Flomax -) 0.4 mg PO DAILY@0830 [facility] Last Admin: 05/08/17 10:27 Dose: 0.4 mg - Objective Vital Signs: Vital Signs Temperature 99.9 F H 05/08/17 02:00 Pulse Rate 110 H 05/08/17 06:49 Respiratory Rate 27 H 05/08/17 13:52 Blood Pressure 129/73 05/08/17 04:00 O2 Sat by Pulse Oximetry (%) 98 05/08/17 09:00 Labs: CBC, BMP 05/08/17 05:20 05/08/17 05:20 INR, PTT INR 1.28 (0.82-1.09) H 04/30/17 12:05
--- NOTE | 2017-05-08 16:58 | PN ---
Physical Exam: SUBJECTIVE: Patient seen and examined. No acute changes overnight. OBJECTIVE: Vital Signs Period Temp Pulse Resp BP Sys/Yanez Pulse Ox Last 24 Hr 99.9 F-100 F 102-110 22-29 118-131/62-73 98-100 Constitutional: Yes: Other (intubated) Eyes: Yes: Other (nonresponsive) Cardiovascular: Yes: Regular Rate and Rhythm Respiratory: Yes: Diminished, more so on right. 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 Edema: No Peripheral Pulses WNL: Yes Integumentary: Yes: WNL Neurological: sedated Laboratory Results - last 24 hr 05/07/17 05/07/17 05/07/17 12:26 18:00 22:35 WBC RBC Hgb Hct MCV MCH MCHC RDW Plt Count MPV PTT (Actin FS) Puncture Site ABG pH ABG pCO2 at Pt Temp ABG pO2 at Pt Temp ABG HCO3 ABG O2 Sat (Measured) ABG O2 Content ABG Base Excess Foster Test O2 Delivery Device Oxygen Flow Rate Vent Mode Vent Rate Mechanical Rate PEEP Pressure Support Vent Sodium 155 H Potassium 3.5 D Chloride 121 H Carbon Dioxide 26 Anion Gap 8 BUN 37 H Creatinine 1.3 D Creat Clearance w eGFR 54.73 POC Glucometer [phone] Random Glucose 236 H Calcium 8.5 Total Bilirubin 0.3 D AST 19 D ALT 14 Alkaline Phosphatase 60 Total Protein 4.9 L Albumin 2.1 L Urine Color Urine Appearance Urine pH Ur Specific [place] Urine Protein Urine Glucose (UA) Urine Ketones Urine Blood Urine Nitrite Urine Bilirubin Urine Urobilinogen Ur Leukocyte Esterase Urine RBC Urine WBC Urine Yeast 05/08/17 05/08/17 05/08/17 04:34 05:20 05:20 WBC 21.7 H RBC 4.15 Hgb 11.3 L Hct 35.5 MCV 85.4 MCH 27.3 MCHC 32.0 RDW 16.4 H Plt Count 256 D MPV 9.1 PTT (Actin FS) 29.3 Puncture Site ABG pH ABG pCO2 at Pt Temp ABG pO2 at Pt Temp ABG HCO3 ABG O2 Sat (Measured) ABG O2 Content ABG Base Excess Foster Test O2 Delivery Device Oxygen Flow Rate Vent Mode Vent Rate Mechanical Rate PEEP Pressure Support Vent Sodium Potassium Chloride Carbon Dioxide Anion Gap BUN Creatinine Creat Clearance w eGFR POC Glucometer 157.40004 Random Glucose Calcium Total Bilirubin AST ALT Alkaline Phosphatase Total Protein Albumin Urine Color Urine Appearance Urine pH Ur Specific [place] Urine Protein Urine Glucose (UA) Urine Ketones Urine Blood Urine Nitrite Urine Bilirubin Urine Urobilinogen Ur Leukocyte Esterase Urine RBC Urine WBC Urine Yeast 05/08/17 05/08/17 05/08/17 05:20 09:00 10:50 WBC RBC Hgb Hct MCV MCH MCHC RDW Plt Count MPV PTT (Actin FS) Puncture Site Right radial ABG pH 7.32 L ABG pCO2 at Pt Temp 45.9 H D ABG pO2 at Pt Temp 72.2 L D ABG HCO3 22.7 ABG O2 Sat (Measured) 91.3 ABG O2 Content 14.7 L ABG Base Excess -3.0 L Foster Test Positive O2 Delivery Device Vent Oxygen Flow Rate 60 Vent Mode A/c Vent Rate 26 Mechanical Rate Yes PEEP 8.0 Pressure Support Vent 500 Sodium 153 H Potassium 3.7 Chloride 120 H Carbon Dioxide 25 Anion Gap 8 BUN 34 H Creatinine 1.3 Creat Clearance w eGFR POC Glucometer Random Glucose 241 H Calcium 8.5 Total Bilirubin AST ALT Alkaline Phosphatase Total Protein Albumin Urine Color Re Urine Appearance Clear Urine pH 6.0 Ur Specific [place] 1.020 Urine Protein 2+ H Urine Glucose (UA) Negative Urine Ketones Negative Urine Blood 3+ H Urine Nitrite Negative Urine Bilirubin Negative Urine Urobilinogen 0.2 Ur Leukocyte Esterase 2+ H Urine RBC 1570 Urine WBC 304 Urine Yeast Many Active Medications Generic Name Dose Route Start Last Admin Trade Name Javadq PRN Reason Stop Dose Admin Amlodipine Besylate 10 mg 05/01/17 10:00 05/07/17 10:00 Norvasc - PO Not Given DAILY MATTHEW Aspirin 325 mg 05/05/17 12:15 05/08/17 10:27 Asa - NGT 325 mg DAILY MAT[facility]W Administration Atorvastatin Calcium 40 mg 05/02/17 22:00 05/07/17 23:08 Lipitor - PO 40 mg HS MATTHEW Administration Bacitracin/Polymyxin B Sulfate 1 applic 05/01/17 10:00 05/08/17 10:28 Polysporin Ointment - TP 1 applic BID MAT[facility]W Administration Chlorhexidine Gluconate 1 applic 04/30/17 22:00 05/07/17 23:08 Hibiclens For Decolonization - TP 1 applic HS [facility]W Administration Fenofibric Acid 135 mg 05/01/17 10:00 05/08/17 10:28 Trilipix - PO 135 mg DAILY [facility] Administration Glipizide 5 mg 05/01/17 07:00 05/08/17 10:27 Glucotrol - PO 5 mg DAILY@0700 [facility] Administration Heparin Sodium (Porcine) 5,000 unit 05/03/17 22:00 05/08/17 07:00 Heparin - SQ 5,000 unit TID MAT[facility]W Administration Metronidazole 100 mls @ 100 mls/hr 04/30/17 18:00 05/08/17 10:27 Flagyl 500mg Premixed Ivpb - IVPB 100 mls/hr Q8H-IV [facility] Administration Ampicillin Sodium 1 gm/ Sodium 100 mls @ 200 mls/hr 05/04/17 14:15 05/08/17 10: 27 Chloride IVPB 200 mls/hr Q8H-IV [facility] Administration Ceftazidime 1 gm/ Dextrose 50 mls @ 100 mls/hr 05/04/17 14:15 05/08/17 10:27 IVPB 100 mls/hr Q8H-IV MATTHEW Administration Protocol Pantoprazole Sodium 100 mls @ 200 mls/hr 05/06/17 10:00 05/08/17 10:26 Protonix 40mg Ivpb (Pre-Docked) IVPB 200 mls/hr DAILY [facility] Administration Propofol 100 mls @ 3.599 mls/hr 05/06/17 08:30 05/08/17 10:28 Diprivan - IVPB 14.397 mls/hr TITR MAT[facility]W Administration Protocol 5 MCG/KG/MIN Vasopressin 50 units/ Sodium 100 mls @ 4 mls/hr 05/06/17 23:45 05/08/17 04:24 Chloride IVPB Not Given ASDIR MATTHEW Protocol 2 UNITS/HR Norepinephrine Bitartrate 8, 1,000 mls @ 37.5 mls/hr 05/07/17 14:00 05/08/17 04 :25 000 mcg/ Sodium Chloride IV 3 mcg/min TITR MATTHEW Titration Protocol 5 MCG/MIN Sodium Chloride 1,000 mls @ 75 mls/hr 05/07/17 13:30 05/07/17 14:00 1/2 Normal Saline IV 75 mls/hr ASDIR [facility]THEW Administration Insulin Aspart 1 vial 05/04/17 17:15 05/08/17 12:04 Novolog Vial Sliding Scale - SQ 8 units ACHS MATTHEW Administration Protocol Lisinopril 40 mg 05/01/17 10:00 05/07/17 10:00 Prinivil PO Not Given DAILY MATTHEW Metoprolol Tartrate 25 mg 04/30/17 22:00 05/07/17 10:00 Lopressor - PO Not Given BID MATTHEW Metoprolol Tartrate 5 mg 05/02/17 22:14 05/04/17 09:30 Lopressor Injection - IVPUSH 5 mg Q4H PRN Administration HR >100 Tamsulosin HCl 0.4 mg 05/01/17 08:30 05/08/17 10:27 Flomax - PO 0.4 mg DAILY@0830 [facility] Administration ASSESSMENT/PLAN: ID - continue antibiotics per ID RESPIRATORY - chest PT, mucomyst - position right side down - bed percussion - if atelectasis, will perform bronchoscopy - taper fiO2, PEEP to keep SpO2 >90% CARDIOVASCULAR - levophed gtt to maintain MAP >65 - IVF to keep CVP 8-12 PAtient made DNR today. - enteral feeds - continue free water - continue ICU monitoring Visit type - Emergency Visit Emergency Visit: No - New Patient This patient is new to me today: No - Critical Care Critical Care patient: Yes Total Critical Care Time (in minutes): 60 Critical Care Statement: The care of this patient involved high complexity decision making to prevent further life threatening deterioration of the patient 's condition and/or to evaluate & treat vital organ system(s) failure or risk of failure.
--- NOTE | 2017-05-08 17:16 | PN ---
Progress Note, Physician History of Present Illness: patient intubated and sedated confines to be critical post intubation patient spiking fevers xray of the lung seen shows marginal improvement patient having lot of secretions through the et tube patients echo is showing vegetations --poor study and i dount all 3 valves could be involved patient has no blood cx positive - Current Medication List Current Medications: Active Medications Amlodipine Besylate (Norvasc -) 10 mg PO DAILY [facility] Last Admin: 05/07/17 10:00 Dose: Not Given Aspirin (Asa -) 325 mg NGT DAILY [facility] Last Admin: 05/08/17 10:27 Dose: 325 mg Atorvastatin Calcium (Lipitor -) 40 mg PO HS [facility] Last Admin: 05/07/17 23:08 Dose: 40 mg Bacitracin/Polymyxin B Sulfate (Polysporin Ointment -) 1 applic TP BID [facility] Last Admin: 05/08/17 10:28 Dose: 1 applic Chlorhexidine Gluconate (Hibiclens For Decolonization -) 1 applic TP HS [facility] Last Admin: 05/07/17 23:08 Dose: 1 applic Fenofibric Acid (Trilipix -) 135 mg PO DAILY [facility] Last Admin: 05/08/17 10:28 Dose: 135 mg Glipizide (Glucotrol -) 5 mg PO DAILY@0700 [facility] Last Admin: 05/08/17 10:27 Dose: 5 mg Heparin Sodium (Porcine) (Heparin -) 5,000 unit SQ TID [facility] Last Admin: 05/08/17 15:00 Dose: 5,000 unit Metronidazole (Flagyl 500mg Premixed Ivpb -) 100 mls @ 100 mls/hr IVPB Q8H-IV [facility] Last Admin: 05/08/17 17:00 Dose: 100 mls/hr Ampicillin Sodium 1 gm/ Sodium (Chloride) 100 mls @ 200 mls/hr IVPB Q8H-IV [facility] Last Admin: 05/08/17 17:00 Dose: 200 mls/hr Ceftazidime 1 gm/ Dextrose 50 mls @ 100 mls/hr IVPB Q8H-IV [facility] PRN Reason: Protocol Last Admin: 05/08/17 17:00 Dose: 100 mls/hr Pantoprazole Sodium (Protonix 40mg Ivpb (Pre-Docked)) 100 mls @ 200 mls/hr IVPB DAILY [facility] Last Admin: 05/08/17 10:26 Dose: 200 mls/hr Propofol (Diprivan -) 100 mls @ 3.599 mls/hr IVPB TITR MATTHEW; 5 MCG/KG/MIN PRN Reason: Protocol Last Admin: 05/08/17 10:28 Dose: 14.397 mls/hr Vasopressin 50 units/ Sodium (Chloride) 100 mls @ 4 mls/hr IVPB ASDIR MATTHEW; 2 UNITS/HR PRN Reason: Protocol Last Admin: 05/08/17 04:24 Dose: Not Given Norepinephrine Bitartrate 8, (000 mcg/ Sodium Chloride) 1,000 mls @ 37.5 mls/ hr IV TITR MATTHEW; 5 MCG/MIN PRN Reason: Protocol Last Admin: 05/08/17 14:00 Dose: 52.5 mls/hr Sodium Chloride (1/2 Normal Saline) 1,000 mls @ 75 mls/hr IV ASDIR [facility] Last Admin: 05/08/17 14:00 Dose: 75 mls/hr Insulin Aspart (Novolog Vial Sliding Scale -) 1 vial SQ ACHS MATTHEW PRN Reason: Protocol Last Admin: 05/08/17 12:04 Dose: 8 units Lisinopril (Prinivil) 40 mg PO DAILY [facility] Last Admin: 05/07/17 10:00 Dose: Not Given Metoprolol Tartrate (Lopressor -) 25 mg PO BID [facility] Last Admin: 05/07/17 10:00 Dose: Not Given Metoprolol Tartrate (Lopressor Injection -) 5 mg IVPUSH Q4H PRN PRN Reason: HR >100 Last Admin: 05/04/17 09:30 Dose: 5 mg Tamsulosin HCl (Flomax -) 0.4 mg PO DAILY@0830 [facility] Last Admin: 05/08/17 10:27 Dose: 0.4 mg - Objective Vital Signs: Vital Signs Temperature 100 F H 05/08/17 16:00 Pulse Rate 113 H 05/08/17 16:00 Respiratory Rate 26 H 05/08/17 16:29 Blood Pressure 92/53 05/08/17 16:00 O2 Sat by Pulse Oximetry (%) 98 05/08/17 09:00 Constitutional: Yes: Other Cardiovascular: Yes: Tachycardia, S1, S2 Respiratory: Yes: Intubated, Mechanically Ventilated, Rhonchi, Other Gastrointestinal: Yes: Normal Bowel Sounds, Soft Musculoskeletal: Yes: Other Extremities: Yes: Other Neurological: Yes: Other Labs: CBC, BMP 05/08/17 05:20 05/08/17 05:20 INR, PTT INR 1.28 (0.82-1.09) H 04/30/17 12:05 Assessment/Plan Acute Hypoxic Respiratory Failure Left Atelectasis Acute CVA UTI Septic Shock Acute Kidney Injury Suprapubic Catheter COPD DM patient now critical now intubated i have seen the echo and all cx reports are negative so far plan continue current abx monitor for fevers if patient starts spiking will change abx to meropenam no bowel movements repeat cx no growth rest as per primary team and neurology/icu prognosis poor please send sputum cx also if patient continues to have fevers--i think bronch will be helpful secretions are thick white creamy if worried would repeat echo cc time 40 min
[2017-05-08] MEDS: CHLORHEXIDINE GLUCONATE 4% CLEANSER FOR DECOLONIZATION TP SCH (22:16)
[2017-05-08] MEDS: ATORVASTATIN CA 40 MG TABLET (FP) PO SCH (22:16)
[2017-05-09] MEDS: AMPICILLIN - 1 GM in SODIUM CHLORIDE 100 ML IVPB SCH ×3 (02:00→17:47)
[2017-05-09] MEDS: METRONIDAZOLE 500 MG PREMIXED 100 ML IVPB SCH ×3 (02:30→17:46)
[2017-05-09] MEDS: CEFTAZIDIME PENTAHYDRATE 1 GM in DEXTROSE 5%-WATER - 50 ML IVPB SCH ×2 (03:00→10:03)
[2017-05-09] MEDS ORDERED: PT OWN MED DRAWER 7, Y5N ONE ×6 (03:38→23:34)
[2017-05-09] MEDS ORDERED: PROPOFOL 100 ML ONE (04:21)
[2017-05-09] MEDS: VASOPRESSIN 50 UNITS in SODIUM CHLORIDE 97.5 ML IVPB SCH ×2 (06:29→23:35)
[2017-05-09] MEDS: HEPARIN NA (PORCINE) 5,000 UNITS/ML 1ML VIAL SQ SCH ×3 (06:32→23:34)
[2017-05-09] MEDS: INSULIN SLIDING SCALE (NOVOLOG) 1 VIAL SQ SCH ×5 (06:33→23:42)
[2017-05-09 06:52] LABS: MCHC 31.4 g/dl (32.0-35.9); MEAN CELL VOLUME 86.3 fl (80-96); MEAN PLT VOLUME 9.1 fl (7.5-11.1); PLATELET COUNT 249 K/MM3 (134-434); RDW 16.3 % (11.9-15.9)
[2017-05-09 07:24] LABS: WHITE BLOOD COUNT 39.2 K/mm3 (4.0-10.0)
[2017-05-09] MEDS ORDERED: NOREPINEPHRINE BITARTRATE 4 MG/4 ML ML IV ONE ×2 (08:49→20:58)
[2017-05-09] MEDS: TAMSULOSIN HCL 0.4 MG CAP.ER.24H (FP) PO SCH (09:00)
[2017-05-09] MEDS: NOREPINEPHRINE BITARTRATE 8,000 MCG in SODIUM CHLORIDE 0.45% 992 ML IV SCH ×2 (09:54→14:55)
[2017-05-09] MEDS: PROPOFOL 100 ML IVPB SCH (09:57)
[2017-05-09] MEDS: PANTOPRAZOLE SODIUM 100 ML IVPB SCH (10:01)
[2017-05-09] MEDS: ASPIRIN 325 MG TABLET NGT SCH (10:04)
[2017-05-09] MEDS: BACITRACIN/POLYMYXIN B SULFATE 15 GM TUBE TP SCH ×2 (10:04→23:35)
[2017-05-09] MEDS: FENOFIBRIC ACID 135 MG CAP PO SCH ×2 (10:04→10:19)
--- NOTE | 2017-05-09 10:06 | PN ---
Progress Note (short form) - Note Progress Note: PULMONARY/CCM Pt seen and examined in the ICU. Remains intubated, sedated on levophed gtt. Febrile overnight. Vented on volume assist control with 80% FiO2 and PEEP 8. Last Vital Signs Temp Pulse Resp BP Pulse Ox 100.2 F H 105 H 26 H 101/62 96 05/09/17 05:00 05/09/17 05:00 05/09/17 09:35 05/09/17 05:00 05/08/17 23:05 Intake & Output 05/06/17 05/07/17 05/08/17 05/09/17 23:59 23:59 23:59 23:59 Intake Total 3648 5973.5 2501 2979 Output Total 1000 2000 1400 400 Balance 2648 3973.5 1101 2579 Weight 264 lb 8 oz 268 lb 3 oz 269 lb 2.951 oz 271 lb 2.697 oz Gen: intubated, sedated Heart: tachycardic, regular Lung: scattered rhonchi Abd: soft, nontender Ext: + edema, R BKA CBC, BMP 05/09/17 06:15 05/08/17 05:20 Active Medications Amlodipine Besylate (Norvasc -) 10 mg PO DAILY [facility] Last Admin: 05/07/17 10:00 Dose: Not Given Aspirin (Asa -) 325 mg NGT DAILY [facility] Last Admin: 05/08/17 10:27 Dose: 325 mg Atorvastatin Calcium (Lipitor -) 40 mg PO HS [facility] Last Admin: 05/08/17 22:16 Dose: 40 mg Bacitracin/Polymyxin B Sulfate (Polysporin Ointment -) 1 applic TP BID [facility] Last Admin: 05/08/17 22:16 Dose: 1 applic Chlorhexidine Gluconate (Hibiclens For Decolonization -) 1 applic TP HS [facility] Last Admin: 05/08/17 22:16 Dose: 1 applic Fenofibric Acid (Trilipix -) 135 mg PO DAILY [facility] Last Admin: 05/08/17 10:28 Dose: 135 mg Glipizide (Glucotrol -) 5 mg PO DAILY@0700 [facility] Last Admin: 05/08/17 10:27 Dose: 5 mg Heparin Sodium (Porcine) (Heparin -) 5,000 unit SQ TID [facility] Last Admin: 05/09/17 06:32 Dose: 5,000 unit Metronidazole (Flagyl 500mg Premixed Ivpb -) 100 mls @ 100 mls/hr IVPB Q8H-IV [facility] Last Admin: 05/09/17 02:30 Dose: 100 mls/hr Ampicillin Sodium 1 gm/ Sodium (Chloride) 100 mls @ 200 mls/hr IVPB Q8H-IV [facility] Last Admin: 05/09/17 02:00 Dose: 200 mls/hr Ceftazidime 1 gm/ Dextrose 50 mls @ 100 mls/hr IVPB Q8H-IV [facility] PRN Reason: Protocol Last Admin: 05/09/17 03:00 Dose: 100 mls/hr Pantoprazole Sodium (Protonix 40mg Ivpb (Pre-Docked)) 100 mls @ 200 mls/hr IVPB DAILY [facility] Last Admin: 05/08/17 10:26 Dose: 200 mls/hr Propofol (Diprivan -) 100 mls @ 3.599 mls/hr IVPB TITR MATTHEW; 5 MCG/KG/MIN PRN Reason: Protocol Last Admin: 05/08/17 10:28 Dose: 14.397 mls/hr Vasopressin 50 units/ Sodium (Chloride) 100 mls @ 4 mls/hr IVPB ASDIR MATTHEW; 2 UNITS/HR PRN Reason: Protocol Last Admin: 05/09/17 06:29 Dose: Not Given Norepinephrine Bitartrate 8, (000 mcg/ Sodium Chloride) 1,000 mls @ 37.5 mls/ hr IV TITR MATTHEW; 5 MCG/MIN PRN Reason: Protocol Last Admin: 05/08/17 14:00 Dose: 52.5 mls/hr Sodium Chloride (1/2 Normal Saline) 1,000 mls @ 75 mls/hr IV ASDIR [facility]THE[facility] Last Admin: 05/08/17 14:00 Dose: 75 mls/hr Insulin Aspart (Novolog Vial Sliding Scale -) 1 vial SQ ACHS MATTHEW PRN Reason: Protocol Last Admin: 05/09/17 06:33 Dose: 8 units Lisinopril (Prinivil) 40 mg PO DAILY [facility] Last Admin: 05/07/17 10:00 Dose: Not Given Metoprolol Tartrate (Lopressor -) 25 mg PO BID [facility] Last Admin: 05/07/17 10:00 Dose: Not Given Metoprolol Tartrate (Lopressor Injection -) 5 mg IVPUSH Q4H PRN PRN Reason: HR >100 Last Admin: 05/04/17 09:30 Dose: 5 mg Tamsulosin HCl (Flomax -) 0.4 mg PO DAILY@0830 [facility] Last Admin: 05/08/17 10:27 Dose: 0.4 mg A/P Acute Hypoxic Respiratory Failure Left Atelectasis improving Acute CVA r/o C Diff Colitis UTI Septic Shock Acute Kidney Injury Suprapubic Catheter COPD DM - continue antibiotics per ID - chest PT, mucomyst - bed percussion - if atelectasis recurs, can perform bronchoscopy - levophed gtt to maintain MAP >65 - IVF to keep CVP 8-12 - taper fiO2, PEEP to keep SpO2 >90% - enteral feeds - continue free water - continue ICU monitoring critical care time spent in reviewing chart, evaluating patient and formulating plan 35 min
[2017-05-09] MEDS: glipiZIDE 5 MG TABLET (FP) PO SCH (10:07)
[2017-05-09 10:12] LABS: PLATELET ESTIMATE ADEQUATE (NORMAL); TOTAL CELLS COUNTED 100
--- NOTE | 2017-05-09 10:47 | PN ---
Progress Note (short form) - Note Progress Note: Neurology History of Present Illness 67 yo M presented to the ER with a complaint of diarrhea and weakness for the past 2 weeks. Was found to be positive for C Diff and admitted. Was in ICU and Thursday AM rudolph rayo called and I went to ICU. Initially, patient believed to be under care of another neurologist and ICU team plan was to contact them. Thereafter, when I was in the office, I was contacted for consultation for acute R sided weakness, aphasia, and confusion. Patient was given TPA, remains in ICU and continued close monitoring. MRI brain showed L MCA infarct. 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 CD reviewed and did not show HD significant stenosis. Morning of 05/06 had respiratory distress and failure, required intubation, sedation, on mechanical ventilation. No significant improvements in respiratory status thus far. Not over breathing the vent. Remains on sedation. On Holter monitoring for arrythmia monitoring. Echo completed and reviewed by associate creative director. Remains on Abx. Active Medications Amlodipine Besylate (Norvasc -) 10 mg PO DAILY [facility] Last Admin: 05/07/17 10:00 Dose: Not Given Aspirin (Asa -) 325 mg NGT DAILY [facility] Last Admin: 05/09/17 10:04 Dose: 325 mg Atorvastatin Calcium (Lipitor -) 40 mg PO HS [facility] Last Admin: 05/08/17 22:16 Dose: 40 mg Bacitracin/Polymyxin B Sulfate (Polysporin Ointment -) 1 applic TP BID [facility] Last Admin: 05/09/17 10:04 Dose: 1 applic Chlorhexidine Gluconate (Hibiclens For Decolonization -) 1 applic TP HS [facility] Last Admin: 05/08/17 22:16 Dose: 1 applic Fenofibric Acid (Trilipix -) 135 mg PO DAILY [facility] Last Admin: 05/09/17 10:19 Dose: Not Given Glipizide (Glucotrol -) 5 mg PO DAILY@0700 [facility] Last Admin: 05/09/17 10:07 Dose: 5 mg Heparin Sodium (Porcine) (Heparin -) 5,000 unit SQ TID [facility] Last Admin: 05/09/17 06:32 Dose: 5,000 unit Metronidazole (Flagyl 500mg Premixed Ivpb -) 100 mls @ 100 mls/hr IVPB Q8H-IV [facility] Last Admin: 05/09/17 10:03 Dose: 100 mls/hr Ampicillin Sodium 1 gm/ Sodium (Chloride) 100 mls @ 200 mls/hr IVPB Q8H-IV [facility] Last Admin: 05/09/17 10:02 Dose: 200 mls/hr Pantoprazole Sodium (Protonix 40mg Ivpb (Pre-Docked)) 100 mls @ 200 mls/hr IVPB DAILY [facility] Last Admin: 05/09/17 10:01 Dose: 200 mls/hr Propofol (Diprivan -) 100 mls @ 3.599 mls/hr IVPB TITR MATTHEW; 5 MCG/KG/MIN PRN Reason: Protocol Last Admin: 05/09/17 09:57 Dose: 21.596 mls/hr Vasopressin 50 units/ Sodium (Chloride) 100 mls @ 4 mls/hr IVPB ASDIR MATTHEW; 2 UNITS/HR PRN Reason: Protocol Last Admin: 05/09/17 06:29 Dose: Not Given Norepinephrine Bitartrate 8, (000 mcg/ Sodium Chloride) 1,000 mls @ 37.5 mls/ hr IV TITR MATTHEW; 5 MCG/MIN PRN Reason: Protocol Last Admin: 05/09/17 09:54 Dose: 26 mls/hr Sodium Chloride (1/2 Normal Saline) 1,000 mls @ 75 mls/hr IV ASDIR [facility] Last Admin: 05/08/17 14:00 Dose: 75 mls/hr Meropenem 1 gm/ Dextrose 100 mls @ 200 mls/hr IVPB Q8H-IV [facility] Insulin Aspart (Novolog Vial Sliding Scale -) 1 vial SQ ACHS MATTHEW PRN Reason: Protocol Last Admin: 05/09/17 06:33 Dose: 8 units Lisinopril (Prinivil) 40 mg PO DAILY [facility] Last Admin: 05/07/17 10:00 Dose: Not Given Metoprolol Tartrate (Lopressor -) 25 mg PO BID [facility] Last Admin: 05/07/17 10:00 Dose: Not Given Metoprolol Tartrate (Lopressor Injection -) 5 mg IVPUSH Q4H PRN PRN Reason: HR >100 Last Admin: 05/04/17 09:30 Dose: 5 mg Tamsulosin HCl (Flomax -) 0.4 mg PO DAILY@0830 [facility] Last Admin: 05/09/17 09:00 Dose: 0.4 mg *Physical Exam Vital Signs Temperature 100.2 F H 05/09/17 05:00 Pulse Rate 111 H 05/09/17 09:54 Respiratory Rate 26 H 05/09/17 09:35 Blood Pressure 100/55 05/09/17 09:54 O2 Sat by Pulse Oximetry (%) 96 05/08/17 23:05 Sedated, not following commands Unable to evaluate R hemineglect RRR, no murmur Lungs clear Abdomen soft, NT Aphasic previously, unclear 2/2 sedation at this time R facial droop mild at this point Was moving RUE and LUE grossly previously, not participating in confrontation testing Was moving R leg stump but remains sedated Sensory not able to assess Gait deferred CBCD WBC 39.2 K/mm3 (4.0-10.0) H* D 05/09/17 06:15 RBC 4.13 M/mm3 (4.00-5.60) 05/09/17 06:15 Hgb 11.2 GM/dL (11.7-16.9) L 05/09/17 06:15 Hct 35.7 % (35.4-49) 05/09/17 06:15 MCV 86.3 fl (80-96) 05/09/17 06:15 MCHC 31.4 g/dl (32.0-35.9) L 05/09/17 06:15 RDW 16.3 % (11.9-15.9) H 05/09/17 06:15 Plt Count 249 K/MM3 (134-434) 05/09/17 06:15 MPV 9.1 fl (7.5-11.1) 05/09/17 06:15 CMP Sodium 153 mmol/L (136-145) H 05/08/17 05:20 Potassium 3.7 mmol/L (3.5-5.1) 05/08/17 05:20 Chloride 120 mmol/L (98-107) H 05/08/17 05:20 Carbon Dioxide 25 mmol/L (21-32) 05/08/17 05:20 Anion Gap 8 (8-16) 05/08/17 05:20 BUN 34 mg/dL (7-18) H 05/08/17 05:20 Creatinine 1.3 mg/dL (0.7-1.3) 05/08/17 05:20 Creat Clearance w eGFR 54.73 (>60) 05/07/17 18:00 Calcium 8.5 mg/dL (8.5-10.1) 05/08/17 05:20 Total Bilirubin 0.3 mg/dL (0.2-1.0) D 05/07/17 18:00 AST 19 U/L (15-37) D 05/07/17 18:00 ALT 14 U/L (12-78) 05/07/17 18:00 Alkaline Phosphatase 60 U/L (45-117) 05/07/17 18:00 Total Protein 4.9 g/dl (6.4-8.2) L 05/07/17 18:00 Albumin 2.1 g/dl (3.4-5.0) L 05/07/17 18:00 Ct head reviewed CD reviewed MRI brain reviewed MRA brain reviewed Plan: 67 yo M presented to the ER with a complaint of diarrhea and weakness for the past 2 weeks. Was found to be positive for C Diff and admitted. Was in ICU and code rayo called and patient given TPA. Subsequent with improving RLE strength, now 5-/5. Patient also moving RUE but not following commands fully yet. MRI, MRA , CD, as described above. Patient on aggrenox and statin Echo completed and reviewed, cardiology to follow up Remains intubated and mechically ventilated Physical therapy on hold tight glycemic control, continue Glipizide Continue ICU monitoring C. Diff treatment on going Contact precautions DVT PPX, on SCD boots No new neurologic event Critical care time 35 mins total.
[2017-05-09 11:47] LABS: ALK PHOS 58 U/L (45-117); ANION GAP 8 (8-16); BILIRUBIN,TOTAL 0.3 mg/dL (0.2-1.0); CO2 24 mmol/L (21-32); CREATININE 2.3 mg/dL (0.7-1.3); GLUCOSE,RANDOM 272 mg/dL (74-106); SGOT/AST 31 U/L (15-37); SGPT/ALT 17 U/L (12-78); TOT PROT 5.1 g/dl (6.4-8.2)
[2017-05-09] MEDS ORDERED: SODIUM CHLORIDE 250 ML IV STA (13:04)
--- NOTE | 2017-05-09 13:16 | PN ---
Progress Note (short form) - Note Progress Note: seen at bedside in icu sedated, on vent s/p cva sepsis hypernatremia Prerenal azotemia Current Medications Amlodipine Besylate (Norvasc -) 10 mg PO DAILY [facility] Last Admin: 05/07/17 10:00 Dose: Not Given Aspirin (Asa -) 325 mg NGT DAILY [facility] Last Admin: 05/09/17 10:04 Dose: 325 mg Atorvastatin Calcium (Lipitor -) 40 mg PO HS [facility] Last Admin: 05/08/17 22:16 Dose: 40 mg Bacitracin/Polymyxin B Sulfate (Polysporin Ointment -) 1 applic TP BID [facility] Last Admin: 05/09/17 10:04 Dose: 1 applic Chlorhexidine Gluconate (Hibiclens For Decolonization -) 1 applic TP HS [facility] Last Admin: 05/08/17 22:16 Dose: 1 applic Fenofibric Acid (Trilipix -) 135 mg PO DAILY [facility] Last Admin: 05/09/17 10:19 Dose: Not Given Glipizide (Glucotrol -) 5 mg PO DAILY@0700 [facility] Last Admin: 05/09/17 10:07 Dose: 5 mg Heparin Sodium (Porcine) (Heparin -) 5,000 unit SQ TID [facility] Last Admin: 05/09/17 06:32 Dose: 5,000 unit Metronidazole (Flagyl 500mg Premixed Ivpb -) 100 mls @ 100 mls/hr IVPB Q8H-IV [facility] Last Admin: 05/09/17 10:03 Dose: 100 mls/hr Ampicillin Sodium 1 gm/ Sodium (Chloride) 100 mls @ 200 mls/hr IVPB Q8H-IV [facility] Last Admin: 05/09/17 10:02 Dose: 200 mls/hr Pantoprazole Sodium (Protonix 40mg Ivpb (Pre-Docked)) 100 mls @ 200 mls/hr IVPB DAILY [facility] Last Admin: 05/09/17 10:01 Dose: 200 mls/hr Propofol (Diprivan -) 100 mls @ 3.599 mls/hr IVPB TITR [facility]; 5 MCG/KG/MIN PRN Reason: Protocol Last Admin: 05/09/17 09:57 Dose: 21.596 mls/hr Vasopressin 50 units/ Sodium (Chloride) 100 mls @ 4 mls/hr IVPB ASDIR [facility]; 2 UNITS/HR PRN Reason: Protocol Last Admin: 05/09/17 06:29 Dose: Not Given Norepinephrine Bitartrate 8, (000 mcg/ Sodium Chloride) 1,000 mls @ 37.5 mls/ hr IV TITR [facility]; 5 MCG/MIN PRN Reason: Protocol Last Admin: 05/09/17 09:54 Dose: 26 mls/hr Sodium Chloride (1/2 Normal Saline) 1,000 mls @ 75 mls/hr IV [facility]IR [facility] Last Admin: 05/08/17 14:00 Dose: 75 mls/hr Meropenem 1 gm/ Dextrose 100 mls @ 200 mls/hr IVPB Q8H-IV [facility] Sodium Chloride (Normal Saline -) 250 mls @ 500 mls/hr IV ASDIR STA Stop: 05/09/17 13:33 Insulin Aspart (Novolog Vial Sliding Scale -) 1 vial SQ ACHS [facility] PRN Reason: Protocol Last Admin: 05/09/17 06:33 Dose: 8 units Lisinopril (Prinivil) 40 mg PO DAILY [facility] Last Admin: 05/07/17 10:00 Dose: Not Given Metoprolol Tartrate (Lopressor -) 25 mg PO BID [facility] Last Admin: 05/07/17 10:00 Dose: Not Given Metoprolol Tartrate (Lopressor Injection -) 5 mg IVPUSH Q4H PRN PRN Reason: HR >100 Last Admin: 05/04/17 09:30 Dose: 5 mg Tamsulosin HCl (Flomax -) 0.4 mg PO DAILY@0830 [facility] Last Admin: 05/09/17 09:00 Dose: 0.4 mg Vital Signs Temperature 100.2 F H 05/09/17 05:00 Pulse Rate 111 H 05/09/17 09:54 Respiratory Rate 24 05/09/17 11:33 Blood Pressure 100/55 05/09/17 09:54 O2 Sat by Pulse Oximetry (%) 96 05/08/17 23:05 Intake & Output 05/08/17 05/09/17 05/09/17 23:59 07:59 15:59 Intake Total 2979 Output Total 300 400 Balance -300 2579 Weight 271 lb 2.697 oz CBC, BMP 05/09/17 06:15 05/09/17 06:15 Sodium 151 H BUN 49 H D Creatinine 2.3 H D Random Glucose 272 H Albumin 2.0 L IMP - Hypernatremia on hypotonic IVF, trending down Na 151 from 153 yesterday Sepsis - still febrile, still tachycardic Prerenal azotemia- now renal function getting worse, 2/2 low bp and probably intravascula volume depletion (he has marked edema of upper extremities, no edema in LLE, but low S. albumin contributes to low central oncotic pressure) hyperglycemia persisting , also a factor for free water losses Plan- will give more normal saline in increments- 250 cc now, then follow based on response cautiously control hyperglycemia
[2017-05-09 13:51] LABS: ANION GAP 10 (8-16); CALCIUM 8.7 mg/dL (8.5-10.1); CO2 24 mmol/L (21-32); CREATININE 2.4 mg/dL (0.7-1.3); GLUCOSE,RANDOM 278 mg/dL (74-106)
[2017-05-09] MEDS: SODIUM CHLORIDE 0.45% 1,000 ML IV SCH (14:08)
[2017-05-09] MEDS ORDERED: SODIUM CHLORIDE 500 ML IV STA (14:25)
[2017-05-09] MEDS: MEROPENEM 1 GM in DEXTROSE 5%-WATER - 100 ML IVPB SCH ×2 (14:55→17:46)
--- NOTE | 2017-05-09 17:54 | PN ---
Progress Note, Physician History of Present Illness: Pt seen and examined. Events noted, labs reviewed. He remains intubated, sedated , on Levophed. Low grade fever currently. - Current Medication List Current Medications: Active Medications Amlodipine Besylate (Norvasc -) 10 mg PO DAILY [facility] Last Admin: 05/07/17 10:00 Dose: Not Given Aspirin (Asa -) 325 mg NGT DAILY [facility] Last Admin: 05/09/17 10:04 Dose: 325 mg Atorvastatin Calcium (Lipitor -) 40 mg PO HS [facility] Last Admin: 05/08/17 22:16 Dose: 40 mg Bacitracin/Polymyxin B Sulfate (Polysporin Ointment -) 1 applic TP BID [facility] Last Admin: 05/09/17 10:04 Dose: 1 applic Chlorhexidine Gluconate (Hibiclens For Decolonization -) 1 applic TP HS [facility] Last Admin: 05/08/17 22:16 Dose: 1 applic Fenofibric Acid (Trilipix -) 135 mg PO DAILY [facility] Last Admin: 05/09/17 10:19 Dose: Not Given Glipizide (Glucotrol -) 5 mg PO DAILY@0700 [facility] Last Admin: 05/09/17 10:07 Dose: 5 mg Heparin Sodium (Porcine) (Heparin -) 5,000 unit SQ TID [facility] Last Admin: 05/09/17 14:55 Dose: 5,000 unit Metronidazole (Flagyl 500mg Premixed Ivpb -) 100 mls @ 100 mls/hr IVPB Q8H-IV [facility] Last Admin: 05/09/17 17:46 Dose: 100 mls/hr Ampicillin Sodium 1 gm/ Sodium (Chloride) 100 mls @ 200 mls/hr IVPB Q8H-IV [facility] Last Admin: 05/09/17 17:47 Dose: 200 mls/hr Pantoprazole Sodium (Protonix 40mg Ivpb (Pre-Docked)) 100 mls @ 200 mls/hr IVPB DAILY [facility] Last Admin: 05/09/17 10:01 Dose: 200 mls/hr Propofol (Diprivan -) 100 mls @ 3.599 mls/hr IVPB TITR [facility]; 5 MCG/KG/MIN PRN Reason: Protocol Last Admin: 05/09/17 09:57 Dose: 21.596 mls/hr Vasopressin 50 units/ Sodium (Chloride) 100 mls @ 4 mls/hr IVPB ASDIR MATTHEW; 2 UNITS/HR PRN Reason: Protocol Last Admin: 05/09/17 06:29 Dose: Not Given Norepinephrine Bitartrate 8, (000 mcg/ Sodium Chloride) 1,000 mls @ 37.5 mls/ hr IV TITR [facility]; 5 MCG/MIN PRN Reason: Protocol Last Admin: 05/09/17 14:55 Dose: Not Given Sodium Chloride (1/2 Normal Saline) 1,000 mls @ 75 mls/hr IV [facility]IR [facility] Last Admin: 05/09/17 14:08 Dose: Not Given Meropenem 1 gm/ Dextrose 100 mls @ 200 mls/hr IVPB Q8H-IV [facility] Last Admin: 05/09/17 17:46 Dose: 200 mls/hr Insulin Aspart (Novolog Vial Sliding Scale -) 1 vial SQ ACHS [facility] PRN Reason: Protocol Last Admin: 05/09/17 17:46 Dose: 6 units Lisinopril (Prinivil) 40 mg PO DAILY [facility] Last Admin: 05/07/17 10:00 Dose: Not Given Metoprolol Tartrate (Lopressor -) 25 mg PO BID [facility] Last Admin: 05/07/17 10:00 Dose: Not Given Metoprolol Tartrate (Lopressor Injection -) 5 mg IVPUSH Q4H PRN PRN Reason: HR >100 Last Admin: 05/04/17 09:30 Dose: 5 mg Tamsulosin HCl (Flomax -) 0.4 mg PO DAILY@0830 [facility] Last Admin: 05/09/17 09:00 Dose: 0.4 mg - Objective Vital Signs: Vital Signs Temperature 100.2 F H 05/09/17 05:00 Pulse Rate 111 H 05/09/17 09:54 Respiratory Rate 22 05/09/17 16:30 Blood Pressure 100/55 05/09/17 09:54 O2 Sat by Pulse Oximetry (%) 96 05/08/17 23:05 Constitutional: Yes: Other (intubated, sedated) Cardiovascular: Yes: Regular Rate and Rhythm, Other (Lt subclavian TLC) Respiratory: Yes: Diminished Gastrointestinal: Yes: Soft, Other (fecal bag) Genitourinary: Yes: Other (suprapubic tube draining small amt brown urine) Neurological: Yes: Other (sedated) Labs: CBC, BMP 05/09/17 06:15 05/09/17 12:30 INR, PTT INR 1.28 (0.82-1.09) H 04/30/17 12:05 Microbiology 05/08/17 17:45 Gram Stain - Final Sputum - Endotrachea Suction/Ventilator 05/04/17 09:40 Blood Culture - Final Blood - Peripheral Venous NO GROWTH AFTER 5 DAYS INCUBATION 05/04/17 09:50 Blood Culture - Final Blood - Peripheral Venous NO GROWTH AFTER 5 DAYS INCUBATION - ....Imaging Chest X-ray: Report Reviewed Problem List - Problems (1) BILL (acute kidney injury) Code(s): N17.9 - ACUTE KIDNEY FAILURE, UNSPECIFIED (2) CVA (cerebral vascular accident) Code(s): I63.9 - CEREBRAL INFARCTION, UNSPECIFIED (3) UTI (urinary tract infection) Code(s): N39.0 - URINARY TRACT INFECTION, SITE NOT SPECIFIED (4) COPD (chronic obstructive pulmonary disease) Code(s): J44.9 - CHRONIC OBSTRUCTIVE PULMONARY DISEASE, UNSPECIFIED (5) Diabetes 1.5, managed as type 2 Code(s): E13.9 - OTHER SPECIFIED DIABETES MELLITUS WITHOUT COMPLICATIONS (6) Diarrhea Code(s): R19.7 - DIARRHEA, UNSPECIFIED (7) Sepsis Code(s): A41.9 - SEPSIS, UNSPECIFIED ORGANISM Qualifiers: Sepsis type: sepsis due to unspecified organism Qualified Code(s): A41.9 - Sepsis, unspecified organism Assessment/Plan Acute Respiratory Failure Acute CVA UTI Diarrhea Septic Shock Acute Kidney Injury Suprapubic Catheter COPD DM -- pt still febrile, wbc increased since yesterday, remains intubated/sedated on Levophed -- Pt now on Meropenem, Ampicillin, Flagyl IV -- repeat cbc , monitor wbc trend -- f/u respiratory culture results -- continue supportive care prognosis poor cc: 40 min spent
[2017-05-09] MEDS: ATORVASTATIN CA 40 MG TABLET (FP) PO SCH (23:32)
[2017-05-09] MEDS: CHLORHEXIDINE GLUCONATE 4% CLEANSER FOR DECOLONIZATION TP SCH (23:32)
[2017-05-10] MEDS: AMPICILLIN - 1 GM in SODIUM CHLORIDE 100 ML IVPB SCH ×3 (01:23→17:31)
[2017-05-10] MEDS: MEROPENEM 1 GM in DEXTROSE 5%-WATER - 100 ML IVPB SCH ×3 (01:23→17:31)
[2017-05-10] MEDS ORDERED: SODIUM CHLORIDE 0.45% IV SCH (01:31)
[2017-05-10] MEDS ORDERED: NOREPINEPHRINE BITARTRATE IV SCH (01:31)
[2017-05-10] MEDS: METRONIDAZOLE 500 MG PREMIXED 100 ML IVPB SCH ×3 (01:57→17:31)
[2017-05-10] MEDS: NOREPINEPHRINE BITARTRATE IV SCH (02:06)
[2017-05-10] MEDS: DEXTROSE 5% IV SCH (02:06)
[2017-05-10] MEDS: WATER IV SCH (02:06)
[2017-05-10] MEDS ORDERED: PROPOFOL 100 ML ONE (02:38)
[2017-05-10] MEDS ORDERED: PT OWN MED DRAWER 7, Y5N ONE ×4 (06:25→17:29)
[2017-05-10] MEDS: glipiZIDE 5 MG TABLET (FP) PO SCH (06:43)
[2017-05-10] MEDS: HEPARIN NA (PORCINE) 5,000 UNITS/ML 1ML VIAL SQ SCH ×3 (06:43→21:46)
[2017-05-10] MEDS: INSULIN SLIDING SCALE (NOVOLOG) 1 VIAL SQ SCH ×4 (06:43→21:58)
[2017-05-10 06:44] LABS: MCHC 31.6 g/dl (32.0-35.9); MEAN CELL VOLUME 85.3 fl (80-96); MEAN PLT VOLUME 9.4 fl (7.5-11.1); PLATELET COUNT 232 K/MM3 (134-434); RDW 16.5 % (11.9-15.9)
[2017-05-10 06:59] LABS: WHITE BLOOD COUNT 41.3 K/mm3 (4.0-10.0)
[2017-05-10 07:41] LABS: ALBUMIN 1.7 g/dl (3.4-5.0); ANION GAP 8 (8-16); CALCIUM 8.5 mg/dL (8.5-10.1); CO2 23 mmol/L (21-32); GLUCOSE,RANDOM 216 mg/dL (74-106)
[2017-05-10 07:44] LABS: ALK PHOS 59 U/L (45-117); BILIRUBIN,TOTAL 0.4 mg/dL (0.2-1.0); CREATININE 2.8 mg/dL (0.7-1.3); SGOT/AST 32 U/L (15-37); SGPT/ALT 19 U/L (12-78); TOT PROT 4.8 g/dl (6.4-8.2)
[2017-05-10 08:14] LABS: PLATELET COMMENT2 NO CLOTTING DETECTED; PLATELET COMMENT3 FEW LARGE PLTS; PLATELET ESTIMATE ADEQUATE (NORMAL); TOTAL CELLS COUNTED 100
[2017-05-10 08:15] LABS: METAMYELOCYTE 5 % (0-2); SMUDGE CELLS FEW
[2017-05-10 08:16] LABS: ANISOCYTOSIS 1+; HYPOCHROMIA 1+; TOXIC GRANULATION 1+
[2017-05-10] MEDS: TAMSULOSIN HCL 0.4 MG CAP.ER.24H (FP) PO SCH (09:36)
[2017-05-10] MEDS: ASPIRIN 325 MG TABLET NGT SCH (10:15)
[2017-05-10] MEDS: PANTOPRAZOLE SODIUM 100 ML IVPB SCH (10:16)
[2017-05-10] MEDS: BACITRACIN/POLYMYXIN B SULFATE 15 GM TUBE TP SCH ×2 (10:17→21:47)
[2017-05-10] MEDS: PROPOFOL 100 ML IVPB SCH ×3 (10:17→17:32)
[2017-05-10] MEDS: FENOFIBRIC ACID 135 MG CAP PO SCH (10:17)
[2017-05-10] MEDS: ACETAMINOPHEN 325 MG TABLET (FP) PO PRN ×2 (10:18→18:01)
[2017-05-10] MEDS ORDERED: NOREPINEPHRINE BITARTRATE 4 MG/4 ML ML IV ONE (10:21)
--- NOTE | 2017-05-10 10:24 | PN ---
Progress Note (short form) - Note Progress Note: PULMONARY/CCM Pt seen and examined in the ICU. Remains intubated, sedated on levophed gtt. Febrile overnight. Vented on volume assist control with 60% FiO2 and PEEP 8 saturating low 90s. Telemetry now with atrial flutter Last Vital Signs Temp Pulse Resp BP Pulse Ox 100.4 F H 101 H 25 H 119/53 95 05/10/17 08:00 05/10/17 08:00 05/10/17 09:38 05/10/17 08:00 05/09/17 19:12 Intake & Output 05/07/17 05/08/17 05/09/17 05/10/17 23:59 23:59 23:59 23:59 Intake Total 5973.5 2501 5262 2916 Output Total 1999 1400 430 600 Balance 3973.5 1101 4832 2316 Weight 268 lb 3 oz 269 lb 2.951 oz 271 lb 2.697 oz 289 lb Gen: intubated, sedated Heart: tachycardic, regular Lung: scattered rhonchi Abd: soft, nontender Ext: + edema, R BKA CBC, BMP 05/10/17 06:10 05/10/17 06:10 Active Medications Acetaminophen (Tylenol -) 650 mg PO Q4H PRN PRN Reason: FEVER OR PAIN Amlodipine Besylate (Norvasc -) 10 mg PO DAILY [facility] Last Admin: 05/07/17 10:00 Dose: Not Given Aspirin (Asa -) 325 mg NGT DAILY [facility] Last Admin: 05/09/17 10:04 Dose: 325 mg Atorvastatin Calcium (Lipitor -) 40 mg PO HS [facility] Last Admin: 05/09/17 23:32 Dose: 40 mg Bacitracin/Polymyxin B Sulfate (Polysporin Ointment -) 1 applic TP BID [facility] Last Admin: 05/09/17 23:35 Dose: 1 applic Chlorhexidine Gluconate (Hibiclens For Decolonization -) 1 applic TP HS [facility] Last Admin: 05/09/17 23:32 Dose: 1 applic Fenofibric Acid (Trilipix -) 135 mg PO DAILY [facility] Last Admin: 05/09/17 10:19 Dose: Not Given Glipizide (Glucotrol -) 5 mg PO DAILY@0700 [facility] Last Admin: 05/10/17 06:43 Dose: 5 mg Heparin Sodium (Porcine) (Heparin -) 5,000 unit SQ TID [facility] Last Admin: 05/10/17 06:43 Dose: 5,000 unit Metronidazole (Flagyl 500mg Premixed Ivpb -) 100 mls @ 100 mls/hr IVPB Q8H-IV [facility] Last Admin: 05/10/17 01:57 Dose: 100 mls/hr Ampicillin Sodium 1 gm/ Sodium (Chloride) 100 mls @ 200 mls/hr IVPB Q8H-IV [facility] Last Admin: 05/10/17 01:23 Dose: 200 mls/hr Pantoprazole Sodium (Protonix 40mg Ivpb (Pre-Docked)) 100 mls @ 200 mls/hr IVPB DAILY [facility] Last Admin: 05/09/17 10:01 Dose: 200 mls/hr Propofol (Diprivan -) 100 mls @ 3.599 mls/hr IVPB TITR [facility]; 5 MCG/KG/MIN PRN Reason: Protocol Last Admin: 05/09/17 09:57 Dose: 21.596 mls/hr Vasopressin 50 units/ Sodium (Chloride) 100 mls @ 4 mls/hr IVPB ASDIR [facility]; 2 UNITS/HR PRN Reason: Protocol Last Admin: 05/09/17 23:35 Dose: Not Given Sodium Chloride (1/2 Normal Saline) 1,000 mls @ 75 mls/hr IV [facility]IR [facility] Last Admin: 05/09/17 14:08 Dose: Not Given Meropenem 1 gm/ Dextrose 100 mls @ 200 mls/hr IVPB Q8H-IV [facility] Last Admin: 05/10/17 01:23 Dose: 200 mls/hr Norepinephrine Bitartrate 8, (000 mcg/ Dextrose) 508 mls @ 19.05 mls/hr IV TITR [facility]; 5 MCG/MIN PRN Reason: Protocol Last Admin: 05/10/17 02:06 Dose: 26.67 mls/hr Insulin Aspart (Novolog Vial Sliding Scale -) 1 vial SQ ACHS [facility] PRN Reason: Protocol Last Admin: 05/10/17 06:43 Dose: 6 units Lisinopril (Prinivil) 40 mg PO DAILY [facility] Last Admin: 05/07/17 10:00 Dose: Not Given Metoprolol Tartrate (Lopressor -) 25 mg PO BID [facility] Last Admin: 05/07/17 10:00 Dose: Not Given Metoprolol Tartrate (Lopressor Injection -) 5 mg IVPUSH Q4H PRN PRN Reason: HR >100 Last Admin: 05/04/17 09:30 Dose: 5 mg Tamsulosin HCl (Flomax -) 0.4 mg PO DAILY@0830 [facility] Last Admin: 05/09/17 09:00 Dose: 0.4 mg A/P Acute Hypoxic Respiratory Failure Left Atelectasis improving Acute CVA r/o C Diff Colitis UTI Septic Shock Acute Kidney Injury Suprapubic Catheter COPD DM - continue antibiotics per ID - chest PT, mucomyst - bed percussion - if atelectasis recurs, can perform bronchoscopy - levophed gtt to maintain MAP >65 - CVP high, will give lasix today, keep CVP 8-12 - taper fiO2, PEEP to keep SpO2 >90% - enteral feeds - continue free water - continue ICU monitoring - poor overall prognosis for meaningful recovery critical care time spent in reviewing chart, evaluating patient and formulating plan 35 min
[2017-05-10] MEDS ORDERED: FUROSEMIDE 40 MG/4 ML INJECTABLE VIAL IVPUSH ONE (10:26)
--- NOTE | 2017-05-10 11:08 | PN ---
Progress Note, Physician Chief Complaint: mental statis amanuel no change lost pupil rx vent assited ngt intact w feed as is suprapubic intact funtioning yeast in u/a noted f/u id to ? tx vs colonization afibb n/c bp better prognosis poor dnr in place no heroic messuers to revive no peg at this time supportive care cont all tx as is - Current Medication List Current Medications: Active Medications Acetaminophen (Tylenol -) 650 mg PO Q4H PRN PRN Reason: FEVER OR PAIN Amlodipine Besylate (Norvasc -) 10 mg PO DAILY [facility] Last Admin: 05/07/17 10:00 Dose: Not Given Aspirin (Asa -) 325 mg NGT DAILY [facility] Last Admin: 05/09/17 10:04 Dose: 325 mg Atorvastatin Calcium (Lipitor -) 40 mg PO HS [facility] Last Admin: 05/09/17 23:32 Dose: 40 mg Bacitracin/Polymyxin B Sulfate (Polysporin Ointment -) 1 applic TP BID [facility] Last Admin: 05/09/17 23:35 Dose: 1 applic Chlorhexidine Gluconate (Hibiclens For Decolonization -) 1 applic TP HS [facility] Last Admin: 05/09/17 23:32 Dose: 1 applic Fenofibric Acid (Trilipix -) 135 mg PO DAILY [facility] Last Admin: 05/09/17 10:19 Dose: Not Given Furosemide (Lasix Injection -) 60 mg IVPUSH ONCE ONE Stop: 05/10/17 10:27 Glipizide (Glucotrol -) 5 mg PO DAILY@0700 [facility] Last Admin: 05/10/17 06:43 Dose: 5 mg Heparin Sodium (Porcine) (Heparin -) 5,000 unit SQ TID [facility] Last Admin: 05/10/17 06:43 Dose: 5,000 unit Metronidazole (Flagyl 500mg Premixed Ivpb -) 100 mls @ 100 mls/hr IVPB Q8H-IV [facility] Last Admin: 05/10/17 01:57 Dose: 100 mls/hr Ampicillin Sodium 1 gm/ Sodium (Chloride) 100 mls @ 200 mls/hr IVPB Q8H-IV [facility] Last Admin: 05/10/17 01:23 Dose: 200 mls/hr Pantoprazole Sodium (Protonix 40mg Ivpb (Pre-Docked)) 100 mls @ 200 mls/hr IVPB DAILY [facility] Last Admin: 05/09/17 10:01 Dose: 200 mls/hr Propofol (Diprivan -) 100 mls @ 3.599 mls/hr IVPB TITR [facility]; 5 MCG/KG/MIN PRN Reason: Protocol Last Admin: 05/09/17 09:57 Dose: 21.596 mls/hr Vasopressin 50 units/ Sodium (Chloride) 100 mls @ 4 mls/hr IVPB ASDIR [facility]THE[facility]; 2 UNITS/HR PRN Reason: Protocol Last Admin: 05/09/17 23:35 Dose: Not Given Sodium Chloride (1/2 Normal Saline) 1,000 mls @ 75 mls/hr IV [facility]IR [facility] Last Admin: 05/09/17 14:08 Dose: Not Given Meropenem 1 gm/ Dextrose 100 mls @ 200 mls/hr IVPB Q8H-IV [facility] Last Admin: 05/10/17 01:23 Dose: 200 mls/hr Norepinephrine Bitartrate 8, (000 mcg/ Dextrose) 508 mls @ 19.05 mls/hr IV TITR [facility]; 5 MCG/MIN PRN Reason: Protocol Last Admin: 05/10/17 02:06 Dose: 26.67 mls/hr Insulin Aspart (Novolog Vial Sliding Scale -) 1 vial SQ ACHS [facility] PRN Reason: Protocol Last Admin: 05/10/17 06:43 Dose: 6 units Lisinopril (Prinivil) 40 mg PO DAILY [facility] Last Admin: 05/07/17 10:00 Dose: Not Given Metoprolol Tartrate (Lopressor -) 25 mg PO BID [facility] Last Admin: 05/07/17 10:00 Dose: Not Given Metoprolol Tartrate (Lopressor Injection -) 5 mg IVPUSH Q4H PRN PRN Reason: HR >100 Last Admin: 05/04/17 09:30 Dose: 5 mg Tamsulosin HCl (Flomax -) 0.4 mg PO DAILY@0830 [facility] Last Admin: 05/09/17 09:00 Dose: 0.4 mg - Objective Vital Signs: Vital Signs Temperature 100.4 F H 05/10/17 08:00 Pulse Rate 101 H 05/10/17 08:00 Respiratory Rate 25 H 05/10/17 09:38 Blood Pressure 119/53 05/10/17 08:00 O2 Sat by Pulse Oximetry (%) 95 05/09/17 19:12 Labs: CBC, BMP 05/10/17 06:10 05/10/17 06:10 INR, PTT INR 1.28 (0.82-1.09) H 04/30/17 12:05
--- NOTE | 2017-05-10 12:50 | PN ---
Progress Note (short form) - Note Progress Note: Neurology History of Present Illness 67 yo M presented to the ER with a complaint of diarrhea and weakness for the past 2 weeks. Was found to be positive for C Diff and admitted. I was contacted for consultation for acute R sided weakness, aphasia, and confusion. Patient was given TPA, remains in ICU and continued close monitoring. MRI brain showed L MCA infarct. 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 CD reviewed and did not show HD significant stenosis. Morning of had respiratory distress and failure, required intubation, sedation, on mechanical ventilation. No significant improvements in respiratory status thus far. Not over breathing the vent. Remains on sedation and blood pressure support with Levophed. On Holter monitoring for arrythmia monitoring. Echo completed and reviewed by water resources engineer. Remains on Abx. No significant neurologic events. Active Medications Acetaminophen (Tylenol -) 650 mg PO Q4H PRN PRN Reason: FEVER OR PAIN Last Admin: 05/10/17 10:18 Dose: 650 mg Amlodipine Besylate (Norvasc -) 10 mg PO DAILY [facility] Last Admin: 05/07/17 10:00 Dose: Not Given Aspirin (Asa -) 325 mg NGT DAILY [facility] Last Admin: 05/10/17 10:15 Dose: 325 mg Atorvastatin Calcium (Lipitor -) 40 mg PO HS [facility] Last Admin: 05/09/17 23:32 Dose: 40 mg Bacitracin/Polymyxin B Sulfate (Polysporin Ointment -) 1 applic TP BID [facility] Last Admin: 05/10/17 10:17 Dose: 1 applic Chlorhexidine Gluconate (Hibiclens For Decolonization -) 1 applic TP HS [facility] Last Admin: 05/09/17 23:32 Dose: 1 applic Fenofibric Acid (Trilipix -) 135 mg PO DAILY [facility] Last Admin: 05/10/17 10:17 Dose: Not Given Glipizide (Glucotrol -) 5 mg PO DAILY@0700 [facility] Last Admin: 05/10/17 06:43 Dose: 5 mg Heparin Sodium (Porcine) (Heparin -) 5,000 unit SQ TID [facility] Last Admin: 05/10/17 06:43 Dose: 5,000 unit Metronidazole (Flagyl 500mg Premixed Ivpb -) 100 mls @ 100 mls/hr IVPB Q8H-IV [facility] Last Admin: 05/10/17 10:16 Dose: 100 mls/hr Ampicillin Sodium 1 gm/ Sodium (Chloride) 100 mls @ 200 mls/hr IVPB Q8H-IV [facility] Last Admin: 05/10/17 11:05 Dose: 200 mls/hr Pantoprazole Sodium (Protonix 40mg Ivpb (Pre-Docked)) 100 mls @ 200 mls/hr IVPB DAILY [facility] Last Admin: 05/10/17 10:16 Dose: 200 mls/hr Propofol (Diprivan -) 100 mls @ 3.599 mls/hr IVPB TITR [facility]; 5 MCG/KG/MIN PRN Reason: Protocol Last Admin: 05/10/17 10:17 Dose: 25.195 mls/hr Vasopressin 50 units/ Sodium (Chloride) 100 mls @ 4 mls/hr IVPB ASDIR [facility]; 2 UNITS/HR PRN Reason: Protocol Last Admin: 05/09/17 23:35 Dose: Not Given Sodium Chloride (1/2 Normal Saline) 1,000 mls @ 75 mls/hr IV [facility] Last Admin: 05/09/17 14:08 Dose: Not Given Meropenem 1 gm/ Dextrose 100 mls @ 200 mls/hr IVPB Q8H-IV [facility] Last Admin: 05/10/17 10:16 Dose: 200 mls/hr Norepinephrine Bitartrate 8, (000 mcg/ Dextrose) 508 mls @ 19.05 mls/hr IV TITR [facility]; 5 MCG/MIN PRN Reason: Protocol Last Admin: 05/10/17 02:06 Dose: 26.67 mls/hr Insulin Aspart (Novolog Vial Sliding Scale -) 1 vial SQ ACHS [facility] PRN Reason: Protocol Last Admin: 05/10/17 11:08 Dose: 6 units Lisinopril (Prinivil) 40 mg PO DAILY [facility] Last Admin: 05/07/17 10:00 Dose: Not Given Metoprolol Tartrate (Lopressor -) 25 mg PO BID [facility] Last Admin: 05/07/17 10:00 Dose: Not Given Metoprolol Tartrate (Lopressor Injection -) 5 mg IVPUSH Q4H PRN PRN Reason: HR >100 Last Admin: 05/04/17 09:30 Dose: 5 mg Tamsulosin HCl (Flomax -) 0.4 mg PO DAILY@0830 [facility] Last Admin: 05/10/17 09:36 Dose: Not Given *Physical Exam Vital Signs Temperature 100.8 F H 05/10/17 10:00 Pulse Rate 104 H 05/10/17 12:00 Respiratory Rate 25 H 05/10/17 12:25 Blood Pressure 92/44 05/10/17 12:00 O2 Sat by Pulse Oximetry (%) 93 L 05/10/17 10:00 Sedated, not following commands Unable to evaluate R hemineglect RRR, no murmur Lungs clear Abdomen soft, NT Aphasic previously, unclear 2/2 sedation at this time R facial droop mild at this point Was moving RUE and LUE grossly previously, not participating in confrontation testing Was moving R leg stump but remains sedated Sensory not able to assess Gait deferred CBCD WBC 41.3 K/mm3 (4.0-10.0) H* 05/10/17 06:10 RBC 3.77 M/mm3 (4.00-5.60) L 05/10/17 06:10 Hgb 10.2 GM/dL (11.7-16.9) L 05/10/17 06:10 Hct 32.2 % (35.4-49) L 05/10/17 06:10 MCV 85.3 fl (80-96) 05/10/17 06:10 MCHC 31.6 g/dl (32.0-35.9) L 05/10/17 06:10 RDW 16.5 % (11.9-15.9) H 05/10/17 06:10 Plt Count 232 K/MM3 (134-434) 05/10/17 06:10 MPV 9.4 fl (7.5-11.1) 05/10/17 06:10 CMP Sodium 149 mmol/L (136-145) H 05/10/17 06:10 Potassium 3.7 mmol/L (3.5-5.1) 05/10/17 06:10 Chloride 118 mmol/L (98-107) H 05/10/17 06:10 Carbon Dioxide 23 mmol/L (21-32) 05/10/17 06:10 Anion Gap 8 (8-16) 05/10/17 06:10 BUN 57 mg/dL (7-18) H 05/10/17 06:10 Creatinine 2.8 mg/dL (0.7-1.3) H 05/10/17 06:10 Creat Clearance w eGFR 22.58 (>60) 05/10/17 06:10 Calcium 8.5 mg/dL (8.5-10.1) 05/10/17 06:10 Total Bilirubin 0.4 mg/dL (0.2-1.0) D 05/10/17 06:10 AST 32 U/L (15-37) 05/10/17 06:10 ALT 19 U/L (12-78) 05/10/17 06:10 Alkaline Phosphatase 59 U/L (45-117) 05/10/17 06:10 Total Protein 4.8 g/dl (6.4-8.2) L 05/10/17 06:10 Albumin 1.7 g/dl (3.4-5.0) L 05/10/17 06:10 Ct head reviewed CD reviewed MRI brain reviewed MRA brain reviewed Plan: 67 yo M presented to the ER with a complaint of diarrhea and weakness for the past 2 weeks. Was found to be positive for C Diff and admitted. Was in ICU and code rayo called and patient given TPA. Subsequent with improving RLE strength, now 5-/5. Patient also moving RUE but not following commands fully yet. MRI, MRA , CD, as described above. Patient on aggrenox and statin Echo completed and reviewed, cardiology to follow up Remains intubated and mechically ventilated Physical therapy on hold On levophed blood pressure support tight glycemic control, continue Glipizide Continue ICU monitoring C. Diff treatment on going Contact precautions DVT PPX, on SCD boots No new neurologic event Critical care time 35 mins total.
[2017-05-10] MEDS: SODIUM CHLORIDE 0.45% 1,000 ML IV SCH (13:56)
--- NOTE | 2017-05-10 16:50 | PN ---
Progress Note (short form) - Note Progress Note: seen at bedside in icu sedated, on vent s/p cva sepsis hypernatremia Prerenal azotemia- now oliguric ARF Current Medications Acetaminophen (Tylenol -) 650 mg PO Q4H PRN PRN Reason: FEVER OR PAIN Last Admin: 05/10/17 10:18 Dose: 650 mg Amlodipine Besylate (Norvasc -) 10 mg PO DAILY [facility] Last Admin: 05/07/17 10:00 Dose: Not Given Aspirin (Asa -) 325 mg NGT DAILY [facility] Last Admin: 05/10/17 10:15 Dose: 325 mg Atorvastatin Calcium (Lipitor -) 40 mg PO HS [facility] Last Admin: 05/09/17 23:32 Dose: 40 mg Bacitracin/Polymyxin B Sulfate (Polysporin Ointment -) 1 applic TP BID [facility] Last Admin: 05/10/17 10:17 Dose: 1 applic Chlorhexidine Gluconate (Hibiclens For Decolonization -) 1 applic TP HS [facility] Last Admin: 05/09/17 23:32 Dose: 1 applic Fenofibric Acid (Trilipix -) 135 mg PO DAILY [facility] Last Admin: 05/10/17 10:17 Dose: Not Given Glipizide (Glucotrol -) 5 mg PO DAILY@0700 [facility] Last Admin: 05/10/17 06:43 Dose: 5 mg Heparin Sodium (Porcine) (Heparin -) 5,000 unit SQ TID [facility] Last Admin: 05/10/17 13:51 Dose: 5,000 unit Metronidazole (Flagyl 500mg Premixed Ivpb -) 100 mls @ 100 mls/hr IVPB Q8H-IV [facility] Last Admin: 05/10/17 10:16 Dose: 100 mls/hr Ampicillin Sodium 1 gm/ Sodium (Chloride) 100 mls @ 200 mls/hr IVPB Q8H-IV [facility] Last Admin: 05/10/17 11:05 Dose: 200 mls/hr Pantoprazole Sodium (Protonix 40mg Ivpb (Pre-Docked)) 100 mls @ 200 mls/hr IVPB DAILY [facility] Last Admin: 05/10/17 10:16 Dose: 200 mls/hr Propofol (Diprivan -) 100 mls @ 3.599 mls/hr IVPB TITR [facility]; 5 MCG/KG/MIN PRN Reason: Protocol Last Admin: 05/10/17 13:51 Dose: 25.195 mls/hr Vasopressin 50 units/ Sodium (Chloride) 100 mls @ 4 mls/hr IVPB ASDIR [facility]THEW; 2 UNITS/HR PRN Reason: Protocol Last Admin: 05/09/17 23:35 Dose: Not Given Sodium Chloride (1/2 Normal Saline) 1,000 mls @ 75 mls/hr IV [facility] Last Admin: 05/10/17 13:56 Dose: 75 mls/hr Meropenem 1 gm/ Dextrose 100 mls @ 200 mls/hr IVPB Q8H-IV [facility] Last Admin: 05/10/17 10:16 Dose: 200 mls/hr Norepinephrine Bitartrate 8, (000 mcg/ Dextrose) 508 mls @ 19.05 mls/hr IV TITR MATTHEW; 5 MCG/MIN PRN Reason: Protocol Last Admin: 05/10/17 02:06 Dose: 26.67 mls/hr Insulin Aspart (Novolog Vial Sliding Scale -) 1 vial SQ ACHS [facility] PRN Reason: Protocol Last Admin: 05/10/17 11:08 Dose: 6 units Lisinopril (Prinivil) 40 mg PO DAILY [facility] Last Admin: 05/07/17 10:00 Dose: Not Given Metoprolol Tartrate (Lopressor -) 25 mg PO BID [facility] Last Admin: 05/07/17 10:00 Dose: Not Given Metoprolol Tartrate (Lopressor Injection -) 5 mg IVPUSH Q4H PRN PRN Reason: HR >100 Last Admin: 05/04/17 09:30 Dose: 5 mg Tamsulosin HCl (Flomax -) 0.4 mg PO DAILY@0830 [facility] Last Admin: 05/10/17 09:36 Dose: Not Given Last Vital Signs Temp Pulse Resp BP Pulse Ox 98.9 F 93 H 23 92/48 93 L 05/10/17 14:00 05/10/17 14:00 05/10/17 14:56 05/10/17 14:00 05/10/17 10:00 on vent sedated anasarca lungs clear vented heart soft distant Abd soft Ext min edema, R BKA CBC, BMP 05/10/17 06:10 05/10/17 06:10 IMP - Hypernatremia on hypotonic IVF, continues to trend down Na 149 from 151 Sepsis - hypotensive, marked leukocytosis, less tachycardic, now on pressors Prerenal azotemia- now renal function getting worse, 2/2 low bp and probably intravascula volume depletion (he has marked edema of upper extremities, no edema in LLE, but low S. albumin contributes to low central oncotic pressure) hyperglycemia Plan- will give more normal saline in increments- 250 cc now, then follow based on response cautiously control hyperglycemia
--- NOTE | 2017-05-10 17:30 | PN ---
Progress Note, Physician History of Present Illness: Pt remains febrile with worsening leukocytosis. Intubated/sedated, on Levophed. - Current Medication List Current Medications: Active Medications Acetaminophen (Tylenol -) 650 mg PO Q4H PRN PRN Reason: FEVER OR PAIN Last Admin: 05/10/17 10:18 Dose: 650 mg Amlodipine Besylate (Norvasc -) 10 mg PO DAILY [facility] Last Admin: 05/07/17 10:00 Dose: Not Given Aspirin (Asa -) 325 mg NGT DAILY [facility] Last Admin: 05/10/17 10:15 Dose: 325 mg Atorvastatin Calcium (Lipitor -) 40 mg PO HS [facility] Last Admin: 05/09/17 23:32 Dose: 40 mg Bacitracin/Polymyxin B Sulfate (Polysporin Ointment -) 1 applic TP BID [facility] Last Admin: 05/10/17 10:17 Dose: 1 applic Chlorhexidine Gluconate (Hibiclens For Decolonization -) 1 applic TP HS [facility] Last Admin: 05/09/17 23:32 Dose: 1 applic Fenofibric Acid (Trilipix -) 135 mg PO DAILY [facility] Last Admin: 05/10/17 10:17 Dose: Not Given Glipizide (Glucotrol -) 5 mg PO DAILY@0700 [facility] Last Admin: 05/10/17 06:43 Dose: 5 mg Heparin Sodium (Porcine) (Heparin -) 5,000 unit SQ TID [facility] Last Admin: 05/10/17 13:51 Dose: 5,000 unit Metronidazole (Flagyl 500mg Premixed Ivpb -) 100 mls @ 100 mls/hr IVPB Q8H-IV [facility] Last Admin: 05/10/17 10:16 Dose: 100 mls/hr Ampicillin Sodium 1 gm/ Sodium (Chloride) 100 mls @ 200 mls/hr IVPB Q8H-IV [facility] Last Admin: 05/10/17 11:05 Dose: 200 mls/hr Pantoprazole Sodium (Protonix 40mg Ivpb (Pre-Docked)) 100 mls @ 200 mls/hr IVPB DAILY [facility] Last Admin: 05/10/17 10:16 Dose: 200 mls/hr Propofol (Diprivan -) 100 mls @ 3.599 mls/hr IVPB TITR MATTHEW; 5 MCG/KG/MIN PRN Reason: Protocol Last Admin: 05/10/17 13:51 Dose: 25.195 mls/hr Vasopressin 50 units/ Sodium (Chloride) 100 mls @ 4 mls/hr IVPB ASDIR [facility]THEW; 2 UNITS/HR PRN Reason: Protocol Last Admin: 05/09/17 23:35 Dose: Not Given Sodium Chloride (1/2 Normal Saline) 1,000 mls @ 75 mls/hr IV [facility] Last Admin: 05/10/17 13:56 Dose: 75 mls/hr Meropenem 1 gm/ Dextrose 100 mls @ 200 mls/hr IVPB Q8H-IV [facility] Last Admin: 05/10/17 10:16 Dose: 200 mls/hr Norepinephrine Bitartrate 8, (000 mcg/ Dextrose) 508 mls @ 19.05 mls/hr IV TITR MATTHEW; 5 MCG/MIN PRN Reason: Protocol Last Admin: 05/10/17 02:06 Dose: 26.67 mls/hr Insulin Aspart (Novolog Vial Sliding Scale -) 1 vial SQ ACHS [facility] PRN Reason: Protocol Last Admin: 05/10/17 11:08 Dose: 6 units Lisinopril (Prinivil) 40 mg PO DAILY [facility] Last Admin: 05/07/17 10:00 Dose: Not Given Metoprolol Tartrate (Lopressor -) 25 mg PO BID [facility] Last Admin: 05/07/17 10:00 Dose: Not Given Metoprolol Tartrate (Lopressor Injection -) 5 mg IVPUSH Q4H PRN PRN Reason: HR >100 Last Admin: 05/04/17 09:30 Dose: 5 mg Tamsulosin HCl (Flomax -) 0.4 mg PO DAILY@0830 [facility] Last Admin: 05/10/17 09:36 Dose: Not Given - Objective Vital Signs: Vital Signs Temperature 98.9 F 05/10/17 14:00 Pulse Rate 93 H 05/10/17 14:00 Respiratory Rate 24 05/10/17 16:55 Blood Pressure 92/48 05/10/17 14:00 O2 Sat by Pulse Oximetry (%) 93 L 05/10/17 10:00 Constitutional: Yes: Other (Intubated, sedated) Cardiovascular: Yes: Regular Rate and Rhythm, Other (TLC in place) Respiratory: Yes: Other (b/l air entry) Gastrointestinal: Yes: Normal Bowel Sounds, Soft, Other (fecal bag with loose stool) Extremities: Yes: Other (Rt BKA healed) Psychiatric: Yes: Other (sedated) Labs: CBC, BMP 05/10/17 06:10 05/10/17 06:10 INR, PTT INR 1.28 (0.82-1.09) H 04/30/17 12:05 Microbiology 05/08/17 17:45 Gram Stain - Final Sputum - Endotrachea Suction/Ventilator Sputum Culture - Preliminary Yeast Like Organism Problem List - Problems (1) BILL (acute kidney injury) Code(s): N17.9 - ACUTE KIDNEY FAILURE, UNSPECIFIED (2) CVA (cerebral vascular accident) Code(s): I63.9 - CEREBRAL INFARCTION, UNSPECIFIED (3) UTI (urinary tract infection) Code(s): N39.0 - URINARY TRACT INFECTION, SITE NOT SPECIFIED (4) COPD (chronic obstructive pulmonary disease) Code(s): J44.9 - CHRONIC OBSTRUCTIVE PULMONARY DISEASE, UNSPECIFIED (5) Diabetes 1.5, managed as type 2 Code(s): E13.9 - OTHER SPECIFIED DIABETES MELLITUS WITHOUT COMPLICATIONS (6) Diarrhea Code(s): R19.7 - DIARRHEA, UNSPECIFIED (7) Sepsis Code(s): A41.9 - SEPSIS, UNSPECIFIED ORGANISM Qualifiers: Sepsis type: sepsis due to unspecified organism Qualified Code(s): A41.9 - Sepsis, unspecified organism (8) Leukocytosis Code(s): D72.829 - ELEVATED WHITE BLOOD CELL COUNT, UNSPECIFIED (9) Acute respiratory failure Code(s): J96.00 - ACUTE RESPIRATORY FAILURE, UNSP W HYPOXIA OR HYPERCAPNIA Assessment/Plan Acute Respiratory Failure Acute CVA UTI Diarrhea Septic Shock Acute Kidney Injury Suprapubic Catheter COPD DM -- pt febrile with wbc trending up, remains intubated/sedated on Levophed -- Pt on Meropenem, Ampicillin, Flagyl IV -- 1 dose of Diflucan IV, start Vancomycin via ngt -- repeat blood cultures x 2 sets, stool c diff testing -- continue monitor temps/wbc trend -- f/u respiratory culture results -- continue supportive care prognosis poor cc: 40 min spent
[2017-05-10] MEDS ORDERED: FLUCONAZOLE 400 MG/D5W 200 ML IVPB ONE (17:45)
[2017-05-10] MEDS: VANCOMYCIN 250 MG/5 ML ORAL SOLUTION PO SCH (17:57)
[2017-05-10] MEDS ORDERED: FLUCONAZOLE 400 MG/NS 200 ML IVPB ONE (18:06)
[2017-05-10] MEDS: CHLORHEXIDINE GLUCONATE 4% CLEANSER FOR DECOLONIZATION TP SCH (21:46)
[2017-05-10] MEDS: ATORVASTATIN CA 40 MG TABLET (FP) PO SCH (21:47)
[2017-05-10] MEDS: VASOPRESSIN 50 UNITS in SODIUM CHLORIDE 97.5 ML IVPB SCH (23:30)
[2017-05-11] MEDS: VANCOMYCIN 250 MG/5 ML ORAL SOLUTION PO SCH ×4 (00:30→18:28)
[2017-05-11] MEDS ORDERED: PT OWN MED DRAWER 7, Y5N ONE ×4 (01:37→16:30)
[2017-05-11] MEDS: AMPICILLIN - 1 GM in SODIUM CHLORIDE 100 ML IVPB SCH ×2 (01:41→09:36)
[2017-05-11] MEDS: MEROPENEM 1 GM in DEXTROSE 5%-WATER - 100 ML IVPB SCH ×3 (01:41→18:27)
[2017-05-11] MEDS: METRONIDAZOLE 500 MG PREMIXED 100 ML IVPB SCH ×3 (01:41→18:28)
[2017-05-11] MEDS: SODIUM CHLORIDE 0.45% 1,000 ML IV SCH ×2 (03:00→16:26)
[2017-05-11] MEDS: NOREPINEPHRINE BITARTRATE IV SCH (03:22)
[2017-05-11] MEDS: DEXTROSE 5% IV SCH (03:22)
[2017-05-11] MEDS: WATER IV SCH (03:22)
[2017-05-11] MEDS: glipiZIDE 5 MG TABLET (FP) PO SCH (06:07)
[2017-05-11] MEDS: INSULIN SLIDING SCALE (NOVOLOG) 1 VIAL SQ SCH ×4 (06:09→21:49)
[2017-05-11 06:14] LABS: MCH 26.9 pg (25.7-33.7); MCHC 31.3 g/dl (32.0-35.9); MEAN PLT VOLUME 9.5 fl (7.5-11.1); PLATELET COUNT 265 K/MM3 (134-434); RDW 16.7 % (11.9-15.9)
[2017-05-11 06:46] LABS: ALBUMIN 1.5 g/dl (3.4-5.0); ANION GAP 11 (8-16); CALCIUM 8.4 mg/dL (8.5-10.1); CO2 22 mmol/L (21-32); GLUCOSE,RANDOM 194 mg/dL (74-106); MAGNESIUM 2.5 mg/dL (1.8-2.4); PHOSPHOROUS 6.1 mg/dL (2.5-4.9); SGOT/AST 25 U/L (15-37)
[2017-05-11 06:48] LABS: ALK PHOS 55 U/L (45-117); BILIRUBIN,TOTAL 0.4 mg/dL (0.2-1.0); CREATININE 3.9 mg/dL (0.7-1.3); SGPT/ALT 18 U/L (12-78); TOT PROT 4.5 g/dl (6.4-8.2)
[2017-05-11 07:35] LABS: ARTERIAL BLD GAS O2 SATURATION 92.7 % (90-98.9); ARTERIAL BLOOD GAS BASE EXCESS -7.5 meq/l (-2-2); ARTERIAL BLOOD GAS HCO3 19.9 meq/L (22-26); ARTERIAL BLOOD GAS PO2 75.2 mmHg (80-100)
[2017-05-11 07:37] LABS: ALLENS TEST POSITIVE; ART PUNCT SITE RIGHT RADIAL; ARTERIAL BLOOD GAS pH 7.21 (7.35-7.45); LPM/O2% 65%; PT. ON O2? YES
[2017-05-11 07:38] LABS: MECH. VENT. Y; TYPE OF O2 VENT; VENT RATE 14; VT/PRESS 500
--- NOTE | 2017-05-11 08:22 | PN ---
Physical Exam: SUBJECTIVE: Pt seen and examined in the ICU. Remains intubated, sedated on levophed gtt. Febrile overnight. OBJECTIVE: Vital Signs Period Temp Pulse Resp BP Sys/Yanez Pulse Ox Last 24 Hr 98.9 F-100.8 F 93-104 18-93 72-124/43-55 93-93 Constitutional: Yes: Other (intubated) Eyes: Yes: Other (nonresponsive) Cardiovascular: Yes: Regular Rate and Rhythm Respiratory: Yes: Diminished, more so on right. 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 Edema: No Peripheral Pulses WNL: Yes Integumentary: Yes: WNL Neurological: sedated Laboratory Results - last 24 hr 05/10/17 05/10/17 05/10/17 06:10 10:41 17:44 WBC RBC Hgb Hct MCV MCH MCHC RDW Plt Count MPV Neutrophils % Lymphocytes % Puncture Site ABG pH ABG pCO2 at Pt Temp ABG pO2 at Pt Temp ABG HCO3 ABG O2 Sat (Measured) ABG O2 Content ABG Base Excess Foster Test O2 Delivery Device Oxygen Flow Rate Vent Mode Vent Rate Mechanical Rate PEEP Pressure Support Vent Sodium 149 H Potassium 3.7 Chloride 118 H Carbon Dioxide 23 Anion Gap 8 BUN 57 H Creatinine 2.8 H Creat Clearance w eGFR 22.58 POC Glucometer 266.25578 232.79252 Random Glucose 216 H D Calcium 8.5 Phosphorus Magnesium Total Bilirubin 0.4 D AST 32 ALT 19 Alkaline Phosphatase 59 Total Protein 4.8 L Albumin 1.7 L 05/10/17 05/11/17 05/11/17 21:57 05:55 05:55 WBC 36.0 H* RBC 3.46 L Hgb 9.3 L Hct 29.7 L MCV 86.0 MCH 26.9 MCHC 31.3 L RDW 16.7 H Plt Count 265 MPV 9.5 Neutrophils % Y Lymphocytes % Y Puncture Site ABG pH ABG pCO2 at Pt Temp ABG pO2 at Pt Temp ABG HCO3 ABG O2 Sat (Measured) ABG O2 Content ABG Base Excess Foster Test O2 Delivery Device Oxygen Flow Rate Vent Mode Vent Rate Mechanical Rate PEEP Pressure Support Vent Sodium 146 H Potassium 3.6 Chloride 113 H Carbon Dioxide 22 Anion Gap 11 BUN 65 H Creatinine 3.9 H D Creat Clearance w eGFR 15.41 POC Glucometer [phone] Random Glucose 194 H Calcium 8.4 L Phosphorus 6.1 H Magnesium 2.5 H Total Bilirubin 0.4 AST 25 D ALT 18 Alkaline Phosphatase 55 Total Protein 4.5 L Albumin 1.5 L 05/11/17 07:30 WBC RBC Hgb Hct MCV MCH MCHC RDW Plt Count MPV Neutrophils % Lymphocytes % Puncture Site Right radial ABG pH 7.21 L* ABG pCO2 at Pt Temp 52.3 H ABG pO2 at Pt Temp 75.2 L ABG HCO3 19.9 L ABG O2 Sat (Measured) 92.7 ABG O2 Content 12.7 L ABG Base Excess -7.5 L Foster Test Positive O2 Delivery Device Vent Oxygen Flow Rate 65% Vent Mode A/c Vent Rate 14 Mechanical Rate Y PEEP 8.0 Pressure Support Vent 500 Sodium Potassium Chloride Carbon Dioxide Anion Gap BUN Creatinine Creat Clearance w eGFR POC Glucometer Random Glucose Calcium Phosphorus Magnesium Total Bilirubin AST ALT Alkaline Phosphatase Total Protein Albumin Active Medications Generic Name Dose Route Start Last Admin Trade Name Freq PRN Reason Stop Dose Admin Acetaminophen 650 mg 05/10/17 00:55 05/10/17 18:01 Tylenol - PO 650 mg Q4H PRN Administration FEVER OR PAIN Amlodipine Besylate 10 mg 05/01/17 10:00 05/07/17 10:00 Norvasc - PO Not Given DAILY [facility] Aspirin 325 mg 05/05/17 12:15 05/10/17 10:15 Asa - NGT 325 mg DAILY [facility] Administration Atorvastatin Calcium 40 mg 05/02/17 22:00 05/10/17 21:47 Lipitor - PO 40 mg HS [facility] Administration Bacitracin/Polymyxin B Sulfate 1 applic 05/01/17 10:00 05/10/17 21:47 Polysporin Ointment - TP 1 applic BID [facility] Administration Chlorhexidine Gluconate 1 applic 04/30/17 22:00 05/10/17 21:46 Hibiclens For Decolonization - TP 1 applic HS [facility] Administration Fenofibric Acid 135 mg 05/01/17 10:00 05/10/17 10:17 Trilipix - PO Not Given DAILY [facility] Glipizide 5 mg 05/01/17 07:00 05/11/17 06:07 Glucotrol - PO 5 mg DAILY@0700 [facility] Administration Metronidazole 100 mls @ 100 mls/hr 04/30/17 18:00 05/11/17 01:41 Flagyl 500mg Premixed Ivpb - IVPB 100 mls/hr Q8H-IV [facility] Administration Ampicillin Sodium 1 gm/ Sodium 100 mls @ 200 mls/hr 05/04/17 14:15 05/11/17 01: 41 Chloride IVPB 200 mls/hr Q8H-IV [facility] Administration Pantoprazole Sodium 100 mls @ 200 mls/hr 05/06/17 10:00 05/10/17 10:16 Protonix 40mg Ivpb (Pre-Docked) IVPB 200 mls/hr DAILY [facility] Administration Propofol 100 mls @ 3.599 mls/hr 05/06/17 08:30 05/11/17 06:08 Diprivan - IVPB 35 mcg/kg/min TITR [facility]W Titration Protocol 5 MCG/KG/MIN Vasopressin 50 units/ Sodium 100 mls @ 4 mls/hr 05/06/17 23:45 05/10/17 23:30 Chloride IVPB Not Given ASDIR MATTHEW Protocol 2 UNITS/HR Sodium Chloride 1,000 mls @ 75 mls/hr 05/07/17 13:30 05/11/17 03:00 1/2 Normal Saline IV 75 mls/hr ASDIR MATTHEW Administration Meropenem 1 gm/ Dextrose 100 mls @ 200 mls/hr 05/09/17 10:45 05/11/17 01:41 IVPB 200 mls/hr Q8H-IV [facility] Administration Norepinephrine Bitartrate 8, 508 mls @ 19.05 mls/hr 05/10/17 02:01 05/11/17 06: 08 000 mcg/ Dextrose IV 12 mcg/min TITR MATTHEW Titration Protocol 5 MCG/MIN Insulin Aspart 1 vial 05/04/17 17:15 05/11/17 06:09 Novolog Vial Sliding Scale - SQ 4 units ACHS MATTHEW Administration Protocol Lisinopril 40 mg 05/01/17 10:00 05/07/17 10:00 Prinivil PO Not Given DAILY [facility] Metoprolol Tartrate 25 mg 04/30/17 22:00 05/07/17 10:00 Lopressor - PO Not Given BID [facility] Metoprolol Tartrate 5 mg 05/02/17 22:14 05/04/17 09:30 Lopressor Injection - IVPUSH 5 mg Q4H PRN Administration HR >100 Tamsulosin HCl 0.4 mg 05/01/17 08:30 05/10/17 09:36 Flomax - PO Not Given DAILY@0830 [facility] Vancomycin HCl 125 mg 05/10/17 18:00 05/11/17 06:08 Vancomycin Oral Solution PO 125 mg Q6HPO [facility] Administration ASSESSMENT/PLAN: 67 yo M presented to the ER with a complaint of diarrhea and weakness for the past 2 weeks. Was found to be positive for C Diff and admitted. Was in ICU and code rayo called and patient given TPA ID Continue Meroponem 1gm, Vancomycin 125mg Respiratory - taper fiO2, PEEP to keep SpO2 >90% - mucomyst Cardiovascular - levophed and vasopressin gtt to maintain MAP >65 - discuss with cardiology ?anticoagulation for atrial flutter - IVF keep CVP 8-12 - On Aspirin Renal - f/u nephrology - Follow up renal status Endocrinology - tight glycemic control, continue Glipizide C. Diff treatment on going, contact precautions being observed Continue ICU monitoring DVT PPX, on SCD boots bed percussion enteral feeds poor overall prognosis for meaningful recovery Visit type - Emergency Visit Emergency Visit: No - New Patient This patient is new to me today: No - Critical Care Critical Care patient: Yes Total Critical Care Time (in minutes): 30 Critical Care Statement: The care of this patient involved high complexity decision making to prevent further life threatening deterioration of the patient 's condition and/or to evaluate & treat vital organ system(s) failure or risk of failure.
[2017-05-11 08:53] LABS: PLATELET ESTIMATE ADEQUATE (NORMAL)
[2017-05-11 08:55] LABS: PLATELET COMMENT2 NO CLOTTING DETECTED; TOTAL CELLS COUNTED 100
[2017-05-11] MEDS: ASPIRIN 325 MG TABLET NGT SCH (09:37)
[2017-05-11] MEDS: PANTOPRAZOLE SODIUM 100 ML IVPB SCH (09:37)
[2017-05-11] MEDS: TAMSULOSIN HCL 0.4 MG CAP.ER.24H (FP) PO SCH (09:38)
[2017-05-11] MEDS: PROPOFOL 100 ML IVPB SCH (09:38)
[2017-05-11] MEDS: BACITRACIN/POLYMYXIN B SULFATE 15 GM TUBE TP SCH ×2 (09:39→21:37)
[2017-05-11] MEDS: FENOFIBRIC ACID 135 MG CAP PO SCH (09:40)
--- NOTE | 2017-05-11 10:57 | PN ---
Progress Note (short form) - Note Progress Note: Neurology History of Present Illness 67 yo M presented to the ER with a complaint of diarrhea and weakness for the past 2 weeks. Was found to be positive for C Diff and admitted. I was contacted for consultation for acute R sided weakness, aphasia, and confusion. Patient was given TPA, remains in ICU and continued close monitoring. MRI brain showed L MCA infarct. 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 CD reviewed and did not show HD significant stenosis. Morning of had respiratory distress and failure, required intubation, sedation, on mechanical ventilation. No significant improvements in respiratory status thus far. Not over breathing the vent. Remains on sedation and blood pressure support with Levophed. On Holter monitoring for arrythmia monitoring. Remains febrile with white count elevation. On Abx, neurologically no new events, under close monitoring in ICU. Active Medications Acetaminophen (Tylenol -) 650 mg PO Q4H PRN PRN Reason: FEVER OR PAIN Last Admin: 05/10/17 18:01 Dose: 650 mg Amlodipine Besylate (Norvasc -) 10 mg PO DAILY [facility] Last Admin: 05/07/17 10:00 Dose: Not Given Aspirin (Asa -) 325 mg NGT DAILY [facility] Last Admin: 05/11/17 09:37 Dose: 325 mg Atorvastatin Calcium (Lipitor -) 40 mg PO HS [facility] Last Admin: 05/10/17 21:47 Dose: 40 mg Bacitracin/Polymyxin B Sulfate (Polysporin Ointment -) 1 applic TP BID [facility] Last Admin: 05/11/17 09:39 Dose: 1 applic Chlorhexidine Gluconate (Hibiclens For Decolonization -) 1 applic TP HS [facility] Last Admin: 05/10/17 21:46 Dose: 1 applic Fenofibric Acid (Trilipix -) 135 mg PO DAILY [facility] Last Admin: 05/11/17 09:40 Dose: Not Given Glipizide (Glucotrol -) 5 mg PO DAILY@0700 [facility] Last Admin: 05/11/17 06:07 Dose: 5 mg Metronidazole (Flagyl 500mg Premixed Ivpb -) 100 mls @ 100 mls/hr IVPB Q8H-IV [facility] Last Admin: 05/11/17 09:37 Dose: 100 mls/hr Ampicillin Sodium 1 gm/ Sodium (Chloride) 100 mls @ 200 mls/hr IVPB Q8H-IV [facility] Last Admin: 05/11/17 09:36 Dose: 200 mls/hr Pantoprazole Sodium (Protonix 40mg Ivpb (Pre-Docked)) 100 mls @ 200 mls/hr IVPB DAILY [facility] Last Admin: 05/11/17 09:37 Dose: 200 mls/hr Propofol (Diprivan -) 100 mls @ 3.599 mls/hr IVPB TITR [facility]; 5 MCG/KG/MIN PRN Reason: Protocol Last Admin: 05/11/17 09:38 Dose: 25.4 mls/hr Vasopressin 50 units/ Sodium (Chloride) 100 mls @ 4 mls/hr IVPB ASDIR MATTHEW; 2 UNITS/HR PRN Reason: Protocol Last Admin: 05/10/17 23:30 Dose: Not Given Sodium Chloride (1/2 Normal Saline) 1,000 mls @ 75 mls/hr IV [facility]IR [facility] Last Admin: 05/11/17 03:00 Dose: 75 mls/hr Meropenem 1 gm/ Dextrose 100 mls @ 200 mls/hr IVPB Q8H-IV [facility] Last Admin: 05/11/17 09:36 Dose: 200 mls/hr Norepinephrine Bitartrate 8, (000 mcg/ Dextrose) 508 mls @ 19.05 mls/hr IV TITR MATTHEW; 5 MCG/MIN PRN Reason: Protocol Last Titration: 05/11/17 06:08 Dose: 12 mcg/min Insulin Aspart (Novolog Vial Sliding Scale -) 1 vial SQ ACHS [facility]W PRN Reason: Protocol Last Admin: 05/11/17 06:09 Dose: 4 units Lisinopril (Prinivil) 40 mg PO DAILY [facility] Last Admin: 05/07/17 10:00 Dose: Not Given Metoprolol Tartrate (Lopressor -) 25 mg PO BID [facility] Last Admin: 05/07/17 10:00 Dose: Not Given Metoprolol Tartrate (Lopressor Injection -) 5 mg IVPUSH Q4H PRN PRN Reason: HR >100 Last Admin: 05/04/17 09:30 Dose: 5 mg Tamsulosin HCl (Flomax -) 0.4 mg PO DAILY@0830 [facility] Last Admin: 05/11/17 09:38 Dose: Not Given Vancomycin HCl (Vancomycin Oral Solution) 125 mg PO Q6HPO [facility] Last Admin: 05/11/17 06:08 Dose: 125 mg *Physical Exam Vital Signs 05/11/17 05/11/17 05/11/17 04:00 04:12 06:00 Temperature 98.9 F Pulse Rate 98 H 96 H Respiratory 22 21 27 H Rate Blood Pressure 89/46 72/43 O2 Sat by Pulse Oximetry (%) 05/11/17 05/11/17 05/11/17 06:36 08:00 09:00 Temperature Pulse Rate 94 H Respiratory 29 H 25 H 25 H Rate Blood Pressure 89/46 O2 Sat by Pulse 95 Oximetry (%) 05/11/17 05/11/17 05/11/17 09:36 09:40 10:00 Temperature 99.6 F Pulse Rate 96 H 98 H 92 H Respiratory 24 24 25 H Rate Blood Pressure 112/46 107/49 O2 Sat by Pulse 95 Oximetry (%) 05/11/17 10:14 Temperature Pulse Rate Respiratory Rate Blood Pressure O2 Sat by Pulse 95 Oximetry (%) Sedated, not following commands Unable to evaluate R hemineglect RRR, no murmur Lungs clear Abdomen soft, NT Aphasic previously, unclear 2/2 sedation at this time R facial droop mild at this point Was moving RUE and LUE grossly previously, not participating in confrontation testing Was moving R leg stump but remains sedated Sensory not able to assess Gait deferred CBCD WBC 36.0 K/mm3 (4.0-10.0) H* 05/11/17 05:55 RBC 3.46 M/mm3 (4.00-5.60) L 05/11/17 05:55 Hgb 9.3 GM/dL (11.7-16.9) L 05/11/17 05:55 Hct 29.7 % (35.4-49) L 05/11/17 05:55 MCV 86.0 fl (80-96) 05/11/17 05:55 MCHC 31.3 g/dl (32.0-35.9) L 05/11/17 05:55 RDW 16.7 % (11.9-15.9) H 05/11/17 05:55 Plt Count 265 K/MM3 (134-434) 05/11/17 05:55 MPV 9.5 fl (7.5-11.1) 05/11/17 05:55 CMP Sodium 146 mmol/L (136-145) H 05/11/17 05:55 Potassium 3.6 mmol/L (3.5-5.1) 05/11/17 05:55 Chloride 113 mmol/L (98-107) H 05/11/17 05:55 Carbon Dioxide 22 mmol/L (21-32) 05/11/17 05:55 Anion Gap 11 (8-16) 05/11/17 05:55 BUN 65 mg/dL (7-18) H 05/11/17 05:55 Creatinine 3.9 mg/dL (0.7-1.3) H D 05/11/17 05:55 Creat Clearance w eGFR 15.41 (>60) 05/11/17 05:55 Calcium 8.4 mg/dL (8.5-10.1) L 05/11/17 05:55 Total Bilirubin 0.4 mg/dL (0.2-1.0) 05/11/17 05:55 AST 25 U/L (15-37) D 05/11/17 05:55 ALT 18 U/L (12-78) 05/11/17 05:55 Alkaline Phosphatase 55 U/L (45-117) 05/11/17 05:55 Total Protein 4.5 g/dl (6.4-8.2) L 05/11/17 05:55 Albumin 1.5 g/dl (3.4-5.0) L 05/11/17 05:55 Ct head reviewed CD reviewed MRI brain reviewed MRA brain reviewed Plan: 67 yo M presented to the ER with a complaint of diarrhea and weakness for the past 2 weeks. Was found to be positive for C Diff and admitted. Was in ICU and code rayo called and patient given TPA. Subsequent with improving RLE strength, now 5-/5. Patient also moving RUE but not following commands fully yet. MRI, MRA , CD, as described above. Patient on aggrenox and statin Cardiology following Remains intubated and mechically ventilated Physical therapy on hold On levophed blood pressure support, code status is DNR tight glycemic control, continue Glipizide Continue ICU monitoring C. Diff treatment on going, contact precautions being observed Contact precautions DVT PPX, on SCD boots No new neurologic event Critical care time 35 mins total.
--- NOTE | 2017-05-11 11:58 | PN ---
Teaching Attending Note Name of Resident: Edwardo Rucker ATTENDING PHYSICIAN STATEMENT I saw and evaluated the patient. I reviewed the resident's note and discussed the case with the resident. I agree with the resident's findings and plan as documented. SUBJECTIVE: Pt seen and examined in the ICU. Remains intubated, sedated on levophed gtt. Febrile overnight. OBJECTIVE: Last Vital Signs Temp Pulse Resp BP Pulse Ox 99.6 F 92 H 19 107/49 95 05/11/17 10:00 05/11/17 10:00 05/11/17 11:10 05/11/17 10:00 05/11/17 10:14 Intake & Output 05/08/17 05/09/17 05/10/17 05/11/17 23:59 23:59 23:59 23:59 Intake Total 2501 5262 6542.8 3016 Output Total 1400 430 680 200 Balance 1101 4832 5862.8 2816 Weight 269 lb 2.951 oz 271 lb 2.697 oz 289 lb 292 lb Gen: intubated, sedated Heart: RRR Lung: scattered rhonchi Abd: soft, nontender Ext: + edema CBC, BMP 05/11/17 05:55 05/11/17 05:55 Active Medications Acetaminophen (Tylenol -) 650 mg PO Q4H PRN PRN Reason: FEVER OR PAIN Last Admin: 05/10/17 18:01 Dose: 650 mg Amlodipine Besylate (Norvasc -) 10 mg PO DAILY [facility] Last Admin: 05/07/17 10:00 Dose: Not Given Aspirin (Asa -) 325 mg NGT DAILY [facility] Last Admin: 05/11/17 09:37 Dose: 325 mg Atorvastatin Calcium (Lipitor -) 40 mg PO HS [facility] Last Admin: 05/10/17 21:47 Dose: 40 mg Bacitracin/Polymyxin B Sulfate (Polysporin Ointment -) 1 applic TP BID [facility] Last Admin: 05/11/17 09:39 Dose: 1 applic Chlorhexidine Gluconate (Hibiclens For Decolonization -) 1 applic TP HS [facility] Last Admin: 05/10/17 21:46 Dose: 1 applic Fenofibric Acid (Trilipix -) 135 mg PO DAILY [facility] Last Admin: 05/11/17 09:40 Dose: Not Given Glipizide (Glucotrol -) 5 mg PO DAILY@0700 [facility] Last Admin: 05/11/17 06:07 Dose: 5 mg Metronidazole (Flagyl 500mg Premixed Ivpb -) 100 mls @ 100 mls/hr IVPB Q8H-IV [facility] Last Admin: 05/11/17 09:37 Dose: 100 mls/hr Ampicillin Sodium 1 gm/ Sodium (Chloride) 100 mls @ 200 mls/hr IVPB Q8H-IV [facility] Last Admin: 05/11/17 09:36 Dose: 200 mls/hr Pantoprazole Sodium (Protonix 40mg Ivpb (Pre-Docked)) 100 mls @ 200 mls/hr IVPB DAILY [facility] Last Admin: 05/11/17 09:37 Dose: 200 mls/hr Propofol (Diprivan -) 100 mls @ 3.599 mls/hr IVPB TITR [facility]; 5 MCG/KG/MIN PRN Reason: Protocol Last Admin: 05/11/17 09:38 Dose: 25.4 mls/hr Vasopressin 50 units/ Sodium (Chloride) 100 mls @ 4 mls/hr IVPB ASDIR [facility]; 2 UNITS/HR PRN Reason: Protocol Last Admin: 05/10/17 23:30 Dose: Not Given Sodium Chloride (1/2 Normal Saline) 1,000 mls @ 75 mls/hr IV ASDIR [facility] Last Admin: 05/11/17 03:00 Dose: 75 mls/hr Meropenem 1 gm/ Dextrose 100 mls @ 200 mls/hr IVPB Q8H-IV [facility] Last Admin: 05/11/17 09:36 Dose: 200 mls/hr Norepinephrine Bitartrate 8, (000 mcg/ Dextrose) 508 mls @ 19.05 mls/hr IV TITR [facility]W; 5 MCG/MIN PRN Reason: Protocol Last Titration: 05/11/17 06:08 Dose: 12 mcg/min Insulin Aspart (Novolog Vial Sliding Scale -) 1 vial SQ ACHS [facility] PRN Reason: Protocol Last Admin: 05/11/17 06:09 Dose: 4 units Lisinopril (Prinivil) 40 mg PO DAILY [facility] Last Admin: 05/07/17 10:00 Dose: Not Given Metoprolol Tartrate (Lopressor -) 25 mg PO BID [facility] Last Admin: 05/07/17 10:00 Dose: Not Given Metoprolol Tartrate (Lopressor Injection -) 5 mg IVPUSH Q4H PRN PRN Reason: HR >100 Last Admin: 05/04/17 09:30 Dose: 5 mg Tamsulosin HCl (Flomax -) 0.4 mg PO DAILY@0830 [facility] Last Admin: 05/11/17 09:38 Dose: Not Given Vancomycin HCl (Vancomycin Oral Solution) 125 mg PO Q6HPO [facility] Last Admin: 05/11/17 06:08 Dose: 125 mg ASSESSMENT AND PLAN: Acute Hypoxic Respiratory Failure Left Atelectasis improving Acute CVA r/o C Diff Colitis UTI Septic Shock Acute Kidney Injury Suprapubic Catheter COPD DM Atrial Flutter - continue antibiotics per ID - chest PT, mucomyst - bed percussion - levophed gtt to maintain MAP >65 - IVF keep CVP 8-12 - monitor urine output, creatinine - renal f/u - discuss with cardiology ?anticoagulation for atrial flutter - taper fiO2, PEEP to keep SpO2 >90% - enteral feeds - continue free water - continue ICU monitoring - poor overall prognosis for meaningful recovery critical care time spent in reviewing chart, evaluating patient and formulating plan 35 min
[2017-05-11] MEDS ORDERED: NOREPINEPHRINE BITARTRATE 4 MG/4 ML ML IV ONE ×2 (12:50→20:06)
--- NOTE | 2017-05-11 15:09 | PN ---
Progress Note (short form) - Note Progress Note: seen at bedside in icu resp failure sedated, on vent s/p cva sepsis hypernatremia Prerenal azotemia- now oliguric ARF Current Medications Acetaminophen (Tylenol -) 650 mg PO Q4H PRN PRN Reason: FEVER OR PAIN Last Admin: 05/10/17 18:01 Dose: 650 mg Amlodipine Besylate (Norvasc -) 10 mg PO DAILY [facility] Last Admin: 05/07/17 10:00 Dose: Not Given Aspirin (Asa -) 325 mg NGT DAILY [facility] Last Admin: 05/11/17 09:37 Dose: 325 mg Atorvastatin Calcium (Lipitor -) 40 mg PO HS [facility] Last Admin: 05/10/17 21:47 Dose: 40 mg Bacitracin/Polymyxin B Sulfate (Polysporin Ointment -) 1 applic TP BID [facility] Last Admin: 05/11/17 09:39 Dose: 1 applic Chlorhexidine Gluconate (Hibiclens For Decolonization -) 1 applic TP HS [facility] Last Admin: 05/10/17 21:46 Dose: 1 applic Fenofibric Acid (Trilipix -) 135 mg PO DAILY [facility] Last Admin: 05/11/17 09:40 Dose: Not Given Glipizide (Glucotrol -) 5 mg PO DAILY@0700 [facility] Last Admin: 05/11/17 06:07 Dose: 5 mg Metronidazole (Flagyl 500mg Premixed Ivpb -) 100 mls @ 100 mls/hr IVPB Q8H-IV [facility] Last Admin: 05/11/17 09:37 Dose: 100 mls/hr Pantoprazole Sodium (Protonix 40mg Ivpb (Pre-Docked)) 100 mls @ 200 mls/hr IVPB DAILY [facility] Last Admin: 05/11/17 09:37 Dose: 200 mls/hr Propofol (Diprivan -) 100 mls @ 3.599 mls/hr IVPB TITR [facility]W; 5 MCG/KG/MIN PRN Reason: Protocol Last Admin: 05/11/17 09:38 Dose: 25.4 mls/hr Vasopressin 50 units/ Sodium (Chloride) 100 mls @ 4 mls/hr IVPB ASDIR [facility]W; 2 UNITS/HR PRN Reason: Protocol Last Admin: 05/10/17 23:30 Dose: Not Given Sodium Chloride (1/2 Normal Saline) 1,000 mls @ 75 mls/hr IV ASDIR [facility] Last Admin: 05/11/17 03:00 Dose: 75 mls/hr Meropenem 1 gm/ Dextrose 100 mls @ 200 mls/hr IVPB Q8H-IV [facility] Last Admin: 05/11/17 09:36 Dose: 200 mls/hr Norepinephrine Bitartrate 8, (000 mcg/ Dextrose) 508 mls @ 19.05 mls/hr IV TITR [facility]W; 5 MCG/MIN PRN Reason: Protocol Last Titration: 05/11/17 06:08 Dose: 12 mcg/min Insulin Aspart (Novolog Vial Sliding Scale -) 1 vial SQ ACHS [facility] PRN Reason: Protocol Last Admin: 05/11/17 12:40 Dose: 4 units Lisinopril (Prinivil) 40 mg PO DAILY [facility] Last Admin: 05/07/17 10:00 Dose: Not Given Metoprolol Tartrate (Lopressor -) 25 mg PO BID [facility] Last Admin: 05/07/17 10:00 Dose: Not Given Metoprolol Tartrate (Lopressor Injection -) 5 mg IVPUSH Q4H PRN PRN Reason: HR >100 Last Admin: 05/04/17 09:30 Dose: 5 mg Tamsulosin HCl (Flomax -) 0.4 mg PO DAILY@0830 [facility] Last Admin: 05/11/17 09:38 Dose: Not Given Vancomycin HCl (Vancomycin Oral Solution) 125 mg PO Q6HPO [facility] Last Admin: 05/11/17 12:40 Dose: 125 mg Last Vital Signs Temp Pulse Resp BP Pulse Ox 99.4 F 102 H 17 131/54 95 05/11/17 13:04 05/11/17 13:04 05/11/17 14:16 05/11/17 13:04 05/11/17 10:14 on vent sedated anasarca lungs clear vented heart soft distant Abd soft Ext min edema, R BKA CBC, BMP 05/11/17 05:55 05/11/17 05:55 IMP - Hypernatremia on hypotonic IVF, continues to trend down Na 146 from 149 Sepsis - hypotensive, marked leukocytosis, less tachycardic, now on pressors BILL oliguric- now renal function getting worse, 2/2 low bp and probably intravascular volume depletion likely ATN now Plan- no indication for hemodialysis poor prognosis probably would not not benefit from fdc HD
--- NOTE | 2017-05-11 16:35 | PN ---
Progress Note, Physician History of Present Illness: patient intubated and sedated confines to be critical no fevers still with loose stools still with high wbc - Current Medication List Current Medications: Active Medications Acetaminophen (Tylenol -) 650 mg PO Q4H PRN PRN Reason: FEVER OR PAIN Last Admin: 05/10/17 18:01 Dose: 650 mg Amlodipine Besylate (Norvasc -) 10 mg PO DAILY [facility] Last Admin: 05/07/17 10:00 Dose: Not Given Aspirin (Asa -) 325 mg NGT DAILY [facility] Last Admin: 05/11/17 09:37 Dose: 325 mg Atorvastatin Calcium (Lipitor -) 40 mg PO HS [facility] Last Admin: 05/10/17 21:47 Dose: 40 mg Bacitracin/Polymyxin B Sulfate (Polysporin Ointment -) 1 applic TP BID [facility] Last Admin: 05/11/17 09:39 Dose: 1 applic Chlorhexidine Gluconate (Hibiclens For Decolonization -) 1 applic TP HS [facility] Last Admin: 05/10/17 21:46 Dose: 1 applic Fenofibric Acid (Trilipix -) 135 mg PO DAILY [facility] Last Admin: 05/11/17 09:40 Dose: Not Given Glipizide (Glucotrol -) 5 mg PO DAILY@0700 [facility] Last Admin: 05/11/17 06:07 Dose: 5 mg Heparin Sodium (Porcine) (Heparin -) 5,000 unit SQ TID [facility] Metronidazole (Flagyl 500mg Premixed Ivpb -) 100 mls @ 100 mls/hr IVPB Q8H-IV [facility] Last Admin: 05/11/17 09:37 Dose: 100 mls/hr Pantoprazole Sodium (Protonix 40mg Ivpb (Pre-Docked)) 100 mls @ 200 mls/hr IVPB DAILY [facility] Last Admin: 05/11/17 09:37 Dose: 200 mls/hr Propofol (Diprivan -) 100 mls @ 3.599 mls/hr IVPB TITR [facility]; 5 MCG/KG/MIN PRN Reason: Protocol Last Admin: 05/11/17 09:38 Dose: 25.4 mls/hr Vasopressin 50 units/ Sodium (Chloride) 100 mls @ 4 mls/hr IVPB ASDIR [facility]; 2 UNITS/HR PRN Reason: Protocol Last Admin: 05/10/17 23:30 Dose: Not Given Sodium Chloride (1/2 Normal Saline) 1,000 mls @ 75 mls/hr IV ASDIR [facility] Last Admin: 05/11/17 16:26 Dose: 75 mls/hr Meropenem 1 gm/ Dextrose 100 mls @ 200 mls/hr IVPB Q8H-IV [facility] Last Admin: 05/11/17 09:36 Dose: 200 mls/hr Norepinephrine Bitartrate 8, (000 mcg/ Dextrose) 508 mls @ 19.05 mls/hr IV TITR [facility]THEW; 5 MCG/MIN PRN Reason: Protocol Last Titration: 05/11/17 06:08 Dose: 12 mcg/min Insulin Aspart (Novolog Vial Sliding Scale -) 1 vial SQ ACHS [facility] PRN Reason: Protocol Last Admin: 05/11/17 16:26 Dose: 4 units Lisinopril (Prinivil) 40 mg PO DAILY [facility] Last Admin: 05/07/17 10:00 Dose: Not Given Metoprolol Tartrate (Lopressor -) 25 mg PO BID [facility] Last Admin: 05/07/17 10:00 Dose: Not Given Metoprolol Tartrate (Lopressor Injection -) 5 mg IVPUSH Q4H PRN PRN Reason: HR >100 Last Admin: 05/04/17 09:30 Dose: 5 mg Tamsulosin HCl (Flomax -) 0.4 mg PO DAILY@0830 [facility] Last Admin: 05/11/17 09:38 Dose: Not Given Vancomycin HCl (Vancomycin Oral Solution) 125 mg PO Q6HPO [facility] Last Admin: 05/11/17 12:40 Dose: 125 mg - Objective Vital Signs: Vital Signs Temperature 99.4 F 05/11/17 13:04 Pulse Rate 101 H 05/11/17 16:23 Respiratory Rate 25 H 05/11/17 16:23 Blood Pressure 110/45 05/11/17 16:23 O2 Sat by Pulse Oximetry (%) 95 05/11/17 10:14 Constitutional: Yes: Other Cardiovascular: Yes: S1, S2 Respiratory: Yes: Intubated, Mechanically Ventilated Gastrointestinal: Yes: Normal Bowel Sounds, Soft Musculoskeletal: Yes: WNL Extremities: Yes: Other (amputation) Neurological: Yes: Other Labs: CBC, BMP 05/11/17 05:55 05/11/17 05:55 INR, PTT INR 1.28 (0.82-1.09) H 04/30/17 12:05 - ....Imaging Chest X-ray: Report Reviewed, Image Reviewed Assessment/Plan Acute Hypoxic Respiratory Failure Left Atelectasis Acute CVA UTI Septic Shock Acute Kidney Injury Suprapubic Catheter COPD DM dirrhoea plan continue current abx monitor for fevers follow wbc still wiht loose stools nutrition await for repeat cx send from central line rest as per icu cc 40 min
[2017-05-11] MEDS ORDERED: PROPOFOL 100 ML ONE (21:31)
[2017-05-11] MEDS: HEPARIN NA (PORCINE) 5,000 UNITS/ML 1ML VIAL SQ SCH (21:32)
[2017-05-11] MEDS: CHLORHEXIDINE GLUCONATE 4% CLEANSER FOR DECOLONIZATION TP SCH (21:32)
[2017-05-11] MEDS: ATORVASTATIN CA 40 MG TABLET (FP) PO SCH (21:32)
[2017-05-12] MEDS: VANCOMYCIN 250 MG/5 ML ORAL SOLUTION PO SCH ×4 (00:12→17:41)
[2017-05-12] MEDS ORDERED: NOREPINEPHRINE BITARTRATE 4 MG/4 ML ML IV ONE ×4 (01:10→20:18)
[2017-05-12] MEDS: MEROPENEM 1 GM in DEXTROSE 5%-WATER - 100 ML IVPB SCH ×3 (01:13→17:41)
[2017-05-12] MEDS: METRONIDAZOLE 500 MG PREMIXED 100 ML IVPB SCH ×3 (01:13→17:41)
[2017-05-12] MEDS: NOREPINEPHRINE BITARTRATE IV SCH (01:55)
[2017-05-12] MEDS: WATER IV SCH (01:55)
[2017-05-12] MEDS: DEXTROSE 5% IV SCH (01:55)
[2017-05-12 06:12] LABS: MCHC 31.6 g/dl (32.0-35.9); MEAN CELL VOLUME 85.3 fl (80-96); MEAN PLT VOLUME 9.7 fl (7.5-11.1); PLATELET COUNT 299 K/MM3 (134-434); RDW 16.9 % (11.9-15.9); WHITE BLOOD COUNT 27.7 K/mm3 (4.0-10.0)
[2017-05-12] MEDS: HEPARIN NA (PORCINE) 5,000 UNITS/ML 1ML VIAL SQ SCH ×3 (06:26→21:44)
[2017-05-12] MEDS: glipiZIDE 5 MG TABLET (FP) PO SCH (06:27)
[2017-05-12] MEDS: INSULIN SLIDING SCALE (NOVOLOG) 1 VIAL SQ SCH ×4 (06:27→21:47)
[2017-05-12 07:42] LABS: ANION GAP 15 (8-16); CALCIUM 8.1 mg/dL (8.5-10.1); CO2 19 mmol/L (21-32); CREATININE 5.1 mg/dL (0.7-1.3); GLUCOSE,RANDOM 187 mg/dL (74-106)
[2017-05-12] MEDS: TAMSULOSIN HCL 0.4 MG CAP.ER.24H (FP) PO SCH (08:35)
--- NOTE | 2017-05-12 08:48 | PN ---
Physical Exam: SUBJECTIVE: Patient seen and examined. No acute changes since yesterday. OBJECTIVE: Vital Signs Period Temp Pulse Resp BP Sys/Yanez Pulse Ox Last 24 Hr 97.7 F-101.3 F 89-114 17-30 90-131/44-66 95-99 Constitutional: Yes: Other (intubated) Eyes: Yes: Other (nonresponsive) Cardiovascular: Yes: Regular Rate and Rhythm Respiratory: Yes: Diminished, more so on right. 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 Edema: No Peripheral Pulses WNL: Yes Integumentary: Yes: WNL Neurological: sedated Laboratory Results - last 24 hr 05/11/17 05/11/17 05/11/17 05:55 06:09 12:01 WBC 36.0 H* RBC 3.46 L Hgb 9.3 L Hct 29.7 L MCV 86.0 MCH 26.9 MCHC 31.3 L RDW 16.7 H Plt Count 265 MPV 9.5 Total Counted 100 Neutrophils % (Manual) 88 H Band Neuts % (Manual) 4 Lymphocytes % (Manual) 5 L D Monocytes % (Manual) 3 L Platelet Estimate Adequate Platelet Comment No clotting detected Sodium Potassium Chloride Carbon Dioxide Anion Gap BUN Creatinine POC Glucometer 219.72761 226.92584 Random Glucose Calcium 05/11/17 05/12/17 05/12/17 21:44 05:37 05:45 WBC 27.7 H RBC 3.40 L Hgb 9.2 L Hct 29.0 L MCV 85.3 MCH 27.0 MCHC 31.6 L RDW 16.9 H Plt Count 299 MPV 9.7 Total Counted Neutrophils % (Manual) Band Neuts % (Manual) Lymphocytes % (Manual) Monocytes % (Manual) Platelet Estimate Platelet Comment Sodium Potassium Chloride Carbon Dioxide Anion Gap BUN Creatinine POC Glucometer 240.49275 245.77441 Random Glucose Calcium 05/12/17 05:45 WBC RBC Hgb Hct MCV MCH MCHC RDW Plt Count MPV Total Counted Neutrophils % (Manual) Band Neuts % (Manual) Lymphocytes % (Manual) Monocytes % (Manual) Platelet Estimate Platelet Comment Sodium 143 Potassium 2.8 L* D Chloride 109 H Carbon Dioxide 19 L Anion Gap 15 BUN 75 H Creatinine 5.1 H D POC Glucometer Random Glucose 187 H Calcium 8.1 L Active Medications Generic Name Dose Route Start Last Admin Trade Name Freq PRN Reason Stop Dose Admin Acetaminophen 650 mg 05/10/17 00:55 05/10/17 18:01 Tylenol - PO 650 mg Q4H PRN Administration FEVER OR PAIN Amlodipine Besylate 10 mg 05/01/17 10:00 05/07/17 10:00 Norvasc - PO Not Given DAILY [facility] Aspirin 325 mg 05/05/17 12:15 05/11/17 09:37 Asa - NGT 325 mg DAILY [facility] Administration Atorvastatin Calcium 40 mg 05/02/17 22:00 05/11/17 21:32 Lipitor - PO 40 mg HS [facility] Administration Bacitracin/Polymyxin B Sulfate 1 applic 05/01/17 10:00 05/11/17 21:37 Polysporin Ointment - TP 1 applic BID [facility] Administration Chlorhexidine Gluconate 1 applic 04/30/17 22:00 05/11/17 21:32 Hibiclens For Decolonization - TP 1 applic HS [facility] Administration Fenofibric Acid 135 mg 05/01/17 10:00 05/11/17 09:40 Trilipix - PO Not Given DAILY [facility] Glipizide 5 mg 05/01/17 07:00 05/12/17 06:27 Glucotrol - PO 5 mg DAILY@0700 [facility] Administration Heparin Sodium (Porcine) 5,000 unit 05/11/17 22:00 05/12/17 06:26 Heparin - SQ 5,000 unit TID [facility] Administration Metronidazole 100 mls @ 100 mls/hr 04/30/17 18:00 05/12/17 01:13 Flagyl 500mg Premixed Ivpb - IVPB 100 mls/hr Q8H-IV [facility] Administration Pantoprazole Sodium 100 mls @ 200 mls/hr 05/06/17 10:00 05/11/17 09:37 Protonix 40mg Ivpb (Pre-Docked) IVPB 200 mls/hr DAILY [facility] Administration Propofol 100 mls @ 3.599 mls/hr 05/06/17 08:30 05/12/17 06:28 Diprivan - IVPB 25 mcg/kg/min TITR [facility]W Titration Protocol 5 MCG/KG/MIN Sodium Chloride 1,000 mls @ 75 mls/hr 05/07/17 13:30 05/11/17 16:26 1/2 Normal Saline IV 75 mls/hr ASDIR [facility] Administration Meropenem 1 gm/ Dextrose 100 mls @ 200 mls/hr 05/09/17 10:45 05/12/17 01:13 IVPB 200 mls/hr Q8H-IV [facility] Administration Norepinephrine Bitartrate 8, 508 mls @ 19.05 mls/hr 05/10/17 02:01 05/12/17 01: 55 000 mcg/ Dextrose IV 53.34 mls/hr TITR [facility]W Administration Protocol 5 MCG/MIN Insulin Aspart 1 vial 05/04/17 17:15 05/12/17 06:27 Novolog Vial Sliding Scale - SQ 4 units ACHS [facility]W Administration Protocol Lisinopril 40 mg 05/01/17 10:00 05/07/17 10:00 Prinivil PO Not Given DAILY [facility] Metoprolol Tartrate 25 mg 04/30/17 22:00 05/07/17 10:00 Lopressor - PO Not Given BID [facility] Metoprolol Tartrate 5 mg 05/02/17 22:14 05/04/17 09:30 Lopressor Injection - IVPUSH 5 mg Q4H PRN Administration HR >100 Tamsulosin HCl 0.4 mg 05/01/17 08:30 05/12/17 08:35 Flomax - PO 0.4 mg DAILY@0830 [facility] Administration Vancomycin HCl 125 mg 05/10/17 18:00 05/12/17 06:27 Vancomycin Oral Solution PO 125 mg Q6HPO [facility] Administration ASSESSMENT/PLAN: 67 yo M presented to the ER with a complaint of diarrhea and weakness for the past 2 weeks. Was found to be positive for C Diff and admitted. Was in ICU and code rayo called and patient given TPA. ID Continue Meroponem 1gm, Vancomycin 125mg Respiratory - taper fiO2, PEEP to keep SpO2 >90% - mucomyst Cardiovascular - levophed and vasopressin gtt to maintain MAP >65 - IVF keep CVP 8-12 Renal - Hypokalemia, attempt for correction with 20meq FCl IV - f/u nephrology - Follow up renal status Endocrinology - tight glycemic control, continue Glipizide Visit type - Emergency Visit Emergency Visit: No - New Patient This patient is new to me today: No - Critical Care Critical Care patient: Yes Total Critical Care Time (in minutes): 30 Critical Care Statement: The care of this patient involved high complexity decision making to prevent further life threatening deterioration of the patient 's condition and/or to evaluate & treat vital organ system(s) failure or risk of failure.
[2017-05-12] MEDS ORDERED: PT OWN MED DRAWER 7, Y5N ONE ×2 (09:34→17:34)
--- NOTE | 2017-05-12 09:37 | PN ---
Progress Note (short form) - Note Progress Note: Neurology History of Present Illness 67 yo M presented to the ER with a complaint of diarrhea and weakness for the past 2 weeks. Was found to be positive for C Diff and admitted. I was contacted for consultation for acute R sided weakness, aphasia, and confusion. Patient was given TPA, remains in ICU and continued close monitoring. MRI brain showed L MCA infarct. 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 CD reviewed and did not show HD significant stenosis. Morning of had respiratory distress and failure, required intubation, sedation, on mechanical ventilation since. No significant improvements in respiratory status thus far. Not over breathing the vent. Remains on sedation and blood pressure support with Levophed. On Holter monitoring for arrythmia monitoring. Has been having intermittent fevers with white count elevation. ID following closely. On Abx, neurologically no new events, but also no significant improvement, remains under close monitoring in ICU. Active Medications Acetaminophen (Tylenol -) 650 mg PO Q4H PRN PRN Reason: FEVER OR PAIN Last Admin: 05/10/17 18:01 Dose: 650 mg Amlodipine Besylate (Norvasc -) 10 mg PO DAILY [facility] Last Admin: 05/07/17 10:00 Dose: Not Given Aspirin (Asa -) 325 mg NGT DAILY [facility] Last Admin: 05/11/17 09:37 Dose: 325 mg Atorvastatin Calcium (Lipitor -) 40 mg PO HS [facility] Last Admin: 05/11/17 21:32 Dose: 40 mg Bacitracin/Polymyxin B Sulfate (Polysporin Ointment -) 1 applic TP BID [facility] Last Admin: 05/11/17 21:37 Dose: 1 applic Chlorhexidine Gluconate (Hibiclens For Decolonization -) 1 applic TP HS [facility] Last Admin: 05/11/17 21:32 Dose: 1 applic Fenofibric Acid (Trilipix -) 135 mg PO DAILY [facility] Last Admin: 05/11/17 09:40 Dose: Not Given Glipizide (Glucotrol -) 5 mg PO DAILY@0700 [facility] Last Admin: 05/12/17 06:27 Dose: 5 mg Heparin Sodium (Porcine) (Heparin -) 5,000 unit SQ TID [facility] Last Admin: 05/12/17 06:26 Dose: 5,000 unit Metronidazole (Flagyl 500mg Premixed Ivpb -) 100 mls @ 100 mls/hr IVPB Q8H-IV [facility] Last Admin: 05/12/17 01:13 Dose: 100 mls/hr Pantoprazole Sodium (Protonix 40mg Ivpb (Pre-Docked)) 100 mls @ 200 mls/hr IVPB DAILY [facility] Last Admin: 05/11/17 09:37 Dose: 200 mls/hr Propofol (Diprivan -) 100 mls @ 3.599 mls/hr IVPB TITR [facility]THEW; 5 MCG/KG/MIN PRN Reason: Protocol Last Titration: 05/12/17 06:28 Dose: 25 mcg/kg/min Sodium Chloride (1/2 Normal Saline) 1,000 mls @ 75 mls/hr IV ASDIR [facility] Last Admin: 05/11/17 16:26 Dose: 75 mls/hr Meropenem 1 gm/ Dextrose 100 mls @ 200 mls/hr IVPB Q8H-IV [facility] Last Admin: 05/12/17 01:13 Dose: 200 mls/hr Norepinephrine Bitartrate 8, (000 mcg/ Dextrose) 508 mls @ 19.05 mls/hr IV TITR MATTHEW; 5 MCG/MIN PRN Reason: Protocol Last Admin: 05/12/17 01:55 Dose: 53.34 mls/hr Insulin Aspart (Novolog Vial Sliding Scale -) 1 vial SQ ACHS [facility]W PRN Reason: Protocol Last Admin: 05/12/17 06:27 Dose: 4 units Lisinopril (Prinivil) 40 mg PO DAILY [facility] Last Admin: 05/07/17 10:00 Dose: Not Given Metoprolol Tartrate (Lopressor -) 25 mg PO BID [facility] Last Admin: 05/07/17 10:00 Dose: Not Given Metoprolol Tartrate (Lopressor Injection -) 5 mg IVPUSH Q4H PRN PRN Reason: HR >100 Last Admin: 05/04/17 09:30 Dose: 5 mg Tamsulosin HCl (Flomax -) 0.4 mg PO DAILY@0830 [facility] Last Admin: 05/12/17 08:35 Dose: 0.4 mg Vancomycin HCl (Vancomycin Oral Solution) 125 mg PO Q6HPO [facility] Last Admin: 05/12/17 06:27 Dose: 125 mg *Physical Exam Vital Signs - 8 hr 05/12/17 05/12/17 05/12/17 02:00 02:55 04:00 Temperature 99.5 F Pulse Rate 97 H 89 Respiratory 20 19 20 Rate Blood Pressure 112/66 120/48 05/12/17 05/12/17 05/12/17 05:04 06:00 07:06 Temperature 99.6 F Pulse Rate 90 Respiratory 26 H 21 23 Rate Blood Pressure 121/46 05/12/17 08:21 Temperature 97.7 F Pulse Rate 92 H Respiratory 30 H Rate Blood Pressure 111/44 Sedated, not following commands RRR, no murmur Mechanical breath sounds Abdomen soft, NT Aphasic previously, unclear 2/2 sedation at this time R facial droop mild at this point Was moving RUE and LUE grossly previously, not participating in confrontation testing Was moving R leg stump but remains sedated Sensory not able to assess Gait deferred CBCD WBC 27.7 K/mm3 (4.0-10.0) H 05/12/17 05:45 RBC 3.40 M/mm3 (4.00-5.60) L 05/12/17 05:45 Hgb 9.2 GM/dL (11.7-16.9) L 05/12/17 05:45 Hct 29.0 % (35.4-49) L 05/12/17 05:45 MCV 85.3 fl (80-96) 05/12/17 05:45 MCHC 31.6 g/dl (32.0-35.9) L 05/12/17 05:45 RDW 16.9 % (11.9-15.9) H 05/12/17 05:45 Plt Count 299 K/MM3 (134-434) 05/12/17 05:45 MPV 9.7 fl (7.5-11.1) 05/12/17 05:45 CMP Sodium 143 mmol/L (136-145) 05/12/17 05:45 Potassium 2.8 mmol/L (3.5-5.1) L* D 05/12/17 05:45 Chloride 109 mmol/L (98-107) H 05/12/17 05:45 Carbon Dioxide 19 mmol/L (21-32) L 05/12/17 05:45 Anion Gap 15 (8-16) 05/12/17 05:45 BUN 75 mg/dL (7-18) H 05/12/17 05:45 Creatinine 5.1 mg/dL (0.7-1.3) H D 05/12/17 05:45 Creat Clearance w eGFR 15.41 (>60) 05/11/17 05:55 Calcium 8.1 mg/dL (8.5-10.1) L 05/12/17 05:45 Total Bilirubin 0.4 mg/dL (0.2-1.0) 05/11/17 05:55 AST 25 U/L (15-37) D 05/11/17 05:55 ALT 18 U/L (12-78) 05/11/17 05:55 Alkaline Phosphatase 55 U/L (45-117) 05/11/17 05:55 Total Protein 4.5 g/dl (6.4-8.2) L 05/11/17 05:55 Albumin 1.5 g/dl (3.4-5.0) L 05/11/17 05:55 Ct head reviewed CD reviewed MRI brain reviewed MRA brain reviewed Plan: 67 yo M presented to the ER with a complaint of diarrhea and weakness for the past 2 weeks. Was found to be positive for C Diff and admitted. Was in ICU and code rayo called and patient given TPA. Subsequent with improving RLE strength, now 5-/5. Patient also moving RUE but not following commands fully yet. MRI, MRA , CD, as described above. Patient on ASA 325 and statin (Aggrenox was not able to be crushed) Cardiology following Remains intubated and mechically ventilated Physical therapy on hold On levophed blood pressure support, code status is DNR tight glycemic control, continue Glipizide Continue ICU monitoring C. Diff treatment on going, contact precautions being observed Contact precautions DVT PPX, on SCD boots No new neurologic event Critical care time 35 mins total.
[2017-05-12] MEDS: PROPOFOL 100 ML IVPB SCH (10:02)
[2017-05-12] MEDS: PANTOPRAZOLE SODIUM 100 ML IVPB SCH (10:05)
[2017-05-12] MEDS: LISINOPRIL 20 MG TABLET (FP) PO SCH ×2 (10:05→10:25)
[2017-05-12] MEDS: BACITRACIN/POLYMYXIN B SULFATE 15 GM TUBE TP SCH ×2 (10:06→21:46)
[2017-05-12] MEDS: ASPIRIN 325 MG TABLET NGT SCH (10:06)
[2017-05-12] MEDS: METOPROLOL TARTRATE 25 MG TABLET (FP) PO SCH ×2 (10:06→21:45)
[2017-05-12] MEDS: FENOFIBRIC ACID 135 MG CAP PO SCH (10:06)
[2017-05-12] MEDS ORDERED: POTASSIUM CHLORIDE 20 MEQ PREMIX IVPB 100 ML IVPB ONE ×2 (10:33→19:55)
--- NOTE | 2017-05-12 10:40 | PN ---
Progress Note, Physician - Current Medication List Current Medications: Active Medications Acetaminophen (Tylenol -) 650 mg PO Q4H PRN PRN Reason: FEVER OR PAIN Last Admin: 05/10/17 18:01 Dose: 650 mg Amlodipine Besylate (Norvasc -) 10 mg PO DAILY [facility] Last Admin: 05/07/17 10:00 Dose: Not Given Aspirin (Asa -) 325 mg NGT DAILY [facility] Last Admin: 05/12/17 10:06 Dose: 325 mg Atorvastatin Calcium (Lipitor -) 40 mg PO HS [facility] Last Admin: 05/11/17 21:32 Dose: 40 mg Bacitracin/Polymyxin B Sulfate (Polysporin Ointment -) 1 applic TP BID [facility] Last Admin: 05/12/17 10:06 Dose: 1 applic Chlorhexidine Gluconate (Hibiclens For Decolonization -) 1 applic TP HS [facility] Last Admin: 05/11/17 21:32 Dose: 1 applic Fenofibric Acid (Trilipix -) 135 mg PO DAILY [facility] Last Admin: 05/12/17 10:06 Dose: 135 mg Glipizide (Glucotrol -) 5 mg PO DAILY@0700 [facility] Last Admin: 05/12/17 06:27 Dose: 5 mg Heparin Sodium (Porcine) (Heparin -) 5,000 unit SQ TID [facility] Last Admin: 05/12/17 06:26 Dose: 5,000 unit Metronidazole (Flagyl 500mg Premixed Ivpb -) 100 mls @ 100 mls/hr IVPB Q8H-IV [facility] Last Admin: 05/12/17 10:05 Dose: 100 mls/hr Pantoprazole Sodium (Protonix 40mg Ivpb (Pre-Docked)) 100 mls @ 200 mls/hr IVPB DAILY [facility] Last Admin: 05/12/17 10:05 Dose: 200 mls/hr Propofol (Diprivan -) 100 mls @ 3.599 mls/hr IVPB TITR [facility]; 5 MCG/KG/MIN PRN Reason: Protocol Last Admin: 05/12/17 10:02 Dose: 17.996 mls/hr Sodium Chloride (1/2 Normal Saline) 1,000 mls @ 75 mls/hr IV ASDIR [facility] Last Admin: 05/11/17 16:26 Dose: 75 mls/hr Meropenem 1 gm/ Dextrose 100 mls @ 200 mls/hr IVPB Q8H-IV [facility] Last Admin: 05/12/17 10:04 Dose: 200 mls/hr Norepinephrine Bitartrate 8, (000 mcg/ Dextrose) 508 mls @ 19.05 mls/hr IV TITR [facility]; 5 MCG/MIN PRN Reason: Protocol Last Admin: 05/12/17 01:55 Dose: 53.34 mls/hr Insulin Aspart (Novolog Vial Sliding Scale -) 1 vial SQ ACHS [facility] PRN Reason: Protocol Last Admin: 05/12/17 06:27 Dose: 4 units Lisinopril (Prinivil) 40 mg PO DAILY [facility] Last Admin: 05/12/17 10:25 Dose: Not Given Metoprolol Tartrate (Lopressor -) 25 mg PO BID [facility] Last Admin: 05/12/17 10:06 Dose: 25 mg Metoprolol Tartrate (Lopressor Injection -) 5 mg IVPUSH Q4H PRN PRN Reason: HR >100 Last Admin: 05/04/17 09:30 Dose: 5 mg Potassium Chloride (Potassium Chloride 20 Meq Premix Ivpb -) 20 meq IVPB ONCE ONE Stop: 05/12/17 10:34 Tamsulosin HCl (Flomax -) 0.4 mg PO DAILY@0830 [facility] Last Admin: 05/12/17 08:35 Dose: 0.4 mg Vancomycin HCl (Vancomycin Oral Solution) 125 mg PO Q6HPO [facility] Last Admin: 05/12/17 06:27 Dose: 125 mg - Objective Vital Signs: Vital Signs Temperature 97.7 F 05/12/17 10:00 Pulse Rate 86 05/12/17 10:06 Respiratory Rate 24 05/12/17 10:04 Blood Pressure 98/44 05/12/17 10:00 O2 Sat by Pulse Oximetry (%) 97 05/12/17 10:06 Labs: CBC, BMP 05/12/17 05:45 05/12/17 05:45 INR, PTT INR 1.28 (0.82-1.09) H 04/30/17 12:05 Assessment/Plan pt statis shannan mental changes diarerra n/c stage 2 sacral ulcer cont vanco prophylactally\chk stool cults again cont tx ulcer as is replce k hay f/u pulm
[2017-05-12] MEDS: SODIUM CHLORIDE 0.45% 1,000 ML IV SCH (12:46)
--- NOTE | 2017-05-12 14:45 | PN ---
Progress Note, Physician History of Present Illness: Pt seen and examined at bedside. He remains in the ICU. Pt remains intubated and lethargic. - Current Medication List Current Medications: Active Medications Acetaminophen (Tylenol -) 650 mg PO Q4H PRN PRN Reason: FEVER OR PAIN Last Admin: 05/10/17 18:01 Dose: 650 mg Amlodipine Besylate (Norvasc -) 10 mg PO DAILY [facility] Last Admin: 05/07/17 10:00 Dose: Not Given Aspirin (Asa -) 325 mg NGT DAILY [facility] Last Admin: 05/12/17 10:06 Dose: 325 mg Atorvastatin Calcium (Lipitor -) 40 mg PO HS [facility] Last Admin: 05/11/17 21:32 Dose: 40 mg Bacitracin/Polymyxin B Sulfate (Polysporin Ointment -) 1 applic TP BID [facility] Last Admin: 05/12/17 10:06 Dose: 1 applic Chlorhexidine Gluconate (Hibiclens For Decolonization -) 1 applic TP HS [facility] Last Admin: 05/11/17 21:32 Dose: 1 applic Fenofibric Acid (Trilipix -) 135 mg PO DAILY [facility] Last Admin: 05/12/17 10:06 Dose: 135 mg Glipizide (Glucotrol -) 5 mg PO DAILY@0700 [facility] Last Admin: 05/12/17 06:27 Dose: 5 mg Heparin Sodium (Porcine) (Heparin -) 5,000 unit SQ TID [facility] Last Admin: 05/12/17 13:24 Dose: 5,000 unit Metronidazole (Flagyl 500mg Premixed Ivpb -) 100 mls @ 100 mls/hr IVPB Q8H-IV [facility] Last Admin: 05/12/17 10:05 Dose: 100 mls/hr Pantoprazole Sodium (Protonix 40mg Ivpb (Pre-Docked)) 100 mls @ 200 mls/hr IVPB DAILY [facility] Last Admin: 05/12/17 10:05 Dose: 200 mls/hr Propofol (Diprivan -) 100 mls @ 3.599 mls/hr IVPB TITR [facility]; 5 MCG/KG/MIN PRN Reason: Protocol Last Admin: 05/12/17 10:02 Dose: 17.996 mls/hr Sodium Chloride (1/2 Normal Saline) 1,000 mls @ 75 mls/hr IV ASDIR [facility] Last Admin: 05/12/17 12:46 Dose: 75 mls/hr Meropenem 1 gm/ Dextrose 100 mls @ 200 mls/hr IVPB Q8H-IV [facility] Last Admin: 05/12/17 10:04 Dose: 200 mls/hr Norepinephrine Bitartrate 8, (000 mcg/ Dextrose) 508 mls @ 19.05 mls/hr IV TITR [facility]THE[facility]; 5 MCG/MIN PRN Reason: Protocol Last Admin: 05/12/17 01:55 Dose: 53.34 mls/hr Insulin Aspart (Novolog Vial Sliding Scale -) 1 vial SQ ACHS [facility] PRN Reason: Protocol Last Admin: 05/12/17 11:44 Dose: 4 units Lisinopril (Prinivil) 40 mg PO DAILY [facility] Last Admin: 05/12/17 10:25 Dose: Not Given Metoprolol Tartrate (Lopressor -) 25 mg PO BID [facility] Last Admin: 05/12/17 10:06 Dose: 25 mg Metoprolol Tartrate (Lopressor Injection -) 5 mg IVPUSH Q4H PRN PRN Reason: HR >100 Last Admin: 05/04/17 09:30 Dose: 5 mg Tamsulosin HCl (Flomax -) 0.4 mg PO DAILY@0830 [facility] Last Admin: 05/12/17 08:35 Dose: 0.4 mg Vancomycin HCl (Vancomycin Oral Solution) 125 mg PO Q6HPO [facility] Last Admin: 05/12/17 12:46 Dose: 125 mg - Objective Vital Signs: Vital Signs Temperature 97.7 F 05/12/17 10:00 Pulse Rate 79 05/12/17 13:07 Respiratory Rate 28 H 05/12/17 14:03 Blood Pressure 95/40 05/12/17 13:07 O2 Sat by Pulse Oximetry (%) 97 05/12/17 10:06 Constitutional: Yes: Calm Eyes: Yes: Conjunctiva Clear Cardiovascular: Yes: S1, S2 Respiratory: Yes: Mechanically Ventilated Gastrointestinal: Yes: Soft, Abdomen, Obese Genitourinary: Yes: Griffith Present Musculoskeletal: Yes: Muscle Weakness Extremities: Yes: Amputation Edema: No Neurological: Yes: Lethargy Labs: CBC, BMP 05/12/17 05:45 05/12/17 05:45 INR, PTT INR 1.28 (0.82-1.09) H 04/30/17 12:05 Problem List - Problems (1) Dehydration Code(s): E86.0 - DEHYDRATION (2) Acute diarrhea Code(s): R19.7 - DIARRHEA, UNSPECIFIED (3) Hypernatremia Code(s): E87.0 - HYPEROSMOLALITY AND HYPERNATREMIA (4) BILL (acute kidney injury) Code(s): N17.9 - ACUTE KIDNEY FAILURE, UNSPECIFIED (5) CVA (cerebral vascular accident) Code(s): I63.9 - CEREBRAL INFARCTION, UNSPECIFIED Assessment/Plan Current Medications Generic Name Dose Route Start Last Admin Trade Name Freq PRN Reason Stop Dose Admin Acetaminophen 650 mg 05/10/17 00:55 05/10/17 18:01 Tylenol - PO 650 mg Q4H PRN Administration FEVER OR PAIN Amlodipine Besylate 10 mg 05/01/17 10:00 05/07/17 10:00 Norvasc - PO Not Given DAILY [facility] Aspirin 325 mg 05/05/17 12:15 05/12/17 10:06 Asa - NGT 325 mg DAILY [facility] Administration Atorvastatin Calcium 40 mg 05/02/17 22:00 05/11/17 21:32 Lipitor - PO 40 mg HS [facility] Administration Bacitracin/Polymyxin B Sulfate 1 applic 05/01/17 10:00 05/12/17 10:06 Polysporin Ointment - TP 1 applic BID [facility] Administration Chlorhexidine Gluconate 1 applic 04/30/17 22:00 05/11/17 21:32 Hibiclens For Decolonization - TP 1 applic HS [facility] Administration Fenofibric Acid 135 mg 05/01/17 10:00 05/12/17 10:06 Trilipix - PO 135 mg DAILY [facility] Administration Glipizide 5 mg 05/01/17 07:00 05/12/17 06:27 Glucotrol - PO 5 mg DAILY@0700 [facility] Administration Heparin Sodium (Porcine) 5,000 unit 05/11/17 22:00 05/12/17 13:24 Heparin - SQ 5,000 unit TID [facility] Administration Metronidazole 100 mls @ 100 mls/hr 04/30/17 18:00 05/12/17 10:05 Flagyl 500mg Premixed Ivpb - IVPB 100 mls/hr Q8H-IV [facility] Administration Pantoprazole Sodium 100 mls @ 200 mls/hr 05/06/17 10:00 05/12/17 10:05 Protonix 40mg Ivpb (Pre-Docked) IVPB 200 mls/hr DAILY [facility] Administration Propofol 100 mls @ 3.599 mls/hr 05/06/17 08:30 05/12/17 10:02 Diprivan - IVPB 17.996 mls/hr TITR [facility] Administration Protocol 5 MCG/KG/MIN Sodium Chloride 1,000 mls @ 75 mls/hr 05/07/17 13:30 05/12/17 12:46 1/2 Normal Saline IV 75 mls/hr ASDIR [facility] Administration Meropenem 1 gm/ Dextrose 100 mls @ 200 mls/hr 05/09/17 10:45 05/12/17 10:04 IVPB 200 mls/hr Q8H-IV [facility] Administration Norepinephrine Bitartrate 8, 508 mls @ 19.05 mls/hr 05/10/17 02:01 05/12/17 01: 55 000 mcg/ Dextrose IV 53.34 mls/hr TITR [facility] Administration Protocol 5 MCG/MIN Insulin Aspart 1 vial 05/04/17 17:15 05/12/17 11:44 Novolog Vial Sliding Scale - SQ 4 units ACHS [facility] Administration Protocol Lisinopril 40 mg 05/01/17 10:00 05/12/17 10:25 Prinivil PO Not Given DAILY [facility] Metoprolol Tartrate 25 mg 04/30/17 22:00 05/12/17 10:06 Lopressor - PO 25 mg BID [facility] Administration Metoprolol Tartrate 5 mg 05/02/17 22:14 05/04/17 09:30 Lopressor Injection - IVPUSH 5 mg Q4H PRN Administration HR >100 Tamsulosin HCl 0.4 mg 05/01/17 08:30 05/12/17 08:35 Flomax - PO 0.4 mg DAILY@0830 [facility] Administration Vancomycin HCl 125 mg 05/10/17 18:00 05/12/17 12:46 Vancomycin Oral Solution PO 125 mg Q6HPO [facility] Administration Selected Entries 05/11/17 05/11/17 05/11/17 04:00 06:00 08:00 Blood Pressure 89/46 72/43 89/46 Impression 1. BILL 2. hypernatremia 3. sepsis 4. CVA acute 5. HTN 6. DM 7. copd 8. obstructive uropathy with suprapubic cath 9. UTI 10. diarrhea 11. respiratory failure 12. hypokalemia Plan - replace potassium - check mag - cont with fluids - cont pressors - likely BILL from [facility] - repeat urine lytes - monitor urine output - repeat labs in am - maintain map at 65 - will follow pt
--- NOTE | 2017-05-12 14:54 | PN ---
Teaching Attending Note Name of Resident: Edwardo Rucker ATTENDING PHYSICIAN STATEMENT I saw and evaluated the patient. I reviewed the resident's note and discussed the case with the resident. I agree with the resident's findings and plan as documented. SUBJECTIVE: Patient seen and examined in the ICU. Remains intubated, sedated. Remains on levophed drip for hemodynamic support. OBJECTIVE: Intake & Output 05/09/17 05/10/17 05/11/17 05/12/17 23:59 23:59 23:59 23:59 Intake Total 5262 6542.8 6942 3620 Output Total 430 680 325 100 Balance 4832 5862.8 6617 3520 Weight 271 lb 2.697 oz 289 lb 292 lb 298 lb 14.4 oz Last Vital Signs Temp Pulse Resp BP Pulse Ox 97.7 F 79 28 H 95/40 97 05/12/17 10:00 05/12/17 13:07 05/12/17 14:03 05/12/17 13:07 05/12/17 10:06 Active Medications Acetaminophen (Tylenol -) 650 mg PO Q4H PRN PRN Reason: FEVER OR PAIN Last Admin: 05/10/17 18:01 Dose: 650 mg Amlodipine Besylate (Norvasc -) 10 mg PO DAILY [facility] Last Admin: 05/07/17 10:00 Dose: Not Given Aspirin (Asa -) 325 mg NGT DAILY [facility] Last Admin: 05/12/17 10:06 Dose: 325 mg Atorvastatin Calcium (Lipitor -) 40 mg PO HS [facility] Last Admin: 05/11/17 21:32 Dose: 40 mg Bacitracin/Polymyxin B Sulfate (Polysporin Ointment -) 1 applic TP BID [facility] Last Admin: 05/12/17 10:06 Dose: 1 applic Chlorhexidine Gluconate (Hibiclens For Decolonization -) 1 applic TP HS [facility] Last Admin: 05/11/17 21:32 Dose: 1 applic Fenofibric Acid (Trilipix -) 135 mg PO DAILY [facility] Last Admin: 05/12/17 10:06 Dose: 135 mg Glipizide (Glucotrol -) 5 mg PO DAILY@0700 [facility] Last Admin: 05/12/17 06:27 Dose: 5 mg Heparin Sodium (Porcine) (Heparin -) 5,000 unit SQ TID [facility] Last Admin: 05/12/17 13:24 Dose: 5,000 unit Metronidazole (Flagyl 500mg Premixed Ivpb -) 100 mls @ 100 mls/hr IVPB Q8H-IV [facility] Last Admin: 05/12/17 10:05 Dose: 100 mls/hr Pantoprazole Sodium (Protonix 40mg Ivpb (Pre-Docked)) 100 mls @ 200 mls/hr IVPB DAILY [facility] Last Admin: 05/12/17 10:05 Dose: 200 mls/hr Propofol (Diprivan -) 100 mls @ 3.599 mls/hr IVPB TITR [facility]; 5 MCG/KG/MIN PRN Reason: Protocol Last Admin: 05/12/17 10:02 Dose: 17.996 mls/hr Sodium Chloride (1/2 Normal Saline) 1,000 mls @ 75 mls/hr IV ASDIR [facility] Last Admin: 05/12/17 12:46 Dose: 75 mls/hr Meropenem 1 gm/ Dextrose 100 mls @ 200 mls/hr IVPB Q8H-IV [facility] Last Admin: 05/12/17 10:04 Dose: 200 mls/hr Norepinephrine Bitartrate 8, (000 mcg/ Dextrose) 508 mls @ 19.05 mls/hr IV TITR [facility]THEW; 5 MCG/MIN PRN Reason: Protocol Last Admin: 05/12/17 01:55 Dose: 53.34 mls/hr Insulin Aspart (Novolog Vial Sliding Scale -) 1 vial SQ ACHS [facility] PRN Reason: Protocol Last Admin: 05/12/17 11:44 Dose: 4 units Metoprolol Tartrate (Lopressor -) 25 mg PO BID [facility] Last Admin: 05/12/17 10:06 Dose: 25 mg Metoprolol Tartrate (Lopressor Injection -) 5 mg IVPUSH Q4H PRN PRN Reason: HR >100 Last Admin: 05/04/17 09:30 Dose: 5 mg Tamsulosin HCl (Flomax -) 0.4 mg PO DAILY@0830 [facility] Last Admin: 05/12/17 08:35 Dose: 0.4 mg Vancomycin HCl (Vancomycin Oral Solution) 125 mg PO Q6HPO [facility] Last Admin: 05/12/17 12:46 Dose: 125 mg Gen: intubated, sedated Heart: RRR Lung: scattered rhonchi Abd: soft, nontender Ext: + edema Laboratory Results - last 24 hr 05/11/17 05/12/17 05/12/17 21:44 05:37 05:45 WBC 27.7 H RBC 3.40 L Hgb 9.2 L Hct 29.0 L MCV 85.3 MCH 27.0 MCHC 31.6 L RDW 16.9 H Plt Count 299 MPV 9.7 Sodium Potassium Chloride Carbon Dioxide Anion Gap BUN Creatinine POC Glucometer [id number] 245.45799 Random Glucose Calcium 05/12/17 05:45 WBC RBC Hgb Hct MCV MCH MCHC RDW Plt Count MPV Sodium 143 Potassium 2.8 L* D Chloride 109 H Carbon Dioxide 19 L Anion Gap 15 BUN 75 H Creatinine 5.1 H D POC Glucometer Random Glucose 187 H Calcium 8.1 L ASSESSMENT AND PLAN: Acute Hypoxic Respiratory Failure Left Atelectasis improving Acute CVA r/o C Diff Colitis UTI Septic Shock Acute Kidney Injury Suprapubic Catheter COPD DM Atrial Flutter - continue antibiotics per ID - chest PT / bed percussion - Titrate levophed gtt to maintain MAP >65 - IVF keep CVP 8-12 - monitor urine output, creatinine - renal followup noted - Will need to discuss further AC with cardiology - Taper fiO2, PEEP to keep SpO2 >90% - Enteral feeds - Free water - Poor overall prognosis for meaningful recovery Dr Hernandez Critical care time spent in reviewing chart, evaluating patient and formulating plan 35 min
--- NOTE | 2017-05-12 15:30 | PN ---
Progress Note, Physician History of Present Illness: patient intubated and sedated confines to be critical no fevers still with loose stools wbc trending down - Current Medication List Current Medications: Active Medications Acetaminophen (Tylenol -) 650 mg PO Q4H PRN PRN Reason: FEVER OR PAIN Last Admin: 05/10/17 18:01 Dose: 650 mg Amlodipine Besylate (Norvasc -) 10 mg PO DAILY [facility] Last Admin: 05/07/17 10:00 Dose: Not Given Aspirin (Asa -) 325 mg NGT DAILY [facility] Last Admin: 05/12/17 10:06 Dose: 325 mg Atorvastatin Calcium (Lipitor -) 40 mg PO HS [facility] Last Admin: 05/11/17 21:32 Dose: 40 mg Bacitracin/Polymyxin B Sulfate (Polysporin Ointment -) 1 applic TP BID [facility] Last Admin: 05/12/17 10:06 Dose: 1 applic Chlorhexidine Gluconate (Hibiclens For Decolonization -) 1 applic TP HS [facility] Last Admin: 05/11/17 21:32 Dose: 1 applic Fenofibric Acid (Trilipix -) 135 mg PO DAILY [facility] Last Admin: 05/12/17 10:06 Dose: 135 mg Glipizide (Glucotrol -) 5 mg PO DAILY@0700 [facility] Last Admin: 05/12/17 06:27 Dose: 5 mg Heparin Sodium (Porcine) (Heparin -) 5,000 unit SQ TID [facility] Last Admin: 05/12/17 13:24 Dose: 5,000 unit Metronidazole (Flagyl 500mg Premixed Ivpb -) 100 mls @ 100 mls/hr IVPB Q8H-IV [facility] Last Admin: 05/12/17 10:05 Dose: 100 mls/hr Pantoprazole Sodium (Protonix 40mg Ivpb (Pre-Docked)) 100 mls @ 200 mls/hr IVPB DAILY [facility] Last Admin: 05/12/17 10:05 Dose: 200 mls/hr Propofol (Diprivan -) 100 mls @ 3.599 mls/hr IVPB TITR [facility]; 5 MCG/KG/MIN PRN Reason: Protocol Last Admin: 05/12/17 10:02 Dose: 17.996 mls/hr Sodium Chloride (1/2 Normal Saline) 1,000 mls @ 75 mls/hr IV ASDIR [facility] Last Admin: 05/12/17 12:46 Dose: 75 mls/hr Meropenem 1 gm/ Dextrose 100 mls @ 200 mls/hr IVPB Q8H-IV [facility] Last Admin: 05/12/17 10:04 Dose: 200 mls/hr Norepinephrine Bitartrate 8, (000 mcg/ Dextrose) 508 mls @ 19.05 mls/hr IV TITR [facility]THEW; 5 MCG/MIN PRN Reason: Protocol Last Admin: 05/12/17 01:55 Dose: 53.34 mls/hr Insulin Aspart (Novolog Vial Sliding Scale -) 1 vial SQ ACHS [facility] PRN Reason: Protocol Last Admin: 05/12/17 11:44 Dose: 4 units Metoprolol Tartrate (Lopressor -) 25 mg PO BID [facility] Last Admin: 05/12/17 10:06 Dose: 25 mg Metoprolol Tartrate (Lopressor Injection -) 5 mg IVPUSH Q4H PRN PRN Reason: HR >100 Last Admin: 05/04/17 09:30 Dose: 5 mg Tamsulosin HCl (Flomax -) 0.4 mg PO DAILY@0830 [facility] Last Admin: 05/12/17 08:35 Dose: 0.4 mg Vancomycin HCl (Vancomycin Oral Solution) 125 mg PO Q6HPO [facility] Last Admin: 05/12/17 12:46 Dose: 125 mg - Objective Vital Signs: Vital Signs Temperature 98 F 05/12/17 14:00 Pulse Rate 80 05/12/17 14:00 Respiratory Rate 28 H 05/12/17 14:03 Blood Pressure 96/62 05/12/17 14:00 O2 Sat by Pulse Oximetry (%) 97 05/12/17 10:06 Constitutional: Yes: Other Cardiovascular: Yes: Regular Rate and Rhythm Respiratory: Yes: Intubated, Mechanically Ventilated Gastrointestinal: Yes: Normal Bowel Sounds, Soft Musculoskeletal: Yes: Other Extremities: Yes: Other Neurological: Yes: Other Labs: CBC, BMP 05/12/17 05:45 05/12/17 05:45 INR, PTT INR 1.28 (0.82-1.09) H 04/30/17 12:05 Assessment/Plan Acute Hypoxic Respiratory Failure Left Atelectasis Acute CVA UTI Septic Shock Acute Kidney Injury Suprapubic Catheter COPD DM dirrhoea plan continue current abx monitor for fevers follow wbc still wiht loose stools nutrition cc 40 min
--- NOTE | 2017-05-12 17:24 | EKG ---
Test Reason : Blood Pressure : / mmHG Vent. Rate : 085 BPM Atrial Rate : 116 BPM P-R Int : 000 ms QRS Dur : 094 ms QT Int : 404 ms P-R-T Axes : 000 053 060 degrees QTc Int : 480 ms ATRIAL FIBRILLATION /FLUTTER,WITH VARYING RESPONSE VENTRICULAR PREMATURE BEATS PROLONGED QTc ABNORMAL ECG WHEN COMPARED WITH ECG OF 04-MAY-2017 12:39, ATRIAL FIBRILLATION HAS REPLACED SINUS RHYTHM REPEAT EKG IF CLINICALLY INDICATED Confirmed by PARKER LIMON MD ([id number]) on 05/12/2017 5:24:07 PM Referred By: Zachery LOPEZ Confirmed By:PARKER LIMON MD
[2017-05-12 19:02] LABS: ARTERIAL BLD GAS O2 SATURATION 92.3 % (90-98.9); ARTERIAL BLOOD GAS BASE EXCESS -11.3 meq/l (-2-2); ARTERIAL BLOOD GAS HCO3 15.7 meq/L (22-26); ARTERIAL BLOOD GAS PO2 71.2 mmHg (80-100)
[2017-05-12 19:04] LABS: ALLENS TEST POSITIVE; ART PUNCT SITE RIGHT RADIAL; LPM/O2% 60%; PT. ON O2? YES
[2017-05-12 19:05] LABS: MECH. VENT. YES; TYPE OF O2 MEC.VENT
[2017-05-12 19:07] LABS: ARTERIAL BLOOD GAS pH 7.21 (7.35-7.45)
[2017-05-12 19:09] LABS: VENT RATE 14; VT/PRESS 550
[2017-05-12 19:52] LABS: ALBUMIN 1.5 g/dl (3.4-5.0); ALK PHOS 78 U/L (45-117); ANION GAP 18 (8-16); BILIRUBIN,TOTAL 0.4 mg/dL (0.2-1.0); CALCIUM 7.8 mg/dL (8.5-10.1); CO2 15 mmol/L (21-32); CREATININE 5.5 mg/dL (0.7-1.3); GLUCOSE,RANDOM 199 mg/dL (74-106); SGPT/ALT 17 U/L (12-78); TOT PROT 4.6 g/dl (6.4-8.2)
[2017-05-12 19:54] LABS: SGOT/AST 29 U/L (15-37)
[2017-05-12] MEDS: KCL 10 MEQ IVPB 100 ML IVPB SCH ×2 (20:22→21:44)
[2017-05-12] MEDS: CHLORHEXIDINE GLUCONATE 4% CLEANSER FOR DECOLONIZATION TP SCH (21:44)
[2017-05-12] MEDS: ATORVASTATIN CA 40 MG TABLET (FP) PO SCH (21:45)
[2017-05-13] MEDS: NOREPINEPHRINE BITARTRATE IV SCH (00:30)
[2017-05-13] MEDS: WATER IV SCH (00:30)
[2017-05-13] MEDS: DEXTROSE 5% IV SCH (00:30)
[2017-05-13] MEDS: VANCOMYCIN 250 MG/5 ML ORAL SOLUTION PO SCH ×5 (01:00→23:59)
[2017-05-13] MEDS: MEROPENEM 1 GM in DEXTROSE 5%-WATER - 100 ML IVPB SCH ×3 (03:18→17:00)
[2017-05-13] MEDS: METRONIDAZOLE 500 MG PREMIXED 100 ML IVPB SCH ×3 (03:18→17:00)
[2017-05-13] MEDS ORDERED: NOREPINEPHRINE BITARTRATE 4 MG/4 ML ML IV ONE ×5 (04:55→23:35)
[2017-05-13] MEDS: HEPARIN NA (PORCINE) 5,000 UNITS/ML 1ML VIAL SQ SCH ×3 (06:08→21:50)
[2017-05-13] MEDS: glipiZIDE 5 MG TABLET (FP) PO SCH (06:09)
[2017-05-13 06:11] LABS: MCH 27.1 pg (25.7-33.7); MCHC 32.3 g/dl (32.0-35.9); MEAN CELL VOLUME 83.8 fl (80-96); MEAN PLT VOLUME 9.3 fl (7.5-11.1); PLATELET COUNT 308 K/MM3 (134-434); RDW 16.5 % (11.9-15.9); WHITE BLOOD COUNT 22.6 K/mm3 (4.0-10.0)
[2017-05-13] MEDS: INSULIN SLIDING SCALE (NOVOLOG) 1 VIAL SQ SCH ×4 (06:12→21:58)
[2017-05-13 06:37] LABS: ALBUMIN 1.4 g/dl (3.4-5.0); ANION GAP 16 (8-16); CALCIUM 7.6 mg/dL (8.5-10.1); CO2 17 mmol/L (21-32); CREATININE 5.9 mg/dL (0.7-1.3); GLUCOSE,RANDOM 230 mg/dL (74-106); MAGNESIUM 2.3 mg/dL (1.8-2.4); PHOSPHOROUS 6.8 mg/dL (2.5-4.9); SGOT/AST 24 U/L (15-37); SGPT/ALT 14 U/L (12-78)
[2017-05-13 06:39] LABS: ALK PHOS 63 U/L (45-117); BILIRUBIN,TOTAL 0.4 mg/dL (0.2-1.0); TOT PROT 4.6 g/dl (6.4-8.2)
[2017-05-13] MEDS: KCL 10 MEQ IVPB 100 ML IVPB SCH ×5 (08:52→18:00)
[2017-05-13] MEDS: TAMSULOSIN HCL 0.4 MG CAP.ER.24H (FP) PO SCH (08:55)
[2017-05-13] MEDS: PROPOFOL 100 ML IVPB SCH (09:13)
[2017-05-13] MEDS ORDERED: PT OWN MED DRAWER 7, Y5N ONE ×2 (09:27→16:52)
[2017-05-13] MEDS: PANTOPRAZOLE SODIUM 100 ML IVPB SCH (09:28)
[2017-05-13] MEDS: METOPROLOL TARTRATE 25 MG TABLET (FP) PO SCH ×2 (09:29→21:50)
[2017-05-13] MEDS: ASPIRIN 325 MG TABLET NGT SCH (09:29)
[2017-05-13] MEDS: FENOFIBRIC ACID 135 MG CAP PO SCH (09:30)
[2017-05-13] MEDS: BACITRACIN/POLYMYXIN B SULFATE 15 GM TUBE TP SCH ×2 (09:32→21:53)
--- NOTE | 2017-05-13 10:15 | PN ---
Progress Note (short form) - Note Progress Note: Neurology History of Present Illness 67 yo M presented to the ER with a complaint of diarrhea and weakness for the past 2 weeks. Was found to be positive for C Diff and admitted. I was contacted for consultation for acute R sided weakness, aphasia, and confusion. Patient was given TPA, remains in ICU and continued close monitoring. MRI brain showed L MCA infarct. 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 CD reviewed and did not show HD significant stenosis. Morning of had respiratory distress and failure, required intubation, sedation, on mechanical ventilation since. No significant improvements in respiratory status thus far. Not over breathing the vent. Remains on sedation and blood pressure support with Levophed. On Holter monitoring for arrythmia monitoring. Has been having intermittent fevers with white count elevation. ID following closely. On Abx, neurologically no new events, but also no significant improvement, remains under close monitoring in ICU. Active Medications Acetaminophen (Tylenol -) 650 mg PO Q4H PRN PRN Reason: FEVER OR PAIN Last Admin: 05/10/17 18:01 Dose: 650 mg Amlodipine Besylate (Norvasc -) 10 mg PO DAILY [facility] Last Admin: 05/07/17 10:00 Dose: Not Given Aspirin (Asa -) 325 mg NGT DAILY [facility] Last Admin: 05/13/17 09:29 Dose: 325 mg Atorvastatin Calcium (Lipitor -) 40 mg PO HS [facility] Last Admin: 05/12/17 21:45 Dose: 40 mg Bacitracin/Polymyxin B Sulfate (Polysporin Ointment -) 1 applic TP BID [facility] Last Admin: 05/13/17 09:32 Dose: 1 applic Chlorhexidine Gluconate (Hibiclens For Decolonization -) 1 applic TP HS [facility] Last Admin: 05/12/17 21:44 Dose: 1 applic Fenofibric Acid (Trilipix -) 135 mg PO DAILY [facility] Last Admin: 05/13/17 09:30 Dose: 135 mg Glipizide (Glucotrol -) 5 mg PO DAILY@0700 [facility] Last Admin: 05/13/17 06:09 Dose: 5 mg Heparin Sodium (Porcine) (Heparin -) 5,000 unit SQ TID [facility] Last Admin: 05/13/17 06:08 Dose: 5,000 unit Metronidazole (Flagyl 500mg Premixed Ivpb -) 100 mls @ 100 mls/hr IVPB Q8H-IV [facility] Last Admin: 05/13/17 09:29 Dose: 100 mls/hr Pantoprazole Sodium (Protonix 40mg Ivpb (Pre-Docked)) 100 mls @ 200 mls/hr IVPB DAILY [facility] Last Admin: 05/13/17 09:28 Dose: 200 mls/hr Propofol (Diprivan -) 100 mls @ 3.599 mls/hr IVPB TITR [facility]W; 5 MCG/KG/MIN PRN Reason: Protocol Last Admin: 05/13/17 09:13 Dose: 17.996 mls/hr Sodium Chloride (1/2 Normal Saline) 1,000 mls @ 75 mls/hr IV ASDIR [facility] Last Admin: 05/12/17 12:46 Dose: 75 mls/hr Meropenem 1 gm/ Dextrose 100 mls @ 200 mls/hr IVPB Q8H-IV [facility] Last Admin: 05/13/17 09:29 Dose: 200 mls/hr Norepinephrine Bitartrate 8, (000 mcg/ Dextrose) 508 mls @ 19.05 mls/hr IV TITR [facility]THEW; 5 MCG/MIN PRN Reason: Protocol Last Titration: 05/13/17 06:09 Dose: 22 mcg/min Potassium Chloride (Potassium Chloride 10 Meq Premix Ivpb -) 100 mls @ 100 mls/ hr IVPB Q60M [facility] Stop: 05/13/17 11:34 Last Admin: 05/13/17 09:37 Dose: 100 mls/hr Insulin Aspart (Novolog Vial Sliding Scale -) 1 vial SQ ACHS [facility]THEW PRN Reason: Protocol Last Admin: 05/13/17 06:12 Dose: 4 units Metoprolol Tartrate (Lopressor -) 25 mg PO BID [facility] Last Admin: 05/13/17 09:29 Dose: 25 mg Metoprolol Tartrate (Lopressor Injection -) 5 mg IVPUSH Q4H PRN PRN Reason: HR >100 Last Admin: 05/04/17 09:30 Dose: 5 mg Tamsulosin HCl (Flomax -) 0.4 mg PO DAILY@0830 [facility] Last Admin: 05/13/17 08:55 Dose: 0.4 mg Vancomycin HCl (Vancomycin Oral Solution) 125 mg PO Q6HPO [facility] Last Admin: 05/13/17 06:08 Dose: 125 mg *Physical Exam Vital Signs Temperature 99.5 F 05/13/17 06:00 Pulse Rate 70 05/13/17 08:00 Respiratory Rate 26 H 05/13/17 09:07 Blood Pressure 102/53 05/13/17 08:00 O2 Sat by Pulse Oximetry (%) 99 05/12/17 19:42 Sedated, not following commands RRR, no murmur Mechanical breath sounds Abdomen soft, NT Aphasic previously, unclear 2/2 sedation at this time R facial droop mild at this point Was moving RUE and LUE grossly previously, not participating in confrontation testing Was moving R leg stump but remains sedated Sensory not able to assess Gait deferred CBCD WBC 22.6 K/mm3 (4.0-10.0) H 05/13/17 05:15 RBC 3.39 M/mm3 (4.00-5.60) L 05/13/17 05:15 Hgb 9.2 GM/dL (11.7-16.9) L 05/13/17 05:15 Hct 28.4 % (35.4-49) L 05/13/17 05:15 MCV 83.8 fl (80-96) 05/13/17 05:15 MCHC 32.3 g/dl (32.0-35.9) 05/13/17 05:15 RDW 16.5 % (11.9-15.9) H 05/13/17 05:15 Plt Count 308 K/MM3 (134-434) 05/13/17 05:15 MPV 9.3 fl (7.5-11.1) 05/13/17 05:15 CMP Sodium 137 mmol/L (136-145) 05/13/17 05:15 Potassium 2.6 mmol/L (3.5-5.1) L* 05/13/17 05:15 Chloride 104 mmol/L (98-107) 05/13/17 05:15 Carbon Dioxide 17 mmol/L (21-32) L 05/13/17 05:15 Anion Gap 16 (8-16) 05/13/17 05:15 BUN 79 mg/dL (7-18) H 05/13/17 05:15 Creatinine 5.9 mg/dL (0.7-1.3) H 05/13/17 05:15 Creat Clearance w eGFR 9.55 (>60) 05/13/17 05:15 Calcium 7.6 mg/dL (8.5-10.1) L 05/13/17 05:15 Total Bilirubin 0.4 mg/dL (0.2-1.0) 05/13/17 05:15 AST 24 U/L (15-37) 05/13/17 05:15 ALT 14 U/L (12-78) 05/13/17 05:15 Alkaline Phosphatase 63 U/L (45-117) 05/13/17 05:15 Total Protein 4.6 g/dl (6.4-8.2) L 05/13/17 05:15 Albumin 1.4 g/dl (3.4-5.0) L 05/13/17 05:15 Ct head reviewed CD reviewed MRI brain reviewed MRA brain reviewed Plan: 67 yo M presented to the ER with a complaint of diarrhea and weakness for the past 2 weeks. Was found to be positive for C Diff and admitted. Was in ICU and code rayo called and patient given TPA. Subsequent with improving RLE strength, now 5-/5. Patient also moving RUE but not following commands fully yet. MRI, MRA , CD, as described above. Patient on ASA 325 and statin (Aggrenox was not able to be crushed) Remains intubated and mechically ventilated Physical therapy on hold On levophed blood pressure support, code status is DNR tight glycemic control, continue Glipizide Continue ICU monitoring C. Diff treatment on going, contact precautions being observed Contact precautions DVT PPX, on SCD boots No new neurologic event Critical care time 35 mins total.
--- NOTE | 2017-05-13 10:24 | PN ---
Progress Note (short form) - Note Progress Note: remains intubated and critical spt patent no gu intervention at this time
[2017-05-13] MEDS: POTASSIUM CHLORIDE TABS 20 MEQ TABLET.ER (FP) PO SCH ×2 (12:06→16:11)
[2017-05-13] MEDS ORDERED: INSULIN (NOVOLOG) ASPART 100 UNITS/ML 10ML VIAL ONE (12:08)
--- NOTE | 2017-05-13 12:30 | PN ---
Progress Note, Physician History of Present Illness: Pt seen and examined at bedside. He remains in the ICU. - Current Medication List Current Medications: Active Medications Acetaminophen (Tylenol -) 650 mg PO Q4H PRN PRN Reason: FEVER OR PAIN Last Admin: 05/10/17 18:01 Dose: 650 mg Amlodipine Besylate (Norvasc -) 10 mg PO DAILY [facility] Last Admin: 05/07/17 10:00 Dose: Not Given Aspirin (Asa -) 325 mg NGT DAILY [facility] Last Admin: 05/13/17 09:29 Dose: 325 mg Atorvastatin Calcium (Lipitor -) 40 mg PO HS [facility] Last Admin: 05/12/17 21:45 Dose: 40 mg Bacitracin/Polymyxin B Sulfate (Polysporin Ointment -) 1 applic TP BID [facility] Last Admin: 05/13/17 09:32 Dose: 1 applic Chlorhexidine Gluconate (Hibiclens For Decolonization -) 1 applic TP HS [facility] Last Admin: 05/12/17 21:44 Dose: 1 applic Fenofibric Acid (Trilipix -) 135 mg PO DAILY [facility] Last Admin: 05/13/17 09:30 Dose: 135 mg Glipizide (Glucotrol -) 5 mg PO DAILY@0700 [facility] Last Admin: 05/13/17 06:09 Dose: 5 mg Heparin Sodium (Porcine) (Heparin -) 5,000 unit SQ TID [facility] Last Admin: 05/13/17 06:08 Dose: 5,000 unit Metronidazole (Flagyl 500mg Premixed Ivpb -) 100 mls @ 100 mls/hr IVPB Q8H-IV [facility] Last Admin: 05/13/17 09:29 Dose: 100 mls/hr Pantoprazole Sodium (Protonix 40mg Ivpb (Pre-Docked)) 100 mls @ 200 mls/hr IVPB DAILY [facility] Last Admin: 05/13/17 09:28 Dose: 200 mls/hr Propofol (Diprivan -) 100 mls @ 3.599 mls/hr IVPB TITR [facility]W; 5 MCG/KG/MIN PRN Reason: Protocol Last Admin: 05/13/17 09:13 Dose: 17.996 mls/hr Sodium Chloride (1/2 Normal Saline) 1,000 mls @ 75 mls/hr IV ASDIR [facility] Last Admin: 05/12/17 12:46 Dose: 75 mls/hr Meropenem 1 gm/ Dextrose 100 mls @ 200 mls/hr IVPB Q8H-IV [facility] Last Admin: 05/13/17 09:29 Dose: 200 mls/hr Norepinephrine Bitartrate 8, (000 mcg/ Dextrose) 508 mls @ 19.05 mls/hr IV TITR [facility]THEW; 5 MCG/MIN PRN Reason: Protocol Last Titration: 05/13/17 06:09 Dose: 22 mcg/min Insulin Aspart (Novolog Vial Sliding Scale -) 1 vial SQ ACHS [facility]W PRN Reason: Protocol Last Admin: 05/13/17 12:08 Dose: 6 units Metoprolol Tartrate (Lopressor -) 25 mg PO BID [facility] Last Admin: 05/13/17 09:29 Dose: 25 mg Metoprolol Tartrate (Lopressor Injection -) 5 mg IVPUSH Q4H PRN PRN Reason: HR >100 Last Admin: 05/04/17 09:30 Dose: 5 mg Potassium Chloride (K-Dur -) 40 meq PO Q4H [facility] Stop: 05/13/17 16:01 Last Admin: 05/13/17 12:06 Dose: 40 meq Tamsulosin HCl (Flomax -) 0.4 mg PO DAILY@0830 [facility] Last Admin: 05/13/17 08:55 Dose: 0.4 mg Vancomycin HCl (Vancomycin Oral Solution) 125 mg PO Q6HPO [facility] Last Admin: 05/13/17 12:06 Dose: 125 mg - Objective Vital Signs: Vital Signs Temperature 99.5 F 05/13/17 06:00 Pulse Rate 74 05/13/17 10:00 Respiratory Rate 29 H 05/13/17 11:54 Blood Pressure 109/42 05/13/17 10:00 O2 Sat by Pulse Oximetry (%) 99 05/13/17 10:17 Constitutional: Yes: Calm Neck: Yes: Supple Cardiovascular: Yes: S1, S2 Respiratory: Yes: Mechanically Ventilated Gastrointestinal: Yes: Abdomen, Obese Genitourinary: Yes: Griffith Present, Oliguria Extremities: Yes: Amputation Neurological: Yes: Lethargy Labs: CBC, BMP 05/13/17 05:15 05/13/17 05:15 INR, PTT INR 1.28 (0.82-1.09) H 04/30/17 12:05 - ....Imaging Chest X-ray: Report Reviewed Problem List - Problems (1) Dehydration Code(s): E86.0 - DEHYDRATION (2) Acute diarrhea Code(s): R19.7 - DIARRHEA, UNSPECIFIED (3) Hypernatremia Code(s): E87.0 - HYPEROSMOLALITY AND HYPERNATREMIA (4) BILL (acute kidney injury) Code(s): N17.9 - ACUTE KIDNEY FAILURE, UNSPECIFIED (5) CVA (cerebral vascular accident) Code(s): I63.9 - CEREBRAL INFARCTION, UNSPECIFIED Assessment/Plan Current Medications Generic Name Dose Route Start Last Admin Trade Name Freq PRN Reason Stop Dose Admin Acetaminophen 650 mg 05/10/17 00:55 05/10/17 18:01 Tylenol - PO 650 mg Q4H PRN Administration FEVER OR PAIN Amlodipine Besylate 10 mg 05/01/17 10:00 05/07/17 10:00 Norvasc - PO Not Given DAILY [facility] Aspirin 325 mg 05/05/17 12:15 05/13/17 09:29 Asa - NGT 325 mg DAILY [facility] Administration Atorvastatin Calcium 40 mg 05/02/17 22:00 05/12/17 21:45 Lipitor - PO 40 mg HS [facility] Administration Bacitracin/Polymyxin B Sulfate 1 applic 05/01/17 10:00 05/13/17 09:32 Polysporin Ointment - TP 1 applic BID [facility] Administration Chlorhexidine Gluconate 1 applic 04/30/17 22:00 05/12/17 21:44 Hibiclens For Decolonization - TP 1 applic HS [facility] Administration Fenofibric Acid 135 mg 05/01/17 10:00 05/13/17 09:30 Trilipix - PO 135 mg DAILY [facility] Administration Glipizide 5 mg 05/01/17 07:00 05/13/17 06:09 Glucotrol - PO 5 mg DAILY@0700 [facility] Administration Heparin Sodium (Porcine) 5,000 unit 05/11/17 22:00 05/13/17 06:08 Heparin - SQ 5,000 unit TID [facility] Administration Metronidazole 100 mls @ 100 mls/hr 04/30/17 18:00 05/13/17 09:29 Flagyl 500mg Premixed Ivpb - IVPB 100 mls/hr Q8H-IV [facility] Administration Pantoprazole Sodium 100 mls @ 200 mls/hr 05/06/17 10:00 05/13/17 09:28 Protonix 40mg Ivpb (Pre-Docked) IVPB 200 mls/hr DAILY [facility] Administration Propofol 100 mls @ 3.599 mls/hr 05/06/17 08:30 05/13/17 09:13 Diprivan - IVPB 17.996 mls/hr TITR [facility] Administration Protocol 5 MCG/KG/MIN Sodium Chloride 1,000 mls @ 75 mls/hr 05/07/17 13:30 05/12/17 12:46 1/2 Normal Saline IV 75 mls/hr ASDIR [facility] Administration Meropenem 1 gm/ Dextrose 100 mls @ 200 mls/hr 05/09/17 10:45 05/13/17 09:29 IVPB 200 mls/hr Q8H-IV [facility] Administration Norepinephrine Bitartrate 8, 508 mls @ 19.05 mls/hr 05/10/17 02:01 05/13/17 06: 09 000 mcg/ Dextrose IV 22 mcg/min TITR [facility]W Titration Protocol 5 MCG/MIN Insulin Aspart 1 vial 05/04/17 17:15 05/13/17 12:08 Novolog Vial Sliding Scale - SQ 6 units ACHS [facility]W Administration Protocol Metoprolol Tartrate 25 mg 04/30/17 22:00 05/13/17 09:29 Lopressor - PO 25 mg BID [facility] Administration Metoprolol Tartrate 5 mg 05/02/17 22:14 05/04/17 09:30 Lopressor Injection - IVPUSH 5 mg Q4H PRN Administration HR >100 Potassium Chloride 40 meq 05/13/17 12:00 05/13/17 12:06 K-Dur - PO 05/13/17 16:01 40 meq Q4H [facility] Administration Tamsulosin HCl 0.4 mg 05/01/17 08:30 05/13/17 08:55 Flomax - PO 0.4 mg DAILY@0830 [facility] Administration Vancomycin HCl 125 mg 05/10/17 18:00 05/13/17 12:06 Vancomycin Oral Solution PO 125 mg Q6HPO [facility] Administration Impression 1. BILL 2. hypernatremia 3. sepsis 4. CVA acute 5. HTN 6. DM 7. copd 8. obstructive uropathy with suprapubic cath 9. UTI 10. diarrhea 11. respiratory failure 12. hypokalemia Plan - renal function is worsening - called and discussed HD with his NOK Charline Berg. She would like to discuss his neurologic status and outcome before she addresses dialysis. She will come tomorrow to speak to neuro and to the ICU team - BILL likely from [facility] - cont current treatment - urine output is decreasing - replace potassium and monitor lytes - cont pressors to a map of 65 - will follow pt
--- NOTE | 2017-05-13 14:02 | PN ---
Physical Exam: SUBJECTIVE: Patient seen and examined patient intubated on ventilator support OBJECTIVE: Vital Signs Period Temp Pulse Resp BP Sys/Yanez Pulse Ox Last 24 Hr 98.9 F-99.9 F 70-91 18-32 99-127/42-56 96-99 GENERAL: intubated on ventilator support HEAD: Normal with no signs of trauma. EYES: pupils equal reacting, deviated towards left. LUNGS: Breath sounds equal, clear to auscultation bilaterally, no wheezes, no crackles, no accessory muscle use. HEART: s1s2 regular ABDOMEN: Soft, nontender, nondistended, normoactive bowel sounds, no guarding, no rebound, suprapubic cath in situ, EXTREMITIES: right lower limb amputation. unable to move right upper limb and not moving right lower amputated stump, flaccid NEUROLOGICAL: right facial droop. Laboratory Results - last 24 hr 05/12/17 05/12/17 05/12/17 18:00 18:50 21:45 WBC RBC Hgb Hct MCV MCH MCHC RDW Plt Count MPV Puncture Site Right radial ABG pH 7.21 L* ABG pCO2 at Pt Temp 40.7 D ABG pO2 at Pt Temp 71.2 L ABG HCO3 15.7 L ABG O2 Sat (Measured) 92.3 ABG O2 Content 15.1 ABG Base Excess -11.3 L* Foster Test Positive O2 Delivery Device [facility].vent Oxygen Flow Rate 60% Vent Mode A/c Vent Rate 14 Mechanical Rate Yes PEEP 8.0 Pressure Support Vent 550 Sodium 139 Potassium 2.9 L* Chloride 106 Carbon Dioxide 15 L D Anion Gap 18 H BUN 76 H Creatinine 5.5 H Creat Clearance w eGFR 10.36 POC Glucometer 284.06965 Random Glucose 199 H Calcium 7.8 L Phosphorus Magnesium Total Bilirubin 0.4 AST 29 ALT 17 Alkaline Phosphatase 78 D Total Protein 4.6 L Albumin 1.5 L 05/13/17 05/13/17 05/13/17 05:15 05:15 05:29 WBC 22.6 H RBC 3.39 L Hgb 9.2 L Hct 28.4 L MCV 83.8 MCH 27.1 MCHC 32.3 RDW 16.5 H Plt Count 308 MPV 9.3 Puncture Site ABG pH ABG pCO2 at Pt Temp ABG pO2 at Pt Temp ABG HCO3 ABG O2 Sat (Measured) ABG O2 Content ABG Base Excess Foster Test O2 Delivery Device Oxygen Flow Rate Vent Mode Vent Rate Mechanical Rate PEEP Pressure Support Vent Sodium 137 Potassium 2.6 L* Chloride 104 Carbon Dioxide 17 L Anion Gap 16 BUN 79 H Creatinine 5.9 H Creat Clearance w eGFR 9.55 POC Glucometer 271.87716 Random Glucose 230 H Calcium 7.6 L Phosphorus 6.8 H Magnesium 2.3 Total Bilirubin 0.4 AST 24 ALT 14 Alkaline Phosphatase 63 Total Protein 4.6 L Albumin 1.4 L Active Medications Generic Name Dose Route Start Last Admin Trade Name Freq PRN Reason Stop Dose Admin Acetaminophen 650 mg 05/10/17 00:55 05/10/17 18:01 Tylenol - PO 650 mg Q4H PRN Administration FEVER OR PAIN Aspirin 325 mg 05/05/17 12:15 05/13/17 09:29 Asa - NGT 325 mg DAILY [facility] Administration Atorvastatin Calcium 40 mg 05/02/17 22:00 05/12/17 21:45 Lipitor - PO 40 mg HS [facility] Administration Bacitracin/Polymyxin B Sulfate 1 applic 05/01/17 10:00 05/13/17 09:32 Polysporin Ointment - TP 1 applic BID [facility] Administration Chlorhexidine Gluconate 1 applic 04/30/17 22:00 05/12/17 21:44 Hibiclens For Decolonization - TP 1 applic HS [facility] Administration Fenofibric Acid 135 mg 05/01/17 10:00 05/13/17 09:30 Trilipix - PO 135 mg DAILY [facility] Administration Glipizide 5 mg 05/01/17 07:00 05/13/17 06:09 Glucotrol - PO 5 mg DAILY@0700 [facility] Administration Heparin Sodium (Porcine) 5,000 unit 05/11/17 22:00 05/13/17 06:08 Heparin - SQ 5,000 unit TID [facility] Administration Metronidazole 100 mls @ 100 mls/hr 04/30/17 18:00 05/13/17 09:29 Flagyl 500mg Premixed Ivpb - IVPB 100 mls/hr Q8H-IV [facility] Administration Pantoprazole Sodium 100 mls @ 200 mls/hr 05/06/17 10:00 05/13/17 09:28 Protonix 40mg Ivpb (Pre-Docked) IVPB 200 mls/hr DAILY [facility] Administration Propofol 100 mls @ 3.599 mls/hr 05/06/17 08:30 05/13/17 09:13 Diprivan - IVPB 17.996 mls/hr TITR [facility]W Administration Protocol 5 MCG/KG/MIN Sodium Chloride 1,000 mls @ 75 mls/hr 05/07/17 13:30 05/12/17 12:46 1/2 Normal Saline IV 75 mls/hr ASDIR [facility] Administration Meropenem 1 gm/ Dextrose 100 mls @ 200 mls/hr 05/09/17 10:45 05/13/17 09:29 IVPB 200 mls/hr Q8H-IV [facility] Administration Norepinephrine Bitartrate 8, 508 mls @ 19.05 mls/hr 05/10/17 02:01 05/13/17 06: 09 000 mcg/ Dextrose IV 22 mcg/min TITR MATTHEW Titration Protocol 5 MCG/MIN Insulin Aspart 1 vial 05/04/17 17:15 05/13/17 12:08 Novolog Vial Sliding Scale - SQ 6 units ACHS [facility]W Administration Protocol Metoprolol Tartrate 25 mg 04/30/17 22:00 05/13/17 09:29 Lopressor - PO 25 mg BID [facility] Administration Metoprolol Tartrate 5 mg 05/02/17 22:14 05/04/17 09:30 Lopressor Injection - IVPUSH 5 mg Q4H PRN Administration HR >100 Potassium Chloride 40 meq 05/13/17 12:00 05/13/17 12:06 K-Dur - PO 05/13/17 16:01 40 meq Q4H [facility]W Administration Tamsulosin HCl 0.4 mg 05/01/17 08:30 05/13/17 08:55 Flomax - PO 0.4 mg DAILY@0830 [facility] Administration Vancomycin HCl 125 mg 05/10/17 18:00 05/13/17 12:06 Vancomycin Oral Solution PO 125 mg Q6HPO [facility] Administration ASSESSMENT/PLAN: Acute Hypoxic Respiratory Failure Left Atelectasis improving Acute CVA r/o C Diff Colitis UTI Septic Shock Acute Kidney Injury, creatnine increasing. Suprapubic Catheter COPD DM Atrial Flutter - continue antibiotics per ID - chest PT / bed percussion - Titrate levophed gtt to maintain MAP >65 - IVF keep CVP 8-12 - monitor urine output, creatinine - Will need to discuss further AC with cardiology, - Taper fiO2, PEEP to keep SpO2 >90% - Enteral feeds - monitor an dcontrol BP on metoprolol _ Monitor and control blood sugar on insulin - Monitor sr potassium - On heparin for DVT pro - on protonix for gi prophylaxis Visit type - Emergency Visit Emergency Visit: Yes ED Registration Date: 04/30/17 Care time: The patient presented to the Emergency Department on the above date and was hospitalized for further evaluation of their emergent condition. - New Patient This patient is new to me today: No - Critical Care Critical Care patient: Yes Total Critical Care Time (in minutes): 45 Critical Care Statement: The care of this patient involved high complexity decision making to prevent further life threatening deterioration of the patient 's condition and/or to evaluate & treat vital organ system(s) failure or risk of failure.
--- NOTE | 2017-05-13 14:18 | PN ---
Progress Note, Physician History of Present Illness: remaining afebrile wbc trending down still loose stool trial of cpap given - Current Medication List Current Medications: Active Medications Acetaminophen (Tylenol -) 650 mg PO Q4H PRN PRN Reason: FEVER OR PAIN Last Admin: 05/10/17 18:01 Dose: 650 mg Aspirin (Asa -) 325 mg NGT DAILY [facility] Last Admin: 05/13/17 09:29 Dose: 325 mg Atorvastatin Calcium (Lipitor -) 40 mg PO HS [facility] Last Admin: 05/12/17 21:45 Dose: 40 mg Bacitracin/Polymyxin B Sulfate (Polysporin Ointment -) 1 applic TP BID [facility] Last Admin: 05/13/17 09:32 Dose: 1 applic Chlorhexidine Gluconate (Hibiclens For Decolonization -) 1 applic TP HS [facility] Last Admin: 05/12/17 21:44 Dose: 1 applic Fenofibric Acid (Trilipix -) 135 mg PO DAILY [facility] Last Admin: 05/13/17 09:30 Dose: 135 mg Glipizide (Glucotrol -) 5 mg PO DAILY@0700 [facility] Last Admin: 05/13/17 06:09 Dose: 5 mg Heparin Sodium (Porcine) (Heparin -) 5,000 unit SQ TID [facility] Last Admin: 05/13/17 06:08 Dose: 5,000 unit Metronidazole (Flagyl 500mg Premixed Ivpb -) 100 mls @ 100 mls/hr IVPB Q8H-IV [facility] Last Admin: 05/13/17 09:29 Dose: 100 mls/hr Pantoprazole Sodium (Protonix 40mg Ivpb (Pre-Docked)) 100 mls @ 200 mls/hr IVPB DAILY [facility] Last Admin: 05/13/17 09:28 Dose: 200 mls/hr Propofol (Diprivan -) 100 mls @ 3.599 mls/hr IVPB TITR [facility]THEW; 5 MCG/KG/MIN PRN Reason: Protocol Last Admin: 05/13/17 09:13 Dose: 17.996 mls/hr Sodium Chloride (1/2 Normal Saline) 1,000 mls @ 75 mls/hr IV ASDIR [facility] Last Admin: 05/12/17 12:46 Dose: 75 mls/hr Meropenem 1 gm/ Dextrose 100 mls @ 200 mls/hr IVPB Q8H-IV [facility] Last Admin: 05/13/17 09:29 Dose: 200 mls/hr Norepinephrine Bitartrate 8, (000 mcg/ Dextrose) 508 mls @ 19.05 mls/hr IV TITR MATTHEW; 5 MCG/MIN PRN Reason: Protocol Last Titration: 05/13/17 06:09 Dose: 22 mcg/min Insulin Aspart (Novolog Vial Sliding Scale -) 1 vial SQ ACHS [facility]THEW PRN Reason: Protocol Last Admin: 05/13/17 12:08 Dose: 6 units Metoprolol Tartrate (Lopressor -) 25 mg PO BID [facility] Last Admin: 05/13/17 09:29 Dose: 25 mg Metoprolol Tartrate (Lopressor Injection -) 5 mg IVPUSH Q4H PRN PRN Reason: HR >100 Last Admin: 05/04/17 09:30 Dose: 5 mg Potassium Chloride (K-Dur -) 40 meq PO Q4H [facility] Stop: 05/13/17 16:01 Last Admin: 05/13/17 12:06 Dose: 40 meq Tamsulosin HCl (Flomax -) 0.4 mg PO DAILY@0830 [facility] Last Admin: 05/13/17 08:55 Dose: 0.4 mg Vancomycin HCl (Vancomycin Oral Solution) 125 mg PO Q6HPO [facility] Last Admin: 05/13/17 12:06 Dose: 125 mg - Objective Vital Signs: Vital Signs Temperature 99.5 F 05/13/17 06:00 Pulse Rate 74 05/13/17 12:00 Respiratory Rate 22 05/13/17 12:00 Blood Pressure 99/50 05/13/17 12:00 O2 Sat by Pulse Oximetry (%) 99 05/13/17 10:17 Constitutional: Yes: Other Cardiovascular: Yes: S1, S2 Respiratory: Yes: Intubated, Mechanically Ventilated Gastrointestinal: Yes: Normal Bowel Sounds, Soft Genitourinary: Yes: Other (suprapubic) Musculoskeletal: Yes: Other Extremities: Yes: Other Neurological: Yes: Other Psychiatric: Yes: Other Labs: CBC, BMP 05/13/17 05:15 INR, PTT INR 1.28 (0.82-1.09) H 04/30/17 12:05 Assessment/Plan Acute Hypoxic Respiratory Failure Left Atelectasis Acute CVA UTI Septic Shock Acute Kidney Injury Suprapubic Catheter COPD DM dirrhoea plan continue current abx monitor for fevers nutrition await for repeat cx send from central line rest as per icu in couple of days will start deescalating abx cc 40 min
[2017-05-13] MEDS: SODIUM CHLORIDE 0.45% 1,000 ML IV SCH (14:36)
[2017-05-13] MEDS ORDERED: PROPOFOL 100 ML ONE (21:33)
[2017-05-13] MEDS: ATORVASTATIN CA 40 MG TABLET (FP) PO SCH (21:50)
[2017-05-13] MEDS: CHLORHEXIDINE GLUCONATE 4% CLEANSER FOR DECOLONIZATION TP SCH (21:50)
[2017-05-13 21:51] LABS: ANION GAP 17 (8-16); CALCIUM 7.8 mg/dL (8.5-10.1); CO2 16 mmol/L (21-32); CREATININE 6.4 mg/dL (0.7-1.3); GLUCOSE,RANDOM 234 mg/dL (74-106)
[2017-05-13] MEDS ORDERED: KCL 10 MEQ IVPB 100 ML IVPB SCH (22:15)
[2017-05-14] MEDS: MEROPENEM 1 GM in DEXTROSE 5%-WATER - 100 ML IVPB SCH ×2 (01:09→09:17)
[2017-05-14] MEDS: METRONIDAZOLE 500 MG PREMIXED 100 ML IVPB SCH ×2 (01:09→09:17)
[2017-05-14 06:03] LABS: MCH 27.5 pg (25.7-33.7); MCHC 32.7 g/dl (32.0-35.9); MEAN CELL VOLUME 84.1 fl (80-96); PLATELET COUNT 334 K/MM3 (134-434); RDW 16.9 % (11.9-15.9); WHITE BLOOD COUNT 21.5 K/mm3 (4.0-10.0)
[2017-05-14] MEDS: DEXTROSE 5% IV SCH ×2 (06:06→08:36)
[2017-05-14] MEDS: glipiZIDE 5 MG TABLET (FP) PO SCH (06:06)
[2017-05-14] MEDS: WATER IV SCH ×2 (06:06→08:36)
[2017-05-14] MEDS: HEPARIN NA (PORCINE) 5,000 UNITS/ML 1ML VIAL SQ SCH ×2 (06:06→14:33)
[2017-05-14] MEDS: NOREPINEPHRINE BITARTRATE IV SCH ×2 (06:06→08:36)
[2017-05-14] MEDS: VANCOMYCIN 250 MG/5 ML ORAL SOLUTION PO SCH ×2 (06:06→12:31)
[2017-05-14] MEDS: INSULIN SLIDING SCALE (NOVOLOG) 1 VIAL SQ SCH ×2 (06:17→11:43)
[2017-05-14] MEDS ORDERED: morphine CARPU-JECT 2 MG/1 ML DISP.SYRIN ONE (06:28)
[2017-05-14 06:31] LABS: ALBUMIN 1.3 g/dl (3.4-5.0); ANION GAP 19 (8-16); CALCIUM 7.5 mg/dL (8.5-10.1); CO2 14 mmol/L (21-32); CREATININE 6.6 mg/dL (0.7-1.3); GLUCOSE,RANDOM 262 mg/dL (74-106); MAGNESIUM 2.3 mg/dL (1.8-2.4); PHOSPHOROUS 8.5 mg/dL (2.5-4.9); SGOT/AST 23 U/L (15-37); SGPT/ALT 13 U/L (12-78)
[2017-05-14 06:33] LABS: ALK PHOS 65 U/L (45-117); BILIRUBIN,TOTAL 0.4 mg/dL (0.2-1.0); TOT PROT 4.6 g/dl (6.4-8.2)
[2017-05-14 07:41] LABS: ARTERIAL BLD GAS O2 SATURATION 94.3 % (90-98.9); ARTERIAL BLOOD GAS BASE EXCESS -15.8 meq/l (-2-2); ARTERIAL BLOOD GAS PO2 79.8 mmHg (80-100)
[2017-05-14 07:43] LABS: ALLENS TEST POSITIVE; ART PUNCT SITE RIGHT RADIAL; LPM/O2% 50%; MECH. VENT. ESPRIT; PT. ON O2? YES; TYPE OF O2 MEC.VENT; VENT RATE 14; VT/PRESS 550
[2017-05-14 07:44] LABS: ARTERIAL BLOOD GAS HCO3 12.5 meq/L (22-26); ARTERIAL BLOOD GAS pH 7.11 (7.35-7.45)
[2017-05-14 07:51] LABS: PLATELET COMMENT2 NO CLOTTING DETECTED; PLATELET COMMENT3 MOD LARGE PLTS; PLATELET ESTIMATE ADEQUATE (NORMAL); TOTAL CELLS COUNTED 100
[2017-05-14] MEDS ORDERED: NOREPINEPHRINE BITARTRATE 4 MG/4 ML ML IV ONE ×2 (08:08→12:22)
[2017-05-14] MEDS: TAMSULOSIN HCL 0.4 MG CAP.ER.24H (FP) PO SCH (08:42)
[2017-05-14] MEDS ORDERED: PT OWN MED DRAWER 7, Y5N ONE ×3 (08:51→12:30)
[2017-05-14] MEDS: METOPROLOL TARTRATE 25 MG TABLET (FP) PO SCH (09:17)
[2017-05-14] MEDS: ASPIRIN 325 MG TABLET NGT SCH (09:17)
[2017-05-14] MEDS: BACITRACIN/POLYMYXIN B SULFATE 15 GM TUBE TP SCH (09:17)
[2017-05-14] MEDS: PANTOPRAZOLE SODIUM 100 ML IVPB SCH (09:18)
--- NOTE | 2017-05-14 10:14 | PN ---
Progress Note (short form) - Note Progress Note: Neurology History of Present Illness 67 yo M presented to the ER with a complaint of diarrhea and weakness for the past 2 weeks. Was found to be positive for C Diff and admitted. I was contacted for consultation for acute R sided weakness, aphasia, and confusion. Patient was given TPA, remains in ICU and continued close monitoring. MRI brain showed L MCA infarct. 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 CD reviewed and did not show HD significant stenosis. Morning of had respiratory distress and failure, required intubation, sedation, on mechanical ventilation since. No significant improvements in respiratory status thus far. Not over breathing the vent. Remains on sedation and blood pressure support with Levophed. On Holter monitoring for arrythmia monitoring. Has been having intermittent fevers with white count elevation. ID following closely. On Abx, neurologically no new events, but also no significant improvement, remains under close monitoring in ICU. Question of Aflutter and being considered for AC but only if confirmed on rhythm strip. Active Medications Generic Name Dose Route Start Last Admin Trade Name La PRN Reason Stop Dose Admin Acetaminophen 650 mg 05/10/17 00:55 05/10/17 18:01 Tylenol - PO 650 mg Q4H PRN Administration FEVER OR PAIN Aspirin 325 mg 05/05/17 12:15 05/14/17 09:17 Asa - NGT 325 mg DAILY MATTHEW Administration Atorvastatin Calcium 40 mg 05/02/17 22:00 05/13/17 21:50 Lipitor - PO 40 mg HS MATTHEW Administration Bacitracin/Polymyxin B Sulfate 1 applic 05/01/17 10:00 05/14/17 09:17 Polysporin Ointment - TP 1 applic BID MATTHEW Administration Chlorhexidine Gluconate 1 applic 04/30/17 22:00 05/13/17 21:50 Hibiclens For Decolonization - TP 1 applic HS MATTHEW Administration Fenofibric Acid 135 mg 05/01/17 10:00 05/13/17 09:30 Trilipix - PO 135 mg DAILY MATTHEW Administration Glipizide 5 mg 05/01/17 07:00 05/14/17 06:06 Glucotrol - PO 5 mg DAILY@0700 MATTHEW Administration Heparin Sodium (Porcine) 5,000 unit 05/11/17 22:00 05/14/17 06:06 Heparin - SQ 5,000 unit TID MATTHEW Administration Metronidazole 100 mls @ 100 mls/hr 04/30/17 18:00 05/14/17 09:17 Flagyl 500mg Premixed Ivpb - IVPB 100 mls/hr Q8H-IV MATTHEW Administration Pantoprazole Sodium 100 mls @ 200 mls/hr 05/06/17 10:00 05/14/17 09:18 Protonix 40mg Ivpb (Pre-Docked) IVPB 200 mls/hr DAILY MATTHEW Administration Propofol 100 mls @ 3.599 mls/hr 05/06/17 08:30 05/13/17 09:13 Diprivan - IVPB 17.996 mls/hr TITR MATTHEW Administration Protocol 5 MCG/KG/MIN Sodium Chloride 1,000 mls @ 75 mls/hr 05/07/17 13:30 05/13/17 14:36 1/2 Normal Saline IV 75 mls/hr ASDIR MATTHEW Administration Meropenem 1 gm/ Dextrose 100 mls @ 200 mls/hr 05/09/17 10:45 05/14/17 09:17 IVPB 200 mls/hr Q8H-IV MATTHEW Administration Norepinephrine Bitartrate 8, 508 mls @ 19.05 mls/hr 05/10/17 02:01 05/14/17 08: 36 000 mcg/ Dextrose IV 114.3 mls/hr TITR MATTHEW Administration Protocol 5 MCG/MIN Insulin Aspart 1 vial 05/04/17 17:15 05/14/17 06:17 Novolog Vial Sliding Scale - SQ 8 units ACHS MATTHEW Administration Protocol Metoprolol Tartrate 25 mg 04/30/17 22:00 05/14/17 09:17 Lopressor - PO Not Given BID MATTHEW Metoprolol Tartrate 5 mg 05/02/17 22:14 05/04/17 09:30 Lopressor Injection - IVPUSH 5 mg Q4H PRN Administration HR >100 Tamsulosin HCl 0.4 mg 05/01/17 08:30 05/14/17 08:42 Flomax - PO Not Given DAILY@0830 MATTHEW Vancomycin HCl 125 mg 05/10/17 18:00 05/14/17 06:06 Vancomycin Oral Solution PO 125 mg Q6HPO MATTHEW Administration *Physical Exam Vital Signs Temperature 99.3 F 05/14/17 09:37 Pulse Rate 78 05/14/17 09:37 Respiratory Rate 28 H 05/14/17 09:37 Blood Pressure 95/41 05/14/17 09:37 O2 Sat by Pulse Oximetry (%) 99 05/14/17 08:30 Sedated, not following commands RRR, no murmur Mechanical breath sounds Abdomen soft, NT Aphasic previously, unclear 2/2 sedation at this time R facial droop mild at this point Was moving RUE and LUE grossly previously, not participating in confrontation testing Was moving R leg stump but remains sedated Sensory not able to assess Gait deferred CBCD WBC 21.5 K/mm3 (4.0-10.0) H 05/14/17 05:45 RBC 3.28 M/mm3 (4.00-5.60) L 05/14/17 05:45 Hgb 9.0 GM/dL (11.7-16.9) L 05/14/17 05:45 Hct 27.6 % (35.4-49) L 05/14/17 05:45 MCV 84.1 fl (80-96) 05/14/17 05:45 MCHC 32.7 g/dl (32.0-35.9) 05/14/17 05:45 RDW 16.9 % (11.9-15.9) H 05/14/17 05:45 Plt Count 334 K/MM3 (134-434) 05/14/17 05:45 MPV 9.0 fl (7.5-11.1) 05/14/17 05:45 CMP Sodium 133 mmol/L (136-145) L 05/14/17 05:45 Potassium 3.0 mmol/L (3.5-5.1) L 05/14/17 05:45 Chloride 100 mmol/L (98-107) 05/14/17 05:45 Carbon Dioxide 14 mmol/L (21-32) L 05/14/17 05:45 Anion Gap 19 (8-16) H 05/14/17 05:45 BUN 86 mg/dL (7-18) H 05/14/17 05:45 Creatinine 6.6 mg/dL (0.7-1.3) H 05/14/17 05:45 Creat Clearance w eGFR 8.39 (>60) 05/14/17 05:45 Calcium 7.5 mg/dL (8.5-10.1) L 05/14/17 05:45 Total Bilirubin 0.4 mg/dL (0.2-1.0) 05/14/17 05:45 AST 23 U/L (15-37) 05/14/17 05:45 ALT 13 U/L (12-78) 05/14/17 05:45 Alkaline Phosphatase 65 U/L (45-117) 05/14/17 05:45 Total Protein 4.6 g/dl (6.4-8.2) L 05/14/17 05:45 Albumin 1.3 g/dl (3.4-5.0) L 05/14/17 05:45 Ct head reviewed CD reviewed MRI brain reviewed MRA brain reviewed Plan: 67 yo M presented to the ER with a complaint of diarrhea and weakness for the past 2 weeks. Was found to be positive for C Diff and admitted. Was in ICU and code rayo called and patient given TPA. Subsequent with improving RLE strength, now 5-/5. Patient also moving RUE but not following commands fully yet. MRI, MRA , CD, as described above. Patient on ASA 325 and statin (Aggrenox was not able to be crushed) Remains intubated and mechically ventilated Can proceed with AC if atrial flutter or other arrythmia noted Physical therapy on hold On levophed blood pressure support, code status is DNR tight glycemic control, continue Glipizide Continue ICU monitoring C. Diff treatment on going, contact precautions being observed Contact precautions DVT PPX, on SCD boots No new neurologic event Critical care time 35 mins total.
[2017-05-14] MEDS: PROPOFOL 100 ML IVPB SCH ×2 (10:35→14:34)
--- NOTE | 2017-05-14 10:43 | PN ---
Progress Note, Physician Chief Complaint: mental statis no change nonverbal to comands nor to vig stimuli - Current Medication List Current Medications: Active Medications Acetaminophen (Tylenol -) 650 mg PO Q4H PRN PRN Reason: FEVER OR PAIN Last Admin: 05/10/17 18:01 Dose: 650 mg Aspirin (Asa -) [address] [facility] Last Admin: 05/14/17 09:17 Dose: 325 mg Atorvastatin Calcium (Lipitor -) [address] [facility] Last Admin: 05/13/17 21:50 Dose: 40 mg Bacitracin/Polymyxin B Sulfate (Polysporin Ointment -) 1 applic TP BID MATTHEW Last Admin: 05/14/17 09:17 Dose: 1 applic Chlorhexidine Gluconate (Hibiclens For Decolonization -) [address] [facility] Last Admin: 05/13/17 21:50 Dose: 1 applic Fenofibric Acid (Trilipix -) [address] [facility] Last Admin: 05/13/17 09:30 Dose: 135 mg Glipizide (Glucotrol -) 5 mg PO DAILY@0700 [facility] Last Admin: 05/14/17 06:06 Dose: 5 mg Heparin Sodium (Porcine) (Heparin -) 5,[address] [facility] Last Admin: 05/14/17 06:06 Dose: 5,000 unit Metronidazole (Flagyl 500mg Premixed Ivpb -) 100 mls @ 100 mls/hr IVPB Q8H-IV [facility] Last Admin: 05/14/17 09:17 Dose: 100 mls/hr Pantoprazole Sodium (Protonix 40mg Ivpb (Pre-Docked)) 100 mls @ 200 mls/hr IVPB DAILY [facility] Last Admin: 05/14/17 09:18 Dose: 200 mls/hr Propofol (Diprivan -) 100 mls @ 3.599 mls/hr IVPB TITR MATTHEW; 5 MCG/KG/MIN PRN Reason: Protocol Last Admin: 05/13/17 09:13 Dose: 17.996 mls/hr Sodium Chloride (1/2 Normal Saline) 1,000 mls @ 75 mls/hr IV ASDIR [facility] Last Admin: 05/13/17 14:36 Dose: 75 mls/hr Meropenem 1 gm/ Dextrose 100 mls @ 200 mls/hr IVPB Q8H-IV [facility] Last Admin: 05/14/17 09:17 Dose: 200 mls/hr Norepinephrine Bitartrate 8, (000 mcg/ Dextrose) 508 mls @ 19.05 mls/hr IV TITR MATTHEW; 5 MCG/MIN PRN Reason: Protocol Last Admin: 05/14/17 08:36 Dose: 114.3 mls/hr Insulin Aspart (Novolog Vial Sliding Scale -) 1 vial SQ ACHS MATTHEW PRN Reason: Protocol Last Admin: 05/14/17 06:17 Dose: 8 units Metoprolol Tartrate (Lopressor -) [address] [facility] Last Admin: 05/14/17 09:17 Dose: Not Given Metoprolol Tartrate (Lopressor Injection -) 5 mg IVPUSH Q4H PRN PRN Reason: HR >100 Last Admin: 05/04/17 09:30 Dose: 5 mg Tamsulosin HCl (Flomax -) 0.4 mg PO DAILY@0830 [facility] Last Admin: 05/14/17 08:42 Dose: Not Given Vancomycin HCl (Vancomycin Oral Solution) [address] [facility] Last Admin: 05/14/17 06:06 Dose: 125 mg - Objective Vital Signs: Vital Signs Temperature 99.3 F 05/14/17 09:37 Pulse Rate 78 05/14/17 09:37 Respiratory Rate 28 H 05/14/17 09:37 Blood Pressure 95/41 05/14/17 09:37 O2 Sat by Pulse Oximetry (%) 99 05/14/17 08:30 Constitutional: Yes: Other (sedated) Eyes: Yes: Sclera Icterus Cardiovascular: Yes: Pulse Irregular Respiratory: Yes: Other (vent assistesd) Gastrointestinal: Yes: Soft ...Rectal Exam: Yes: Deferred Genitourinary: Yes: Scrotal Edema Breast(s): Yes: WNL Musculoskeletal: Yes: Other (gen edema) Edema: Yes Edema: LLE: 2+ Peripheral Pulses WNL: Yes Integumentary: Yes: Other (rt ear [place] deep tiss injury) Neurological: Yes: Loss of Sensation, Unresponsive Labs: CBC, BMP 05/14/17 05:45 05/14/17 05:45 INR, PTT INR 1.28 (0.82-1.09) H 04/30/17 12:05 Assessment/Plan na low today b/cr high bp low low k today plan replace k now proxy will talk to neuro to see if dialysis futile or not stop flids iv give 1 dose lasix 20 mg to challengr kid and redued lung congestion pl eff also cont ngt nepro f/u w card spent 35 mins critical care
[2017-05-14] MEDS ORDERED: FUROSEMIDE 40 MG/4 ML INJECTABLE VIAL IVPUSH ONE (10:44)
[2017-05-14] MEDS ORDERED: POTASSIUM CHLORIDE 20 MEQ PREMIX IVPB 100 ML IVPB ONE (11:00)
[2017-05-14] MEDS: FENOFIBRIC ACID 135 MG CAP PO SCH (11:42)
--- NOTE | 2017-05-14 13:47 | PN ---
Progress Note, Physician History of Present Illness: Pt seen and examined at bedside. He remain in the ICU intubated. Pt remains oliguric. Pt remains hypotensive on pressors. - Current Medication List Current Medications: Active Medications Acetaminophen (Tylenol -) 650 mg PO Q4H PRN PRN Reason: FEVER OR PAIN Last Admin: 05/10/17 18:01 Dose: 650 mg Aspirin (Asa -) 325 mg NGT DAILY [facility] Last Admin: 05/14/17 09:17 Dose: 325 mg Atorvastatin Calcium (Lipitor -) 40 mg PO HS [facility] Last Admin: 05/13/17 21:50 Dose: 40 mg Bacitracin/Polymyxin B Sulfate (Polysporin Ointment -) 1 applic TP BID [facility] Last Admin: 05/14/17 09:17 Dose: 1 applic Chlorhexidine Gluconate (Hibiclens For Decolonization -) 1 applic TP HS [facility] Last Admin: 05/13/17 21:50 Dose: 1 applic Fenofibric Acid (Trilipix -) 135 mg PO DAILY [facility] Last Admin: 05/14/17 11:42 Dose: 135 mg Glipizide (Glucotrol -) 5 mg PO DAILY@0700 [facility] Last Admin: 05/14/17 06:06 Dose: 5 mg Heparin Sodium (Porcine) (Heparin -) 5,000 unit SQ TID [facility] Last Admin: 05/14/17 06:06 Dose: 5,000 unit Metronidazole (Flagyl 500mg Premixed Ivpb -) 100 mls @ 100 mls/hr IVPB Q8H-IV [facility] Last Admin: 05/14/17 09:17 Dose: 100 mls/hr Pantoprazole Sodium (Protonix 40mg Ivpb (Pre-Docked)) 100 mls @ 200 mls/hr IVPB DAILY [facility] Last Admin: 05/14/17 09:18 Dose: 200 mls/hr Propofol (Diprivan -) 100 mls @ 3.599 mls/hr IVPB TITR MATTHEW; 5 MCG/KG/MIN PRN Reason: Protocol Last Admin: 05/14/17 10:35 Dose: 17.996 mls/hr Meropenem 1 gm/ Dextrose 100 mls @ 200 mls/hr IVPB Q8H-IV [facility] Last Admin: 05/14/17 09:17 Dose: 200 mls/hr Norepinephrine Bitartrate 8, (000 mcg/ Dextrose) 508 mls @ 19.05 mls/hr IV TITR MATTHEW; 5 MCG/MIN PRN Reason: Protocol Last Admin: 05/14/17 08:36 Dose: 114.3 mls/hr Insulin Aspart (Novolog Vial Sliding Scale -) 1 vial SQ ACHS MATTHEW PRN Reason: Protocol Last Admin: 05/14/17 11:43 Dose: 10 units Metoprolol Tartrate (Lopressor -) 25 mg PO BID [facility] Last Admin: 05/14/17 09:17 Dose: Not Given Metoprolol Tartrate (Lopressor Injection -) 5 mg IVPUSH Q4H PRN PRN Reason: HR >100 Last Admin: 05/04/17 09:30 Dose: 5 mg Tamsulosin HCl (Flomax -) 0.4 mg PO DAILY@0830 [facility] Last Admin: 05/14/17 08:42 Dose: Not Given Vancomycin HCl (Vancomycin Oral Solution) 125 mg PO Q6HPO [facility] Last Admin: 05/14/17 12:31 Dose: 125 mg - Objective Vital Signs: Vital Signs Temperature 99.3 F 05/14/17 10:00 Pulse Rate 96 H 05/14/17 12:00 Respiratory Rate 26 H 05/14/17 12:23 Blood Pressure 101/43 05/14/17 12:00 O2 Sat by Pulse Oximetry (%) 99 05/14/17 10:44 Constitutional: Yes: Calm Eyes: Yes: Conjunctiva Clear HENT: Yes: Atraumatic Cardiovascular: Yes: S1, S2 Respiratory: Yes: Mechanically Ventilated, Rhonchi Gastrointestinal: Yes: Abdomen, Obese Genitourinary: Yes: Griffith Present, Oliguria Musculoskeletal: Yes: Muscle Weakness Extremities: Yes: Amputation Edema: Yes Edema: LLE: Trace, RLE: Trace Neurological: Yes: Lethargy Labs: CBC, BMP 05/14/17 05:45 05/14/17 05:45 INR, PTT INR 1.28 (0.82-1.09) H 04/30/17 12:05 - ....Imaging Chest X-ray: Report Reviewed Problem List - Problems (1) Dehydration Code(s): E86.0 - DEHYDRATION (2) Acute diarrhea Code(s): R19.7 - DIARRHEA, UNSPECIFIED (3) Hypernatremia Code(s): E87.0 - HYPEROSMOLALITY AND HYPERNATREMIA (4) BILL (acute kidney injury) Code(s): N17.9 - ACUTE KIDNEY FAILURE, UNSPECIFIED (5) CVA (cerebral vascular accident) Code(s): I63.9 - CEREBRAL INFARCTION, UNSPECIFIED Assessment/Plan Current Medications Generic Name Dose Route Start Last Admin Trade Name Freq PRN Reason Stop Dose Admin Acetaminophen 650 mg 05/10/17 00:55 05/10/17 18:01 Tylenol - PO 650 mg Q4H PRN Administration FEVER OR PAIN Aspirin 325 mg 05/05/17 12:15 05/14/17 09:17 Asa - NGT 325 mg DAILY MATTHEW Administration Atorvastatin Calcium 40 mg 05/02/17 22:00 05/13/17 21:50 Lipitor - PO 40 mg HS MATTHEW Administration Bacitracin/Polymyxin B Sulfate 1 applic 05/01/17 10:00 05/14/17 09:17 Polysporin Ointment - TP 1 applic BID MATTHEW Administration Chlorhexidine Gluconate 1 applic 04/30/17 22:00 05/13/17 21:50 Hibiclens For Decolonization - TP 1 applic HS MATTHEW Administration Fenofibric Acid 135 mg 05/01/17 10:00 05/14/17 11:42 Trilipix - PO 135 mg DAILY MATTHEW Administration Glipizide 5 mg 05/01/17 07:00 05/14/17 06:06 Glucotrol - PO 5 mg DAILY@0700 MATTHEW Administration Heparin Sodium (Porcine) 5,000 unit 05/11/17 22:00 05/14/17 06:06 Heparin - SQ 5,000 unit TID MATTHEW Administration Metronidazole 100 mls @ 100 mls/hr 04/30/17 18:00 05/14/17 09:17 Flagyl 500mg Premixed Ivpb - IVPB 100 mls/hr Q8H-IV MATTHEW Administration Pantoprazole Sodium 100 mls @ 200 mls/hr 05/06/17 10:00 05/14/17 09:18 Protonix 40mg Ivpb (Pre-Docked) IVPB 200 mls/hr DAILY MATTHWE Administration Propofol 100 mls @ 3.599 mls/hr 05/06/17 08:30 05/14/17 10:35 Diprivan - IVPB 17.996 mls/hr TITR MATTHEW Administration Protocol 5 MCG/KG/MIN Meropenem 1 gm/ Dextrose 100 mls @ 200 mls/hr 05/09/17 10:45 05/14/17 09:17 IVPB 200 mls/hr Q8H-IV MATTHEW Administration Norepinephrine Bitartrate 8, 508 mls @ 19.05 mls/hr 05/10/17 02:01 05/14/17 08: 36 000 mcg/ Dextrose IV 114.3 mls/hr TITR MATTHEW Administration Protocol 5 MCG/MIN Insulin Aspart 1 vial 05/04/17 17:15 05/14/17 11:43 Novolog Vial Sliding Scale - SQ 10 units ACHS MATTHEW Administration Protocol Metoprolol Tartrate 25 mg 04/30/17 22:00 05/14/17 09:17 Lopressor - PO Not Given BID MATTHEW Metoprolol Tartrate 5 mg 05/02/17 22:14 05/04/17 09:30 Lopressor Injection - IVPUSH 5 mg Q4H PRN Administration HR >100 Tamsulosin HCl 0.4 mg 05/01/17 08:30 05/14/17 08:42 Flomax - PO Not Given DAILY@0830 [facility] Vancomycin HCl 125 mg 05/10/17 18:00 05/14/17 12:31 Vancomycin Oral Solution PO 125 mg Q6HPO MATTHEW Administration Impression 1. BILL 2. hypernatremia 3. sepsis 4. CVA acute 5. HTN 6. DM 7. copd 8. obstructive uropathy with suprapubic cath 9. UTI 10. diarrhea 11. respiratory failure 12. hypokalemia Plan - renal function continues to worsen - called and discussed care with pts TAYE Berg and she would like HD therapy - will need access for HD - will attempt HD if pt stabilizes as he is hypotensive and on pressors - BILL likely from [facility] - stop fluids as he is not making urine and is getting congested - cont current treatment - cont pressors to a map of 65 - will follow pt
[2017-05-14 14:20] VITALS: TEMP 99.4
[2017-05-14 15:08] VITALS: BP 58/34; PULSE 82
--- NOTE | 2017-05-14 15:12 | PN ---
Progress Note, Physician History of Present Illness: patient critical on pressors still hypotensive no response intubated and ventilated - Current Medication List Current Medications: Active Medications Acetaminophen (Tylenol -) 650 mg PO Q4H PRN PRN Reason: FEVER OR PAIN Last Admin: 05/10/17 18:01 Dose: 650 mg Aspirin (Asa -) 325 mg NGT DAILY [facility] Last Admin: 05/14/17 09:17 Dose: 325 mg Atorvastatin Calcium (Lipitor -) 40 mg PO HS [facility] Last Admin: 05/13/17 21:50 Dose: 40 mg Bacitracin/Polymyxin B Sulfate (Polysporin Ointment -) 1 applic TP BID [facility] Last Admin: 05/14/17 09:17 Dose: 1 applic Chlorhexidine Gluconate (Hibiclens For Decolonization -) 1 applic TP HS [facility] Last Admin: 05/13/17 21:50 Dose: 1 applic Fenofibric Acid (Trilipix -) 135 mg PO DAILY [facility] Last Admin: 05/14/17 11:42 Dose: 135 mg Glipizide (Glucotrol -) 5 mg PO DAILY@0700 [facility] Last Admin: 05/14/17 06:06 Dose: 5 mg Heparin Sodium (Porcine) (Heparin -) 5,000 unit SQ TID [facility] Last Admin: 05/14/17 14:33 Dose: 5,000 unit Metronidazole (Flagyl 500mg Premixed Ivpb -) 100 mls @ 100 mls/hr IVPB Q8H-IV [facility] Last Admin: 05/14/17 09:17 Dose: 100 mls/hr Pantoprazole Sodium (Protonix 40mg Ivpb (Pre-Docked)) 100 mls @ 200 mls/hr IVPB DAILY [facility] Last Admin: 05/14/17 09:18 Dose: 200 mls/hr Propofol (Diprivan -) 100 mls @ 3.599 mls/hr IVPB TITR [facility]THE[facility]; 5 MCG/KG/MIN PRN Reason: Protocol Last Admin: 05/14/17 14:34 Dose: 17.996 mls/hr Meropenem 1 gm/ Dextrose 100 mls @ 200 mls/hr IVPB Q8H-IV [facility] Last Admin: 05/14/17 09:17 Dose: 200 mls/hr Norepinephrine Bitartrate 8, (000 mcg/ Dextrose) 508 mls @ 19.05 mls/hr IV TITR MATTHEW; 5 MCG/MIN PRN Reason: Protocol Last Admin: 05/14/17 08:36 Dose: 114.3 mls/hr Insulin Aspart (Novolog Vial Sliding Scale -) 1 vial SQ ACHS MATTHEW PRN Reason: Protocol Last Admin: 05/14/17 11:43 Dose: 10 units Insulin Detemir (Levemir Vial) 10 units SQ HS [facility] Metoprolol Tartrate (Lopressor -) 25 mg PO BID [facility] Last Admin: 05/14/17 09:17 Dose: Not Given Metoprolol Tartrate (Lopressor Injection -) 5 mg IVPUSH Q4H PRN PRN Reason: HR >100 Last Admin: 05/04/17 09:30 Dose: 5 mg Tamsulosin HCl (Flomax -) 0.4 mg PO DAILY@0830 [facility] Last Admin: 05/14/17 08:42 Dose: Not Given Vancomycin HCl (Vancomycin Oral Solution) 125 mg PO Q6HPO [facility] Last Admin: 05/14/17 12:31 Dose: 125 mg - Objective Vital Signs: Vital Signs Temperature 99.4 F 05/14/17 14:00 Pulse Rate 82 05/14/17 15:08 Respiratory Rate 28 H 05/14/17 15:08 Blood Pressure 58/34 05/14/17 15:08 O2 Sat by Pulse Oximetry (%) 99 05/14/17 10:44 Constitutional: Yes: Other Cardiovascular: Yes: S1, S2 Respiratory: Yes: Intubated, Mechanically Ventilated Gastrointestinal: Yes: Soft Genitourinary: Yes: Other (suprapubic) Musculoskeletal: Yes: Other Extremities: Yes: Other Neurological: Yes: Other Labs: CBC, BMP 05/14/17 05:45 05/14/17 05:45 INR, PTT INR 1.28 (0.82-1.09) H 04/30/17 12:05 Assessment/Plan Acute Hypoxic Respiratory Failure Left Atelectasis Acute CVA UTI Septic Shock Acute Kidney Injury Suprapubic Catheter COPD DM dirrhoea plan continue current abx blood pressure not measurable rest as per icu continue supportive measures will see how patient does patient critical prognosis poor cc 40 min
[2017-05-14] MEDS ORDERED: PHENYLEPHRINE HCL 20,000 MCG in SODIUM CHLORIDE 248 ML IVPB SCH (15:30)
[2017-05-14] MEDS ORDERED: PHENYLEPHRINE HCL 10,000 MCG in DEXTROSE 5%-WATER - 499 ML IV SCH (15:30)
[2017-05-14] MEDS ORDERED: PHENYLEPHRINE HCL 10 MG/1 ML SINGLE DOSE VIAL ONE ×2 (15:34→15:37)
--- NOTE | 2017-05-14 15:57 | PN ---
Progress Note (short form) - Note Progress Note: Patient seen and examined in the ICU. Progressive worsening of his overall condition. Severe acidosis. Progressive MOF. Spoke to his significant other Cahrline about his condition. I explained that he is in refractory shock and would not likely survive despite all interventions. Charline asked about [employer]. I explained that unfortunately due to his unstable condition he would likely decompensate during [employer]. Charline expressed understanding. She confirmed that he should remain DNR/DNI. OBJECTIVE: Intake & Output 05/11/17 05/12/17 05/13/17 05/14/17 23:59 23:59 23:59 23:59 Intake Total 6942 4270 6260 5908 Output Total 325 250 60 20 Balance 6617 4020 6200 5888 Weight 292 lb 298 lb 14.4 oz 308 lb 5 oz 315 lb 9 oz Last Vital Signs Temp Pulse Resp BP Pulse Ox 99.4 F 82 28 H 58/34 99 05/14/17 14:00 05/14/17 15:08 05/14/17 15:08 05/14/17 15:08 05/14/17 10:44 Active Medications Acetaminophen (Tylenol -) 650 mg PO Q4H PRN PRN Reason: FEVER OR PAIN Last Admin: 05/10/17 18:01 Dose: 650 mg Aspirin (Asa -) 325 mg NGT DAILY [facility] Last Admin: 05/14/17 09:17 Dose: 325 mg Atorvastatin Calcium (Lipitor -) 40 mg PO HS [facility] Last Admin: 05/13/17 21:50 Dose: 40 mg Bacitracin/Polymyxin B Sulfate (Polysporin Ointment -) 1 applic TP BID [facility] Last Admin: 05/14/17 09:17 Dose: 1 applic Chlorhexidine Gluconate (Hibiclens For Decolonization -) 1 applic TP HS [facility] Last Admin: 05/13/17 21:50 Dose: 1 applic Fenofibric Acid (Trilipix -) 135 mg PO DAILY [facility] Last Admin: 05/14/17 11:42 Dose: 135 mg Glipizide (Glucotrol -) 5 mg PO DAILY@0700 [facility] Last Admin: 05/14/17 06:06 Dose: 5 mg Heparin Sodium (Porcine) (Heparin -) 5,000 unit SQ TID [facility] Last Admin: 05/14/17 14:33 Dose: 5,000 unit Metronidazole (Flagyl 500mg Premixed Ivpb -) 100 mls @ 100 mls/hr IVPB Q8H-IV [facility] Last Admin: 05/14/17 09:17 Dose: 100 mls/hr Pantoprazole Sodium (Protonix 40mg Ivpb (Pre-Docked)) 100 mls @ 200 mls/hr IVPB DAILY [facility] Last Admin: 05/14/17 09:18 Dose: 200 mls/hr Propofol (Diprivan -) 100 mls @ 3.599 mls/hr IVPB TITR [facility]; 5 MCG/KG/MIN PRN Reason: Protocol Last Admin: 05/14/17 14:34 Dose: 17.996 mls/hr Meropenem 1 gm/ Dextrose 100 mls @ 200 mls/hr IVPB Q8H-IV [facility] Last Admin: 05/14/17 09:17 Dose: 200 mls/hr Norepinephrine Bitartrate 8, (000 mcg/ Dextrose) 508 mls @ 19.05 mls/hr IV TITR [facility]; 5 MCG/MIN PRN Reason: Protocol Last Admin: 05/14/17 08:36 Dose: 114.3 mls/hr Phenylephrine HCl 10,000 mcg/ (Dextrose) 500 mls @ 75 mls/hr IV TITR [facility]; 25 MCG/MIN PRN Reason: Protocol Last Admin: 05/14/17 15:43 Dose: 75 mls/hr Insulin Aspart (Novolog Vial Sliding Scale -) 1 vial SQ ACHS [facility] PRN Reason: Protocol Last Admin: 05/14/17 11:43 Dose: 10 units Insulin Detemir (Levemir Vial) 10 units SQ HS [facility] Metoprolol Tartrate (Lopressor -) 25 mg PO BID [facility] Last Admin: 05/14/17 09:17 Dose: Not Given Metoprolol Tartrate (Lopressor Injection -) 5 mg IVPUSH Q4H PRN PRN Reason: HR >100 Last Admin: 05/04/17 09:30 Dose: 5 mg Tamsulosin HCl (Flomax -) 0.4 mg PO DAILY@0830 [facility] Last Admin: 05/14/17 08:42 Dose: Not Given Vancomycin HCl (Vancomycin Oral Solution) 125 mg PO Q6HPO [facility] Last Admin: 05/14/17 12:31 Dose: 125 mg Gen: intubated, non-responsive Heart: RRR Lung: coarse bilateral rhonchi Abd: soft, nontender Ext: + edema Laboratory Results - last 24 hr 05/09/17 05/09/17 05/13/17 12:19 12:26 20:30 WBC RBC Hgb Hct MCV MCH MCHC RDW Plt Count MPV Total Counted Neutrophils % Neutrophils % (Manual) Band Neuts % (Manual) Lymphocytes % Lymphocytes % (Manual) Monocytes % (Manual) Platelet Estimate Platelet Comment Puncture Site ABG pH ABG pCO2 at Pt Temp ABG pO2 at Pt Temp ABG HCO3 ABG O2 Sat (Measured) ABG O2 Content ABG Base Excess Foster Test O2 Delivery Device Oxygen Flow Rate Vent Mode Vent Rate Mechanical Rate PEEP Pressure Support Vent Sodium 135 L Potassium 3.0 L Chloride 102 Carbon Dioxide 16 L Anion Gap 17 H BUN 83 H Creatinine 6.4 H Creat Clearance w eGFR POC Glucometer > 400 > 400 Random Glucose 234 H Calcium 7.8 L Phosphorus Magnesium Total Bilirubin AST ALT Alkaline Phosphatase Total Protein Albumin 05/13/17 05/14/17 05/14/17 20:35 05:45 05:45 WBC 21.5 H RBC 3.28 L Hgb 9.0 L Hct 27.6 L MCV 84.1 MCH 27.5 MCHC 32.7 RDW 16.9 H Plt Count 334 MPV 9.0 Total Counted 100 Neutrophils % Y Neutrophils % (Manual) 80 Band Neuts % (Manual) 5 D Lymphocytes % Y Lymphocytes % (Manual) 3 L D Monocytes % (Manual) 12 H D Platelet Estimate Adequate Platelet Comment No clotting detected Puncture Site ABG pH ABG pCO2 at Pt Temp ABG pO2 at Pt Temp ABG HCO3 ABG O2 Sat (Measured) ABG O2 Content ABG Base Excess Foster Test O2 Delivery Device Oxygen Flow Rate Vent Mode Vent Rate Mechanical Rate PEEP Pressure Support Vent Sodium 133 L Potassium 3.0 L Chloride 100 Carbon Dioxide 14 L Anion Gap 19 H BUN 86 H Creatinine 6.6 H Creat Clearance w eGFR 8.39 POC Glucometer [phone] Random Glucose 262 H Calcium 7.5 L Phosphorus 8.5 H D Magnesium 2.3 Total Bilirubin 0.4 AST 23 ALT 13 Alkaline Phosphatase 65 Total Protein 4.6 L Albumin 1.3 L 05/14/17 05/14/17 05/14/17 06:18 07:35 11:42 WBC RBC Hgb Hct MCV MCH MCHC RDW Plt Count MPV Total Counted Neutrophils % Neutrophils % (Manual) Band Neuts % (Manual) Lymphocytes % Lymphocytes % (Manual) Monocytes % (Manual) Platelet Estimate Platelet Comment Puncture Site Right radial ABG pH 7.11 L* ABG pCO2 at Pt Temp 41.2 ABG pO2 at Pt Temp 79.8 L ABG HCO3 12.5 L* ABG O2 Sat (Measured) 94.3 ABG O2 Content 12.0 L ABG Base Excess -15.8 L* Foster Test Positive O2 Delivery Device Mec.vent Oxygen Flow Rate 50% Vent Mode A/c Vent Rate 14 Mechanical Rate Esprit PEEP 8.0 Pressure Support Vent 550 Sodium Potassium Chloride Carbon Dioxide Anion Gap BUN Creatinine Creat Clearance w eGFR POC Glucometer 307.10144 [phone] Random Glucose Calcium Phosphorus Magnesium Total Bilirubin AST ALT Alkaline Phosphatase Total Protein Albumin 05/14/17 15:18 WBC RBC Hgb Hct MCV MCH MCHC RDW Plt Count MPV Total Counted Neutrophils % Neutrophils % (Manual) Band Neuts % (Manual) Lymphocytes % Lymphocytes % (Manual) Monocytes % (Manual) Platelet Estimate Platelet Comment Puncture Site ABG pH ABG pCO2 at Pt Temp ABG pO2 at Pt Temp ABG HCO3 ABG O2 Sat (Measured) ABG O2 Content ABG Base Excess Foster Test O2 Delivery Device Oxygen Flow Rate Vent Mode Vent Rate Mechanical Rate PEEP Pressure Support Vent Sodium Potassium Chloride Carbon Dioxide Anion Gap BUN Creatinine Creat Clearance w eGFR POC Glucometer [phone] Random Glucose Calcium Phosphorus Magnesium Total Bilirubin AST ALT Alkaline Phosphatase Total Protein Albumin ASSESSMENT AND PLAN: Acute Hypoxic Respiratory Failure Left Atelectasis improving Acute CVA UTI Septic Shock Acute Kidney Injury Suprapubic Catheter COPD DM Atrial Flutter - continue antibiotics per ID - Titrate levophed gtt to maintain MAP >65 - IVF keep CVP 8-12 - Add Phenylephrine - renal followup noted -> too unstable for [employer] - Taper fiO2, PEEP to keep SpO2 >90% - Enteral feeds - Free water - Grave prognosis for meaningful recovery Dr Hernandez Critical care time spent in reviewing chart, evaluating patient and formulating plan 35 min
--- NOTE | 2017-05-14 16:12 | PN ---
Progress Note, Physician - Current Medication List Current Medications: Active Medications Acetaminophen (Tylenol -) 650 mg PO Q4H PRN PRN Reason: FEVER OR PAIN Last Admin: 05/10/17 18:01 Dose: 650 mg Aspirin (Asa -) 325 mg NGT DAILY [facility] Last Admin: 05/14/17 09:17 Dose: 325 mg Atorvastatin Calcium (Lipitor -) 40 mg PO HS [facility] Last Admin: 05/13/17 21:50 Dose: 40 mg Bacitracin/Polymyxin B Sulfate (Polysporin Ointment -) 1 applic TP BID [facility] Last Admin: 05/14/17 09:17 Dose: 1 applic Chlorhexidine Gluconate (Hibiclens For Decolonization -) 1 applic TP HS [facility] Last Admin: 05/13/17 21:50 Dose: 1 applic Fenofibric Acid (Trilipix -) 135 mg PO DAILY [facility] Last Admin: 05/14/17 11:42 Dose: 135 mg Glipizide (Glucotrol -) 5 mg PO DAILY@0700 [facility] Last Admin: 05/14/17 06:06 Dose: 5 mg Heparin Sodium (Porcine) (Heparin -) 5,000 unit SQ TID [facility] Last Admin: 05/14/17 14:33 Dose: 5,000 unit Metronidazole (Flagyl 500mg Premixed Ivpb -) 100 mls @ 100 mls/hr IVPB Q8H-IV [facility] Last Admin: 05/14/17 09:17 Dose: 100 mls/hr Pantoprazole Sodium (Protonix 40mg Ivpb (Pre-Docked)) 100 mls @ 200 mls/hr IVPB DAILY [facility] Last Admin: 05/14/17 09:18 Dose: 200 mls/hr Propofol (Diprivan -) 100 mls @ 3.599 mls/hr IVPB TITR [facility]; 5 MCG/KG/MIN PRN Reason: Protocol Last Admin: 05/14/17 14:34 Dose: 17.996 mls/hr Meropenem 1 gm/ Dextrose 100 mls @ 200 mls/hr IVPB Q8H-[facility] Last Admin: 05/14/17 09:17 Dose: 200 mls/hr Norepinephrine Bitartrate 8, (000 mcg/ Dextrose) 508 mls @ 19.05 mls/hr IV TITR [facility]; 5 MCG/MIN PRN Reason: Protocol Last Admin: 05/14/17 08:36 Dose: 114.3 mls/hr Phenylephrine HCl 10,000 mcg/ (Dextrose) 500 mls @ 75 mls/hr IV TITR [facility]; 25 MCG/MIN PRN Reason: Protocol Last Admin: 05/14/17 15:43 Dose: 75 mls/hr Insulin Aspart (Novolog Vial Sliding Scale -) 1 vial SQ ACHS [facility] PRN Reason: Protocol Last Admin: 05/14/17 11:43 Dose: 10 units Insulin Detemir (Levemir Vial) 10 units SQ HS [facility] Metoprolol Tartrate (Lopressor -) 25 mg PO BID [facility] Last Admin: 05/14/17 09:17 Dose: Not Given Metoprolol Tartrate (Lopressor Injection -) 5 mg IVPUSH Q4H PRN PRN Reason: HR >100 Last Admin: 05/04/17 09:30 Dose: 5 mg Tamsulosin HCl (Flomax -) 0.4 mg PO DAILY@0830 [facility] Last Admin: 05/14/17 08:42 Dose: Not Given Vancomycin HCl (Vancomycin Oral Solution) 125 mg PO Q6HPO [facility] Last Admin: 05/14/17 12:31 Dose: 125 mg - Objective Vital Signs: Vital Signs Temperature 99.4 F 05/14/17 14:00 Pulse Rate 82 05/14/17 15:08 Respiratory Rate 28 H 05/14/17 15:08 Blood Pressure 58/34 05/14/17 15:08 O2 Sat by Pulse Oximetry (%) 99 05/14/17 10:44 Labs: CBC, BMP 05/14/17 05:45 05/14/17 05:45 INR, PTT INR 1.28 (0.82-1.09) H 04/30/17 12:05 Assessment/Plan pt exspired 348 pm spoke to ashlyn graves and left paloma w nephew to call me back
--- NOTE | 2017-05-14 16:56 | HOSP ---
Subjective - Review of Symptoms Events since last encounter: I was called to see patient for unresponsiveness. On exam, the patient did not respond to verbal or physical stimuli and no spontaneous movement was observed. Absent heart and breath sounds for more than 1 minute. Absent peripheral pulses. Pupils were fixed and dilated, corneal reflex was absent. Patient was pronounced at 15:51. PCP Dr. Garcia was notified. Next of kin, Charline Berg, was notified via telephone. Physical Examination Vital Signs: Vital Signs Temperature 99.4 F 05/14/17 14:00 Pulse Rate 82 05/14/17 15:08 Respiratory Rate 28 H 05/14/17 15:08 Blood Pressure 58/34 05/14/17 15:08 O2 Sat by Pulse Oximetry (%) 99 05/14/17 10:44 Labs: CBC, BMP 05/14/17 05:45 05/14/17 05:45 Visit type - Emergency Visit Emergency Visit: No - New Patient This patient is new to me today: No - Critical Care Critical Care patient: Yes Total Critical Care Time (in minutes): 15
[2017-05-14] MEDS ORDERED: INSULIN DETEMIR 100 UNITS/ML MDV SQ SCH (22:00)
== END 2017-05-14 18:12 | disposition expired | DRG 870 ==
LOC: JER 11:31 → JERBED 14:22 → JICU 16:00
PROVIDERS: ADMIT Family Medicine; ATTEND Family Medicine
PROC: 3E0G76Z Introduction of Nutritional Substance into Upper GI, Via Natural or Artificial Opening (ICD-10-PCS; 2017-05-05)
PROC: 0BH17EZ Insertion of Endotracheal Airway into Trachea, Via Natural or Artificial Opening (ICD-10-PCS; principal; 2017-05-06)
PROC: 5A1955Z Respiratory Ventilation, Greater than 96 Consecutive Hours (ICD-10-PCS; 2017-05-06)
PROC: 0BH17EZ Insertion of Endotracheal Airway into Trachea, Via Natural or Artificial Opening (ICD-10-PCS; 2017-05-07)
PROC: 05HN33Z Insertion of Infusion Device into Left Internal Jugular Vein, Percutaneous Approach (ICD-10-PCS; 2017-05-07)
DX: A41.9 Sepsis, unspecified organism (principal); I63.512 Cerebral infarction due to unspecified occlusion or stenosis of left middle cerebral artery; J96.01 Acute respiratory failure with hypoxia; J69.0 Pneumonitis due to inhalation of food and vomit; R65.21 Severe sepsis with septic shock; N39.0 Urinary tract infection, site not specified; N17.9 Acute kidney failure, unspecified; G81.91 Hemiplegia, unspecified affecting right dominant side; A04.7 Enterocolitis due to Clostridium difficile; E87.0 Hyperosmolality and hypernatremia; N13.8 Other obstructive and reflux uropathy; J98.11 Atelectasis; I48.92 Unspecified atrial flutter; E87.6 Hypokalemia; E86.0 Dehydration; K76.0 Fatty (change of) liver, not elsewhere classified; N31.8 Other neuromuscular dysfunction of bladder; E11.65 Type 2 diabetes mellitus with hyperglycemia; Z89.511 Acquired absence of right leg below knee; F17.210 Nicotine dependence, cigarettes, uncomplicated; N13.9 Obstructive and reflux uropathy, unspecified; E83.42 Hypomagnesemia; J44.9 Chronic obstructive pulmonary disease, unspecified; R19.7 Diarrhea, unspecified; R29.711 NIHSS score 11; I69.320 Aphasia following cerebral infarction; R50.9 Fever, unspecified; D72.828 Other elevated white blood cell count; R00.0 Tachycardia, unspecified; A41.89 Other specified sepsis; Z66 Do not resuscitate; Z92.82 Status post administration of tPA (rtPA) in a different facility within the last 24 hours prior to admission to current facility; L89.322 Pressure ulcer of left buttock, stage 2; L89.312 Pressure ulcer of right buttock, stage 2; Z68.36 Body mass index [BMI] 36.0-36.9, adult
CPT/HCPCS: 31500; 36415; 36600; 70450-TC; 70544-TC; 70547-TC; 70551-TC; 71010-TC; 74000-TC; 76775-TC; 80048; 80053; 80061; 81003; 81015; 82272; 82803; 83036; 83605; 83690; 83721; 83735; 83930; 83935; 84100; 84132; 84484; 85025; 85027; 85610; 85730; 86850; 86900; 86901; 87040; 87070; 87077; 87086; 87177; 87186; 87205; 87209; 87324; 87449; 93005; 93010; 93306-TC; 93880-TC; 94002; 94640; 94660; 97161-GP; 99285-25; J1644; J2997